=== PATIENT | female | born 1950 | race Caucasian/White ===

== ENCOUNTER → 2018-02-04 10:24 | Outpatient (CLI) | payer MEDICARE, MEDICAID ==
[2018-02-04 11:36] LABS: CREATININE - SERUM 0.8 mg/dL (0.6-1.3)
== END | disposition home or self-care (01) ==
LOC: D.CT 02-02 10:30
PROVIDERS: Urology
DX: C64.9 Malignant neoplasm of unspecified kidney, except renal pelvis (principal)

== ENCOUNTER → 2018-02-10 09:33 | Outpatient (CLI) | payer MEDICARE, MEDICAID | END | disposition home or self-care (01) | LOC: D.NM 09:33 | DX: C64.9 Malignant neoplasm of unspecified kidney, except renal pelvis (principal) ==

== ENCOUNTER 2018-04-13 08:41 | Outpatient (CLI) | payer MEDICARE, MEDICAID ==
[~2018-04-13] VITALS: Ht 162.6 cm; Wt 75.0 kg
[2018-04-13 09:17] LABS: CALC OSMOLALITY 282 mosm/kg (275-300); CALCIUM 8.9 mg/dL (8.5-10.1); CARBON DIOXIDE 34.4 mmol/L (21.0-32.0); CHLORIDE - SERUM 102 mmol/L (98-107); CREATININE - SERUM 0.8 mg/dL (0.6-1.3); GLUCOSE 100 mg/dL (74-106); POTASSIUM - SERUM 4.6 mmol/L (3.5-5.1); SODIUM 141 mmol/L (136-145); UREA NITROGEN 17 mg/dL (7-18); eGFR NON AFRICAN AMERICAN 76 mL/min (90-120)
[2018-04-13 09:26] LABS: APTT 28.5 SECONDS (22.8-39.4); INR 1.06 (0.85-1.17); PROTIME 13.4 SECONDS (11.6-15.0)
[2018-04-13] MEDS ORDERED: MULTI-DAY VITAM1 TAB PO (09:42)
[2018-04-13] MEDS ORDERED: BACLOFEN10 MG PO (09:42)
[2018-04-13] MEDS ORDERED: COZAAR25 MG PO (09:43)
[2018-04-13] MEDS ORDERED: HEALTHYLAX17 GM PO (09:43)
[2018-04-13] MEDS ORDERED: CYMBALTA20 MG PO (09:43)
[2018-04-13] MEDS ORDERED: TROSPIUM CHLORI20 MG PO (09:44)
[2018-04-13] MEDS ORDERED: DETROL LA4 MG PO (09:44)
[2018-04-13 09:50] LABS: BASOPHILS 0.1 % (0-2); EOSINOPHILS 1.6 % (0-7); HEMATOCRIT 43.7 % (36.0-48.0); HEMOGLOBIN 13.9 g/dL (12-16); IMMATURE GRANULOCYTES 0.3 % (0-5); LYMPHOCYTES 22.5 % (15-50); MCHC 31.8 g/dL (31.0-37.0); MCV 97.3 fL (80.0-100.0); MEAN PLATELET VOLUME 10.4 fL (7.4-10.4); MONOCYTES 4.9 % (2-11); NEUTROPHILS 70.6 % (40-80); PLATELET COUNT 252 10x3/uL (130-400); RBC 4.49 10x6/uL (4.00-5.40); RDW 13.2 % (11.5-14.5)
[2018-04-13 10:25] VITALS: Ht 162.6 cm; Wt 75.0 kg
== END 2018-04-13 14:00 | disposition home or self-care (01) ==
LOC: D.SP 08:41 → D.RAD 09:00 → D.SP 11:00
PROVIDERS: Specialist
DX: N28.89 Other specified disorders of kidney and ureter (principal); Z53.8 Procedure and treatment not carried out for other reasons; Z01.812 Encounter for preprocedural laboratory examination

== ENCOUNTER 2018-04-16 09:37 | Outpatient (CLI) | payer MEDICARE, MEDICAID ==
[~2018-04-16] VITALS: Ht 162.6 cm; Wt 75.0 kg
[~2018-04-16 09:37] MED LIST: BACLOFEN10 MG PO; COZAAR25 MG PO; CYMBALTA20 MG PO; DETROL LA4 MG PO; HEALTHYLAX17 GM PO; MULTI-DAY VITAM1 TAB PO; TROSPIUM CHLORI20 MG PO
[2018-04-16 10:21] LABS: BASOPHILS 0.3 % (0-2); EOSINOPHILS 2.6 % (0-7); HEMATOCRIT 43.2 % (36.0-48.0); HEMOGLOBIN 13.8 g/dL (12-16); IMMATURE GRANULOCYTES 0.3 % (0-5); LYMPHOCYTES 26.1 % (15-50); MCH 30.9 pg (26.0-34.0); MCHC 31.9 g/dL (31.0-37.0); MCV 96.6 fL (80.0-100.0); MEAN PLATELET VOLUME 10.2 fL (7.4-10.4); MONOCYTES 5.9 % (2-11); NEUTROPHILS 64.8 % (40-80); PLATELET COUNT 222 10x3/uL (130-400); RBC 4.47 10x6/uL (4.00-5.40); RDW 13.1 % (11.5-14.5)
[2018-04-16 10:30] LABS: CALC OSMOLALITY 278 mosm/kg (275-300); CARBON DIOXIDE 33.8 mmol/L (21.0-32.0); CHLORIDE - SERUM 103 mmol/L (98-107); CREATININE - SERUM 0.7 mg/dL (0.6-1.3); GLUCOSE 100 mg/dL (74-106); POTASSIUM - SERUM 4.8 mmol/L (3.5-5.1); SODIUM 139 mmol/L (136-145); UREA NITROGEN 14 mg/dL (7-18); eGFR NON AFRICAN AMERICAN 89 mL/min (90-120)
[2018-04-16 10:54] VITALS: Ht 162.6 cm; Wt 75.0 kg
[2018-04-16 11:08] LABS: APTT 27.8 SECONDS (22.8-39.4); PROTIME 12.8 SECONDS (11.6-15.0)
== END 2018-04-16 18:00 | disposition home or self-care (01) ==
LOC: D.SP 09:37 → D.RAD 12:00 → D.SP 13:00
PROVIDERS: Specialist
DX: N28.89 Other specified disorders of kidney and ureter (principal); Z01.812 Encounter for preprocedural laboratory examination

== ENCOUNTER → 2018-05-07 16:39 | Outpatient (CLI) | payer MEDICARE, MEDICAID ==
[2018-04-16 10:54] VITALS: BMI 28.4
== END | disposition home or self-care (01) ==
LOC: D.LABREF 16:39
DX: N39.0 Urinary tract infection, site not specified (principal); R31.9 Hematuria, unspecified

== ENCOUNTER 2018-06-11 18:26 | Inpatient (IN) | payer MEDICARE, MEDICAID ==
[~2018-06-11] VITALS: Ht 162.6 cm; Wt 73.1 kg
--- NOTE | ~2018-06-11 | MORECARE ---
CASE MANAGEMENT DISCHARGE SUMMARY PATIENT: DIEGO ESCOBAR UNIT: [id number] ADM DATE: 06/11/18 AGE: 68 : 51 SEX: F ROOM/BED: D.2301 AUTHOR: BALBIR GREWAL PHYSICIAN: REFERRING PHYSICIAN: MARIZOL RILEY MD DATE OF SERVICE: 06/13/18 Discharge Plan Patient Name: DIEGO ESCOBAR Facility: [facility]:[place] : 1950 Planned Disposition: Anticipated Discharge Date: Discharge Date: Expected LOS: Initial Reviewer: [email or web address] Initial Review Date: 06/13/2018 Generated: 06/13/18 11:54 am Comments DCP- Discharge Planning Updated by [email or web address]: Akilah Garcia on 06/13/18 9:[address] Patient Name: DIEGO ESCOBAR Admission Status: ER Accout number: [id number] Admission Date: 06-11-2018 : 1950 Admission Diagnosis: Attending: MARIZOL RILEY Current LOS: 2 Anticipated DC Date: Planned Disposition: Primary Insurance: [facility] MEDICARE SOLUTIONS Discharge Planning Comments: CM MET WITH PATIENT TODAYOVER THE PHONE. SHE IS IN AN ISOLATION ROOM DUE TO TB. SHE STATES SHE LIVES AT HOME ALONE BUT USES HOME HEALTH AND HAS NEIGHBORS AND FAMILY THAT HELP HER. STATES SHE THIN[facility] IS [facility] AND GAVE THE PHONE NUMBER OF [phone]. STATES HER PLAN IS TO BE DC'D TO HOME TODAY OR TOMORROW. CM WILL FOLLOW AND ASSIST NEEDED WITH DC PLANNING/ NEEDS. Senior Advisory: Akilah Garcia DCPIA - Discharge Planning Initial Assessment Updated by [email or web address]: Akilah Garcia on 06/13/18 10:28 am * Is the patient Alert and Oriented? Yes * PCP FARO * Preadmission Environment Home Alone * ADLs Partial Dependent * Partial ADLs (Assistance needed) Bathing * Equipment Wheelchair * Community resources currently utilized Home Health * Please name any agencies selected above. [facility] * Can the patient safely return to the preadmission environment? Yes * Has this patient been hospitalized within the prior 30 days at any hospital? No Last DP export: 06/13/18 9:30 Patient Name: DIEGO ESCOBAR Page 11382 at 1054 All edits/amendments must be made on the electronic document DICTATION DATE: 06/13/181053 PROPERTY ECONOMIST: NERI 06/13/18 105 RPT#: [id number] DC DATE: STATUS: ADM IN [facility] [address] [place] [address] END OF REPORT
--- NOTE | ~2018-06-11 | MORECARE ---
CASE MANAGEMENT DISCHARGE SUMMARY PATIENT: DIEGO ESCOBAR UNIT: [id number] ADM DATE: 06/11/18 AGE: 68 : 51 SEX: F ROOM/BED: D.2301 AUTHOR: BALBIR GREWAL PHYSICIAN: REFERRING PHYSICIAN: MARIZOL RILEY MD DATE OF SERVICE: 06/13/18 Discharge Plan Patient Name: DIEGO ESCOBAR [facility] [facility] 1950 Planned Disposition: Anticipated Discharge Date: Discharge Date: Expected LOS: Initial Reviewer: [email or web address] Initial Review Date: 06/13/2018 Generated: 06/13/18 11:17 am Patient Name: DIEGO ESCOBAR Page 77692 at 1017 All edits/amendments must be made on the electronic document DICTATION DATE: 06/13/18 1016 SALARY AND WAGE ADMINISTRATOR: NERI 06/13/18 1016 RPT#: [id number] DC DATE: STATUS: ADM IN [facility] [address] [place] [address] END OF REPORT
--- NOTE | ~2018-06-11 | MORECARE ---
CASE MANAGEMENT DISCHARGE SUMMARY PATIENT: DIEGO ESCOBAR UNIT: [id number] ADM DATE: 06/11/18 AGE: 68 : 51 SEX: F ROOM/BED: D.2301 AUTHOR: BALBIR GREWAL PHYSICIAN: REFERRING PHYSICIAN: MARIZOL RILEY MD DATE OF SERVICE: 06/13/18 Discharge Plan Patient Name: DIEGO ESCOBAR [facility] : 1950 Planned Disposition: Anticipated Discharge Date: Discharge Date: Expected LOS: Initial Reviewer: [email or web address] Initial Review Date: 06/13/2018 Generated: 06/13/18 11:30 am DCPIA - Discharge Planning Initial Assessment Updated by [email or web address]: Akilah Garcia on 06/13/18 10:28 am * Is the patient Alert and Oriented? Yes * PCP FARO * Preadmission Environment Home Alone * ADLs Partial Dependent * Partial ADLs (Assistance needed) Bathing * Equipment Wheelchair * Community resources currently utilized Home Health * Please name any agencies selected above. [facility] * Can the patient safely return to the preadmission environment? Yes * Has this patient been hospitalized within the prior 30 days at any hospital? No Last DP export: 06/13/18 9:17 Patient Name: DIEGO ESCOBAR Page 06636 at 1030 All edits/amendments must be made on the electronic document DICTATION DATE: 06/13/18 1029 CAKE PUNCHER: NERI 06/13/18 1029 RPT#: [id number] DC DATE: STATUS: ADM IN [facility] [address] [place] [address] END OF REPORT
--- NOTE | ~2018-06-11 | HEMODYNAMI ---
PATIENT:DIEGO ESCOBAR MEDICAL RECORD: [id number] : 52 LOCATION:D.CAT ADMISSION DATE: 06/11/18 Generatedon:06/11/201820:21 Patient name: DIEGO ESCOBAR Patient #: [id number] SSN: : 1950 Date of study: 06/11/2018 Page: Of Hemodynamic Procedure Report Patient Data Patient Demographics Procedure consent was obtained First Name: DIEGO Gender: Female Last Name: LUZ : 1950 Middle Initial: J Age: 68 year(s) Patient #: [id number] Race: Unknown Additional ID: [id number] Contact details [address]: [address] [place] [address] [place] [address] State: [place] City: [place] Zip code: [address] Admission Admission Data Admission Date: 06/11/2018 Admission Time: 18:26 Admit Source: Emergency department Procedure Procedure Types Cath Procedure Diagnostic Procedure LHC LHC w/Coronaries PCI Procedure Coronary Stent Coronary Stent Additional AMI/SVG/FLUX MIXER PTCA or Stent AMI-BMS/VALERIE Initial Procedure Description Procedure Date Procedure Date: 06/11/2018 Procedure Start Time: 19:45 Procedure End Time: 20:20 Procedure Staff Name Function Jose Irvin MD Performing Physician Joe Krause RT Monitor Ankit Dean RN Nurse Chica Garner RT Scrub Procedure Data Cath Procedure Fluoroscopy Diagnostic fluoroscopy Total fluoroscopy Time: 8.1 time: 8.1 min min Diagnostic fluoroscopy Total fluoroscopy dose: dose: 1534 mGy 1534 mGy Contrast Material Contrast Material Type Amount (ml) Isovue 300 156 Entry Location Entry Primary Successful Side Size Upsize Upsize Entry Closure Succes sful Closure Location (Fr) 1 (Fr) 2 (Fr) Remarks Device Remarks Femoral Right 6 Fr Exoseal artery Short Estimated blood loss: 10 ml Diagnostic catheters Device Type Used For End Catheter Placement MULTIPACK JL 4.0 5Fr Procedure catheter MULTIPACK 3DRC 5Fr Procedure catheter MULTIPACK Pigtail 5 Fr Procedure catheter Procedure Complications No complications Procedure Medications Medication Administration Route Dosage Oxygen etCO2 Nasal cannula 2 l/min 0.9% NaCl I.V. 100 ml/hr Heparin Flush Bag added to field 2 bags (1000units/500ml NS) Fentanyl I.V. 50 mcg Versed I.V. 1 mg Heparin Bolus I.V. 3000 units Versed I.V. 1 mg Fentanyl I.V. 50 mcg Hemodynamics Rest Heart Rate: 98 (bpm) Pressure Samples Time Site Value (mmHg) Purpose Heart Use Rate(bpm) 19:51 LV 99/-2,17 EDP 104 19:52 AO 93/57(72) Pullback 97 19:52 LV 93/19,23 Pullback 97 20:01 AO 92/60(75) Snapshot 91 Gradients Valve Time Site 1 Site 2 Mean SEP/DFP Peak To Heart Use (mmHg) (sec/min) Peak Rate (mmHg) (bpm) Aortic 19:52 LV AO 1 6 0 97 93/19,23 93/57(72) Calculations Valve P-P Mean Valve Index Valve Source Name Gradient Area Flow (cm2) Aortic 0 1 0 1 Snapshots Pre Cath Intra NCS Post Cath Vital Signs Time Heart Resp SPO2 etCO2 NIBP Rhythm Pain Sedation Rate (ipm) (%) (mmHg) (mmHg) Status Level (bpm) 19:40:51 83 16 100 0 101/62(83) NSR 0 (11) 10(A) , No pain 19:44:56 79 16 99 0 97/66(77) NSR 0 (11) 10(A) , No pain 19:49:08 100 24 100 0 103/64(83) NSR 0 (11) 9(A) , No pain 19:53:14 103 23 100 0 97/65(80) NSR 0 (11) 9(A) , No pain 19:57:18 100 15 100 0 102/65(88) NSR 0 (11) 9(A) , No pain 20:01:24 96 22 100 0 103/68(83) NSR 0 (11) 9(A) , No pain 20:05:27 96 21 100 0 104/69(89) NSR 0 (11) 9(A) , No pain 20:09:33 99 13 100 0 103/65(86) NSR 0 (11) 9(A) , No pain 20:13:41 92 24 100 0 103/58(76) NSR 0 (11) 9(A) , No pain 20:17:47 93 23 100 0 98/65(78) NSR 0 (11) 9(A) , No pain Medications Time Medication Route Dose Verified Delivered Reason Notes Effe ctiveness by by 19:40:40 Oxygen etCO2 2 Jose Ankit used for Nasal l/min Albaro Dean RN procedure cannula MD 19:40:49 0.9% NaCl I.V. 100 Jose Ankit Per ml/hr Albaro Dean RN physician 19:41:01 Heparin Flush added 2 Jose Ankit used for Bag to bags Albaro Dean RN procedure (1000units/500ml field NS) 19:45:15 Fentanyl I.V. 50 Jose Ankit for mcg Albaro Dean RN sedation 19:45:21 Versed I.V. 1 mg Jose Ankit for Albaro Dean RN sedation 19:58:37 Heparin Bolus I.V. 3000 Jose Ankit Per units Albaro Dean RN physician 20:01:29 Fentanyl I.V. 50 Jose Ankit for mcg Albaro Dean RN sedation 20:08:05 Versed I.V. 1 mg Jose Ankit for Albaro Dean RN sedation Procedure Log Time Note 19:15:19 Ankit Dean RN sent for patient. Start room use. 19:17:31 Diagnostic Cath status Emergency 19:17:33 Time tracking: Call back (After hours or weekends) 19:17:38 Plan of Care:Hemodynamics will remain stable., Cardiac rhythm will remain stable., Comfort level will be maintained., Respiratory function will remain adequate., Patient/ family verbilizes understanding of procedure., Procedure tolerated without complication., Recovers from procedure without complications.. 19:17:42 Admit Source: Emergency department 19:34:15 Use device set Radial Dx or PCI 19:34:18 Use device set NORRED PCI 19:34:30 Patient received from ED to CCL 1 Alert and oriented. Tansferred to table in Supine position. 19:34:32 Warm blankets applied, and shahriar hugger turned on for patient comfort. 19:34:32 Correct patient and procedure confirmed by team. 19:34:34 Signed procedure consent form obtained from patient. 19:34:35 ECG and BP/O2 sat monitors applied to patient. 19:39:47 Vital chart was started 19:40:40 Oxygen 2 l/min etCO2 Nasal cannula was administered by Ankit Dean RN; used for procedure; 19:40:49 0.9% NaCl 100 ml/hr I.V. was administered by Ankit Dean RN; Per physician; 19:41:01 Heparin Flush Bag (1000units/500ml NS) 2 bags added to field was administered by Ankit Dean RN; used for procedure; 19:41:28 Rhythm: sinus rhythm 19:41:29 Full Disclosure recording started 19:41:35 H&P Date Dictated: 06/11/2018 Emergent; H&P N/A. 19:41:37 Pre-procedure instructions explained to patient. 19:41:37 Pre-op teaching completed and patient verbalized understanding. 19:41:39 Family in waiting room. 19:41:40 Patient NPO since Midnight. 19:41:42 Is the patient allergic to Iodine/contrast media? No. 19:41:44 Is patient on blood thinner?Yes 19:41:47 ACC The patient was administered the following blood thiners within the last 24 hours: ACCBrilinta 19:41:52 Patient diabetic? No. 19:41:55 Previous problem with sedation/anesthesia? No ? 19:41:56 Snore? Yes 19:41:58 Sleep apnea? No 19:41:59 Deviated septum? No 19:42:00 Opens mouth fully? Yes 19:42:01 Sticks out tongue? Yes 19:42:07 Airway obstruction? Yes COPD 19:42:11 Dentures? No ? 19:42:14 Pre procedure: right dorsailis pedis pulse 1+ Palpable, but thready & weak; easily obliterated 19:42:17 Patient pain scale 0/10 ?. 19:42:22 IV patent on arrival in left forearm with 0.9% NaCl at [facility]. 19:42:24 Lab results completed and on chart. 19:42:28 Right groin area was prepped with chlora-prep and draped in sterile fashion 19:42:30 Alarms reviewed by R. N. 19:42:30 Sharps counted by scrub and verified by R.N. 19:42:31 --------ALL STOP TIME OUT------ 19:42:32 Final Timeout: patient, procedure, and site verified with staff and physician. All members of the team are in agreement. 19:42:34 Right groin site verified by team. 19:42:37 Physical assessment completed. ASA score P 2 - A patient with mild systemic disease as per Jose Irvin MD. 19:42:39 Sedation plan: IV Moderate Sedation Medication:Versed, Fentanyl 19:45:06 Procedure started. 19:45:09 Local anesthetic to right femoral artery with Lidocaine 2% by Jose Irvin MD.INITIAL ACCESS ONLY 19:45:12 Bag Decanter (2002) opened to sterile field. 19:45:13 ACIST Syringe (62749) opened to sterile field. 19:45:13 Medline Cath Pack ([id number]) opened to sterile field. 19:45:15 Fentanyl 50 mcg I.V. was administered by Ankit Dean RN; for sedation; 19:45:15 ACIST Hand Control (38379) opened to sterile field. 19:45:16 ACIST Manifold (33721) opened to sterile field. 19:45:17 Tegaderm 4 x 4 (1626W) opened to sterile field. 19:45:18 DIAGNOSTIC WIRE .035 260cm J wire (995569) opened to sterile field. 19:45:21 Versed 1 mg I.V. was administered by Ankit Dean RN; for sedation; 19:45:26 SHEATH Prelude 6Fr 0.035 (ULH-0T-54-035) opened to sterile field. 19:45:43 Access obtained with 4Fr micropunture. 19:45:51 A 6 Fr Short sheath was inserted into the Right Femoral artery 19:46:24 MICROPUNCTURE 4FR Cook (N94548) opened to sterile field. 19:46:28 COPILOT Valve Control (3288967) opened to sterile field. 19:46:28 INFLATOR Merit BasixCompak (SL5590) opened to sterile field. 19:46:38 Use device set Multipack Set 19:46:39 DIAGNOSTIC Multipack 5Fr catheter set (TS9281) opened to sterile field. 19:46:47 A MULTIPACK JL 4.0 5Fr catheter was advanced over the wire and used for Procedure. 19:46:57 BMW 190cm [place] 2 J wire ([id number]) opened to sterile field. 19:47:23 LCA angiography performed. 19:48:12 Catheter exchanged over wire. 19:48:21 A MULTIPACK 3DRC 5Fr catheter was advanced over the wire and used for Procedure. 19:49:57 GUIDE 6FR XBLAD 3.5 catheter ([id number]) opened to sterile field. 19:50:18 RCA angiography performed. 19:50:21 Catheter exchanged over wire. 19:51:06 Baseline sample Acquired. 19:51:44 A MULTIPACK Pigtail 5 Fr catheter was advanced over the wire and used for Procedure. 19:52:17 LV angiography performed. 19:52:19 LV gram done using FERRERA 19:52:25 EF : 25 % 19:52:27 LV hemodynamics recorded. 19:52:30 Injector settings: Ml/sec: 12, Volume: 8, 19:52:33 Catheter exchanged over wire. 19:52:46 6 Fr XBLAD 3.5 guide catheter was inserted over the wire 19:54:00 BMW wire advanced. 19:54:39 Wire advanced across lesion. 19:56:47 Inflate balloon Inflation number: 1 A EUPHORA 2.5 x 20 Balloon ([id number]) was prepped and advanced across the Mid CX, then inflated to 12 HERMAN for 0:10 (min:sec). 19:57:34 Balloon removed over the wire. 19:58:37 Heparin Bolus 3000 units I.V. was administered by Ankit Dean RN; Per physician; 19:59:32 Place stent Inflation Number: 2 A JANETT RX 3.0 x 26 stent ([id number]) was prepped and advanced across the Mid CX. The stent was deployed at 17 HERMAN for 0:10 (min:sec). 20:01:07 Stent catheter was removed intact over wire. 20:01:29 Fentanyl 50 mcg I.V. was administered by Ankit Dean RN; for sedation; 20:04:02 Inflate balloon Inflation number: 3 A EUPHORA 3.5 x 15 Balloon ([id number]) was prepped and advanced across the Mid CX, then inflated to 14 HERMAN for 0:10 (min:sec). 20:04:17 Balloon removed over the wire. 20:05:00 Wire redirected to LAD. 20:08:05 Versed 1 mg I.V. was administered by Ankit Dean RN; for sedation; 20:08:21 Place stent Inflation Number: 1 A JANETT RX 3.0 x 26 stent ([id number]) was prepped and advanced across the Mid LAD. The stent was deployed at 17 HERMAN for 0:10 (min:sec). 20:08:45 Stent catheter was removed intact over wire. 20:10:06 Wire removed. 20:10:08 Guide catheter removed. 20:10:28 GUIDE 6FR ART 3.5 catheter ([id number]) opened to sterile field. 20:10:43 6 Fr ART 3.5 guide catheter was inserted over the wire 20:12:07 BMW wire advanced. 20:14:40 Unable to cross lesion in RCA. 20:14:45 Wire removed. 20:14:45 Guide catheter removed. 20:14:48 EXOSEAL 6Fr (EX600) opened to sterile field. 20:15:09 Sheath removed intact; hemostasis achieved with Exoseal to the Right Femoral artery. 20:15:21 Procedure ended.(Physican Out) 20:16:15 Fluoroscopy time 08.10 minutes. 20:16:19 Fluoroscopy dose: 1534 mGy 20:16:19 Flurop Dose total: 1534 20:16:24 Contrast amount:Isovue 300 156ml. 20:16:26 Sharps counted by scrub and verified by R.N. 20:16:29 Insertion/operative site no bleeding no hematoma. 20:16:36 Post-op/insertion site Right Femoral artery dressed using a 4 x 4 and Tegaderm. 20:16:37 Post Procedure Pulses reassessed and unchanged 20:16:40 Post-procedure physical assessment completed. ASA score P 2 - A patient with mild systemic disease as per Jose Irvin MD. 20:16:43 Post procedure rhythm: unchanged. 20:16:47 Estimated blood loss: 10 ml 20:16:51 Post procedure instruction explained to patient.Patient verbalizes understanding. 20:16:52 Patient needs reinforcement of post procedure teaching. 20:17:16 Procedure type changed to Cath procedure, Diagnostic procedure, LHC, LHC w/Coronaries, PCI procedure, Coronary Stent, Coronary Stent Additional, AMI/SVG/FLUX MIXER PTCA or Stent, AMI-BMS/VALERIE Initial 20:17:21 Procedure Complication : No complications 20:17:53 Procedure and supply charges have been captured, reviewed, submitted and are correct. 20:20:25 Vital chart was stopped 20:20:26 See physician's report for complete and final results. 20:20:29 Report given to CVICU. 20:20:32 Patient transfered to CVICU with Bed. 20:20:35 Procedure ended. 20:20:35 Full Disclosure recording stopped 20:20:45 End room use (Document Last) Intervention Summary Intervention Notes Time ActionType Lesion and Equipment Used Action# Pressure Duration Attributes 19:56:47 Inflate Mid CX EUPHORA 2.5 x 1 12 00:10 balloon 20 Balloon ([id number]) 19:59:32 Place stent Mid CX JANETT RX 3.0 x 2 17 00:10 26 stent ([id number]) 20:04:02 Inflate Mid CX EUPHORA 3.5 x 3 14 00:10 balloon 15 Balloon ([id number]) 20:08:21 Place stent Mid LAD JANETT RX 3.0 x 1 17 00:10 26 stent ([id number]) Device Usage Item Name Manufacture Quantity Catalog Number Hospital Part Current Minimal Lot# / Charge Number Stock Stock Serial# Code Bag Decanter Microtek 1 2001S 246707 78902 656063 5 (2001S) Medical Inc. ACIST Syringe Acist 1 88127 588885 768950 571196 20 (25219) Medical Systems Inc Medline Cath Medline 1 [id number] 852385 04411 961482 5 Pack ([id number]) ACIST Hand Acist 1 85474 323714 833175 752836 5 Control (22906) Medical Systems Inc ACIST Manifold Acist 1 81805 380676 415346 366611 5 (61219) Medical Systems Inc Tegaderm 4 x 4 3M 1 1626W 612340 255139 486109 5 (1626W) DIAGNOSTIC WIRE [facility] [place] 1 529888 147162 589998 629448 30 .035 260cm J wire (032065) SHEATH Prelude Merit 1 ODV-1Z-29-35 588614 3279386 662752 5 6Fr 0.035 Medical (TEP-8H-97-035) MICROPUNCTURE [facility] 1 A85594 310012 894031 022435 5 4FR Cook (D67317) COPILOT Valve Pena 1 2402373 587745 198766 385349 5 Control Vascular (8115690) INFLATOR Merit Merit 1 DK1370 200402 751195 611150 15 [facility] (QR7504) DIAGNOSTIC Cardinal 1 CZ6535 344810 47047 059722 30 Multipack 5Fr Health catheter set (VS5780) MULTIPACK JL Cardinal 1 391407 5 4.0 5Fr Health catheter BMW 190cm Pena 1 [id number] 853174 35865 336042 5 [place] 2 J Vascular wire (7636469L) MULTIPACK 3DRC Cardinal 1 927756 5 5Fr catheter Health GUIDE 6FR XBLAD Cardinal 1 90024206 186335 112226 513462 10 3.5 catheter Health (63387201) MULTIPACK Cardinal 1 068679 5 Pigtail 5 Fr Health catheter EUPHORA 2.5 x Medtronic 1 [id number] 016738 641166 096809 5 [id number] 20 Balloon (RFI1783M) JANETT RX 3.0 x Medtronic 2 [id number] 839450 6475917 589347 5 [id number] 26 stent [id number] ([id number]) EUPHORA 3.5 x Medtronic 1 [id number] 483472 802993 240446 5 [id number] 15 Balloon ([id number]) GUIDE 6FR ART [place] 1 [id number] 324998 324029 114072 0 3.5 catheter Scientific ([id number]) EXOSEAL 6Fr Cardinal 1 EX600 766083 864027 097252 10 (EX600) Health Signature Audit [place] Stage Time Signature Unsigned Intra-Procedure 06/11/2018 Joe rKause 8:21:24 PM RT(R) Signatures Monitor : Joe Karuse RT Signature : Date : Time : [address] [place] [address]
--- NOTE | ~2018-06-11 | MORECARE ---
CASE MANAGEMENT DISCHARGE SUMMARY PATIENT: DIEGO ESCOBAR UNIT: [id number] ADM DATE: 06/11/18 AGE: 68 : 52 SEX: F ROOM/BED: D.2301 AUTHOR: BALBIR GREWAL PHYSICIAN: REFERRING PHYSICIAN: MARIZOL RILEY MD DATE OF SERVICE: 06/14/18 Discharge Plan Patient Name: DIEGO ESCOBAR Facility: [facility]:[place] : 1950 Planned Disposition: Home Anticipated Discharge Date: 06/13/18 Discharge Date: 06/13/2018 Expected LOS: 2 Initial Reviewer: [email or web address] Initial Review Date: 06/13/2018 Generated: 06/14/18 5:37 pm Comments DCP- Discharge Planning Updated by [email or web address]: Akilah Garcia on 06/13/18 11:[address] Patient Name: DIEGO ESCOBAR Encounter No: [id number] : 1950 Primary Insurance: [facility] MEDIC[facility] SOLUTIONS Anticipated DC Date: 06-13-2018 Planned Disposition: Home External Planned Provider: : DCP follow-up note: Patient in agreement with discharge plan. STATES AN AID COMES OUT TO HELP HER, COMPANY IS "ALL ABOUT YOU" AT [phone]. CM ATTEMPTED TO CONTACT THE AGENCY BUT ONLY GOT VOICE MAIL. PATIENT TO CALL THEM TOMORROW WHEN SHE IS HOME. No changes to plan. Case management will follow and assist as needed. Akilah Radha DCP- Discharge Planning Updated by [email or web address]: Akilah Garcia on 06/13/18 9:[address] Patient Name: DIEGO ESCOBAR Admission Status: ER Accout number: [id number] Admission Date: 06-11-2018 : 1950 Admission Diagnosis: Attending: MARIZOL RILEY Current LOS: 2 Anticipated DC Date: Planned Disposition: Primary Insurance: [facility] MEDICARE SOLUTIONS Discharge Planning Comments: CM MET WITH PATIENT TODAYOVER THE PHONE. SHE IS IN AN ISOLATION ROOM DUE TO TB. SHE STATES SHE LIVES AT HOME ALONE BUT USES HOME HEALTH AND HAS NEIGHBORS AND FAMILY THAT HELP HER. STATES SHE THINKS HER [facility] IS [facility] AND GAVE THE PHONE NUMBER OF [phone]. STATES HER PLAN IS TO BE DC'D TO HOME TODAY OR TOMORROW. CM WILL FOLLOW AND ASSIST NEEDED WITH DC PLANNING/ NEEDS. Pneumatic Systems Operator: Akilah Garcia DCPIA - Discharge Planning Initial Assessment Updated by [email or web address]: Akilah Garcia on 06/13/18 10:28 am * Is the patient Alert and Oriented? Yes * PCP FARO * Preadmission Environment Home Alone * ADLs Partial Dependent * Partial ADLs (Assistance needed) Bathing * Equipment Wheelchair * Community resources currently utilized Home Health * Please name any agencies selected above. [facility] * Can the patient safely return to the preadmission environment? Yes * Has this patient been hospitalized within the prior 30 days at any hospital? No Last DP export: 06/13/18 11:40 Patient Name: DIEGO ESCOBAR Page 08030 at 1637 All edits/amendments must be made on the electronic document DICTATION DATE: 06/14/181636 KENO ATTENDANT: NERI 06/14/187 RPT#: [id number] DC DATE:06/13/18 STATUS: DIS IN [facility] [address] [place] [address] END OF REPORT
--- NOTE | ~2018-06-11 | MORECARE ---
CASE MANAGEMENT DISCHARGE SUMMARY PATIENT: DIGEO ESCOBAR UNIT: [id number] ADM DATE: 06/11/18 AGE: 68 : 51 SEX: F ROOM/BED: D.2301 AUTHOR: BALBIR GREWAL PHYSICIAN: REFERRING PHYSICIAN: MARIZOL RILEY MD DATE OF SERVICE: 06/13/18 Discharge Plan Patient Name: DIEGO ESCOBAR Facility: [facility]:[place] : 1950 Planned Disposition: Home Anticipated Discharge Date: 06/13/18 Discharge Date: Expected LOS: 2 Initial Reviewer: [email or web address] Initial Review Date: 06/13/2018 Generated: 06/13/18 1:32 pm Comments DCP- Discharge Planning Updated by [id number]: Akilah Radha on 06/13/18 11:[address] Patient Name: DIEGO ESCOBAR Encounter No: [id number] : 1950 Primary Insurance: [employer] Anticipated DC Date: 06-13-2018 Planned Disposition: Home External Planned Provider: : DCP follow-up note: Patient in agreement with discharge plan. STATES AN AID COMES OUT TO HELP HER, COMPANY IS "ALL ABOUT YOU" AT [phone]. CM ATTEMPTED TO CONTACT THE AGENCY BUT ONLY GOT VOICE MAIL. PATIENT TO CALL THEM TOMORROW WHEN SHE IS HOME. No changes to plan. Case management will follow and assist as needed. Akilah Radha DCP- Discharge Planning Updated by [email or web address]: Akilah Radha on 06/13/18 9:[address] Patient Name: DIEGO ESCOBAR Admission Status: ER Accout number: [id number] Admission Date: 06-11-2018 : 1950 Admission Diagnosis: Attending: MARIZOL RILEY Current LOS: 2 Anticipated DC Date: Planned Disposition: Primary Insurance: [employer] MEDICARE SOLUTIONS Discharge Planning Comments: CM MET WITH PATIENT TODAYOVER THE PHONE. SHE IS IN AN ISOLATION ROOM DUE TO TB. SHE STATES SHE LIVES AT HOME ALONE BUT USES HOME HEALTH AND HAS NEIGHBORS AND FAMILY THAT HELP HER. STATES SHE THINKS HER HOME HEALTH IS [facility] AND GAVE THE PHONE NUMBER OF [phone]. STATES HER PLAN IS TO BE DC'D TO HOME TODAY OR TOMORROW. CM WILL FOLLOW AND ASSIST NEEDED WITH DC PLANNING/ NEEDS. Winemaker: Akilah Garcia DCPIA - Discharge Planning Initial Assessment Updated by [email or web address]: Akilah Garcia on 06/13/18 10:28 am * Is the patient Alert and Oriented? Yes * PCP [facility] * Preadmission Environment Home Alone * ADLs Partial Dependent * Partial ADLs (Assistance needed) Bathing * Equipment Wheelchair * Community resources currently utilized Home Health * Please name any agencies selected above. [facility] * Can the patient safely return to the preadmission environment? Yes * Has this patient been hospitalized within the prior 30 days at any hospital? No Last DP export: 06/13/18 9:54 Patient Name: DIEGO ESCOBAR Page 30442 at 1232 All edits/amendments must be made on the electronic document DICTATION DATE: 06/13/18 1232 RAIL CAR OPERATOR: NERI 06/13/18 1232 RPT#: [id number] DC DATE: STATUS: ADM IN [facility] [address] [place] [address] END OF REPORT
--- NOTE | ~2018-06-11 | OP ---
PATIENT NAME: DIEGO ESCOBAR MEDICAL RECORD: [id number] :[birth year] LOCATION:[facility] D.2301 ADMISSION DATE:06/11/18 SURGEON: MARIZOL RILEY MD DATE OF OPERATION: 06/11/2018 PROCEDURE: Left heart catheterization, LV gram, coronary angiogram, PTCA of the circumflex with 100% occlusion, PTCA of the LAD with a 95% occlusion, intra-arterial stenting of the LAD and circumflex with drug-eluting stents. The patient was brought to cardiac catheterization lab in stable condition. However, she was having a STEMI at that time. She was mildly hypotensive and by definition met mild cardiogenic shock. The patient had a 6-Welsh sheath placed in the right common femoral artery using the modified Seldinger technique. The patient then had diagnostic angiography where we selectively engaged the left coronary artery, the right coronary artery and the LV cavity. We then exchanged our diagnostic catheters for interventional guiding catheters. We intubated the left main coronary artery and we were able to establish a distal wire position with the 0.014 inch wire into the circumflex distribution. We were then able to deliver a 2.5 balloon and deploy and reduced the 100% stenosis to approximately 40% to 50% residual stenosis. We were then able to advance a 3.0 x 23 drug-eluting stent into the circumflex. We were then able to advance and dilate the proximal segment with a 3.5 balloon. We reduced the 100% occlusion, status post angioplasty stenting and post-stenting balloon dilatation to 0% residual stenosis. No edge dissection or distal embolization and JOSEPH 3 flow established. We then turned our attention to the 90-95% stenosis in the mid LAD where we delivered a 3.0 x 26 stent to 17 atmospheres and we were able to reduce the 90-95% stenosis to 0% residual stenosis. No edge dissection or distal embolization and good flow characteristics afterwards. FINDINGS: 1. The left main has mild calcific plaquing. 2. The circumflex is 100% occluded in the mid portion. 3. The LAD has 90-95% occlusion in the midsegment. 4. The RCA is 100% occlusion with left to right collaterals, appears to be chronic. INTERVENTION: Successful angioplasty and stenting was successful in the circumflex and LAD distribution. HEMODYNAMICS: Left ventricular ejection fraction is 25%. There is basilar inferior dyskinesis and moderate lateral hypokinesis with a mild hypokinetic anterior septal motion. There is no significant mitral regurgitation. There is no gradient across the aortic valve. IMPRESSION: Severe multivessel coronary artery disease and the patient with severe chronic obstructive pulmonary disease. We decided to go forward with not only fixing the infarct related vessel of the circumflex, but to also fix the left anterior descending given there were some shock parameters in the patient's blood pressures. The patient did have an elevated end-diastolic pressure and we will need to continue to watch for return of shock parameters and possible hemodynamic support through the intensive care unit. Otherwise, we will continue Brilinta, atorvastatin, beta blockers as appropriate and may consider the initiation of Entresto while in the hospital. OPERATIVE REPORT [id number] DIEGO ESCOBAR J TRANSINT:[id number] Voice Confirmation ID: [id number] DOCUMENT ID: [id number] MARIZOL RILEY MD at 0934 CC: [id number] DICTATION DATE: 06/11/182020 REVENUE COORDINATOR: 06/11/182238 ADM IN [facility] [address] [place] [address]
--- NOTE | ~2018-06-11 | MORECARE ---
CASE MANAGEMENT DISCHARGE SUMMARY PATIENT: DIEGO ESCOBAR UNIT: [id number] ADM DATE: 06/11/18 AGE: 68 : 51 SEX: F ROOM/BED: D.2301 AUTHOR: BALBIR GREWAL PHYSICIAN: REFERRING PHYSICIAN: MARIZOL RILEY MD DATE OF SERVICE: 06/13/18 Discharge Plan Patient Name: DIEGO ESCOBAR Facility: [facility]:[place] : 1950 Planned Disposition: Home Anticipated Discharge Date: 06/13/18 Discharge Date: Expected LOS: 2 Initial Reviewer: [id number] Initial Review Date: 06/13/2018 Generated: 06/13/18 1:40 pm Comments DCP- Discharge Planning Updated by [email or web address]: Akilah Radha on 06/13/18 11:[address] Patient Name: DIEGO ESCOBAR Encounter No: [id number] : 1950 Primary Insurance: [employer] Anticipated DC Date: 06-13-2018 Planned Disposition: Home External Planned Provider: : DCP follow-up note: Patient in agreement with discharge plan. STATES AN AID COMES OUT TO HELP HER, COMPANY IS "ALL ABOUT YOU" AT [phone]. CM ATTEMPTED TO CONTACT THE AGENCY BUT ONLY GOT VOICE MAIL. PATIENT TO CALL THEM TOMORROW WHEN SHE IS HOME. No changes to plan. Case management will follow and assist as needed. Akilah Radha DCP- Discharge Planning Updated by [email or web address]: Akilah Radha on 06/13/18 9:[address] Patient Name: DIEGO ESCOBAR Admission Status: ER Accout number: [id number] Admission Date: 06-11-2018 : 1950 Admission Diagnosis: Attending: MARIZOL RILEY Current LOS: 2 Anticipated DC Date: Planned Disposition: Primary Insurance: [employer] MEDIC[employer] SOLUTIONS Discharge Planning Comments: CM MET WITH PATIENT TODAYOVER THE PHONE. SHE IS IN AN ISOLATION ROOM DUE TO TB. SHE STATES SHE LIVES AT HOME ALONE BUT USES HOME HEALTH AND HAS NEIGHBORS AND FAMILY THAT HELP HER. STATES SHE THINKS HER [facility]ALTH IS [facility] AND GAVE THE PHONE NUMBER OF [phone]. STATES HER PLAN IS TO BE DC'D TO HOME TODAY OR TOMORROW. CM WILL FOLLOW AND ASSIST NEEDED WITH DC PLANNING/ NEEDS. Tile Mason: Akilah Garcia DCPIA - Discharge Planning Initial Assessment Updated by [email or web address]: Akilah Garcia on 06/13/18 10:28 am * Is the patient Alert and Oriented? Yes * PCP [facility] * Preadmission Environment Home Alone * ADLs Partial Dependent * Partial ADLs (Assistance needed) Bathing * Equipment Wheelchair * Community resources currently utilized Home Health * Please name any agencies selected above. [facility] * Can the patient safely return to the preadmission environment? Yes * Has this patient been hospitalized within the prior 30 days at any hospital? No Last DP export: 06/13/18 11:32 Patient Name: DIEGO ESCOBAR Page 19715 at 1240 All edits/amendments must be made on the electronic document DICTATION DATE: 06/13/18 1239 KIT PLANNER: NERI 06/13/18 1239 RPT#: [id number] DC DATE: STATUS: ADM IN [facility] [address] [place] [address] END OF REPORT
--- NOTE | ~2018-06-11 | EC ---
PATIENT:DIEGO ESCOBAR DATE OF SERVICE: 06/11/18 SEX: F MEDICAL RECORD: [id number] DATE OF : [birth year] LOCATION:[facility] D.230 AGE OF PATIENT: 68 ADMISSION DATE: 06/11/18 REFERRING PHYSICIAN: INTERPRETING PHYSICIAN: MARIZOL RILEY MD ECHOCARDIOGRAM REPORT ECHO CHARGES 4 ECHO COMPLETE Date: 06/12/18 CLINICAL DIAGNOSIS: STEMI ECHOCARDIOGRAPHIC MEASUREMENTS (adult normal given) AC root (d.<3.7cm) 3.0 cm LV Septum d (<1.2 cm> 1.3 cm Valve Excursion 1.5 cm LV Septum (systole) 1.5 cm Left Atria (s.<4.0cm> 3.9 cm LVPW d(<1.2cm) 0.7 cm RV (d.<2.3cm) 2.9 cm LVPW (sytole) 0.9 cm LV diastole(<5.6CM) 5.5 cm MV E-F(>70mm/sec) cm LV systole 4.6 cm LVOT Diameter 1.8 cm MV exc.(>10mm) cm Est.ejection fraction (50-75%) % DOPPLER: LVIT cm/sec A 66 cm/sec E 93 cm/sec LA cm/sec RVSP 36.4 mmHg LVOT 85 cm/sec AOP1/2T m/s Asc. Ao 107 cm/sec RVOT 70 cm/sec RA cm/sec PA 50 cm/sec AV Gradient Peak 4.5 mmHg AV Mean 3.4 mmHg AV Area 1.8 cm MV Gradient Peak 6.1 mmHg MV Mean 3.4 mmHg MV Area cm COMMENTS: Graphic Manager: Celio [facility] Carbide Tool Die Maker: Marilou Riley TAPE# PACS Pericardial Effusion N DATE OF SERVICE: PROCEDURE: Transthoracic echocardiogram. FINDINGS: 1. Difficult to visualize echo, but the overall ejection fraction appears to be normal in the left ventricle. Inflow characteristics are grossly normal. 2. The left atrium is normal. 3. The aortic valve is normal. 4. The mitral valve has mild mitral regurgitation. ECHOCARDIOGRAM REPORT [id number] DIEGO ESCOBAR 5. Tricuspid valve has mild tricuspid regurgitation. RVSP is 36.4 mmHg. 6. Right ventricle is normal. 7. Right atrium is normal. 8. The pulmonic valve is grossly normal. CONCLUSIONS: A normal echocardiogram for the patient's stated age. TRANSINT:[id number] Voice Confirmation ID: [id number] DOCUMENT ID: [id number] MARIZOL RILEY MD at 0916 CC: [id number] DICTATION DATE: 06/13/[address] JUDGE: 06/13/18 1054 DIS IN 06/13/18 [facility] [address] [place] [id number]
[2018-06-11 18:48] LABS: BASOPHILS 0.1 % (0-2); EOSINOPHILS 0 % (0-7); HEMATOCRIT 42.2 % (36.0-48.0); HEMOGLOBIN 13.8 g/dL (12-16); IMMATURE GRANULOCYTES 0.5 % (0-5); LYMPHOCYTES 8.2 % (15-50); MCH 31.1 pg (26.0-34.0); MCHC 32.7 g/dL (31.0-37.0); MEAN PLATELET VOLUME 10.5 fL (7.4-10.4); MONOCYTES 6.4 % (2-11); NEUTROPHILS 84.8 % (40-80); PLATELET COUNT 232 10x3/uL (130-400); RBC 4.44 10x6/uL (4.00-5.40); RDW 13.7 % (11.5-14.5); WBC 15.4 10x3/uL (4.8-10.8)
[2018-06-11 19:01] LABS: APTT 26.6 SECONDS (22.8-39.4); INR 1.11 (0.85-1.17); PROTIME 13.9 SECONDS (11.6-15.0)
[2018-06-11 19:06] LABS: ALBUMIN 3.5 g/dL (3.4-5.0); ALKALINE PHOSPHATASE 77 U/L (46-116); ALT (SGPT) 54 U/L (10-68); BILIRUBIN - TOTAL 1.26 mg/dL (0.2-1.3); CALC OSMOLALITY 287 mosm/kg (275-300); CALCIUM 9.8 mg/dL (8.5-10.1); CARBON DIOXIDE 32.8 mmol/L (21.0-32.0); CHLORIDE - SERUM 101 mmol/L (98-107); GLUCOSE 129 mg/dL (74-106); POTASSIUM - SERUM 4.2 mmol/L (3.5-5.1); PROTEIN - SERUM 7.9 g/dL (6.4-8.2); SODIUM 141 mmol/L (136-145); UREA NITROGEN 27 mg/dL (7-18); eGFR NON AFRICAN AMERICAN 58 mL/min (90-120)
[2018-06-11 19:22] LABS: CKMB 99.3 U/L (0.0-3.6); CREATINE KINASE 534 UL (21-215); MAGNESIUM - SERUM 1.7 mg/dL (1.8-2.4)
[2018-06-11 19:25] LABS: TROPONIN-I 29.943 ng/mL (0.000-0.060)
[2018-06-11 19:31] LABS: ANION GAP 13.1 mmol/L (8-16); CARBON DIOXIDE 31.1 mmol/L (21.0-32.0); POTASSIUM - SERUM 4.2 mmol/L (3.5-5.1)
[2018-06-11 20:36] VITALS: BP 106/63; BP 99/50
[2018-06-11 20:46] VITALS: BP 106/63; Ht 162.6 cm; Wt 73.1 kg
[2018-06-11] MEDS ORDERED: TROSPIUM CHLORI20 MG PO (20:49)
[2018-06-11 21:00] VITALS: BP 100/68
[2018-06-11 22:00] VITALS: BP 87/59
[2018-06-11 22:29] VITALS: BP 104/70
[2018-06-11 23:00] VITALS: BP 100/60
[2018-06-12] VITALS (15 sets, daily range): BP systolic 90–109; BP diastolic 56–87
[2018-06-12 03:51] LABS: BASOPHILS 0.1 % (0-2); EOSINOPHILS 0 % (0-7); HEMATOCRIT 37.4 % (36.0-48.0); IMMATURE GRANULOCYTES 0.3 % (0-5); LYMPHOCYTES 7.2 % (15-50); MCH 30.6 pg (26.0-34.0); MCHC 32.1 g/dL (31.0-37.0); MCV 95.4 fL (80.0-100.0); MEAN PLATELET VOLUME 11.2 fL (7.4-10.4); NEUTROPHILS 84.4 % (40-80); PLATELET COUNT 204 10x3/uL (130-400); RBC 3.92 10x6/uL (4.00-5.40); RDW 13.9 % (11.5-14.5); WBC 11.9 10x3/uL (4.8-10.8)
[2018-06-12 04:25] LABS: BILIRUBIN - TOTAL 1.58 mg/dL (0.2-1.3); CALCIUM 8.9 mg/dL (8.5-10.1); CARBON DIOXIDE 28.2 mmol/L (21.0-32.0); PROTEIN - SERUM 6.9 g/dL (6.4-8.2)
[2018-06-12 04:29] LABS: ANION GAP 14.3 mmol/L (8-16); POTASSIUM - SERUM 3.5 mmol/L (3.5-5.1); TROPONIN-I 59.152 ng/mL (0.000-0.060)
[2018-06-13 03:00] VITALS: BP 99/61
[2018-06-13 07:00] VITALS: BP 115/88
[2018-06-13 11:00] VITALS: BP 105/85
[2018-06-13] MEDS ORDERED: BRILINTA90 MG PO (11:52)
[2018-06-13] MEDS ORDERED: LIPITOR20 MG PO (11:52)
[2018-06-13] MEDS ORDERED: ENTRESTO 24 MG1 EACH PO (11:52)
[2018-06-13 14:00] VITALS: BP 111/88
== END 2018-06-13 14:30 | disposition home or self-care (01) | DRG 246 ==
LOC: D.CATH 18:26 → D.ER 18:26 → EDSTATUS 19:21 → D.CVICU 20:36 → D.CATH 20:37 → D.CVICU 22:39 → D.ICU 23:19
PROVIDERS: Family Medicine; Internal Medicine Cardiovascular Disease
PROC: B2151ZZ Fluoroscopy of Left Heart using Low Osmolar Contrast (ICD-10-PCS; 2018-06-11)
PROC: 4A023N7 Measurement of Cardiac Sampling and Pressure, Left Heart, Percutaneous Approach (ICD-10-PCS; 2018-06-11)
PROC: 027135Z Dilation of Coronary Artery, Two Arteries with Two Drug-eluting Intraluminal Devices, Percutaneous Approach (ICD-10-PCS; principal; 2018-06-11 19:45)
PROC: B2111ZZ Fluoroscopy of Multiple Coronary Arteries using Low Osmolar Contrast (ICD-10-PCS; 2018-06-11 19:45)
DX: I21.3 ST elevation (STEMI) myocardial infarction of unspecified site (principal); R57.0 Cardiogenic shock; A15.9 Respiratory tuberculosis unspecified; I50.30 Unspecified diastolic (congestive) heart failure; I25.10 Atherosclerotic heart disease of native coronary artery without angina pectoris; J44.9 Chronic obstructive pulmonary disease, unspecified; I10 Essential (primary) hypertension; K21.9 Gastro-esophageal reflux disease without esophagitis; R60.9 Edema, unspecified; R14.0 Abdominal distension (gaseous); I11.0 Hypertensive heart disease with heart failure

== ENCOUNTER → 2018-07-02 11:01 | Outpatient (CLI) | payer MEDICARE, MEDICAID ==
[2018-06-11 20:46] VITALS: BMI 28.5
[~2018-07-02 11:01] MED LIST changes: +BRILINTA90 MG PO; +ENTRESTO 24 MG1 EACH PO; +K-DUR20 MEQ PO; +LASIX40 MG PO; +LIPITOR20 MG PO; +LOPRESSOR25 MG PO
== END | disposition home or self-care (01) ==
LOC: D.LAB 11:00
DX: Z86.11 Personal history of tuberculosis (principal)

== ENCOUNTER 2018-07-03 11:16 | Inpatient (IN) | payer MEDICARE, MEDICAID ==
[~2018-07-03] VITALS: Ht 162.6 cm; Wt 68.2 kg
--- NOTE | ~2018-07-03 | MORECARE ---
CASE MANAGEMENT DISCHARGE SUMMARY PATIENT: DIEGO ESCOBAR UNIT: [id number] ADM DATE: 07/03/18 AGE: 68 : 51 SEX: F ROOM/BED: D.3050 AUTHOR: URI,DOC PHYSICIAN: REFERRING PHYSICIAN: CARRIE LANG MD DATE OF SERVICE: 07/12/18 Discharge Plan Patient Name: DIEGO ESCOBAR Facility: [facility]:[place] : 1950 Planned Disposition: Inpatient Rehab Anticipated Discharge Date: 07/11/18 Discharge Date: 07/11/2018 Expected LOS: 8 Initial Reviewer: [id number] Initial Review Date: 07/03/2018 Generated: 07/12/18 10:54 am Comments DCP- Discharge Planning Updated by [email or web address]: Jeaneth Cordova on 07/11/18 6:[address] LATE ENTRY 1130 PATIENT FOR DISCHARGE TO HOME WITH HOME HEALTH. CM REVIEWED PROVIDERS WITH THE PATIENT. SHE SELECTED [facility]. PATIENT CHOICE FORM SIGNED. CM DISCUSSED DISCHARGE IMM. PATIENT HAD NO QUESTIONS. UNDERSTOOD. SIGNATURE OBTAINED. SHE HAS TRANSPORTATION TO HOME. DENIES ANY ADDITIONAL NEEDS. 1147 TC TO [facility]. 1245 REC CB FROM LABORER [employer] NURSE, [place]. AWAITED APPROVAL OF [employer] DEAL[employer]. TC BACK TO [facility]. WILL FAX REFERRAL INFORMATION. DCP- Discharge Planning Updated by [email or web address]: Regulo Hester on 07/07/18 3:[address] Patient Name: DIEGO ESCOBAR Admission Status: ER Accout number: [id number] Admission Date: 07-03-2018 : 1950 Admission Diagnosis:SHORTNESS OF BREATH Attending: CARRIE LANG Current LOS: 4 Anticipated DC Date: 07-12-2018 Planned Disposition: Inpatient Rehab Primary Insurance: [facility] MEDICARE SOLUTIONS PLANNED EXTERNAL PROVIDER: [facility] INPATIENT REHAB Discharge Planning Comments: CM RECEIVED ORDER FOR INPATIENT REHAB PRESCREENING, MET WITH PT IN ROOM TO DISCUSS DISCHARGE PLANNING AND NEEDS. PT REPORTS LIVING AT HOME INDEPENDENTLY AND ALONE. PT HAS WHEELCHAIR, CPAP AND HOME / PORTABLE OXGYEN FROM [employer]. PT HAS NO OUTSIDE SERVICES ASSISTING IN THE HOME. CM DISCUSSED AVAILABILITY OF HOME HEALTH, REHAB SERVICES AND MEDICAL EQUIPMENT. PT WANTS REHAB AT [place] AND IF DECLINED BY INSURANCE, PT DOES NOT WANT TO CONSIDER RETIREMENT FACILITY BUT WOULD LIKE HOME HEALTH WITH NO MEDICAL EQUIPMENT PROVIDER PREFERNECE. PT UNDERSTANDS IT MAY BE THURSDAY OF NEXT WEEK AT THE [place] FOR HER INSURANCE COMPANY TO RESPOND TO REQUEST FOR INPATIENT REHAB. PT REPORTS HER SON WILL PICK HER UP FOR DISCHARGE HOME WHEN SHE GOES HOME. IMPORTANT MESSAGE FROM MEDICARE PROVIDED AND EXPLAINED. CM WAITING INPATIENT REHAB PRESCREEN COMPLETION, REHAB WILL SUBMIT TO INSURANCE FOR INSURANCE AUTHORIZATION OF REHAB SERVICES ONCE THE OCCUPATIONAL THERAPY EVALUATION IS COMPLETED AND DOCUMENTED. Lasting Room Supervisor: Regulo Hester DCPIA - Discharge Planning Initial Assessment Updated by [email or web address]: Regulo Hester on 07/07/18 4:45 pm * Is the patient Alert and Oriented? Yes * How many steps to enter\exit or inside your home? NONE * PCP DR. MACKEY * Pharmacy [facility] * Preadmission Environment Home Alone * ADLs Independent * Equipment CPAP Oxygen Wheelchair * Other Equipment HOME AND PORTABLE OXYGEN [employer] - PROVIDER * List name and contact numbers for known caregivers / representatives who currently or will assist patient after discharge: SAGAR ESCOBAR, SON, SEGUNDO GAGE, SISTER, * Verbal permission to speak to the caregivers and representatives has been obtained from the patient. N/A * Community resources currently utilized None * Please name any agencies selected above. NONE * Additional services required to return to the preadmission environment? Yes * Can the patient safely return to the preadmission environment? Yes * Has this patient been hospitalized within the prior 30 days at any hospital? Yes Coverage Notice Reviewer: [id number] Maninder Hester Notice Issued Date-Time: 07/07/2018 12:05 Notice Type: IM Discharge Notice Notice Delivered To: Patient Relationship to Patient: Search Marketing Coordinator Name: Delivery Method: HAND - Hand Delivered Kiara Days: Prior Verbal Notification: Recipient Understood Notice: Yes Recipient Signature: Yes Med Rec Note Co-signed by Attending: Coverage Notice Comment: Reviewer: [email or web address] Maninder Hester Notice Issued Date-Time: 07/07/2018 12:05 Notice Type: Patient Choice Letter Notice Delivered To: Patient Relationship to Patient: Search Marketing Coordinator Name: Delivery Method: HAND - Hand Delivered Kiara Days: Prior Verbal Notification: Recipient Understood Notice: Yes Recipient Signature: Yes Med Rec Note Co-signed by Attending: Coverage Notice Comment: NO PREFERNCE ON HOME HEALTH PROVIDER Reviewer: [email or web address] Maninder HeardJeanethmathieu Cordova Notice Issued Date-Time: 07/11/2018 11:40 Notice Type: IM Discharge Notice Notice Delivered To: Patient Relationship to Patient: Search Marketing Coordinator Name: Delivery Method: HAND - Hand Delivered Kiara Days: Prior Verbal Notification: Recipient Understood Notice: Yes Recipient Signature: Yes Med Rec Note Co-signed by Attending: Coverage Notice Comment: CM EXPLAINED DISCHARGE IMM. PATIENT HAD NO QUESTION OR CONCERNS. SIGNATURE OBTAINED. COPY TO THE PATIENT. COPY TO THE CHART Last DP export: 07/11/18 6:34 Patient Name: DIEGO ESCOBAR Page 16571 at 0954 All edits/amendments must be made on the electronic document DICTATION DATE: 07/12/18953 BATTERY SERVICE TECHNICIAN: NERI 07/12/18953 RPT#: [id number] DC DATE:07/11/18 STATUS: DIS IN [facility] [address] [place] [address] END OF REPORT
--- NOTE | ~2018-07-03 | MORECARE ---
CASE MANAGEMENT DISCHARGE SUMMARY PATIENT: DIEGO ESCOBAR UNIT: [id number] ADM DATE: 07/03/18 AGE: 68 : 51 SEX: F ROOM/BED: D.7826 AUTHOR: URI,DOC PHYSICIAN: REFERRING PHYSICIAN: CARRIE LANG MD DATE OF SERVICE: 07/07/18 Discharge Plan Patient Name: DIEGO ESCOBAR [facility] [facility] 1950 Planned Disposition: Inpatient Rehab Anticipated Discharge Date: 07/12/18 Discharge Date: Expected LOS: 9 Initial Reviewer: [email or web address] Initial Review Date: 07/03/2018 Generated: 07/07/18 5:54 pm Comments DCP- Discharge Planning Updated by [email or web address]: Regulo Hester on 07/07/18 3:[address] Patient Name: DIEGO ESCOBAR Admission Status: ER Accout number: [id number] Admission Date: 07-03-2018 : 1950 Admission Diagnosis:SHORTNESS OF BREATH Attending: CARRIE LANG Current LOS: 4 Anticipated DC Date: 07-12-2018 Planned Disposition: Inpatient Rehab Primary Insurance: [facility] MEDICARE SOLUTIONS PLANNED EXTERNAL PROVIDER: [facility] INPATIENT REH[facility] Discharge Planning Comments: CM RECEIVED ORDER FOR INPATIENT REHAB PRESCREENING, MET WITH PT IN ROOM TO DISCUSS DISCHARGE PLANNING AND NEEDS. PT REPORTS LIVING AT HOME INDEPENDENTLY AND ALONE. PT HAS WHEELCHAIR, CPAP AND HOME / PORTABLE OXGYEN FROM [employer]. PT HAS NO OUTSIDE SERVICES ASSISTING IN THE HOME. CM DISCUSSED AVAILABILITY OF HOME HEALTH, REHAB SERVICES AND MEDICAL EQUIPMENT. PT WANTS REHAB AT [place] AND IF DECLINED BY INSURANCE, PT DOES NOT WANT TO CONSIDER SENIOR CARE FACILITY BUT WOULD LIKE HOME HEALTH WITH NO MEDICAL EQUIPMENT PROVIDER PREFERNECE. PT UNDERSTANDS IT MAY BE THURSDAY OF NEXT WEEK AT [place] FOR HER INSURANCE COMPANY TO RESPOND TO REQUEST FOR INPATIENT REHAB. PT REPORTS HER SON WILL PICK HER UP FOR DISCHARGE HOME WHEN SHE GOES HOME. IMPORTANT MESSAGE FROM MEDICARE PROVIDED AND EXPLAINED. CM WAITING INPATIENT REHAB PRESCREEN COMPLETION, REHAB WILL SUBMIT TO INSURANCE FOR INSURANCE AUTHORIZATION OF REHAB SERVICES ONCE THE OCCUPATIONAL THERAPY EVALUATION IS COMPLETED AND DOCUMENTED. Ophthalmic Medical Assistant: Regulo Hester DCPIA - Discharge Planning Initial Assessment Updated by [id number]: Regulo Hester on 07/07/18 4:45 pm * Is the patient Alert and Oriented? Yes * How many steps to enter\exit or inside your home? NONE * PCP DR. MACKEY * Pharmacy [facility] [place] * Preadmission Environment Home Alone * ADLs Independent * Equipment CPAP Oxygen Wheelchair * Other Equipment HOME AND PORTABLE OXYGEN [employer] - PROVIDER * List name and contact numbers for known caregivers / representatives who currently or will assist patient after discharge: SAGAR ESCOBAR, SON, SEGUNDO GAGE, SISTER, * Verbal permission to speak to the caregivers and representatives has been obtained from the patient. N/A * Community resources currently utilized None * Please name any agencies selected above. NONE * Additional services required to return to the preadmission environment? Yes * Can the patient safely return to the preadmission environment? Yes * Has this patient been hospitalized within the prior 30 days at any hospital? Yes Coverage Notice Reviewer: [id number] Maninder Hester Notice Issued Date-Time: 07/07/2018 12:05 Notice Type: IM Discharge Notice Notice Delivered To: Patient Relationship to Patient: It Assistant Name: Delivery Method: HAND - Hand Delivered Kiara Days: Prior Verbal Notification: Recipient Understood Notice: Yes Recipient Signature: Yes Med Rec Note Co-signed by Attending: Coverage Notice Comment: Reviewer: [email or web address] Hester Notice Issued Date-Time: 07/07/2018 12:05 Notice Type: Patient Choice Letter Notice Delivered To: Patient Relationship to Patient: It Assistant Name: Delivery Method: HAND - Hand Delivered Kiara Days: Prior Verbal Notification: Recipient Understood Notice: Yes Recipient Signature: Yes Med Rec Note Co-signed by Attending: Coverage Notice Comment: NO PREFERNCE ON HOME HEALTH PROVIDER Last DP export: 07/07/18 3:45 Patient Name: DIEGO ESCOBAR Page [id number] at 1654 All edits/amendments must be made on the electronic document DICTATION DATE: 07/07/181652 PRINT SHOP ASSISTANT: NERI 07/07/181652 RPT#: [id number] [place] DATE: STATUS: ADM IN [facility] [address] [place] [address] END OF REPORT
--- NOTE | ~2018-07-03 | MORECARE ---
CASE MANAGEMENT DISCHARGE SUMMARY PATIENT: DIEGO ESCOBAR UNIT: [id number] ADM DATE: 07/03/18 AGE: 68 : 51 SEX: F ROOM/BED: D.0900 AUTHOR: URI,DOC PHYSICIAN: REFERRING PHYSICIAN: CARRIE LANG MD DATE OF SERVICE: 07/11/18 Discharge Plan Patient Name: DIEGO ESCOBAR [facility] : 1950 Planned Disposition: Inpatient Rehab Anticipated Discharge Date: 07/12/18 Discharge Date: 07/11/2018 Expected LOS: 9 Initial Reviewer: [id number] Initial Review Date: 07/03/2018 Generated: 07/11/18 8:34 pm Comments DCP- Discharge Planning Updated by [id number]: Jeaneth Cordova on 07/11/18 6:[address] LATE ENTRY 1130 PATIENT FOR DISCHARGE TO HOME WITH HOME HEALTH. CM REVIEWED PROVIDERS WITH THE PATIENT. SHE SELECTED [facility]. PATIENT CHOICE FORM SIGNED. CM DISCUSSED DISCHARGE IMM. PATIENT HAD NO QUESTIONS. UNDERSTOOD. SIGNATURE OBTAINED. SHE HAS TRANSPORTATION TO HOME. DENIES ANY ADDITIONAL NEEDS. 1147 TC TO [place]. 1245 REC CB FROM DIRECTOR DENTAL SERVICES NURSE, [place]. AWAITED APPROVAL OF ST[facility]. TC BACK TO [facility]. WILL FAX REFERRAL INFORMATION. DCP- Discharge Planning Updated by [id number]: Regulo Hester on 07/07/18 3:[address] Patient Name: DIEGO ESCOBAR Admission Status: ER Accout number: [id number] Admission Date: 07-03-2018 : 1950 Admission Diagnosis:SHORTNESS OF BREATH Attending: CARRIE LANG Current LOS: 4 Anticipated DC Date: 07-12-2018 Planned Disposition: Inpatient Rehab Primary Insurance: [facility] MEDICARE SOLUTIONS PLANNED EXTERNAL PROVIDER: [facility] INPATIENT REHAB Discharge Planning Comments: CM RECEIVED ORDER FOR INPATIENT REHAB PRESCREENING, MET WITH PT IN ROOM TO DISCUSS DISCHARGE PLANNING AND NEEDS. PT REPORTS LIVING AT HOME INDEPENDENTLY AND ALONE. PT HAS WHEELCHAIR, CPAP AND HOME / PORTABLE OXGYEN FROM [employer]. PT HAS NO OUTSIDE SERVICES ASSISTING IN THE HOME. CM DISCUSSED AVAILABILITY OF HOME HEALTH, REHAB SERVICES AND MEDICAL EQUIPMENT. PT WANTS REHAB AT [place] AND IF DECLINED BY INSURANCE, PT DOES NOT WANT TO CONSIDER HALF-WAY FACILITY BUT WOULD LIKE HOME HEALTH WITH NO MEDICAL EQUIPMENT PROVIDER PREFERNECE. PT UNDERSTANDS IT MAY BE THURSDAY OF NEXT WEEK AT THE [place] FOR HER INSURANCE COMPANY TO RESPOND TO REQUEST FOR INPATIENT REHAB. PT REPORTS HER SON WILL PICK HER UP FOR DISCHARGE HOME WHEN SHE GOES HOME. IMPORTANT MESSAGE FROM MEDICARE PROVIDED AND EXPLAINED. CM WAITING INPATIENT REHAB PRESCREEN COMPLETION, REHAB WILL SUBMIT TO INSURANCE FOR INSURANCE AUTHORIZATION OF REHAB SERVICES ONCE THE OCCUPATIONAL THERAPY EVALUATION IS COMPLETED AND DOCUMENTED. Network Cabler: Regulo Hester DCPIA - Discharge Planning Initial Assessment Updated by [email or web address]: Regulo Hester on 07/07/18 4:45 pm * Is the patient Alert and Oriented? Yes * How many steps to enter\exit or inside your home? NONE * PCP DR. MACKEY * Pharmacy [facility] * Preadmission Environment Home Alone * ADLs Independent * Equipment CPAP Oxygen Wheelchair * Other Equipment HOME AND PORTABLE OXYGEN [employer] - PROVIDER * List name and contact numbers for known caregivers / representatives who currently or will assist patient after discharge: SAGAR ESCOBAR, SON, SEGUNDO GAGE, SISTER, * Verbal permission to speak to the caregivers and representatives has been obtained from the patient. N/A * Community resources currently utilized None * Please name any agencies selected above. NONE * Additional services required to return to the preadmission environment? Yes * Can the patient safely return to the preadmission environment? Yes * Has this patient been hospitalized within the prior 30 days at any hospital? Yes Coverage Notice Reviewer: [id number] Maninder Hester Notice Issued Date-Time: 07/07/2018 12:05 Notice Type: IM Discharge Notice Notice Delivered To: Patient Relationship to Patient: Breaker Up Machine Operator Name: Delivery Method: HAND - Hand Delivered Kiara Days: Prior Verbal Notification: Recipient Understood Notice: Yes Recipient Signature: Yes Med Rec Note Co-signed by Attending: Coverage Notice Comment: Reviewer: [id number] Maninder Hester Notice Issued Date-Time: 07/07/2018 12:05 Notice Type: Patient Choice Letter Notice Delivered To: Patient Relationship to Patient: Breaker Up Machine Operator Name: Delivery Method: HAND - Hand Delivered Kiara Days: Prior Verbal Notification: Recipient Understood Notice: Yes Recipient Signature: Yes Med Rec Note Co-signed by Attending: Coverage Notice Comment: NO PREFERNCE ON HOME HEALTH PROVIDER Reviewer: [id number] Maninder HeardJeanethmathieu Cordova Notice Issued Date-Time: 07/11/2018 11:40 Notice Type: IM Discharge Notice Notice Delivered To: Patient Relationship to Patient: Breaker Up Machine Operator Name: Delivery Method: HAND - Hand Delivered Kiara Days: Prior Verbal Notification: Recipient Understood Notice: Yes Recipient Signature: Yes Med Rec Note Co-signed by Attending: Coverage Notice Comment: CM EXPLAINED DISCHARGE IMM. PATIENT HAD NO QUESTION OR CONCERNS. SIGNATURE OBTAINED. COPY TO THE PATIENT. COPY TO THE CHART Last DP export: 07/11/18 6:28 Patient Name: DIEGO ESCOBAR Page 94074 at 1934 All edits/amendments must be made on the electronic document DICTATION DATE: 07/11/181933 CHIEF OF SERVICE: NERI 07/11/181933 RPT#: [id number] DC DATE:07/11/18 STATUS: DIS IN [facility] [address] [place] [address] END OF REPORT
--- NOTE | ~2018-07-03 | MORECARE ---
CASE MANAGEMENT DISCHARGE SUMMARY PATIENT: DIEGO ESCOBAR UNIT: [id number] ADM DATE: 07/03/18 AGE: 68 : 51 SEX: F ROOM/BED: D.2837 AUTHOR: URI,DOC PHYSICIAN: REFERRING PHYSICIAN: CARRIE LANG MD DATE OF SERVICE: 07/11/18 Discharge Plan Patient Name: DIEGO ESCOBAR [facility] [facility] 1950 Planned Disposition: Inpatient Rehab Anticipated Discharge Date: 07/12/18 Discharge Date: 07/11/2018 Expected LOS: 9 Initial Reviewer: [id number] Initial Review Date: 07/03/2018 Generated: 07/11/18 8:28 pm Comments DCP- Discharge Planning Updated by [id number]: Regulo Hester on 07/07/18 3:[address] Patient Name: DIGEO ESCOBAR Admission Status: ER Accout number: [id number] Admission Date: 07-03-2018 : 1950 Admission Diagnosis:SHORTNESS OF BREATH Attending: CARRIE LANG Current LOS: 4 Anticipated DC Date: 07-12-2018 Planned Disposition: Inpatient Rehab Primary Insurance: [facility] MEDICARE SOLUTIONS PLANNED EXTERNAL PROVIDER: [facility] INPATIENT REHAB Discharge Planning Comments: CM RECEIVED ORDER FOR INPATIENT REHAB PRESCREENING, MET WITH PT IN ROOM TO DISCUSS DISCHARGE PLANNING AND NEEDS. PT REPORTS LIVING AT HOME INDEPENDENTLY AND ALONE. PT HAS WHEELCHAIR, CPAP AND HOME / PORTABLE OXGYEN FROM [employer]. PT HAS NO OUTSIDE SERVICES ASSISTING IN THE HOME. CM DISCUSSED AVAILABILITY OF HOME HEALTH, REHAB SERVICES AND MEDICAL EQUIPMENT. PT WANTS REHAB AT [place] AND IF DECLINED BY INSURANCE, PT DOES NOT WANT TO CONSIDER [facility] FACILITY BUT WOULD LIKE HOME HEALTH WITH NO MEDICAL EQUIPMENT PROVIDER PREFERNECE. PT UNDERSTANDS IT MAY BE THURSDAY OF NEXT WEEK AT THE [place] FOR HER INSURANCE COMPANY TO RESPOND TO REQUEST FOR INPATIENT REHAB. PT REPORTS HER SON WILL PICK HER UP FOR DISCHARGE HOME WHEN SHE GOES HOME. IMPORTANT MESSAGE FROM MEDICARE PROVIDED AND EXPLAINED. CM WAITING INPATIENT REHAB PRESCREEN COMPLETION, REHAB WILL SUBMIT TO INSURANCE FOR INSURANCE AUTHORIZATION OF REHAB SERVICES ONCE THE OCCUPATIONAL THERAPY EVALUATION IS COMPLETED AND DOCUMENTED. Ad Operations Coordinator: Regulo Hester DCPIA - Discharge Planning Initial Assessment Updated by [email or web address]: Regulo Hester on 07/07/18 4:45 pm * Is the patient Alert and Oriented? Yes * How many steps to enter\exit or inside your home? NONE * PCP DR. MACKEY * Pharmacy [facility] [place] * Preadmission Environment Home Alone * ADLs Independent * Equipment CPAP Oxygen Wheelchair * Other Equipment HOME AND PORTABLE OXYGEN [employer] - PROVIDER * List name and contact numbers for known caregivers / representatives who currently or will assist patient after discharge: SAGAR ESCOBAR, SON, SEGUNDO GAGE, SISTER, * Verbal permission to speak to the caregivers and representatives has been obtained from the patient. N/A * Community resources currently utilized None * Please name any agencies selected above. NONE * Additional services required to return to the preadmission environment? Yes * Can the patient safely return to the preadmission environment? Yes * Has this patient been hospitalized within the prior 30 days at any hospital? Yes Coverage Notice Reviewer: [id number] Hester Notice Issued Date-Time: 07/07/2018 12:05 Notice Type: IM Discharge Notice Notice Delivered To: Patient Relationship to Patient: Manager Strategic Development Name: Delivery Method: HAND - Hand Delivered Kiara Days: Prior Verbal Notification: Recipient Understood Notice: Yes Recipient Signature: Yes Med Rec Note Co-signed by Attending: Coverage Notice Comment: Reviewer: OPHELIA Hester Notice Issued Date-Time: 07/07/2018 12:05 Notice Type: Patient Choice Letter Notice Delivered To: Patient Relationship to Patient: Manager Strategic Development Name: Delivery Method: HAND - Hand Delivered Kiara Days: Prior Verbal Notification: Recipient Understood Notice: Yes Recipient Signature: Yes Med Rec Note Co-signed by Attending: Coverage Notice Comment: NO PREFERNCE ON HOME HEALTH PROVIDER Last DP export: 07/07/18 3:54 Patient Name: DIEGO ESCOBAR Page 09263 at 1928 All edits/amendments must be made on the electronic document DICTATION DATE: 07/11/181926 RIB SAWYER: NERI 07/11/181926 RPT#: [id number] DC DATE:07/11/18 STATUS: DIS IN [place] [id number] [place] [address] END OF REPORT
--- NOTE | ~2018-07-03 | MORECARE ---
CASE MANAGEMENT DISCHARGE SUMMARY PATIENT: DIEGO ESCOBAR UNIT: [id number] ADM DATE: 07/03/18 AGE: 68 : 51 SEX: F ROOM/BED: D.9387 AUTHOR: URI,DOC PHYSICIAN: REFERRING PHYSICIAN: CARRIE LANG MD DATE OF SERVICE: 07/07/18 Discharge Plan Patient Name: DIEGO ESCOBAR Facility: [facility]:[place] : 1950 Planned Disposition: Inpatient Rehab Anticipated Discharge Date: 07/12/18 Discharge Date: Expected LOS: 9 Initial Reviewer: [id number] Initial Review Date: 07/03/2018 Generated: 07/07/18 5:45 pm DCPIA - Discharge Planning Initial Assessment Updated by [email or web address]: Regulo Hester on 07/07/18 4:45 pm * Is the patient Alert and Oriented? Yes * How many steps to enter\exit or inside your home? NONE * PCP DR. MACKEY * Pharmacy [facility] * Preadmission Environment Home Alone * ADLs Independent * Equipment CPAP Oxygen Wheelchair * Other Equipment HOME AND PORTABLE OXYGEN [employer] - PROVIDER * List name and contact numbers for known caregivers / representatives who currently or will assist patient after discharge: SAGAR ESCOBAR, SON, SEGUNDO GAGE, SISTER, * Verbal permission to speak to the caregivers and representatives has been obtained from the patient. N/A * Community resources currently utilized None * Please name any agencies selected above. NONE * Additional services required to return to the preadmission environment? Yes * Can the patient safely return to the preadmission environment? Yes * Has this patient been hospitalized within the prior 30 days at any hospital? Yes Coverage Notice Reviewer: [id number] Maninder Hester Notice Issued Date-Time: 07/07/2018 12:05 Notice Type: IM Discharge Notice Notice Delivered To: Patient Relationship to Patient: Fire Control Officer Name: Delivery Method: HAND - Hand Delivered Kiara Days: Prior Verbal Notification: Recipient Understood Notice: Yes Recipient Signature: Yes Med Rec Note Co-signed by Attending: Coverage Notice Comment: Reviewer: [id number] Hester Notice Issued Date-Time: 07/07/2018 12:05 Notice Type: Patient Choice Letter Notice Delivered To: Patient Relationship to Patient: Fire Control Officer Name: Delivery Method: HAND - Hand Delivered Kiara Days: Prior Verbal Notification: Recipient Understood Notice: Yes Recipient Signature: Yes Med Rec Note Co-signed by Attending: Coverage Notice Comment: NO PREFERNCE ON HOME HEALTH PROVIDER Patient Name: DIEGO ESCOBAR Page 50691 at 1645 All edits/amendments must be made on the electronic document DICTATION DATE: 07/07/181644 DICE MANAGER: NERI 07/07/181644 RPT#: [id number] DC DATE: STATUS: ADM IN [facility] [address] [place] [address] END OF REPORT
[~2018-07-03 11:16] MED LIST changes: -K-DUR20 MEQ PO; -LASIX40 MG PO; -LOPRESSOR25 MG PO
[2018-07-03 11:48] LABS: BASOPHILS 0 % (0-2); EOSINOPHILS 0.1 % (0-7); HEMATOCRIT 37.6 % (36.0-48.0); HEMOGLOBIN 11.4 g/dL (12-16); IMMATURE GRANULOCYTES 0.1 % (0-5); LYMPHOCYTES 9.8 % (15-50); MCH 30.2 pg (26.0-34.0); MCHC 30.3 g/dL (31.0-37.0); MCV 99.7 fL (80.0-100.0); MEAN PLATELET VOLUME 11.5 fL (7.4-10.4); MONOCYTES 4.2 % (2-11); NEUTROPHILS 85.8 % (40-80); PLATELET COUNT 231 10x3/uL (130-400); RBC 3.77 10x6/uL (4.00-5.40); RDW 15.1 % (11.5-14.5); WBC 7.5 10x3/uL (4.8-10.8)
[2018-07-03 12:00] LABS: ALBUMIN 3.3 g/dL (3.4-5.0); ANION GAP 11.2 mmol/L (8-16); BILIRUBIN - TOTAL 1.07 mg/dL (0.2-1.3); CALCIUM 9.1 mg/dL (8.5-10.1); CREATININE - SERUM 0.9 mg/dL (0.6-1.3); POTASSIUM - SERUM 4.2 mmol/L (3.5-5.1); PROTEIN - SERUM 6.8 g/dL (6.4-8.2)
[2018-07-03 12:09] LABS: TROPONIN-I 0.024 ng/mL (0.000-0.060)
[2018-07-03 17:44] VITALS: BP 114/70; BMI 27.8
[2018-07-03 21:06] VITALS: BP 122/59
[2018-07-04] VITALS: BP 116/65
[2018-07-04 04:59] VITALS: BP 121/79
[2018-07-04 09:24] VITALS: BP 109/70
[2018-07-04 13:28] VITALS: BP 136/86
[2018-07-04 16:47] VITALS: BP 129/81
[2018-07-04 19:02] LABS: CKMB 0.9 U/L (0.0-3.6); CREATINE KINASE 9 UL (21-215); TROPONIN-I 0.028 ng/mL (0.000-0.060)
[2018-07-04 20:00] VITALS: BP 125/84
[2018-07-04 23:23] LABS: CKMB 0.5 U/L (0.0-3.6); CREATINE KINASE 8 UL (21-215)
[2018-07-05 04:00] VITALS: BP 111/55
[2018-07-05 06:55] LABS: BASOPHILS 0.1 % (0-2); EOSINOPHILS 0.7 % (0-7); HEMATOCRIT 39.2 % (36.0-48.0); HEMOGLOBIN 11.7 g/dL (12-16); IMMATURE GRANULOCYTES 0.1 % (0-5); LYMPHOCYTES 10.2 % (15-50); MCH 30.1 pg (26.0-34.0); MCHC 29.8 g/dL (31.0-37.0); MCV 100.8 fL (80.0-100.0); MEAN PLATELET VOLUME 12.2 fL (7.4-10.4); MONOCYTES 4.9 % (2-11); PLATELET COUNT 223 10x3/uL (130-400); RBC 3.89 10x6/uL (4.00-5.40); RDW 15.2 % (11.5-14.5); WBC 8.4 10x3/uL (4.8-10.8)
[2018-07-05 07:20] LABS: ALBUMIN 2.9 g/dL (3.4-5.0); ALKALINE PHOSPHATASE 79 U/L (46-116); BILIRUBIN - TOTAL 0.74 mg/dL (0.2-1.3); CARBON DIOXIDE 31.1 mmol/L (21.0-32.0); CHLORIDE - SERUM 107 mmol/L (98-107); CKMB 0.9 U/L (0.0-3.6); CREATINE KINASE 9 UL (21-215); CREATININE - SERUM 0.8 mg/dL (0.6-1.3); PHOSPHOROUS 3.7 mg/dL (2.5-4.9); POTASSIUM - SERUM 3.9 mmol/L (3.5-5.1); SODIUM 146 mmol/L (136-145); TROPONIN-I 0.031 ng/mL (0.000-0.060); UREA NITROGEN 23 mg/dL (7-18); eGFR NON AFRICAN AMERICAN 76 mL/min (90-120)
[2018-07-05 07:21] LABS: ALT (SGPT) 8 U/L (10-68); CALC OSMOLALITY 294 mosm/kg (275-300); GLUCOSE 90 mg/dL (74-106)
[2018-07-05 10:48] VITALS: BP 109/56
[2018-07-05 13:38] VITALS: BP 116/50
[2018-07-05 15:53] VITALS: BP 103/55
[2018-07-05 16:58] LABS: APPEARANCE HAZY (CLEAR); BILIRUBIN NEGATIVE (NEGATIVE); COLOR YELLOW (YELLOW); GLUCOSE NEGATIVE (NEGATIVE); KETONE NEGATIVE (NEGATIVE); NITRITE NEGATIVE (NEGATIVE); PROTEIN NEGATIVE (NEGATIVE); SPECIFIC GRAVITY 1.015 (1.005-1.020); UROBILINOGEN NORMAL (NORMAL)
[2018-07-05 17:01] LABS: BACTERIA MODERATE /hpf (NONE SEEN); EPITHELIAL CELLS 0-5 /hpf (0-5); RED CELLS - URINE 0-5 /hpf (0-5); WHITE CELLS - URINE >50 /hpf (0-5)
[2018-07-05 19:45] VITALS: BP 105/54
[2018-07-05 23:35] VITALS: BP 112/57
[2018-07-06 03:30] VITALS: BP 107/62
[2018-07-06 06:04] LABS: BASOPHILS 0.2 % (0-2); EOSINOPHILS 1.1 % (0-7); HEMATOCRIT 37.3 % (36.0-48.0); HEMOGLOBIN 11.2 g/dL (12-16); IMMATURE GRANULOCYTES 0.2 % (0-5); LYMPHOCYTES 8.6 % (15-50); MCH 29.4 pg (26.0-34.0); MEAN PLATELET VOLUME 12.2 fL (7.4-10.4); MONOCYTES 6.4 % (2-11); NEUTROPHILS 83.5 % (40-80); PLATELET COUNT 209 10x3/uL (130-400); RBC 3.81 10x6/uL (4.00-5.40); RDW 15.2 % (11.5-14.5); WBC 6.4 10x3/uL (4.8-10.8)
[2018-07-06 06:32] LABS: ALBUMIN 2.9 g/dL (3.4-5.0); ANION GAP 10.6 mmol/L (8-16); BILIRUBIN - TOTAL 0.89 mg/dL (0.2-1.3); CARBON DIOXIDE 33.4 mmol/L (21.0-32.0); CREATININE - SERUM 0.9 mg/dL (0.6-1.3); MCV 97.9 fL (80.0-100.0); PHOSPHOROUS 3.8 mg/dL (2.5-4.9); PROTEIN - SERUM 6.6 g/dL (6.4-8.2)
[2018-07-06 08:47] VITALS: BP 98/63
[2018-07-06 11:42] VITALS: BP 87/58
[2018-07-06 15:07] VITALS: BP 101/51
[2018-07-06 21:01] VITALS: Ht 162.6 cm; Wt 68.2 kg
[2018-07-06 21:41] VITALS: BP 120/71
[2018-07-07 01:16] VITALS: BP 99/46
[2018-07-07 05:50] VITALS: BP 101/63
[2018-07-07 06:31] LABS: ALBUMIN 2.9 g/dL (3.4-5.0); ALKALINE PHOSPHATASE 69 U/L (46-116); ALT (SGPT) 13 U/L (10-68); BILIRUBIN - TOTAL 0.74 mg/dL (0.2-1.3); CALC OSMOLALITY 291 mosm/kg (275-300); CALCIUM 8.9 mg/dL (8.5-10.1); CARBON DIOXIDE 33.9 mmol/L (21.0-32.0); CHLORIDE - SERUM 105 mmol/L (98-107); CREATININE - SERUM 0.8 mg/dL (0.6-1.3); GLUCOSE 106 mg/dL (74-106); POTASSIUM - SERUM 3.3 mmol/L (3.5-5.1); PROTEIN - SERUM 6.8 g/dL (6.4-8.2); SODIUM 144 mmol/L (136-145); UREA NITROGEN 26 mg/dL (7-18); eGFR NON AFRICAN AMERICAN 76 mL/min (90-120)
[2018-07-07 06:34] LABS: BASOPHILS 0.2 % (0-2); HEMATOCRIT 37.9 % (36.0-48.0); HEMOGLOBIN 11.8 g/dL (12-16); IMMATURE GRANULOCYTES 0.3 % (0-5); LYMPHOCYTES 13.7 % (15-50); MCH 30.5 pg (26.0-34.0); MCHC 31.1 g/dL (31.0-37.0); MCV 97.9 fL (80.0-100.0); MEAN PLATELET VOLUME 12.1 fL (7.4-10.4); MONOCYTES 8.5 % (2-11); NEUTROPHILS 75.3 % (40-80); PLATELET COUNT 208 10x3/uL (130-400); RBC 3.87 10x6/uL (4.00-5.40); RDW 15.7 % (11.5-14.5)
[2018-07-07 08:01] VITALS: BP 103/73
[2018-07-07 11:23] VITALS: BP 110/75
[2018-07-07 15:39] VITALS: BP 104/59
[2018-07-07 21:07] VITALS: BP 96/61
[2018-07-07 22:53] LABS: CKMB 0.4 U/L (0.0-3.6); CREATINE KINASE 19 UL (21-215); TROPONIN-I 0.048 ng/mL (0.000-0.060)
[2018-07-08 00:42] VITALS: BP 89/54
[2018-07-08 05:17] VITALS: BP 95/64
[2018-07-08 06:06] LABS: BASOPHILS 0.2 % (0-2); EOSINOPHILS 2.8 % (0-7); HEMATOCRIT 36.7 % (36.0-48.0); HEMOGLOBIN 11.3 g/dL (12-16); IMMATURE GRANULOCYTES 0.2 % (0-5); LYMPHOCYTES 12.4 % (15-50); MCH 30.4 pg (26.0-34.0); MCHC 30.8 g/dL (31.0-37.0); MCV 98.7 fL (80.0-100.0); MEAN PLATELET VOLUME 11.8 fL (7.4-10.4); MONOCYTES 7.5 % (2-11); NEUTROPHILS 76.9 % (40-80); PLATELET COUNT 189 10x3/uL (130-400); RBC 3.72 10x6/uL (4.00-5.40); RDW 15.6 % (11.5-14.5); WBC 5.7 10x3/uL (4.8-10.8)
[2018-07-08 06:36] LABS: ALBUMIN 2.7 g/dL (3.4-5.0); ALKALINE PHOSPHATASE 61 U/L (46-116); ALT (SGPT) 13 U/L (10-68); BILIRUBIN - TOTAL 0.73 mg/dL (0.2-1.3); CALC OSMOLALITY 290 mosm/kg (275-300); CALCIUM 8.6 mg/dL (8.5-10.1); CARBON DIOXIDE 32.9 mmol/L (21.0-32.0); CHLORIDE - SERUM 105 mmol/L (98-107); CKMB 2.3 U/L (0.0-3.6); CREATINE KINASE 26 UL (21-215); GLUCOSE 101 mg/dL (74-106); PHOSPHOROUS 3.9 mg/dL (2.5-4.9); POTASSIUM - SERUM 3.6 mmol/L (3.5-5.1); PROTEIN - SERUM 6.2 g/dL (6.4-8.2); SODIUM 143 mmol/L (136-145); UREA NITROGEN 30 mg/dL (7-18); eGFR NON AFRICAN AMERICAN 58 mL/min (90-120)
[2018-07-08 06:40] LABS: TROPONIN-I 0.514 ng/mL (0.000-0.060)
[2018-07-08 07:56] VITALS: BP 98/62
[2018-07-08 12:05] VITALS: BP 90/48
[2018-07-08 12:12] LABS: CKMB 2.2 U/L (0.0-3.6); CREATINE KINASE 22 UL (21-215)
[2018-07-08 12:13] LABS: TROPONIN-I 0.538 ng/mL (0.000-0.060)
[2018-07-08 15:04] VITALS: BP 92/33
[2018-07-08 21:03] VITALS: BP 100/58
[2018-07-09] VITALS (7 sets, daily range): BP systolic 90–101; BP diastolic 49–58
[2018-07-09 06:39] LABS: BASOPHILS 0 % (0-2); EOSINOPHILS 1.9 % (0-7); HEMATOCRIT 34.6 % (36.0-48.0); HEMOGLOBIN 10.6 g/dL (12-16); IMMATURE GRANULOCYTES 0.3 % (0-5); LYMPHOCYTES 12.6 % (15-50); MCH 30.1 pg (26.0-34.0); MCHC 30.6 g/dL (31.0-37.0); MCV 98.3 fL (80.0-100.0); MEAN PLATELET VOLUME 12.2 fL (7.4-10.4); MONOCYTES 9.3 % (2-11); NEUTROPHILS 75.9 % (40-80); PLATELET COUNT 171 10x3/uL (130-400); RBC 3.52 10x6/uL (4.00-5.40); RDW 15.8 % (11.5-14.5)
[2018-07-09 06:46] LABS: WBC 7.2 10x3/uL (4.8-10.8)
[2018-07-09 07:05] LABS: ALKALINE PHOSPHATASE 62 U/L (46-116); ALT (SGPT) 13 U/L (10-68); BILIRUBIN - TOTAL 1.08 mg/dL (0.2-1.3); CALC OSMOLALITY 285 mosm/kg (275-300); CALCIUM 8.9 mg/dL (8.5-10.1); CARBON DIOXIDE 30.1 mmol/L (21.0-32.0); CHLORIDE - SERUM 103 mmol/L (98-107); CREATININE - SERUM 0.8 mg/dL (0.6-1.3); GLUCOSE 98 mg/dL (74-106); PHOSPHOROUS 3.7 mg/dL (2.5-4.9); POTASSIUM - SERUM 3.6 mmol/L (3.5-5.1); PROTEIN - SERUM 6.4 g/dL (6.4-8.2); SODIUM 141 mmol/L (136-145); UREA NITROGEN 26 mg/dL (7-18); eGFR NON AFRICAN AMERICAN 76 mL/min (90-120)
[2018-07-10 03:50] VITALS: BP 85/38
[2018-07-10 05:52] LABS: BASOPHILS 0.1 % (0-2); EOSINOPHILS 3.5 % (0-7); HEMOGLOBIN 10.5 g/dL (12-16); IMMATURE GRANULOCYTES 0.1 % (0-5); LYMPHOCYTES 12.4 % (15-50); MCH 30.3 pg (26.0-34.0); MCHC 30.9 g/dL (31.0-37.0); MONOCYTES 7.5 % (2-11); NEUTROPHILS 76.4 % (40-80); PLATELET COUNT 156 10x3/uL (130-400); RBC 3.47 10x6/uL (4.00-5.40); RDW 15.8 % (11.5-14.5); WBC 6.8 10x3/uL (4.8-10.8)
[2018-07-10 06:41] LABS: CALC OSMOLALITY 284 mosm/kg (275-300); CALCIUM 8.9 mg/dL (8.5-10.1); CARBON DIOXIDE 29.5 mmol/L (21.0-32.0); CHLORIDE - SERUM 104 mmol/L (98-107); CREATININE - SERUM 0.6 mg/dL (0.6-1.3); GLUCOSE 100 mg/dL (74-106); POTASSIUM - SERUM 3.6 mmol/L (3.5-5.1); SODIUM 141 mmol/L (136-145); UREA NITROGEN 25 mg/dL (7-18); eGFR NON AFRICAN AMERICAN > 90 mL/min (90-120)
[2018-07-10 07:50] VITALS: BP 101/61
[2018-07-10 11:09] VITALS: BP 108/64
[2018-07-10 15:11] VITALS: BP 103/66
[2018-07-10 19:45] VITALS: BP 109/52
[2018-07-10 23:50] VITALS: BP 96/55
[2018-07-11 03:45] VITALS: BP 98/46
[2018-07-11 06:21] LABS: BASOPHILS 0.2 % (0-2); HEMATOCRIT 33.6 % (36.0-48.0); HEMOGLOBIN 10.4 g/dL (12-16); IMMATURE GRANULOCYTES 0.3 % (0-5); LYMPHOCYTES 13.4 % (15-50); MCH 30.1 pg (26.0-34.0); MCV 97.1 fL (80.0-100.0); MEAN PLATELET VOLUME 12.1 fL (7.4-10.4); NEUTROPHILS 75.1 % (40-80); PLATELET COUNT 163 10x3/uL (130-400); RBC 3.46 10x6/uL (4.00-5.40); RDW 15.5 % (11.5-14.5); WBC 6.7 10x3/uL (4.8-10.8)
[2018-07-11 06:39] LABS: CALC OSMOLALITY 283 mosm/kg (275-300); CALCIUM 8.5 mg/dL (8.5-10.1); CARBON DIOXIDE 29.2 mmol/L (21.0-32.0); CHLORIDE - SERUM 104 mmol/L (98-107); GLUCOSE 104 mg/dL (74-106); POTASSIUM - SERUM 3.4 mmol/L (3.5-5.1); SODIUM 141 mmol/L (136-145); UREA NITROGEN 22 mg/dL (7-18); eGFR NON AFRICAN AMERICAN 76 mL/min (90-120)
[2018-07-11 06:41] LABS: CREATININE - SERUM 0.8 mg/dL (0.6-1.3)
[2018-07-11 08:13] VITALS: BP 98/46
[2018-07-11] MEDS ORDERED: LASIX40 MG PO (11:06)
[2018-07-11] MEDS ORDERED: K-DUR20 MEQ PO (11:07)
[2018-07-11] MEDS ORDERED: LOPRESSOR25 MG PO (11:09)
[2018-07-11 11:28] VITALS: BP 103/49
== END 2018-07-11 15:03 | disposition home health service (06) | DRG 291 ==
LOC: D.ER 11:16 → D.EDHOLD 13:41 → D.M2 13:41
PROVIDERS: Emergency Medicine; Family Medicine; Internal Medicine Nephrology
DX: I11.0 Hypertensive heart disease with heart failure (principal); J18.9 Pneumonia, unspecified organism; J96.21 Acute and chronic respiratory failure with hypoxia; I50.31 Acute diastolic (congestive) heart failure; J44.0 Chronic obstructive pulmonary disease with (acute) lower respiratory infection; I31.3 Pericardial effusion (noninflammatory); N17.9 Acute kidney failure, unspecified; E87.0 Hyperosmolality and hypernatremia; F17.213 Nicotine dependence, cigarettes, with withdrawal; I25.10 Atherosclerotic heart disease of native coronary artery without angina pectoris; Z95.5 Presence of coronary angioplasty implant and graft

== ENCOUNTER 2018-07-31 23:21 | Inpatient (IN) | payer MEDICARE, MEDICAID ==
[~2018-07-31] VITALS: Ht 162.6 cm; Wt 67.7 kg
[~2018-07-31 23:21] MED LIST changes: +K-DUR20 MEQ PO; +LASIX40 MG PO; +LOPRESSOR25 MG PO
[2018-08-01 00:24] LABS: BASOPHILS 0.1 % (0-2); EOSINOPHILS 1.1 % (0-7); HEMATOCRIT 26.7 % (36.0-48.0); HEMOGLOBIN 8.2 g/dL (12-16); IMMATURE GRANULOCYTES 0.1 % (0-5); LYMPHOCYTES 12.3 % (15-50); MCHC 30.7 g/dL (31.0-37.0); MCV 97.8 fL (80.0-100.0); MEAN PLATELET VOLUME 10.6 fL (7.4-10.4); NEUTROPHILS 81.4 % (40-80); PLATELET COUNT 185 10x3/uL (130-400); RBC 2.73 10x6/uL (4.00-5.40); RDW 15.6 % (11.5-14.5); WBC 7.4 10x3/uL (4.8-10.8)
[2018-08-01 00:35] LABS: APTT 25.9 SECONDS (22.8-39.4); INR 1.16 (0.85-1.17); PROTIME 14.2 SECONDS (11.6-15.0)
[2018-08-01 00:50] LABS: ALBUMIN 3.2 g/dL (3.4-5.0); ALKALINE PHOSPHATASE 72 U/L (46-116); ALT (SGPT) 20 U/L (10-68); BILIRUBIN - TOTAL 0.45 mg/dL (0.2-1.3); CALC OSMOLALITY 285 mosm/kg (275-300); CALCIUM 8.6 mg/dL (8.5-10.1); CARBON DIOXIDE 27.1 mmol/L (21.0-32.0); CHLORIDE - SERUM 104 mmol/L (98-107); GLUCOSE 148 mg/dL (74-106); POTASSIUM - SERUM 3.9 mmol/L (3.5-5.1); SODIUM 141 mmol/L (136-145); UREA NITROGEN 18 mg/dL (7-18); eGFR NON AFRICAN AMERICAN 58 mL/min (90-120)
[2018-08-01 00:55] LABS: CKMB 0.8 U/L (0.0-3.6); CREATINE KINASE 26 UL (21-215); PRO BNP 7204 pg/mL (0-125); TROPONIN-I 0.026 ng/mL (0.000-0.060)
[2018-08-01 04:20] VITALS: BP 101/58; BMI 25.6
[2018-08-01 05:37] VITALS: BP 101/58
[2018-08-01 16:25] LABS: THYROID STIMULATING HORMONE 1.59 uIU/mL (0.36-3.74)
[2018-08-01 17:00] VITALS: BP 99/62
[2018-08-01 17:28] LABS: % SATURATION 28 % (15-55); IRON 106 ug/dl (35-150); TOTAL IRON BIND CAPACITY 368 ug/dl (260-445); UNSAT IRON BIND CAPACITY 262 ug/dl (150-375)
[2018-08-02] VITALS: BP 92/61
[2018-08-02 05:51] VITALS: BP 102/58
[2018-08-02 06:05] LABS: BASOPHILS 0.1 % (0-2); EOSINOPHILS 0.1 % (0-7); IMMATURE GRANULOCYTES 0.4 % (0-5); LYMPHOCYTES 9.1 % (15-50); MCH 30.5 pg (26.0-34.0); MCHC 31.9 g/dL (31.0-37.0); MEAN PLATELET VOLUME 11.2 fL (7.4-10.4); MONOCYTES 5.6 % (2-11); NEUTROPHILS 84.7 % (40-80); PLATELET COUNT 164 10x3/uL (130-400); WBC 7.7 10x3/uL (4.8-10.8)
[2018-08-02 06:23] LABS: ALBUMIN 3.1 g/dL (3.4-5.0); ANION GAP 11.7 mmol/L (8-16); BILIRUBIN - TOTAL 0.99 mg/dL (0.2-1.3); CALCIUM 8.6 mg/dL (8.5-10.1); CARBON DIOXIDE 31.5 mmol/L (21.0-32.0); CREATININE - SERUM 1.1 mg/dL (0.6-1.3); HEMATOCRIT 33.2 % (36.0-48.0); HEMOGLOBIN 10.6 g/dL (12-16); MAGNESIUM - SERUM 1.5 mg/dL (1.8-2.4); PROTEIN - SERUM 7.1 g/dL (6.4-8.2); RBC 3.48 10x6/uL (4.00-5.40)
[2018-08-02 06:24] LABS: MCV 95.4 fL (80.0-100.0); POTASSIUM - SERUM 3.2 mmol/L (3.5-5.1)
[2018-08-02 08:58] VITALS: BP 118/73
[2018-08-02 11:39] VITALS: BP 96/55
[2018-08-02 12:42] VITALS: BMI 42.7
[2018-08-02 15:33] VITALS: BP 99/63
[2018-08-02 20:00] VITALS: BP 100/57
[2018-08-03 05:35] LABS: BASOPHILS 0.1 % (0-2); EOSINOPHILS 0.4 % (0-7); HEMATOCRIT 32.8 % (36.0-48.0); HEMOGLOBIN 10.4 g/dL (12-16); IMMATURE GRANULOCYTES 0.6 % (0-5); LYMPHOCYTES 11.7 % (15-50); MCH 30.5 pg (26.0-34.0); MCHC 31.7 g/dL (31.0-37.0); MCV 96.2 fL (80.0-100.0); MEAN PLATELET VOLUME 11.6 fL (7.4-10.4); NEUTROPHILS 78.2 % (40-80); PLATELET COUNT 160 10x3/uL (130-400); RBC 3.41 10x6/uL (4.00-5.40); RDW 16.5 % (11.5-14.5); WBC 6.7 10x3/uL (4.8-10.8)
[2018-08-03 06:04] LABS: BILIRUBIN - TOTAL 0.88 mg/dL (0.2-1.3); CALCIUM 9.1 mg/dL (8.5-10.1); CARBON DIOXIDE 31.5 mmol/L (21.0-32.0); PHOSPHOROUS 4.2 mg/dL (2.5-4.9); PROTEIN - SERUM 6.8 g/dL (6.4-8.2)
[2018-08-03 06:21] LABS: ANION GAP 12.4 mmol/L (8-16); CREATININE - SERUM 1.8 mg/dL (0.6-1.3); POTASSIUM - SERUM 3.9 mmol/L (3.5-5.1)
[2018-08-03 08:13] VITALS: BP 95/56
[2018-08-03 08:39] VITALS: Ht 162.6 cm; Wt 67.7 kg
[2018-08-03 11:57] VITALS: BP 89/48
[2018-08-03 16:16] VITALS: BP 101/50
[2018-08-03 21:09] VITALS: BP 97/55
[2018-08-04 04:00] VITALS: BP 95/59
[2018-08-04 05:15] LABS: ANGIOTENSIN CONVERTING ENZYME 37 U/L (14-82)
[2018-08-04 05:30] LABS: BASOPHILS 0.2 % (0-2); EOSINOPHILS 1.7 % (0-7); HEMATOCRIT 31.6 % (36.0-48.0); HEMOGLOBIN 9.8 g/dL (12-16); IMMATURE GRANULOCYTES 0.2 % (0-5); LYMPHOCYTES 21.3 % (15-50); MCH 29.9 pg (26.0-34.0); MCV 96.3 fL (80.0-100.0); MEAN PLATELET VOLUME 11.4 fL (7.4-10.4); MONOCYTES 8.5 % (2-11); NEUTROPHILS 68.1 % (40-80); PLATELET COUNT 166 10x3/uL (130-400); RBC 3.28 10x6/uL (4.00-5.40); RDW 15.8 % (11.5-14.5); WBC 5.8 10x3/uL (4.8-10.8)
[2018-08-04 05:52] LABS: INR 1.24 (0.85-1.17)
[2018-08-04 05:53] LABS: APTT 30.7 SECONDS (22.8-39.4)
[2018-08-04 05:57] LABS: ALBUMIN 2.8 g/dL (3.4-5.0); BILIRUBIN - TOTAL 0.61 mg/dL (0.2-1.3); CALCIUM 8.7 mg/dL (8.5-10.1); CARBON DIOXIDE 32.6 mmol/L (21.0-32.0); MAGNESIUM - SERUM 2.4 mg/dL (1.8-2.4); PROTEIN - SERUM 6.1 g/dL (6.4-8.2)
[2018-08-04 06:06] LABS: ANION GAP 12.7 mmol/L (8-16); CREATININE - SERUM 1.3 mg/dL (0.6-1.3); POTASSIUM - SERUM 3.3 mmol/L (3.5-5.1)
[2018-08-04 09:00] VITALS: BP 109/61
[2018-08-04 18:44] VITALS: BP 107/58
[2018-08-04 20:00] VITALS: BP 105/62
[2018-08-05 05:56] LABS: BASOPHILS 0 % (0-2); EOSINOPHILS 0 % (0-7); HEMATOCRIT 34.1 % (36.0-48.0); HEMOGLOBIN 10.7 g/dL (12-16); IMMATURE GRANULOCYTES 0.2 % (0-5); LYMPHOCYTES 6.5 % (15-50); MCH 30.5 pg (26.0-34.0); MCHC 31.4 g/dL (31.0-37.0); MCV 97.2 fL (80.0-100.0); MONOCYTES 0.7 % (2-11); NEUTROPHILS 92.6 % (40-80); RBC 3.51 10x6/uL (4.00-5.40); WBC 5.9 10x3/uL (4.8-10.8)
[2018-08-05 06:18] LABS: PLATELET COUNT 203 10x3/uL (130-400)
[2018-08-05 06:23] LABS: BILIRUBIN - TOTAL 0.56 mg/dL (0.2-1.3); CALCIUM 9.5 mg/dL (8.5-10.1); CARBON DIOXIDE 31.2 mmol/L (21.0-32.0); MAGNESIUM - SERUM 2.4 mg/dL (1.8-2.4); PROTEIN - SERUM 7.1 g/dL (6.4-8.2)
[2018-08-05 06:26] LABS: ANION GAP 13.9 mmol/L (8-16); POTASSIUM - SERUM 5.1 mmol/L (3.5-5.1)
--- NOTE | 2018-08-05 08:33 | MORECARE ---
CASE MANAGEMENT DISCHARGE SUMMARY PATIENT: DIEGO ESCOBAR UNIT: [id number] ADM DATE: 08/01/18 AGE: 68 : 51 SEX: F ROOM/BED: D.2104 AUTHOR: BALBIR GREWAL PHYSICIAN: REFERRING PHYSICIAN: CARLTON CORBIN MD DATE OF SERVICE: 08/05/18 Discharge Plan Patient Name: DIEGO ESCOBAR Facility: [facility]:[place] : 1950 Planned Disposition: Home with Home Health Anticipated Discharge Date: 08/06/18 Discharge Date: Expected LOS: 5 Initial Reviewer: [id number] Initial Review Date: 08/05/2018 Generated: 08/05/18 9:33 am External Providers External Provider: [facility] Next Contact Date: 08/04/2018 Service Request Date: Service Type: Resolution: Reviewer: Comments: Patient Name: DIEGO ESCOBAR Page 56378 at 0833 All edits/amendments must be made on the electronic document DICTATION DATE: 08/05/18 0833 TEXTILE ENGINEER: NERI 08/05/18 0833 RPT#: [id number] [place] DATE: STATUS: ADM IN [facility] [address] [place] [address] END OF REPORT
--- NOTE | 2018-08-05 08:40 | MORECARE ---
CASE MANAGEMENT DISCHARGE SUMMARY PATIENT: DIEGO ESCOBAR UNIT: [id number] ADM DATE: 08/01/18 AGE: 68 : 51 SEX: F ROOM/BED: D.2104 AUTHOR: BALBIR GREWAL PHYSICIAN: REFERRING PHYSICIAN: CARLTON CORBIN MD DATE OF SERVICE: 08/05/18 Discharge Plan Patient Name: DIEGO ESCOBAR Facility: [facility]:[place] : 1950 Planned Disposition: Home with Home Health Anticipated Discharge Date: 08/06/18 Discharge Date: Expected LOS: 5 Initial Reviewer: [id number] Initial Review Date: 08/05/2018 Generated: 08/05/18 9:40 am DCPIA - Discharge Planning Initial Assessment Updated by [email or web address]: Crystal Lin on 08/05/18 8:33 am * Is the patient Alert and Oriented? Yes * How many steps to enter\exit or inside your home? * PCP DR. SANTOS * Pharmacy [facility] * Preadmission Environment Home Alone * ADLs Independent * Equipment Shower Chair Walker * Other Equipment POWER CHAIR * List name and contact numbers for known caregivers / representatives who currently or will assist patient after discharge: SEGUNDO GAGE (SISTER) [phone] SAGAR (SON) [phone] * Verbal permission to speak to the caregivers and representatives has been obtained from the patient. Yes * Community resources currently utilized Home Health * Please name any agencies selected above. [facility] * Additional services required to return to the preadmission environment? Yes * Can the patient safely return to the preadmission environment? Yes * Has this patient been hospitalized within the prior 30 days at any hospital? Yes Last DP export: 08/05/18 7:33 Patient Name: DIEGO ESCOBAR Page 72537 at 0840 All edits/amendments must be made on the electronic document DICTATION DATE: 08/05/18839 LEAD ORACLE DEVELOPER: NERI 08/05/18839 RPT#: [id number] DC DATE: STATUS: ADM IN [facility] [address] [place] [address] END OF REPORT
--- NOTE | 2018-08-05 08:48 | MORECARE ---
CASE MANAGEMENT DISCHARGE SUMMARY PATIENT: DIEGO ESCOBAR UNIT: [id number] ADM DATE: 08/01/18 AGE: 68 : 51 SEX: F ROOM/BED: D.2108 AUTHOR: URI,DOC PHYSICIAN: REFERRING PHYSICIAN: CARLTON CORBIN MD DATE OF SERVICE: 08/05/18 Discharge Plan Patient Name: DIEGO ESCOBAR Facility: [facility]:[place] : 1950 Planned Disposition: Home with Home Health Anticipated Discharge Date: 08/06/18 Discharge Date: Expected LOS: 5 Initial Reviewer: [id number] Initial Review Date: 08/05/2018 Generated: 08/05/18 9:48 am Comments DCP- Discharge Planning Updated by [email or web address]: Crystal Lin on 08/05/18 7:[address] Patient Name: DIEGO ESCOBAR Admission Status: ER Accout number: [id number] Admission Date: 08-01-2018 : 1950 Admission Diagnosis:SHORTNESS OF BREATH Attending: CARLTON CORBIN Current LOS: 4 Anticipated DC Date: 08-06-2018 Planned Disposition: Home with Home Health Primary Insurance: [facility] MEDICARE SOLUTIONS Discharge Planning Comments: CM MET WITH PATIENT REGARDING D/C NEEDS AND PLANS. PATIENT STATED SHE LIVES ALONE AND FAMILY WILL DRIVE HER HOME AT DISCHARGE. PATIENT STATED THERE ARE NO STEPS TO ENTER HER HOME AND NO STEPS ONCE INSIDE. PATIENT IS INDEPENDENT WITH HER CARE AND HAS A WALKER, POWER CHAIR, SHOWER CHAIR, AND OXYGEN AT AT HOME. [employer] SUPPLIES HER OXYGEN. PATIENTS PCP IS DR. SANTOS AND [facility] ON [facility] AND [address]. PATIENT IS CURRENT WITH [facility]. CM WILL CONTINUE TO FOLLOW PATIENT WITH D/C NEEDS AND PLANS. PCP [facility] [address] [facility] SEGUNDO TOO (SISTER) [phone] SAGAR (SON) [phone] Area Supervisor: Crystal Lin DCPIA - Discharge Planning Initial Assessment Updated by [id number]: Crystal Lin on 08/05/18 8:41 am * Is the patient Alert and Oriented? Yes * How many steps to enter\exit or inside your home? * PCP DR. SANTOS * Pharmacy [facility] * Preadmission Environment Home Alone * ADLs Independent * Equipment Oxygen Shower Chair Walker * Other Equipment POWER CHAIR * List name and contact numbers for known caregivers / representatives who currently or will assist patient after discharge: SEGUNDO GAGE (SISTER) [phone] SAGAR (SON) [phone] * Verbal permission to speak to the caregivers and representatives has been obtained from the patient. Yes * Community resources currently utilized Home Health * Please name any agencies selected above. [facility] * Additional services required to return to the preadmission environment? Yes * Can the patient safely return to the preadmission environment? Yes * Has this patient been hospitalized within the prior 30 days at any hospital? Yes Last DP export: 08/05/18 7:40 Patient Name: DIEGO ESCOBAR Page 60590 at 0848 All edits/amendments must be made on the electronic document DICTATION DATE: 08/05/18846 PAYROLL DIRECTOR: NERI 08/05/18846 RPT#: [id number] DC DATE: STATUS: ADM IN [facility] [address] [place] [address] END OF REPORT
--- NOTE | 2018-08-05 14:54 | MORECARE ---
CASE MANAGEMENT DISCHARGE SUMMARY PATIENT: DIEGO ESCOBAR UNIT: [id number] ADM DATE: 08/01/18 AGE: 68 : 51 SEX: F ROOM/BED: D.2104 AUTHOR: URI,DOC PHYSICIAN: REFERRING PHYSICIAN: CARLTON CORBIN MD DATE OF SERVICE: 08/05/18 Discharge Plan Patient Name: DIEGO ESCOBAR Facility: [facility]:[place] : 1950 Planned Disposition: Home with Home Health Anticipated Discharge Date: 08/06/18 Discharge Date: Expected LOS: 5 Initial Reviewer: [id number] Initial Review Date: 08/05/2018 Generated: 08/05/18 3:54 pm Comments DCP- Discharge Planning Updated by [email or web address]: Regulo Hester on 08/05/18 1:[address] Patient Name: DIEGO ESCOBAR Encounter No: [id number] : 1950 Primary Insurance: [facility] MEDICARE SOLUTIONS Anticipated DC Date: 08-06-2018 Planned Disposition: Home with Home Health External Planned Provider: [facility] DCP follow-up note: CM RECEIVED ORDER FOR INPATIENT REHAB PRESCREENING, MET WITH PT IN ROOM TO DISCUSS DISCHARGE PLANNING AND NEEDS. CM DISCUSSED REHAB ORDER, AVAILABILITY OF INPATIENT REHAB, PROVIDERS AND LOCATIONS. PT STATES THAT SHE ALREADY TOLD THE DOCTOR SHE IS NOT GOING TO STAY IN THE HOSPITAL, REHAB OR ANY OTHER PLACE FOR 20 DAYS. PT REPORTS SHE IS GOING HOME AND DR. MCCURDY THINKS SHE WILL BE READY TO GO IN A COUPLE OF DAYS. PT STATES SHE HAS [facility] WITH NURSING, PHYSICAL THERAPY AND AIDE SERVICES AND WILL BE GOING HOME WITH [facility]. IMPORTANT MESSAGE FROM MEDICARE PROVIDED AND EXPLAINED. PT REFUSES INPATIENT REHAB, HALF-WAY REHAB AND ANY OUT OF HOME PLACEMENT. FOR DISCHARGE HOME WITH [facility], NOTIFY [facility] OF DISCHARGE AT [phone], FAX DISCHARGE INFORMATION TO [facility] AT [phone]. Regulo Hester CASE JOHNNA DCP- Discharge Planning Updated by [email or web address]: Crystal Lin on 08/05/18 7:[address] Patient Name: DIEGO ESCOBAR Admission Status: ER Accout number: [id number] Admission Date: 08-01-2018 : 1950 Admission Diagnosis:SHORTNESS OF BREATH Attending: CARLTON CORBIN Current LOS: 4 Anticipated DC Date: 08-06-2018 Planned Disposition: Home with Home Health Primary Insurance: [facility] MEDICARE SOLUTIONS Discharge Planning Comments: CM MET WITH PATIENT REGARDING D/C NEEDS AND PLANS. PATIENT STATED SHE LIVES ALONE AND FAMILY WILL DRIVE HER HOME AT DISCHARGE. PATIENT STATED THERE ARE NO STEPS TO ENTER HER HOME AND NO STEPS ONCE INSIDE. PATIENT IS INDEPENDENT WITH HER CARE AND HAS A WALKER, POWER CHAIR, SHOWER CHAIR, AND OXYGEN AT HS AT HOME. [employer] SUPPLIES HER OXYGEN. PATIENTS PCP IS DR. SANTOS AND USES [facility] ON [address] AND [address]. PATIENT IS CURRENT WITH [facility]. CM WILL CONTINUE TO FOLLOW PATIENT WITH D/C NEEDS AND PLANS. PCP [facility] ON [address] AND [facility] [address] SEGUNDO GAGE (SISTER) [phone] SAGAR (SON) [phone] Deburr Technician: Crystal Lin [facility] - Discharge Planning Initial Assessment Updated by [email or web address]: Crystal Lin on 08/05/18 8:41 am * Is the patient Alert and Oriented? Yes * How many steps to enter\exit or inside your home? * PCP DR. SANTOS * Pharmacy [facility] * Preadmission Environment Home Alone * ADLs Independent * Equipment Oxygen Shower Chair Walker * Other Equipment POWER CHAIR * List name and contact numbers for known caregivers / representatives who currently or will assist patient after discharge: SEGUNDO GAGE (SISTER) [phone] SAGAR (SON) [phone] * Verbal permission to speak to the caregivers and representatives has been obtained from the patient. Yes * Community resources currently utilized Home Health * Please name any agencies selected above. [facility] * Additional services required to return to the preadmission environment? Yes * Can the patient safely return to the preadmission environment? Yes * Has this patient been hospitalized within the prior 30 days at any hospital? Yes Coverage Notice Reviewer: [id number] - Regulo Hester Notice Issued Date-Time: 08/05/2018 14:20 Notice Type: IM Discharge Notice Notice Delivered To: Patient Relationship to Patient: Head Nurse Name: Delivery Method: HAND - Hand Delivered Kiara Days: Prior Verbal Notification: Recipient Understood Notice: Yes Recipient Signature: Yes Med Rec Note Co-signed by Attending: Coverage Notice Comment: Last DP export: 08/05/18 7:48 Patient Name: DIEGO ESCOBAR Page 68058 at 1454 All edits/amendments must be made on the electronic document DICTATION DATE: 08/05/181453 PROGRAM DIRECTOR: NERI 08/05/181453 RPT#: [id number] DC DATE: STATUS: ADM IN [facility] [address] [place] [address] END OF REPORT
[2018-08-05 15:23] LABS: ANCA - ANTIMYELOPEROXIDASE <9.0 U/mL (0.0-9.0); ANCA - ANTIPROTEINASE 3 <3.5 U/mL (0.0-3.5); ANCA - ATYPICAL <1:20 titer (Neg:<1:20); ANCA - CYTOPLASMIC <1:20 titer (Neg:<1:20); ANCA - PERINUCLEAR <1:20 titer (Neg:<1:20)
[2018-08-05 18:09] LABS: ACID FAST SMEAR Negative (()); AFB SPECIMEN PROCESSING Concentration (())
[2018-08-06 04:05] LABS: BASOPHILS 0 % (0-2); EOSINOPHILS 0 % (0-7); HEMATOCRIT 33.5 % (36.0-48.0); HEMOGLOBIN 10.5 g/dL (12-16); IMMATURE GRANULOCYTES 0.3 % (0-5); LYMPHOCYTES 6.1 % (15-50); MCH 30.3 pg (26.0-34.0); MCHC 31.3 g/dL (31.0-37.0); MCV 96.8 fL (80.0-100.0); MEAN PLATELET VOLUME 11.1 fL (7.4-10.4); MONOCYTES 1.5 % (2-11); NEUTROPHILS 92.1 % (40-80); PLATELET COUNT 200 10x3/uL (130-400); RBC 3.46 10x6/uL (4.00-5.40); RDW 15.9 % (11.5-14.5)
[2018-08-06 04:12] LABS: WBC 11.6 10x3/uL (4.8-10.8)
[2018-08-06 04:22] LABS: BILIRUBIN - TOTAL 0.47 mg/dL (0.2-1.3); CALCIUM 9.1 mg/dL (8.5-10.1); CARBON DIOXIDE 28.9 mmol/L (21.0-32.0); CREATININE - SERUM 1.1 mg/dL (0.6-1.3); PROTEIN - SERUM 6.9 g/dL (6.4-8.2)
[2018-08-06 04:24] LABS: ANION GAP 12.9 mmol/L (8-16); MAGNESIUM - SERUM 0.8 mg/dL (1.8-2.4); POTASSIUM - SERUM 3.8 mmol/L (3.5-5.1)
[2018-08-06 11:11] VITALS: BP 97/61
[2018-08-06 13:15] LABS: FUNGUS STAIN Final report (())
[2018-08-06 18:29] VITALS: BP 149/63
[2018-08-06 19:11] LABS: FUNGAL - ASP FLAVUS Negative (Neg:<1:1); FUNGAL - ASP NIGER Negative (Neg:<1:1); FUNGAL - ASPER FUMIGATUS Negative (Neg:<1:1)
[2018-08-06 19:59] VITALS: BP 104/58
[2018-08-06 23:45] VITALS: BP 126/69
[2018-08-07 03:55] VITALS: BP 110/66
[2018-08-07 08:15] VITALS: BP 111/76
[2018-08-07 12:51] VITALS: BP 118/70
[2018-08-07 16:14] VITALS: BP 105/65
[2018-08-07 19:55] VITALS: BP 113/67
[2018-08-07 23:45] VITALS: BP 117/64
[2018-08-08 03:55] VITALS: BP 122/74
[2018-08-08 05:44] LABS: BASOPHILS 0 % (0-2); EOSINOPHILS 0 % (0-7); HEMATOCRIT 35.7 % (36.0-48.0); HEMOGLOBIN 11.1 g/dL (12-16); IMMATURE GRANULOCYTES 0.7 % (0-5); LYMPHOCYTES 8.8 % (15-50); MCH 30.3 pg (26.0-34.0); MCHC 31.1 g/dL (31.0-37.0); MCV 97.5 fL (80.0-100.0); MEAN PLATELET VOLUME 11.6 fL (7.4-10.4); MONOCYTES 2.2 % (2-11); NEUTROPHILS 88.3 % (40-80); PLATELET COUNT 229 10x3/uL (130-400); RBC 3.66 10x6/uL (4.00-5.40); RDW 15.3 % (11.5-14.5); WBC 8.1 10x3/uL (4.8-10.8)
[2018-08-08 05:58] LABS: CALCIUM 8.9 mg/dL (8.5-10.1); CARBON DIOXIDE 31.3 mmol/L (21.0-32.0); CREATININE - SERUM 1.3 mg/dL (0.6-1.3); POTASSIUM - SERUM 4.3 mmol/L (3.5-5.1)
[2018-08-08 11:34] VITALS: BP 104/60
[2018-08-08 17:07] VITALS: BP 108/73
--- NOTE | 2018-08-08 18:01 | MORECARE ---
CASE MANAGEMENT DISCHARGE SUMMARY PATIENT: DIEGO ESCOBAR UNIT: [id number] ADM DATE: 08/01/18 AGE: 68 : 51 SEX: F ROOM/BED: D.2105 AUTHOR: URI,DOC PHYSICIAN: REFERRING PHYSICIAN: CARLTON CORBIN MD DATE OF SERVICE: 08/08/18 Discharge Plan Patient Name: DIEGO ESCOBAR Facility: [facility]:[place] : 1950 Planned Disposition: Home with Home Health Anticipated Discharge Date: 08/06/18 Discharge Date: Expected LOS: 5 Initial Reviewer: [id number] Initial Review Date: 08/05/2018 Generated: 08/08/18 7:01 pm Comments DCP- Discharge Planning Updated by [email or web address]: Jeaneth Cordova on 08/08/18 4:[address] CM consult for nebulizer at discharge from patient's DME provider, Rajesh Esposito received. Patient has acute rehab auth pending for [facility] acute rehab. She has a managed Medicare provider therefore must await authorization for insurer. OT and PT consult have completed. DCP- Discharge Planning Updated by [email or web address]: Regulo Hester on 08/05/18 1:[address] Patient Name: DIEGO ESCOBAR Encounter No: [id number] : 1950 Primary Insurance: [facility] MEDICARE SOLUTIONS Anticipated DC Date: 08-06-2018 Planned Disposition: Home with Home Health External Planned Provider: [facility] DCP follow-up note: CM RECEIVED ORDER FOR INPATIENT REHAB PRESCREENING, MET WITH PT IN ROOM TO DISCUSS DISCHARGE PLANNING AND NEEDS. CM DISCUSSED REHAB ORDER, AVAILABILITY OF INPATIENT REHAB, PROVIDERS AND LOCATIONS. PT STATES THAT SHE ALREADY TOLD THE DOCTOR SHE IS NOT GOING TO STAY IN THE HOSPITAL, REHAB OR ANY OTHER PLACE FOR 20 DAYS. PT REPORTS SHE IS GOING HOME AND DR. MCCURDY THINKS SHE WILL BE READY TO GO IN A COUPLE OF DAYS. PT STATES SHE HAS [facility] WITH NURSING, PHYSICAL THERAPY AND AIDE SERVICES AND WILL BE GOING HOME WITH [facility]. IMPORTANT MESSAGE FROM MEDICARE PROVIDED AND EXPLAINED. PT REFUSES INPATIENT REHAB, [facility] AND ANY OUT OF HOME PLACEMENT. FOR DISCHARGE HOME WITH HOME HEALTH, NOTIFY [facility] OF DISCHARGE AT [phone], FAX DISCHARGE INFORMATION TO [place] AT [phone]. Regulo Hester, CASE MANAGEMENT DCP- Discharge Planning Updated by [id number]: Crystal Lin on 08/05/18 7:[address] Patient Name: DIEGO ESCOBAR Admission Status: ER Accout number: [id number] Admission Date: 08-01-2018 : 1950 Admission Diagnosis:SHORTNESS OF BREATH Attending: CARLTON CORBIN Current LOS: 4 Anticipated DC Date: 08-06-2018 Planned Disposition: Home with Home Health Primary Insurance: [facility] MEDIC[employer] SOLUTIONS Discharge Planning Comments: CM MET WITH PATIENT REGARDING D/C NEEDS AND PLANS. PATIENT STATED SHE LIVES ALONE AND FAMILY WILL DRIVE HER HOME AT DISCHARGE. PATIENT STATED THERE ARE NO STEPS TO ENTER HER HOME AND NO STEPS ONCE INSIDE. PATIENT IS INDEPENDENT WITH HER CARE AND HAS A WALKER, POWER CHAIR, SHOWER CHAIR, AND OXYGEN AT HS AT HOME. [employer] SUPPLIES HER OXYGEN. PATIENTS PCP IS DR. SANTOS AND YADIRA JOINER ON [facility]. PATIENT IS CURRENT WITH [facility]. CM WILL CONTINUE TO FOLLOW PATIENT WITH D/C NEEDS AND PLANS. PCP DR[facility] ON [address] [facility] SEGUNDO GAGE (SISTER) [phone] SAGAR (SON) [phone] Bracelet And Brooch Maker: Crystal Lin DCPIA - Discharge Planning Initial Assessment Updated by [email or web address]: Crystal Lin on 08/05/18 8:41 am * Is the patient Alert and Oriented? Yes * How many steps to enter\exit or inside your home? * PCP DR. SANTOS * Pharmacy [facility] * Preadmission Environment Home Alone * ADLs Independent * Equipment Oxygen Shower Chair Walker * Other Equipment POWER CHAIR * List name and contact numbers for known caregivers / representatives who currently or will assist patient after discharge: SEGUNDO GAGE (SISTER) [phone] SAGAR (SON) [phone] * Verbal permission to speak to the caregivers and representatives has been obtained from the patient. Yes * Community resources currently utilized Home Health * Please name any agencies selected above. [facility] * Additional services required to return to the preadmission environment? Yes * Can the patient safely return to the preadmission environment? Yes * Has this patient been hospitalized within the prior 30 days at any hospital? Yes Coverage Notice Reviewer: [id number] Maninder Hester Notice Issued Date-Time: 08/05/2018 14:20 Notice Type: IM Discharge Notice Notice Delivered To: Patient Relationship to Patient: Coastal Tug Mate Name: Delivery Method: HAND - Hand Delivered Kiara Days: Prior Verbal Notification: Recipient Understood Notice: Yes Recipient Signature: Yes Med Rec Note Co-signed by Attending: Coverage Notice Comment: Last DP export: 08/05/18 1:54 Patient Name: DIEGO ESCOBAR Page 37250 at 1801 All edits/amendments must be made on the electronic document DICTATION DATE: 08/08/181800 CONTROL SYSTEMS TECHNICIAN: NERI 08/08/181800 RPT#: [id number] DC DATE: STATUS: ADM IN [facility] [address] [place] [address] END OF REPORT
[2018-08-08 19:59] VITALS: BP 101/66
[2018-08-08 23:45] VITALS: BP 106/68
[2018-08-09 03:45] VITALS: BP 114/72
[2018-08-09 06:00] LABS: BASOPHILS 0.2 % (0-2); EOSINOPHILS 0 % (0-7); HEMATOCRIT 36.8 % (36.0-48.0); HEMOGLOBIN 11.6 g/dL (12-16); LYMPHOCYTES 15.9 % (15-50); MCH 30.1 pg (26.0-34.0); MCHC 31.5 g/dL (31.0-37.0); MCV 95.6 fL (80.0-100.0); MEAN PLATELET VOLUME 11.4 fL (7.4-10.4); MONOCYTES 7.1 % (2-11); NEUTROPHILS 75.8 % (40-80); PLATELET COUNT 213 10x3/uL (130-400); RBC 3.85 10x6/uL (4.00-5.40); RDW 15.3 % (11.5-14.5); WBC 9.1 10x3/uL (4.8-10.8)
[2018-08-09 06:25] LABS: ANION GAP 11.7 mmol/L (8-16); BILIRUBIN - TOTAL 0.49 mg/dL (0.2-1.3); CALCIUM 8.6 mg/dL (8.5-10.1); CARBON DIOXIDE 31.8 mmol/L (21.0-32.0); CREATININE - SERUM 1.3 mg/dL (0.6-1.3); MAGNESIUM - SERUM 2.3 mg/dL (1.8-2.4); POTASSIUM - SERUM 3.5 mmol/L (3.5-5.1); PROTEIN - SERUM 6.6 g/dL (6.4-8.2)
[2018-08-09 08:41] VITALS: BP 113/76
[2018-08-09 12:16] VITALS: BP 107/63
[2018-08-09 16:31] VITALS: BP 103/70
[2018-08-09 19:00] VITALS: BP 105/73
[2018-08-10 00:23] VITALS: BP 104/60
[2018-08-10 05:03] VITALS: BP 114/84
[2018-08-10 05:38] LABS: BASOPHILS 0.1 % (0-2); EOSINOPHILS 0.1 % (0-7); HEMATOCRIT 38.8 % (36.0-48.0); HEMOGLOBIN 12.2 g/dL (12-16); LYMPHOCYTES 16.5 % (15-50); MCH 30.3 pg (26.0-34.0); MCHC 31.4 g/dL (31.0-37.0); MCV 96.5 fL (80.0-100.0); MEAN PLATELET VOLUME 11.1 fL (7.4-10.4); MONOCYTES 6.1 % (2-11); NEUTROPHILS 76.2 % (40-80); RBC 4.02 10x6/uL (4.00-5.40); RDW 15.2 % (11.5-14.5); WBC 9.6 10x3/uL (4.8-10.8)
[2018-08-10 05:49] LABS: PLATELET COUNT 294 10x3/uL (130-400)
[2018-08-10 06:02] LABS: ANION GAP 12.4 mmol/L (8-16); BILIRUBIN - TOTAL 0.64 mg/dL (0.2-1.3); CALCIUM 8.7 mg/dL (8.5-10.1); CARBON DIOXIDE 33.2 mmol/L (21.0-32.0); CREATININE - SERUM 1.1 mg/dL (0.6-1.3); MAGNESIUM - SERUM 2.1 mg/dL (1.8-2.4); POTASSIUM - SERUM 3.6 mmol/L (3.5-5.1); PROTEIN - SERUM 6.4 g/dL (6.4-8.2)
[2018-08-10 08:35] VITALS: BP 119/75
[2018-08-10 13:20] VITALS: BP 102/69
[2018-08-10 19:45] VITALS: BP 117/76
[2018-08-10 23:30] VITALS: BP 115/71
[2018-08-11 04:05] VITALS: BP 114/72
[2018-08-11 06:47] LABS: BASOPHILS 0.1 % (0-2); EOSINOPHILS 0.2 % (0-7); HEMATOCRIT 42.7 % (36.0-48.0); HEMOGLOBIN 13.4 g/dL (12-16); LYMPHOCYTES 20.5 % (15-50); MCH 30.5 pg (26.0-34.0); MCHC 31.4 g/dL (31.0-37.0); MCV 97.3 fL (80.0-100.0); MEAN PLATELET VOLUME 11.2 fL (7.4-10.4); MONOCYTES 4.9 % (2-11); NEUTROPHILS 73.3 % (40-80); PLATELET COUNT 332 10x3/uL (130-400); RBC 4.39 10x6/uL (4.00-5.40); RDW 15.1 % (11.5-14.5); WBC 9.6 10x3/uL (4.8-10.8)
[2018-08-11 07:33] LABS: ALBUMIN 3.1 g/dL (3.4-5.0); ANION GAP 12.7 mmol/L (8-16); BILIRUBIN - TOTAL 0.81 mg/dL (0.2-1.3); CARBON DIOXIDE 36.8 mmol/L (21.0-32.0); CREATININE - SERUM 1.1 mg/dL (0.6-1.3); MAGNESIUM - SERUM 2.1 mg/dL (1.8-2.4); POTASSIUM - SERUM 3.5 mmol/L (3.5-5.1); PROTEIN - SERUM 6.7 g/dL (6.4-8.2)
[2018-08-11 09:51] VITALS: BP 118/70
[2018-08-11 14:12] VITALS: BP 110/61
[2018-08-11] MEDS ORDERED: CARDIZEM CD180 MG PO (14:54)
[2018-08-11] MEDS ORDERED: XOPENEX 0.0.63 MG/3 UPD (15:00)
[2018-08-11] MEDS ORDERED: ATROVENT 0.02%2.5 ML UPD (15:00)
[2018-08-11] MEDS ORDERED: SINGULAIR10 MG PO (15:02)
[2018-08-11] MEDS ORDERED: BENZONATATE200 MG PO (15:02)
[2018-08-11] MEDS ORDERED: DALIRESP500 MCG PO (15:03)
[2018-08-11] MEDS ORDERED: SYMBICORT 16010.2 GM INH (15:04)
[2018-08-11] MEDS ORDERED: PREDNISONE10 MG PO (15:07)
[2018-08-11] MEDS ORDERED: PLAVIX75 MG PO (15:09)
--- NOTE | 2018-08-11 15:09 | MORECARE ---
CASE MANAGEMENT DISCHARGE SUMMARY PATIENT: DIEGO ESCOBAR UNIT: [id number] ADM DATE: 08/01/18 AGE: 68 : 51 SEX: F ROOM/BED: D.2100 AUTHOR: URI,DOC PHYSICIAN: REFERRING PHYSICIAN: CARLTON CORBIN MD DATE OF SERVICE: 08/11/18 Discharge Plan Patient Name: DIEGO ESCOBAR Facility: [facility]:[place] : 1950 Planned Disposition: Home with Home Health Anticipated Discharge Date: 08/06/18 Discharge Date: Expected LOS: 5 Initial Reviewer: [email or web address] Initial Review Date: 08/05/2018 Generated: 08/11/18 4:09 pm Comments DCP- Discharge Planning Updated by [email or web address]: Jeaneth Cordova on 08/08/18 4:[address] CM consult for nebulizer at discharge from patient's DME provider, Rajesh Esposito received. Patient has acute rehab auth pending for [facility] acute rehab. She has a managed Medicare provider therefore must await authorization for insurer. OT and PT consult have completed. DCP- Discharge Planning Updated by [email or web address]: Regulo Hester on 08/05/18 1:[address] Patient Name: DIEGO ESCOBAR Encounter No: [id number] : 1950 Primary Insurance: [facility] MEDICARE SOLUTIONS Anticipated DC Date: 08-06-2018 Planned Disposition: Home with Home Health External Planned Provider: [facility] DCP follow-up note: CM RECEIVED ORDER FOR INPATIENT REHAB PRESCREENING, MET WITH PT IN ROOM TO DISCUSS DISCHARGE PLANNING AND NEEDS. CM DISCUSSED REHAB ORDER, AVAILABILITY OF INPATIENT REHAB, PROVIDERS AND LOCATIONS. PT STATES THAT SHE ALREADY TOLD THE DOCTOR SHE IS NOT GOING TO STAY IN THE HOSPITAL, REHAB OR ANY OTHER PLACE FOR 20 DAYS. PT REPORTS SHE IS GOING HOME AND DR. MCCURDY THINKS SHE WILL BE READY TO GO IN A COUPLE OF DAYS. PT STATES SHE HAS [facility] WITH NURSING, PHYSICAL THERAPY AND AIDE SERVICES AND WILL BE GOING HOME WITH [facility]. IMPORTANT MESSAGE FROM MEDICARE PROVIDED AND EXPLAINED. PT REFUSES INPATIENT REHAB, [facility] RE[facility]AB AND ANY OUT OF HOME PLACEMENT. FOR DISCHARGE HOME WITH HOME HEALTH, NOTIFY [facility] OF DISCHARGE AT [phone], FAX DISCHARGE INFORMATION TO [place] AT [phone]. Regulo Hester, CASE MANAGEMENT DCP- Discharge Planning Updated by [email or web address]: Crystal Lin on 08/05/18 7:[address] Patient Name: DIEGO ESCOBAR Admission Status: ER Accout number: [id number] Admission Date: 08-01-2018 : 1950 Admission Diagnosis:SHORTNESS OF BREATH Attending: CARLTON CORBIN Current LOS: 4 Anticipated DC Date: 08-06-2018 Planned Disposition: Home with Home Health Primary Insurance: [facility] MEDICARE SOLUTIONS Discharge Planning Comments: CM MET WITH PATIENT REGARDING D/C NEEDS AND PLANS. PATIENT STATED SHE LIVES ALONE AND FAMILY WILL DRIVE HER HOME AT DISCHARGE. PATIENT STATED THERE ARE NO STEPS TO ENTER HER HOME AND NO STEPS ONCE INSIDE. PATIENT IS INDEPENDENT WITH HER CARE AND HAS A WALKER, POWER CHAIR, SHOWER CHAIR, AND OXYGEN AT HS AT HOME. [employer] SUPPLIES HER OXYGEN. PATIENTS PCP IS DR. SANTOS AND YADIRA JOINER ON [facility]. PATIENT IS CURRENT WITH [facility]. CM WILL CONTINUE TO FOLLOW PATIENT WITH D/C NEEDS AND PLANS. PCP DR[facility] [address] [facility] SEGUNDO GAGE (SISTER) [phone] SAGAR (SON) [phone] Zone Manager: Crystal Lin DCPIA - Discharge Planning Initial Assessment Updated by [id number]: Crystal Lin on 08/05/18 8:41 am * Is the patient Alert and Oriented? Yes * How many steps to enter\exit or inside your home? * PCP DR. SANTOS * Pharmacy [facility] * Preadmission Environment Home Alone * ADLs Independent * Equipment Oxygen Shower Chair Walker * Other Equipment POWER CHAIR * List name and contact numbers for known caregivers / representatives who currently or will assist patient after discharge: SEGUNDO GAGE (SISTER) [phone] SAGAR (SON) [phone] * Verbal permission to speak to the caregivers and representatives has been obtained from the patient. Yes * Community resources currently utilized Home Health * Please name any agencies selected above. [facility] * Additional services required to return to the preadmission environment? Yes * Can the patient safely return to the preadmission environment? Yes * Has this patient been hospitalized within the prior 30 days at any hospital? Yes External Providers [facility] Next Contact Date: 08/11/2018 Service Request Date: Service Type: Resolution: Reviewer: Comments: Coverage Notice Reviewer: [id number] Hester Notice Issued Date-Time: 08/05/2018 14:20 Notice Type: IM Discharge Notice Notice Delivered To: Patient Relationship to Patient: Modeling Agency Manager Name: Delivery Method: HAND - Hand Delivered Kiara Days: Prior Verbal Notification: Recipient Understood Notice: Yes Recipient Signature: Yes Med Rec Note Co-signed by Attending: Coverage Notice Comment: Reviewer: [id number] Hester Notice Issued Date-Time: 08/11/2018 13:20 Notice Type: IM Discharge Notice Notice Delivered To: Patient Relationship to Patient: Modeling Agency Manager Name: Delivery Method: HAND - Hand Delivered Kiara Days: Prior Verbal Notification: Recipient Understood Notice: Yes Recipient Signature: Yes Med Rec Note Co-signed by Attending: Coverage Notice Comment: Last DP export: 08/08/18 5:01 Patient Name: DIEGO ESCOBAR Page 78784 at 1509 All edits/amendments must be made on the electronic document DICTATION DATE: 08/11/18 150 IN SERVICE EDUCATOR: NERI 08/11/18 1508 RPT#: [id number] DC DATE: STATUS: ADM IN [facility] [address] [place] [address] END OF REPORT
[2018-08-11 15:13] LABS: FUNGUS MYCOLOGY CULTURE Preliminary report (())
--- NOTE | 2018-08-11 15:18 | MORECARE ---
CASE MANAGEMENT DISCHARGE SUMMARY PATIENT: DIEGO ESCOBAR UNIT: [id number] ADM DATE: 08/01/18 AGE: 68 : 51 SEX: F ROOM/BED: D.2108 AUTHOR: URI,DOC PHYSICIAN: REFERRING PHYSICIAN: CARLTON CORBIN MD DATE OF SERVICE: 08/11/18 Discharge Plan Patient Name: DIEGO ESCOBAR Facility: [facility]:[place] : 1950 Planned Disposition: Home with Home Health Anticipated Discharge Date: 08/06/18 Discharge Date: Expected LOS: 5 Initial Reviewer: [email or web address] Initial Review Date: 08/05/2018 Generated: 08/11/18 4:17 pm Comments DCP- Discharge Planning Updated by [email or web address]: Jeaneth Cordova on 08/08/18 4:[address] CM consult for nebulizer at discharge from patient's DME provider, Rajesh Esposito received. Patient has acute rehab auth pending for [facility] acute rehab. She has a managed Medicare provider therefore must await authorization for insurer. OT and PT consult have completed. DCP- Discharge Planning Updated by [email or web address]: Regulo Hester on 08/05/18 1:[address] Patient Name: DIEGO ESCOBAR Encounter No: [id number] : 1950 Primary Insurance: [facility] MEDICARE SOLUTIONS Anticipated DC Date: 08-06-2018 Planned Disposition: Home with Home Health External Planned Provider: [facility] DCP follow-up note: CM RECEIVED ORDER FOR INPATIENT REHAB PRESCREENING, MET WITH PT IN ROOM TO DISCUSS DISCHARGE PLANNING AND NEEDS. CM DISCUSSED REHAB ORDER, AVAILABILITY OF INPATIENT REHAB, PROVIDERS AND LOCATIONS. PT STATES THAT SHE ALREADY TOLD THE DOCTOR SHE IS NOT GOING TO STAY IN THE HOSPITAL, REHAB OR ANY OTHER PLACE FOR 20 DAYS. PT REPORTS SHE IS GOING HOME AND DR. MCCURDY THINKS SHE WILL BE READY TO GO IN A COUPLE OF DAYS. PT STATES SHE HAS [facility] WITH NURSING, PHYSICAL THERAPY AND AIDE SERVICES AND WILL BE GOING HOME WITH [facility]. IMPORTANT MESSAGE FROM MEDICARE PROVIDED AND EXPLAINED. PT REFUSES INPATIENT REHAB, CUSTODIAL REHAB AND ANY OUT OF HOME PLACEMENT. FOR DISCHARGE HOME WITH HOME HEALTH, NOTIFY [facility] OF DISCHARGE AT [phone], FAX DISCHARGE INFORMATION TO [place] AT [phone]. Regulo Hester, CASE MANAGEMENT DCP- Discharge Planning Updated by [email or web address]: Crystal Lin on 08/05/18 7:[address] Patient Name: DIEGO ESCOBAR Admission Status: ER Accout number: [id number] Admission Date: 08-01-2018 : 1950 Admission Diagnosis:SHORTNESS OF BREATH Attending: CARLTON CORBIN Current LOS: 4 Anticipated DC Date: 08-06-2018 Planned Disposition: Home with Home Health Primary Insurance: [facility] MEDICARE SOLUTIONS Discharge Planning Comments: CM MET WITH PATIENT REGARDING D/C NEEDS AND PLANS. PATIENT STATED SHE LIVES ALONE AND FAMILY WILL DRIVE HER HOME AT DISCHARGE. PATIENT STATED THERE ARE NO STEPS TO ENTER HER HOME AND NO STEPS ONCE INSIDE. PATIENT IS INDEPENDENT WITH HER CARE AND HAS A WALKER, POWER CHAIR, SHOWER CHAIR, AND OXYGEN AT HS AT HOME. [employer] SUPPLIES HER OXYGEN. PATIENTS PCP IS DR. SANTOS AND YADIRA JOINER ON [facility]. PATIENT IS CURRENT WITH [facility]. CM WILL CONTINUE TO FOLLOW PATIENT WITH D/C NEEDS AND PLANS. PCP DR[facility] ON [address] [facility] SEGUNDO GAGE (SISTER) [phone] SAGAR (SON) [phone] Supervisor Carpenters: Crystal Lin DCPIA - Discharge Planning Initial Assessment Updated by [email or web address]: Crystal Lin on 08/05/18 8:41 am * Is the patient Alert and Oriented? Yes * How many steps to enter\exit or inside your home? * PCP DR. SANTOS * Pharmacy [facility] * Preadmission Environment Home Alone * ADLs Independent * Equipment Oxygen Shower Chair Walker * Other Equipment POWER CHAIR * List name and contact numbers for known caregivers / representatives who currently or will assist patient after discharge: SEGUNDO GAGE (SISTER) [phone] SAGAR (SON) [phone] * Verbal permission to speak to the caregivers and representatives has been obtained from the patient. Yes * Community resources currently utilized Home Health * Please name any agencies selected above. [facility] * Additional services required to return to the preadmission environment? Yes * Can the patient safely return to the preadmission environment? Yes * Has this patient been hospitalized within the prior 30 days at any hospital? Yes External Providers External Provider: [facility] Next Contact Date: 08/11/2018 Service Request Date: Service Type: Resolution: Reviewer: Comments: External Provider: Rinku DixonAmmon Solorzano Next Contact Date: 08/11/2018 Service Request Date: Service Type: Resolution: Reviewer: Comments: Coverage Notice Reviewer: OPHELIA Hester Notice Issued Date-Time: 08/05/2018 14:20 Notice Type: IM Discharge Notice Notice Delivered To: Patient Relationship to Patient: Coin Machine Collector Supervisor Name: Delivery Method: HAND - Hand Delivered Kiara Days: Prior Verbal Notification: Recipient Understood Notice: Yes Recipient Signature: Yes Med Rec Note Co-signed by Attending: Coverage Notice Comment: Reviewer: OPHELIA Hester Notice Issued Date-Time: 08/11/2018 13:20 Notice Type: IM Discharge Notice Notice Delivered To: Patient Relationship to Patient: Coin Machine Collector Supervisor Name: Delivery Method: HAND - Hand Delivered Kiara Days: Prior Verbal Notification: Recipient Understood Notice: Yes Recipient Signature: Yes Med Rec Note Co-signed by Attending: Coverage Notice Comment: Last DP export: 08/11/18 2:09 Patient Name: DIEGO ESCOBAR Page 14782 at 1518 All edits/amendments must be made on the electronic document DICTATION DATE: 08/11/181516 VOYAGE MANAGEMENT SYSTEM OPERATOR: NERI 08/11/181516 RPT#: [id number] [place] DATE: STATUS: ADM IN [facility] [address] [facility] [place] [address] END OF REPORT
--- NOTE | 2018-08-11 15:26 | MORECARE ---
CASE MANAGEMENT DISCHARGE SUMMARY PATIENT: DIEGO ESCOBAR UNIT: [id number] ADM DATE: 08/01/18 AGE: 68 : 51 SEX: F ROOM/BED: D.2101 AUTHOR: URI,DOC PHYSICIAN: REFERRING PHYSICIAN: CARLTON CORBIN MD DATE OF SERVICE: 08/11/18 Discharge Plan Patient Name: DIEGO ESCOBAR Facility: [facility]:[place] : 1950 Planned Disposition: Home Anticipated Discharge Date: 08/11/18 Discharge Date: Expected LOS: 10 Initial Reviewer: [email or web address] Initial Review Date: 08/05/2018 Generated: 08/11/18 4:26 pm Comments DCP- Discharge Planning Updated by [email or web address]: Jeaneth Cordova on 08/08/18 4:[address] CM consult for nebulizer at discharge from patient's DME provider, Rajesh Esposito received. Patient has acute rehab auth pending for [facility] acute rehab. She has a managed Medicare provider therefore must await authorization for insurer. OT and PT consult have completed. DCP- Discharge Planning Updated by [id number]: Regulo Hester on 08/05/18 1:[address] Patient Name: DIEGO ESCOBAR Encounter No: [id number] : 1950 Primary Insurance: [facility] MEDICARE SOLUTIONS Anticipated DC Date: 08-06-2018 Planned Disposition: Home with Home Health External Planned Provider: [facility] DCP follow-up note: CM RECEIVED ORDER FOR INPATIENT REHAB PRESCREENING, MET WITH PT IN ROOM TO DISCUSS DISCHARGE PLANNING AND NEEDS. CM DISCUSSED REHAB ORDER, AVAILABILITY OF INPATIENT REHAB, PROVIDERS AND LOCATIONS. PT STATES THAT SHE ALREADY TOLD THE DOCTOR SHE IS NOT GOING TO STAY IN THE HOSPITAL, REHAB OR ANY OTHER PLACE FOR 20 DAYS. PT REPORTS SHE IS GOING HOME AND DR. MCCURDY THINKS SHE WILL BE READY TO GO IN A COUPLE OF DAYS. PT STATES SHE HAS [facility] WITH NURSING, PHYSICAL THERAPY AND AIDE SERVICES AND WILL BE GOING HOME WITH [facility]. IMPORTANT MESSAGE FROM MEDICARE PROVIDED AND EXPLAINED. PT REFUSES INPATIENT REHAB, [facility] AND ANY OUT OF HOME PLACEMENT. FOR DISCHARGE HOME WITH HOME HEALTH, NOTIFY [facility] OF DISCHARGE AT [phone], FAX DISCHARGE INFORMATION TO [facility] AT [phone]. Regulo Hester, CASE MANAGEMENT DCP- Discharge Planning Updated by [id number]: Crystal Lin on 08/05/18 7:[address] Patient Name: DIEGO ESCOBAR Admission Status: ER Accout number: [id number] Admission Date: 08-01-2018 : 1950 Admission Diagnosis:SHORTNESS OF BREATH Attending: CARLTON CORBIN Current LOS: 4 Anticipated DC Date: 08-06-2018 Planned Disposition: Home with Home Health Primary Insurance: [facility] MEDICARE SOLUTIONS Discharge Planning Comments: CM MET WITH PATIENT REGARDING D/C NEEDS AND PLANS. PATIENT STATED SHE LIVES ALONE AND FAMILY WILL DRIVE HER HOME AT DISCHARGE. PATIENT STATED THERE ARE NO STEPS TO ENTER HER HOME AND NO STEPS ONCE INSIDE. PATIENT IS INDEPENDENT WITH HER CARE AND HAS A WALKER, POWER CHAIR, SHOWER CHAIR, AND OXYGEN AT HS AT HOME. [employer] SUPPLIES HER OXYGEN. PATIENTS PCP IS DR. SANTOS AND YADIRA JOINER ON [facility] [address]. PATIENT IS CURRENT WITH [facility]. CM WILL CONTINUE TO FOLLOW PATIENT WITH D/C NEEDS AND PLANS. PCP DR[facility] ON [address] [facility] SEGUNDO GAGE (SISTER) [phone] SAGAR (SON) [phone] Wool Broker: Crystal Lin DCPIA - Discharge Planning Initial Assessment Updated by [email or web address]: Crystal Lin on 08/05/18 8:41 am * Is the patient Alert and Oriented? Yes * How many steps to enter\exit or inside your home? * PCP DR. SANTOS * Pharmacy [facility] * Preadmission Environment Home Alone * ADLs Independent * Equipment Oxygen Shower Chair Walker * Other Equipment POWER CHAIR * List name and contact numbers for known caregivers / representatives who currently or will assist patient after discharge: SEGUNDO GAGE (SISTER) [phone] SAGAR (SON) [phone] * Verbal permission to speak to the caregivers and representatives has been obtained from the patient. Yes * Community resources currently utilized Home Health * Please name any agencies selected above. [facility] * Additional services required to return to the preadmission environment? Yes * Can the patient safely return to the preadmission environment? Yes * Has this patient been hospitalized within the prior 30 days at any hospital? Yes Coverage Notice Reviewer: [id number] Hester Notice Issued Date-Time: 08/05/2018 14:20 Notice Type: IM Discharge Notice Notice Delivered To: Patient Relationship to Patient: Superintendent Institution Name: Delivery Method: HAND - Hand Delivered Kiara Days: Prior Verbal Notification: Recipient Understood Notice: Yes Recipient Signature: Yes Med Rec Note Co-signed by Attending: Coverage Notice Comment: Reviewer: [id number] Hester Notice Issued Date-Time: 08/11/2018 13:20 Notice Type: IM Discharge Notice Notice Delivered To: Patient Relationship to Patient: Superintendent Institution Name: Delivery Method: HAND - Hand Delivered Kiara Days: Prior Verbal Notification: Recipient Understood Notice: Yes Recipient Signature: Yes Med Rec Note Co-signed by Attending: Coverage Notice Comment: Last DP export: 08/11/18 2:18 Patient Name: DIEGO ESCOBAR Page 20842 at 1526 All edits/amendments must be made on the electronic document DICTATION DATE: 08/11/18 1526 CRUISE COUNSELOR: NERI 08/11/18 1526 RPT#: [id number] DC DATE: STATUS: ADM IN [facility] [address] [place] [address] END OF REPORT
--- NOTE | 2018-08-11 15:36 | MORECARE ---
CASE MANAGEMENT DISCHARGE SUMMARY PATIENT: DIEGO ESCOBAR UNIT: [id number] ADM DATE: 08/01/18 AGE: 68 : 51 SEX: F ROOM/BED: D.0602 AUTHOR: URI,DOC PHYSICIAN: REFERRING PHYSICIAN: CARLTON CORBIN MD DATE OF SERVICE: 08/11/18 Discharge Plan Patient Name: DIEGO ESCOBAR [facility] [facility] 1950 Planned Disposition: Home Anticipated Discharge Date: 08/11/18 Discharge Date: Expected LOS: 10 Initial Reviewer: [id number] Initial Review Date: 08/05/2018 Generated: 08/11/18 4:35 pm Comments DCP- Discharge Planning Updated by [id number]: Regulo Hester on 08/11/18 2:[address] Patient Name: DIEGO ESCOBAR Encounter No: [id number] : 1950 Primary Insurance: [facility] MEDICARE SOLUTIONS Anticipated DC Date: 08-11-2018 Planned Disposition: Home DCP follow-up note: CM RECEIVED MESSAGE FROM AP OF [facility] INPATIENT REHAB FROM 08-09-18 INDICATING PT'S INSURANCE DECLINED INPATIENT REHAB. CM MET WITH PT IN ROOM. PT REPORTS SHE WANTS TO GO HOME. CM DISCUSSED AVAILABILITY OF DETENTION FACILITY FOR REHAB AND HOME HEALTH PT HAD PREVIOUSLY AGREED TO HOME HEALTH. PT REPORTS SHE IS NOT GOING TO A NURSING FACILITY, EVEN FOR REHAB. PT STATES SHE DOES NOT WANT HOME HEALTH NOW AND FEELS STRONG ENOUGH TO GO HOME. PT REPORTS SHE HAS HAD HER BELONGINGS MOVED TO ROOM 403 [facility] AND NEEDS TO UNPACK AND HAS HELP OF CAREGIVERS FROM "IT'S ALL ABOUT YOU." PT STATES HE IS READY TO GO HOME TODAY AND ONLY NEEDS THE NEBULIZER. PT ASKED FOR [employer] AND IF THEY DON'T HAVE ONE, SHE HAS NO PREFERENCE ON COMPANY. MPORTANT MESSAGE FROM MEDICARE PROVIDED AND DISCUSSED. CM NOTIFIED SHARONA CRAIN. CM CALLED [facility], SPOKE TO GOLDIE WHO INFORMED CM THAT THEY HAVE NO ADULT NEBULIZERS AND THEY ARE ON BACKORDER. CM CALLED [facility], , SPOKE TO PATRICK WHO HAS NEBULIZER IN STOCK, WILL DELIVER TODAY AND ARE IN PT'S INSURANCE NETWORK. CM FAXED REFERRAL TO [facility] AT [phone]. NEBULIZER DELIVERED TO PT'S ROOM. AIRPORT ATTENDANT NOTIFIED. PT DENIES FURTHER NEEDS. Regulo Hester, CASE MANAGEMENT. DCP- Discharge Planning Updated by [id number]: Jeaneth Cordova on 08/08/18 4:[address] CM consult for nebulizer at discharge from patient's DME provider, Rajesh Esposito received. Patient has acute rehab auth pending for [facility] acute rehab. She has a managed Medicare provider therefore must await authorization for insurer. OT and PT consult have completed. DCP- Discharge Planning Updated by [id number]: Regulo Hester on 08/05/18 1:[address] Patient Name: DIEGO ESCOBAR Encounter No: [id number] : 1950 Primary Insurance: [facility] MEDICARE SOLUTIONS Anticipated DC Date: 08-06-2018 Planned Disposition: Home with Home Health External Planned Provider: [facility] DCP follow-up note: CM RECEIVED ORDER FOR INPATIENT REHAB PRESCREENING, MET WITH PT IN ROOM TO DISCUSS DISCHARGE PLANNING AND NEEDS. CM DISCUSSED REHAB ORDER, AVAILABILITY OF INPATIENT REHAB, PROVIDERS AND LOCATIONS. PT STATES THAT SHE ALREADY TOLD THE DOCTOR SHE IS NOT GOING TO STAY IN THE HOSPITAL, REHAB OR ANY OTHER PLACE FOR 20 DAYS. PT REPORTS SHE IS GOING HOME AND DR. MCCURDY THINKS SHE WILL BE READY TO GO IN A COUPLE OF DAYS. PT STATES SHE HAS [facility] WITH NURSING, PHYSICAL THERAPY AND AIDE SERVICES AND WILL BE GOING HOME WITH [facility] FOR REH[facility] MEDICINE HEALTH. IMPORTANT MESSAGE FROM MEDICARE PROVIDED AND EXPLAINED. PT REFUSES INPATIENT REHAB, DETENTION REHAB AND ANY OUT OF HOME PLACEMENT. FOR DISCHARGE HOME WITH HOME HEALTH, NOTIFY [facility] OF DISCHARGE AT [phone], FAX DISCHARGE INFORMATION TO [facility] [facility] AT [phone]. Regulo Hester, CASE MANAGEMENT DCP- Discharge Planning Updated by [id number]: Crystal Lin on 08/05/18 7:[address] Patient Name: DIEGO ESCOBAR Admission Status: ER Accout number: [id number] Admission Date: 08-01-2018 : 1950 Admission Diagnosis:SHORTNESS OF BREATH Attending: CARLTON CORBIN Current LOS: 4 Anticipated DC Date: 08-06-2018 Planned Disposition: Home with Home Health Primary Insurance: [facility] MEDICARE SOLUTIONS Discharge Planning Comments: CM MET WITH PATIENT REGARDING D/C NEEDS AND PLANS. PATIENT STATED SHE LIVES ALONE AND FAMILY WILL DRIVE HER HOME AT DISCHARGE. PATIENT STATED THERE ARE NO STEPS TO ENTER HER HOME AND NO STEPS ONCE INSIDE. PATIENT IS INDEPENDENT WITH HER CARE AND HAS A WALKER, POWER CHAIR, SHOWER CHAIR, AND OXYGEN AT HS AT HOME. [employer] SUPPLIES HER OXYGEN. PATIENTS PCP IS DR. SANTOS AND YADIRA JOINER ON [facility] [address]. PATIENT IS CURRENT WITH [facility]. CM WILL CONTINUE TO FOLLOW PATIENT WITH D/C NEEDS AND PLANS. PCP DR[facility] ON [address] [facility] SEGUNDO GAGE (SISTER) [phone] SAGAR (SON) [phone] Computer Aided Design Technician: Crystal Lin DCPIA - Discharge Planning Initial Assessment Updated by [id number]: Crystal Lin on 08/05/18 8:41 am * Is the patient Alert and Oriented? Yes * How many steps to enter\\exit or inside your home? * PCP DR. SANTOS * Pharmacy [facility] * Preadmission Environment Home Alone * ADLs Independent * Equipment Oxygen Shower Chair Walker * Other Equipment POWER CHAIR * List name and contact numbers for known caregivers / representatives who currently or will assist patient after discharge: SEGUNDO GAGE ([place]) [phone] SAGAR (SON) [phone] * Verbal permission to speak to the caregivers and representatives has been obtained from the patient. Yes * Community resources currently utilized Home Health * Please name any agencies selected above. [facility] * Additional services required to return to the preadmission environment? Yes * Can the patient safely return to the preadmission environment? Yes * Has this patient been hospitalized within the prior 30 days at any hospital? Yes Coverage Notice Reviewer: [id number] Maninder Hester Notice Issued Date-Time: 08/05/2018 14:20 Notice Type: IM Discharge Notice Notice Delivered To: Patient Relationship to Patient: Building Services Supervisor Name: Delivery Method: HAND - Hand Delivered Kiara Days: Prior Verbal Notification: Recipient Understood Notice: Yes Recipient Signature: Yes Med Rec Note Co-signed by Attending: Coverage Notice Comment: Reviewer: [id number] Hester Notice Issued Date-Time: 08/11/2018 13:20 Notice Type: IM Discharge Notice Notice Delivered To: Patient Relationship to Patient: Building Services Supervisor Name: Delivery Method: HAND - Hand Delivered Kiara Days: Prior Verbal Notification: Recipient Understood Notice: Yes Recipient Signature: Yes Med Rec Note Co-signed by Attending: Coverage Notice Comment: Last DP export: 08/11/18 2:26 Patient Name: DIEGO ESCOBAR Page 97196 at 1536 All edits/amendments must be made on the electronic document DICTATION DATE: 08/11/18 1535 DIRECTOR OF CUSTOMER ACQUISITION: NERI 08/11/18 1535 RPT#: [id number] DC DATE: STATUS: ADM IN [facility] [address] [place] [address] END OF REPORT
--- NOTE | 2018-08-12 09:54 | MORECARE ---
CASE MANAGEMENT DISCHARGE SUMMARY PATIENT: DIEGO ESCOBAR UNIT: [id number] ADM DATE: 08/01/18 AGE: 68 : 51 SEX: F ROOM/BED: D.3723 AUTHOR: URI,DOC PHYSICIAN: REFERRING PHYSICIAN: CARLTON CORBIN MD DATE OF SERVICE: 08/12/18 Discharge Plan Patient Name: DIEGO ESCOBAR Facility[facility]:[place] : 1950 Planned Disposition: Home Anticipated Discharge Date: 08/11/18 Discharge Date: 08/11/2018 Expected LOS: 10 Initial Reviewer: [id number] Initial Review Date: 08/05/2018 Generated: 08/12/18 10:54 am Comments DCP- Discharge Planning Updated by [email or web address]: Regulo Hester on 08/11/18 2:[address] Patient Name: DIEGO ESCOBAR Encounter No: [id number] : 1950 Primary Insurance: [facility] MEDICARE SOLUTIONS Anticipated DC Date: 08-11-2018 Planned Disposition: Home DCP follow-up note: CM RECEIVED MESSAGE FROM AP OF [facility] INPATIENT RE[facility] FROM 08-09-18 INDICATING PT'S INSURANCE DECLINED INPATIENT REHAB. CM MET WITH PT IN ROOM. PT REPORTS SHE WANTS TO GO HOME. CM DISCUSSED AVAILABILITY OF RETIREMENT FACILITY FOR REHAB AND HOME HEALTH PT HAD PREVIOUSLY AGREED TO HOME HEALTH. PT REPORTS SHE IS NOT GOING TO A NURSING FACILITY, EVEN FOR REHAB. PT STATES SHE DOES NOT WANT HOME HEALTH NOW AND FEELS STRONG ENOUGH TO GO HOME. PT REPORTS SHE HAS [facility] AND NEEDS TO [facility] AND HAS HELP OF CAREGIVERS FROM "IT'S ALL ABOUT YOU." PT STATES HE IS READY TO GO HOME TODAY AND ONLY NEEDS THE NEBULIZER. PT ASKED FOR [employer] AND IF THEY DON'T HAVE ONE, SHE HAS NO PREFERENCE ON COMPANY. MPORTANT MESSAGE FROM MEDICARE PROVIDED AND DISCUSSED. CM NOTIFIED [facility]IN. CM CALLED [facility], SPOKE TO GOLDIE WHO INFORMED CM THAT THEY HAVE NO ADULT NEBULIZERS AND THEY ARE ON BACKORDER. CM CALLED [facility], , SPOKE TO PATRICK WHO HAS NEBULIZER IN STOCK, WILL DELIVER TODAY AND ARE IN PT'S INSURANCE NETWORK. CM FAXED REFERRAL TO [facility] AT [phone]. NEBULIZER DELIVERED TO PT'S ROOM. LOOK OUT TOWER FIRE WATCHER NOTIFIED. PT DENIES FURTHER NEEDS. Regulo Hester, CASE MANAGEMENT. DCP- Discharge Planning Updated by [id number]: Jeaneth Cordova on 08/08/18 4:[address] CM consult for nebulizer at discharge from patient's DME provider, Rajesh Esposito received. Patient has acute rehab auth pending for [facility] acute rehab. She has a managed Medicare provider therefore must await authorization for insurer. OT and PT consult have completed. DCP- Discharge Planning Updated by [id number]: Regulo Hester on 08/05/18 1:[address] Patient Name: DIEGO ESCOBAR Encounter No: [id number] : 1950 Primary Insurance: [facility] MEDICARE SOLUTIONS Anticipated DC Date: 08-06-2018 Planned Disposition: Home with Home Health External Planned Provider: [facility] DCP follow-up note: CM RECEIVED ORDER FOR INPATIENT REHAB PRESCREENING, MET WITH PT IN ROOM TO DISCUSS DISCHARGE PLANNING AND NEEDS. CM DISCUSSED REHAB ORDER, AVAILABILITY OF INPATIENT REHAB, PROVIDERS AND LOCATIONS. PT STATES THAT SHE ALREADY TOLD THE DOCTOR SHE IS NOT GOING TO STAY IN THE HOSPITAL, REHAB OR ANY OTHER PLACE FOR 20 DAYS. PT REPORTS SHE IS GOING HOME AND DR. MCCURDY THINKS SHE WILL BE READY TO GO IN A COUPLE OF DAYS. PT STATES SHE HAS [facility] WITH NURSING, PHYSICAL THERAPY AND AIDE SERVICES AND WILL BE GOING HOME WITH [facility]. IMPORTANT MESSAGE FROM MEDICARE PROVIDED AND EXPLAINED. PT REFUSES INPATIENT REHAB, RETIREMENT REHAB AND ANY OUT OF HOME PLACEMENT. FOR DISCHARGE HOME WITH HOME HEALTH, NOTIFY [facility] OF DISCHARGE AT [phone], FAX DISCHARGE INFORMATION TO [place] [facility] AT [phone]. Regulo Hester, CASE MANAGEMENT DCP- Discharge Planning Updated by [id number]: Crystal Lin on 08/05/18 7:[address] Patient Name: DIEGO ESCOBAR Admission Status: ER Accout number: [id number] Admission Date: 08-01-2018 : 1950 Admission Diagnosis:SHORTNESS OF BREATH Attending: CARLTON CORBIN Current LOS: 4 Anticipated DC Date: 08-06-2018 Planned Disposition: Home with Home Health Primary Insurance: [facility] MEDICARE SOLUTIONS Discharge Planning Comments: CM MET WITH PATIENT REGARDING D/C NEEDS AND PLANS. PATIENT STATED SHE LIVES ALONE AND FAMILY WILL DRIVE HER HOME AT DISCHARGE. PATIENT STATED THERE ARE NO STEPS TO ENTER HER HOME AND NO STEPS ONCE INSIDE. PATIENT IS INDEPENDENT WITH HER CARE AND HAS A WALKER, POWER CHAIR, SHOWER CHAIR, AND OXYGEN AT HS AT HOME. [employer] SUPPLIES HER OXYGEN. PATIENTS PCP IS DR. SANTOS AND USES [facility] ON [facility] AND [address]. PATIENT IS CURRENT WITH [facility]. CM WILL CONTINUE TO FOLLOW PATIENT WITH D/C NEEDS AND PLANS. PCP [facility] ON [address] AND [facility] SEGUNDO GAGE ([place]STER) [phone] SAGAR (SON) [phone] Centrifuge Separator Operator: Crystal Lin DCPIA - Discharge Planning Initial Assessment Updated by [id number]: Crystal Lin on 08/05/18 8:41 am * Is the patient Alert and Oriented? Yes * How many steps to enter\\exit or inside your home? * PCP DR. SANTOS * Pharmacy [facility] * Preadmission Environment Home Alone * ADLs Independent * Equipment Oxygen Shower Chair Walker * Other Equipment POWER CHAIR * List name and contact numbers for known caregivers / representatives who currently or will assist patient after discharge: SEGUNDO GAGE ([place]) [phone] SAGAR (SON) [phone] * Verbal permission to speak to the caregivers and representatives has been obtained from the patient. Yes * Community resources currently utilized Home Health * Please name any agencies selected above. [facility] * Additional services required to return to the preadmission environment? Yes * Can the patient safely return to the preadmission environment? Yes * Has this patient been hospitalized within the prior 30 days at any hospital? Yes External Providers External Provider: [facility] Next Contact Date: 08/04/2018 Service Request Date: Service Type: Resolution: Reviewer: Comments: Coverage Notice Reviewer: [id number] - Regulo Hester Notice Issued Date-Time: 08/05/2018 14:20 Notice Type: IM Discharge Notice Notice Delivered To: Patient Relationship to Patient: Octave Board Racker Name: Delivery Method: HAND - Hand Delivered Kiara Days: Prior Verbal Notification: Recipient Understood Notice: Yes Recipient Signature: Yes Med Rec Note Co-signed by Attending: Coverage Notice Comment: Reviewer: [id number] - Regulo Hester Notice Issued Date-Time: 08/11/2018 13:20 Notice Type: IM Discharge Notice Notice Delivered To: Patient Relationship to Patient: Octave Board Racker Name: Delivery Method: HAND - Hand Delivered Kiara Days: Prior Verbal Notification: Recipient Understood Notice: Yes Recipient Signature: Yes Med Rec Note Co-signed by Attending: Coverage Notice Comment: Last DP export: 08/11/18 2:36 Patient Name: DIEGO ESCOBAR Page 21523 at 0954 All edits/amendments must be made on the electronic document DICTATION DATE: 08/12/18952 INSTRUMENTATION INSTRUCTOR: NERI 08/12/18952 RPT#: [id number] DC DATE:08/11/18 STATUS: DIS IN [facility] [address] [place] [address] END OF REPORT
--- NOTE | 2018-08-12 10:03 | MORECARE ---
CASE MANAGEMENT DISCHARGE SUMMARY PATIENT: DIEGO ESCOBAR UNIT: [id number] ADM DATE: 08/01/18 AGE: 68 : 51 SEX: F ROOM/BED: D.2107 AUTHOR: URI,DOC PHYSICIAN: REFERRING PHYSICIAN: CARLTON CORBIN MD DATE OF SERVICE: 08/12/18 Discharge Plan Patient Name: DIEGO ESCOBAR Facility: [facility]:[place] : 1950 Planned Disposition: Home Anticipated Discharge Date: 08/11/18 Discharge Date: 08/11/2018 Expected LOS: 10 Initial Reviewer: [id number] Initial Review Date: 08/05/2018 Generated: 08/12/18 11:02 am Comments DCP- Discharge Planning Updated by [email or web address]: Regulo Hester on 08/12/18 9:[address] Patient Name: DIEGO ESCOBAR Encounter No: [id number] : 1950 Primary Insurance: [facility] MEDICARE SOLUTIONS Anticipated DC Date: 08-11-2018 Planned Disposition: Home DCP follow-up note: CM RECEIVED CALL FROM ADOLPH OF [facility] ASKED ABOUT PT'S STATUS. CM INFORMED ADOLPH THAT PT DISCHARGED HOME LAST EVENING AND REFUSED HOME HEALTH SERVICES. ADOLPH ASKED THAT DISCHARGE INFORMATION BE FAXED TO THEM PT IS STILL ON HOME HEALTH SERVICES WITH [facility]; ADOLPH REPORTS SHE WILL HAVE PT CONTACTED TO ENSURE THAT SHE IS REFUSING HOME HEALTH OR HAS CHANGED HER MIND AND WILL ACCEPT SERVICES. CHRISTINE FAXED DISCHARGE INFORMATION TO [facility] AT [phone]. Regulo Hester, CASE MANAGEMENT DCP- Discharge Planning Updated by [id number]: Regulo Hester on 08/11/18 2:[address] Patient Name: DIEGO ESCOBAR Encounter No: [id number] : 1950 Primary Insurance: [facility] MEDICARE SOLUTIONS Anticipated DC Date: 08-11-2018 Planned Disposition: Home DCP follow-up note: CM RECEIVED MESSAGE FROM AP OF [facility] INPATIENT REHAB FROM 08-09-18 INDICATING PT'S INSURANCE DECLINED INPATIENT REHAB. CM MET WITH PT IN ROOM. PT REPORTS SHE WANTS TO GO HOME. CM DISCUSSED AVAILABILITY OF PENITENTIARY FACILITY FOR REHAB AND HOME HEALTH PT HAD PREVIOUSLY AGREED TO HOME HEALTH. PT REPORTS SHE IS NOT GOING TO A NURSING FACILITY, EVEN FOR REHAB. PT STATES SHE DOES NOT WANT HOME HEALTH NOW AND FEELS STRONG ENOUGH TO GO HOME. PT REPORTS SHE HAS HAD HER BELONGINGS MOVED TO ROOM [address] AT [facility] AND NEEDS TO UNPACK AND HAS HELP OF CAREGIVERS FROM "IT'S ALL ABOUT YOU." PT STATES HE IS READY TO GO HOME TODAY AND ONLY NEEDS THE NEBULIZER. PT ASKED FOR [employer] AND IF THEY DON'T HAVE ONE, SHE HAS NO PREFERENCE ON COMPANY. MPORTANT MESSAGE FROM MEDICARE PROVIDED AND DISCUSSED. CM NOTIFIED [facility]. CM CALLED [facility], SPOKE TO GOLDIE WHO INFORMED CM THAT THEY HAVE NO ADULT NEBULIZERS AND THEY ARE ON BACKORDER. CM CALLED [facility], , SPOKE TO PATRICK WHO HAS NEBULIZER IN STOCK, WILL DELIVER TODAY AND ARE IN PT'S INSURANCE NETWORK. CM FAXED REFERRAL TO [facility] AT [phone]. NEBULIZER DELIVERED TO PT'S ROOM. IRISH MOSS OPERATOR NOTIFIED. PT DENIES FURTHER NEEDS. Regulo Hester, CASE MANAGEMENT. DCP- Discharge Planning Updated by [id number]: Jeaneth Cordova on 08/08/18 4:[address] CM consult for nebulizer at discharge from patient's DME provider, Rajesh Esposito received. Patient has acute rehab auth pending for [facility] acute rehab. She has a managed Medicare provider therefore must await authorization for insurer. OT and PT consult have completed. DCP- Discharge Planning Updated by [email or web address]: Regulo Hester on 08/05/18 1:[address] Patient Name: DIEGO ESCOBAR Encounter No: [id number] : 1950 Primary Insurance: [facility] MEDICARE SOLUTIONS Anticipated DC Date: 08-06-2018 Planned Disposition: Home with Home Health External Planned Provider: [facility] DCP follow-up note: CM RECEIVED ORDER FOR INPATIENT REHAB PRESCREENING, MET WITH PT IN ROOM TO DISCUSS DISCHARGE PLANNING AND NEEDS. CM DISCUSSED REHAB ORDER, AVAILABILITY OF INPATIENT REHAB, PROVIDERS AND LOCATIONS. PT STATES THAT SHE ALREADY TOLD THE DOCTOR SHE IS NOT GOING TO STAY IN THE HOSPITAL, REHAB OR ANY OTHER PLACE FOR 20 DAYS. PT REPORTS SHE IS GOING HOME AND DR. MCCURDY THINKS SHE WILL BE READY TO GO IN A COUPLE OF DAYS. PT STATES SHE HAS [facility] WITH NURSING, PHYSICAL THERAPY AND AIDE SERVICES AND WILL BE GOING HOME WITH [facility]. IMPORTANT MESSAGE FROM MEDICARE PROVIDED AND EXPLAINED. PT REFUSES INPATIENT REHAB, PENITENTIARY REHAB AND ANY OUT OF HOME PLACEMENT. FOR DISCHARGE HOME WITH HOME HEALTH, NOTIFY [facility] OF DISCHARGE AT [phone], FAX DISCHARGE INFORMATION TO [facility] AT [phone]. Regulo Hester, CASE MANAGEMENT DCP- Discharge Planning Updated by [id number]: Crystal Lin on 08/05/18 7:[address] Patient Name: DIEGO ESCOBAR Admission Status: ER Accout number: [id number] Admission Date: 08-01-2018 : 1950 Admission Diagnosis:SHORTNESS OF BREATH Attending: CARLTON CORBIN Current LOS: 4 Anticipated DC Date: 08-06-2018 Planned Disposition: Home with Home Health Primary Insurance: [facility] MEDICARE SOLUTIONS Discharge Planning Comments: CM MET WITH PATIENT REGARDING D/C NEEDS AND PLANS. PATIENT STATED SHE LIVES ALONE AND FAMILY WILL DRIVE HER HOME AT DISCHARGE. PATIENT STATED THERE ARE NO STEPS TO ENTER HER HOME AND NO STEPS ONCE INSIDE. PATIENT IS INDEPENDENT WITH HER CARE AND HAS A WALKER, POWER CHAIR, SHOWER CHAIR, AND OXYGEN AT AT HOME. [employer] SUPPLIES HER OXYGEN. PATIENTS PCP IS DR. SANTOS AND USES [facility] ON [address] [facility]. PATIENT IS CURRENT WITH [facility]. CM WILL CONTINUE TO FOLLOW PATIENT WITH D/C NEEDS AND PLANS. PCP [facility] [address] [facility] ([place]) [phone] SAGAR (SON) [phone] Fire Alarm Dispatcher: Crystal Lin DCPIA - Discharge Planning Initial Assessment Updated by [email or web address]: Crystal Lin on 08/05/18 8:41 am * Is the patient Alert and Oriented? Yes * How many steps to enter\\exit or inside your home? * PCP DR. SANTOS * Pharmacy [facility] * Preadmission Environment Home Alone * ADLs Independent * Equipment Oxygen Shower Chair Walker * Other Equipment POWER CHAIR * List name and contact numbers for known caregivers / representatives who currently or will assist patient after discharge: [facility] ([place]) [phone] SAGAR (SON) [phone] * Verbal permission to speak to the caregivers and representatives has been obtained from the patient. Yes * Community resources currently utilized Home Health * Please name any agencies selected above. [facility] * Additional services required to return to the preadmission environment? Yes * Can the patient safely return to the preadmission environment? Yes * Has this patient been hospitalized within the prior 30 days at any hospital? Yes Coverage Notice Reviewer: [id number] Hester Notice Issued Date-Time: 08/05/2018 14:20 Notice Type: IM Discharge Notice Notice Delivered To: Patient Relationship to Patient: Technical Sales Director Name: Delivery Method: HAND - Hand Delivered Kiara Days: Prior Verbal Notification: Recipient Understood Notice: Yes Recipient Signature: Yes Med Rec Note Co-signed by Attending: Coverage Notice Comment: Reviewer: [id number] Hester Notice Issued Date-Time: 08/11/2018 13:20 Notice Type: IM Discharge Notice Notice Delivered To: Patient Relationship to Patient: Technical Sales Director Name: Delivery Method: HAND - Hand Delivered Kiara Days: Prior Verbal Notification: Recipient Understood Notice: Yes Recipient Signature: Yes Med Rec Note Co-signed by Attending: Coverage Notice Comment: Last DP export: 08/12/18 8:54 Patient Name: DIEGO ESCOBAR Page 45467 at 1003 All edits/amendments must be made on the electronic document DICTATION DATE: 08/12/18 1002 CASHIER CREDIT: NERI 08/12/18 1002 RPT#: [id number] DC DATE:08/11/18 STATUS: DIS IN [facility] [address] [place] [address] END OF REPORT
--- NOTE | 2018-08-12 15:07 | CN ---
PATIENT NAME:DIEGO ESCOBAR MEDICAL RECORD: [id number] : 52 LOCATION:D. D.2104 ADMIT DATE: 08/01/18 ACCOUNT: [id number] CONSULTING PHYSICIAN: BLADIMIR CARLOS MD REFERRING PHYSICIAN: CARLTON CORBIN MD DATE OF CONSULTATION: 08/01/2018 CONSULT REQUESTING PHYSICIAN: Willem Bello MD REASON FOR CONSULTATION: Bsbjv-md-xxodsnc hypoxic respiratory failure, pulmonary nodule. HISTORY OF PRESENT ILLNESS: Ms. Escobar is a 68-year-old female who is admitted for worsening shortness of breath, orthopnea, and PND. The patient has diagnosis of renal cell carcinoma for which seeing Dr. Tee. In January, she had a CT scan of the chest and she was seen at [facility] for the pulmonary nodules, but the patient does not remember the detail. Now, her shortness of breath is getting worse and the patient came into the ER. On evaluation, found out the patient has pulmonary edema and bilateral pulmonary nodules. REVIEW OF SYSTEMS: As in history of present illness. PAST MEDICAL HISTORY: 1. Chronic hypoxic respiratory failure. 2. COPD. 3. Hypertension. 4. Coronary artery disease, status post [place], angioplasty, and stent placement. 5. Chronic rash. 6. Gastroesophageal reflux disease. 7. Depression. PAST SURGICAL HISTORY: 1. Hemorrhoidectomy. 2. Tubal , stent placement. 3. Surgery for bladder cancer by Dr. Tee. ALLERGIES: SHE IS ALLERGIC TO CIPRO, SULFAMETHOXAZOLE, TRIMETHOPRIM, AND BUPROPION. MEDICATIONS: [employer] is reviewed. PERSONAL AND SOCIAL HISTORY: The patient still continued to smoke. She is a nondrinker. FAMILY HISTORY: Significant for cancer and diabetes. PHYSICAL EXAMINATION: GENERAL: The patient is now lying comfortably in bed. She is not in acute distress. VITAL SIGNS: The blood pressure is 101/58, pulse is 115, respiration is 18, temperature 98.1, and SpO2 95% on 2 liters nasal cannula. HEENT: Conjunctivae are pink. Sclerae nonicteric. NECK: Supple, no JVD. CHEST: There are bilateral crackles, wheeze on forceful expiration. HEART: Rhythm regular, normal sound, no murmur. CONSULT REPORT [id number] DIEGO ESCOBAR ABDOMEN: Soft, bowel sounds present. No hepatosplenomegaly. RECTAL: Deferred. EXTREMITIES: No cyanosis, no clubbing. There is 1+ pedal edema. CENTRAL NERVOUS SYSTEM: The patient is awake and alert. There are no obvious cranial nerve abnormality. The gait was not tested. IMAGING: Chest x-ray, there are increased interstitial marking with pulmonary nodules bilaterally. OTHER LABORATORY DATA: CBC: WBC 7.4, hemoglobin 8.2, hematocrit 26.7, the platelet count is 185. Chemistry: Sodium is 141, potassium 3.9, BUN is 18, creatinine is 1. The proBNP is 7204. IMPRESSION: 1. Lcuht-jh-jlzrmxp hypoxic respiratory failure. 2. Pulmonary edema and acute exacerbation of COPD. 3. Pulmonary nodule. 4. Congestive heart failure. 5. Anemia. 6. Tobacco dependence syndrome. RECOMMENDATION: 1. Start IV Lasix. 2. Start on Xopenex/ipratropium nebulizer. 3. Start Brovana/budesonide nebulizer. 4. Methylprednisolone IV. 5. Continue empiric antibiotic. 6. Followup CT scan of the chest, fungal serology, KENISHA level, and ANCA level. Dr. Bello, thank you for involving me in the care of Ms. Escobar. TRANSINT:[id number] Voice Confirmation ID: [id number] DOCUMENT ID: [id number] BLADIMIR CARLOS MD at 1507 CC: [id number] DICTATION DATE: 08/01/181515 COMPO CONVEYOR OPERATOR: 08/01/182118 DIS IN 08/11/18 [address] [place] [address]
== END 2018-08-11 18:12 | disposition home health service (06) | DRG 291 ==
LOC: D.ER 23:21 → D.M2 08-01 02:27
PROVIDERS: Emergency Medicine; Family Medicine; Family Medicine Adult Medicine; Internal Medicine Hematology & Oncology; Internal Medicine Nephrology; Internal Medicine Pulmonary Disease; ADMIT Family Medicine
PROC: 0B988ZZ Drainage of Left Upper Lobe Bronchus, Via Natural or Artificial Opening Endoscopic (ICD-10-PCS; principal; 2018-08-04 11:00)
DX: I11.0 Hypertensive heart disease with heart failure (principal); J96.21 Acute and chronic respiratory failure with hypoxia; J44.1 Chronic obstructive pulmonary disease with (acute) exacerbation; F17.213 Nicotine dependence, cigarettes, with withdrawal; N17.9 Acute kidney failure, unspecified; C64.9 Malignant neoplasm of unspecified kidney, except renal pelvis; I50.23 Acute on chronic systolic (congestive) heart failure; R91.1 Solitary pulmonary nodule; I25.10 Atherosclerotic heart disease of native coronary artery without angina pectoris; K21.9 Gastro-esophageal reflux disease without esophagitis; F32.9 Major depressive disorder, single episode, unspecified; D64.9 Anemia, unspecified; I48.91 Unspecified atrial fibrillation; E87.6 Hypokalemia; E83.42 Hypomagnesemia; I25.5 Ischemic cardiomyopathy; J98.01 Acute bronchospasm

== ENCOUNTER 2018-08-21 04:47 | Inpatient (IN) | payer MEDICARE, MEDICAID ==
[~2018-08-21] VITALS: Ht 162.6 cm; Wt 69.4 kg
[~2018-08-21 04:47] MED LIST changes: +ATROVENT 0.02%2.5 ML UPD; +BENZONATATE200 MG PO; +CARDIZEM CD180 MG PO; +DALIRESP500 MCG PO; +PLAVIX75 MG PO; +PREDNISONE10 MG PO; +SINGULAIR10 MG PO; +SYMBICORT 16010.2 GM INH; +XOPENEX 0.0.63 MG/3 UPD
[2018-08-21 05:35] LABS: BASOPHILS 0.1 % (0-2); EOSINOPHILS 0.1 % (0-7); HEMATOCRIT 32.8 % (36.0-48.0); HEMOGLOBIN 10.1 g/dL (12-16); IMMATURE GRANULOCYTES 0.2 % (0-5); LYMPHOCYTES 7.9 % (15-50); MCHC 30.8 g/dL (31.0-37.0); MCV 97.3 fL (80.0-100.0); MEAN PLATELET VOLUME 11.3 fL (7.4-10.4); MONOCYTES 4.4 % (2-11); NEUTROPHILS 87.3 % (40-80); RBC 3.37 10x6/uL (4.00-5.40); RDW 15.6 % (11.5-14.5); WBC 16.2 10x3/uL (4.8-10.8)
[2018-08-21 05:47] LABS: PLATELET COUNT 167 10x3/uL (130-400)
[2018-08-21 05:54] LABS: ALBUMIN 2.7 g/dL (3.4-5.0); ALKALINE PHOSPHATASE 64 U/L (46-116); ALT (SGPT) 33 U/L (10-68); BILIRUBIN - TOTAL 0.64 mg/dL (0.2-1.3); CALC OSMOLALITY 287 mosm/kg (275-300); CALCIUM 9.1 mg/dL (8.5-10.1); CHLORIDE - SERUM 105 mmol/L (98-107); GLUCOSE 113 mg/dL (74-106); POTASSIUM - SERUM 3.4 mmol/L (3.5-5.1); PROTEIN - SERUM 6.6 g/dL (6.4-8.2); SODIUM 142 mmol/L (136-145); UREA NITROGEN 25 mg/dL (7-18); eGFR NON AFRICAN AMERICAN 58 mL/min (90-120)
[2018-08-21 06:16] LABS: CKMB 0.9 U/L (0.0-3.6); CREATINE KINASE 13 UL (21-215); TROPONIN-I < 0.017 ng/mL (0.000-0.060)
[2018-08-21 07:00] VITALS: BP 116/65
[2018-08-21 10:49] VITALS: BP 119/62; BMI 25.3
[2018-08-21 11:00] VITALS: BP 120/86
[2018-08-21 16:21] LABS: % SATURATION 6 % (15-55); IRON 15 ug/dl (35-150); TOTAL IRON BIND CAPACITY 224 ug/dl (260-445); UNSAT IRON BIND CAPACITY 209 ug/dl (150-375)
[2018-08-21 20:25] VITALS: BP 117/69
[2018-08-22] VITALS (7 sets, daily range): BP systolic 92–124; BP diastolic 47–81
[2018-08-22 14:50] LABS: BASOPHILS 0 % (0-2); EOSINOPHILS 0 % (0-7); HEMATOCRIT 31.1 % (36.0-48.0); HEMOGLOBIN 9.6 g/dL (12-16); IMMATURE GRANULOCYTES 0.2 % (0-5); MCH 30.2 pg (26.0-34.0); MCHC 30.9 g/dL (31.0-37.0); MCV 97.8 fL (80.0-100.0); MEAN PLATELET VOLUME 10.2 fL (7.4-10.4); MONOCYTES 2.9 % (2-11); NEUTROPHILS 91.9 % (40-80); PLATELET COUNT 176 10x3/uL (130-400); RBC 3.18 10x6/uL (4.00-5.40); RDW 15.4 % (11.5-14.5); WBC 13.7 10x3/uL (4.8-10.8)
[2018-08-22 14:59] LABS: ANION GAP 13.7 mmol/L (8-16); CALCIUM 9.2 mg/dL (8.5-10.1); CARBON DIOXIDE 30.3 mmol/L (21.0-32.0); CREATININE - SERUM 1.1 mg/dL (0.6-1.3)
[2018-08-22 18:58] LABS: APPEARANCE CLEAR (CLEAR); COLOR YELLOW (YELLOW); SPECIFIC GRAVITY 1.015 (1.005-1.020)
[2018-08-22 18:59] LABS: BILIRUBIN NEGATIVE (NEGATIVE); GLUCOSE NEGATIVE (NEGATIVE); KETONE NEGATIVE (NEGATIVE); NITRITE NEGATIVE (NEGATIVE); PROTEIN NEGATIVE (NEGATIVE); UROBILINOGEN NORMAL (NORMAL)
[2018-08-23 00:57] VITALS: BP 88/48
[2018-08-23 05:53] VITALS: BP 115/61
[2018-08-23 06:14] LABS: ANION GAP 11.4 mmol/L (8-16); CALCIUM 9.1 mg/dL (8.5-10.1); CARBON DIOXIDE 34.1 mmol/L (21.0-32.0); CREATININE - SERUM 0.9 mg/dL (0.6-1.3); POTASSIUM - SERUM 5.5 mmol/L (3.5-5.1)
[2018-08-23 06:54] LABS: BASOPHILS 0.1 % (0-2); EOSINOPHILS 0.2 % (0-7); HEMATOCRIT 29.4 % (36.0-48.0); HEMOGLOBIN 8.9 g/dL (12-16); IMMATURE GRANULOCYTES 0.2 % (0-5); MCH 29.8 pg (26.0-34.0); MCHC 30.3 g/dL (31.0-37.0); MCV 98.3 fL (80.0-100.0); MEAN PLATELET VOLUME 11.4 fL (7.4-10.4); MONOCYTES 3.6 % (2-11); NEUTROPHILS 78.9 % (40-80); PLATELET COUNT 174 10x3/uL (130-400); RBC 2.99 10x6/uL (4.00-5.40); RDW 15.6 % (11.5-14.5); WBC 10.8 10x3/uL (4.8-10.8)
[2018-08-23 09:20] VITALS: BP 96/58
[2018-08-23 13:45] VITALS: Ht 162.6 cm; Wt 69.4 kg
[2018-08-23] MEDS ORDERED: PREDNISONE10 MG PO (17:12)
[2018-08-23] MEDS ORDERED: ZPAK PO (17:13)
[2018-08-24 08:22] LABS: FOLATE (FOLIC ACID) - SERUM 14.4 ng/mL (>3.0)
--- NOTE | 2018-08-24 08:41 | MORECARE ---
CASE MANAGEMENT DISCHARGE SUMMARY PATIENT: DIEGO ESCOBAR UNIT: [id number] ADM DATE: 08/22/18 AGE: 68 : 51 SEX: F ROOM/BED: D.2130 AUTHOR: BALBIR GREWAL PHYSICIAN: REFERRING PHYSICIAN: CARRIE LANG MD DATE OF SERVICE: 08/24/18 Discharge Plan Patient Name: DIEGO ESCOBAR Facility: [facility]:[place] : 1950 Planned Disposition: Home Anticipated Discharge Date: 08/23/18 Discharge Date: 08/23/2018 Expected LOS: 1 Initial Reviewer: [email or web address] Initial Review Date: 08/24/2018 Generated: 08/24/18 9:41 am Coverage Notice Reviewer: [email or web address] Maninder Garcia Notice Issued Date-Time: 08/21/2018 13:08 Notice Type: Medicare Outpatient Observation Notice Notice Delivered To: Patient Relationship to Patient: Self Dressage Judge Name: Delivery Method: HAND - Hand Delivered Kiara Days: Prior Verbal Notification: Recipient Understood Notice: Yes Recipient Signature: Yes Med Rec Note Co-signed by Attending: Coverage Notice Comment: Patient Name: DIEGO ESCOBAR Page [phone] at 0841 All edits/amendments must be made on the electronic document DICTATION DATE: 08/24/18839 STEEL POST INSTALLER: NERI 08/24/18839 RPT#: [id number] DC DATE:08/23/18 STATUS: DIS IN [facility] [address] [place] [address] END OF REPORT
== END 2018-08-23 18:32 | disposition home or self-care (01) | DRG 193 ==
LOC: D.ER 04:47 → D.EDHOLD 07:41 → OBSVTIME 07:41 → D.M2 07:41
PROVIDERS: Family Medicine; ADMIT Internal Medicine Nephrology
DX: J18.9 Pneumonia, unspecified organism (principal); J96.21 Acute and chronic respiratory failure with hypoxia; J44.0 Chronic obstructive pulmonary disease with (acute) lower respiratory infection; N17.9 Acute kidney failure, unspecified; I25.10 Atherosclerotic heart disease of native coronary artery without angina pectoris; K59.00 Constipation, unspecified; K21.9 Gastro-esophageal reflux disease without esophagitis; I10 Essential (primary) hypertension; E87.6 Hypokalemia; F20.9 Schizophrenia, unspecified; D50.9 Iron deficiency anemia, unspecified

== ENCOUNTER 2018-09-08 17:26 | Inpatient (IN) | payer MEDICARE, MEDICAID ==
[~2018-09-08] VITALS: Ht 162.6 cm; Wt 64.4 kg
--- NOTE | ~2018-09-08 | CN ---
PATIENT NAME:DIEGO ESCOBAR MEDICAL RECORD: [id number] : 52 LOCATION:KENDALLD.2311 ADMIT DATE: 09/08/18 ACCOUNT: [id number] CONSULTING PHYSICIAN: BLADIMIR CARLOS MD REFERRING PHYSICIAN: LISA ESQUIVEL DO DATE OF CONSULTATION: 09/10/2018 Pulmonary Consultation CONSULT REQUESTING PHYSICIAN: Lisa Esquivel DO REASON FOR CONSULTATION: Acute exacerbation of chronic obstructive pulmonary disease, pulmonary edema, zqqzy-zt-bgbfcql hypoxic respiratory failure. HISTORY OF PRESENT ILLNESS: Ms. ESCOBAR is a 68-year-old female, very well known to me, who has a history of COPD, congestive heart failure, still a smoker. She was seen in Dr. Gonsales's office and her hemoglobin was 6.8, was admitted to the hospital for transfusion. Last night, she went into acute respiratory distress and pulmonary edema, transferred to the ICU. Now, she is feeling a lot better. She is breathing better. Denies any fever and chill, no night sweats. PAST MEDICAL HISTORY: 1. Congestive heart failure. 2. Chronic obstructive pulmonary disease. 3. Chronic hypoxic respiratory failure. 4. Hypertension. 5. Coronary artery disease status post MD, angioplasty and stent placement. 6. Chronic rash. 7. Gastroesophageal reflux disease. 8. Depression. PAST SURGICAL HISTORY: 1. Hemorrhoidectomy. 2. History of tubal and stent placement with surgery for bladder cancer by Dr. Tee. ALLERGIES: SHE IS ALLERGIC TO CIPRO, SULFA, TRIMETHOPRIM, AND BUPROPION. MEDICATIONS: [employer] reviewed. PERSONAL AND SOCIAL HISTORY: The patient still continues to smoke. She is a nondrinker. FAMILY HISTORY: Significant for cancer and diabetes. PHYSICAL EXAMINATION: GENERAL: Now, the patient is lying comfortably in bed. She is not in acute distress. VITAL SIGNS: The blood pressure is 94/60, pulse is 102, respirations 15, SPO2 is 96% on BiPAP, 30% oxygen. HEENT: Conjunctivae are pink. Sclerae not icteric. NECK: Supple, no JVD. CHEST: The chest excursion is minimal with bilateral crackles. No wheezing. HEART: Rhythm regular, normal sound, no murmur. CONSULT REPORT [id number] DIEGO ESCOBAR ABDOMEN: Soft, bowel sounds present. No hepatosplenomegaly. RECTAL: Deferred. EXTREMITIES: No cyanosis, no clubbing, no pedal edema. CENTRAL NERVOUS SYSTEM: The patient is awake and alert. There are no obvious cranial abnormality. The gait was not tested. IMPRESSION: 1. Dcbry-me-ojaslhe hypoxic respiratory failure. 2. Acute exacerbation of chronic obstructive pulmonary disease. 3. Pulmonary edema. 4. Congestive heart failure, most likely chronic systolic dysfunction. 5. Anemia, most likely iron deficiency anemia. Dr. Rodriguez follows, bone marrow biopsy in every morning. 6. Kidney tumor. 7. Tobacco dependence syndrome. 8. Elevated cardiac enzymes. RECOMMENDATION: 1. Start on Brovana and budesonide nebulizer. 2. Discontinue Advair. 3. Xopenex and ipratropium nebulizer. 4. Supplemental oxygen. 5. Diuresis. 6. Continue empiric antibiotic. 7. Follow up on the cardiac echo, bone marrow biopsy. 8. Follow up labs and chest radiograph. Dr. Esquivel, thank you for involving me in the care of Ms. Escobar. TRANSINT:[id number] Voice Confirmation ID: [id number] DOCUMENT ID: [id number] BLADIMIR CARLOS MD CC: [id number] DICTATION DATE: 09/10/18 1526 ROOF TECHNICIAN: 09/10/182010 ADM IN [facility] [address] [place] [address]
[~2018-09-08 17:26] MED LIST changes: +ZPAK PO
--- NOTE | 2018-09-08 18:51 | NUR ---
SENIOR NETWORK SYSTEMS ENGINEER NOTE: AAOX4. SITTING IN BED EATING. WAITING ON PBRC. NO S/S OF ACUTE DISTRESS. CL IN PLACE
[2018-09-08 19:05] LABS: BASOPHILS 0.2 % (0-2); EOSINOPHILS 0.5 % (0-7); HEMATOCRIT 22.8 % (36.0-48.0); IMMATURE GRANULOCYTES 0.2 % (0-5); LYMPHOCYTES 25.2 % (15-50); MCH 29.4 pg (26.0-34.0); MCHC 29.8 g/dL (31.0-37.0); MCV 98.7 fL (80.0-100.0); MEAN PLATELET VOLUME 9.5 fL (7.4-10.4); MONOCYTES 6.3 % (2-11); NEUTROPHILS 67.6 % (40-80); RBC 2.31 10x6/uL (4.00-5.40); RDW 17.7 % (11.5-14.5)
[2018-09-08 19:23] LABS: HEMOGLOBIN 6.8 g/dL (12-16); PLATELET COUNT 216 10x3/uL (130-400)
[2018-09-08 19:27] LABS: ANION GAP 13.3 mmol/L (8-16); BILIRUBIN - TOTAL 0.4 mg/dL (0.2-1.3); CALCIUM 8.2 mg/dL (8.5-10.1); CARBON DIOXIDE 29.1 mmol/L (21.0-32.0); CREATININE - SERUM 0.9 mg/dL (0.6-1.3); POTASSIUM - SERUM 3.4 mmol/L (3.5-5.1); PROTEIN - SERUM 6.3 g/dL (6.4-8.2)
[2018-09-08 19:52] LABS: % SATURATION 7 % (15-55); IRON 26 ug/dl (35-150); TOTAL IRON BIND CAPACITY 332 ug/dl (260-445); UNSAT IRON BIND CAPACITY 306 ug/dl (150-375)
[2018-09-08 20:54] VITALS: BP 100/50
--- NOTE | 2018-09-08 21:31 | NUR ---
BLOOD CONSENTS SIGNED, 1ST UNIT PRBC INFUSING. VERIFIED AND SPIKED BY RN. VITAL SIGNS REMAIN STABLE, NO COMPLAINTS OR S/SX OF DISTRESS. WILL CONTINUE TO MONITOR, CLOSELY.
[2018-09-09] VITALS (8 sets, daily range): BP systolic 86–127; BP diastolic 58–87; Ht 162.6 cm; Wt 64.4 kg
--- NOTE | 2018-09-09 00:30 | NUR ---
PT LYING IN BED RESTING, NO SIGNS OF DISTRESS. INFUSING SECOND UNIT OF PRBC. PT STATES NO NEEDS OR COMPLAINTS. CONCUR W/ FEDERAL JAVA DEVELOPER ASSESSMENT. CL IN REACH, WILL CONT TO MONITOR
--- NOTE | 2018-09-09 00:31 | NUR ---
PT SIDE-LYING IN BED, EYES CLOSED, RESPIRATIONS EVEN. SPO2 88-90% ON ROOM AIR. WOKE UP PT AND APPLIED O2 VIA NASAL CANNULA. SPO2 96%-99% ON 2L. 2ND UNIT OF BLOOD HUNG. VERIFIED AND SPIKED BY RN. VITAL SIGNS REMAIN STABLE, WITH NO COMPLAINTS OR S/SX OF DISTRESS IN THE PT. WILL CONTINUE TO MONITOR.
[2018-09-09 06:46] LABS: ALBUMIN 2.7 g/dL (3.4-5.0); ALKALINE PHOSPHATASE 53 U/L (46-116); ALT (SGPT) 15 U/L (10-68); BILIRUBIN - TOTAL 0.53 mg/dL (0.2-1.3); CALC OSMOLALITY 290 mosm/kg (275-300); CALCIUM 8.2 mg/dL (8.5-10.1); CARBON DIOXIDE 28.2 mmol/L (21.0-32.0); CHLORIDE - SERUM 105 mmol/L (98-107); CREATININE - SERUM 0.8 mg/dL (0.6-1.3); GLUCOSE 92 mg/dL (74-106); POTASSIUM - SERUM 3.5 mmol/L (3.5-5.1); PROTEIN - SERUM 5.7 g/dL (6.4-8.2); SODIUM 145 mmol/L (136-145); UREA NITROGEN 19 mg/dL (7-18); eGFR NON AFRICAN AMERICAN 76 mL/min (90-120)
[2018-09-09 06:58] LABS: APPEARANCE CLEAR (CLEAR); COLOR YELLOW (YELLOW)
[2018-09-09 06:59] LABS: BILIRUBIN NEGATIVE (NEGATIVE); GLUCOSE NEGATIVE (NEGATIVE); KETONE NEGATIVE (NEGATIVE); NITRITE NEGATIVE (NEGATIVE); PROTEIN NEGATIVE (NEGATIVE); UROBILINOGEN NORMAL (NORMAL)
[2018-09-09 07:16] LABS: BASOPHILS 0 % (0-2); EOSINOPHILS 0.7 % (0-7); HEMATOCRIT 27.1 % (36.0-48.0); IMMATURE GRANULOCYTES 0.2 % (0-5); LYMPHOCYTES 27.7 % (15-50); MCH 30.1 pg (26.0-34.0); MCHC 32.1 g/dL (31.0-37.0); MEAN PLATELET VOLUME 9.8 fL (7.4-10.4); MONOCYTES 7.7 % (2-11); NEUTROPHILS 63.7 % (40-80); PLATELET COUNT 183 10x3/uL (130-400); RDW 17.9 % (11.5-14.5)
[2018-09-09 07:28] LABS: RBC 2.89 10x6/uL (4.00-5.40); WBC 4.3 10x3/uL (4.8-10.8)
[2018-09-09 07:29] LABS: HEMOGLOBIN 8.7 g/dL (12-16); MCV 93.8 fL (80.0-100.0)
--- NOTE | 2018-09-09 09:34 | NUR ---
appliance technician note-[place] hat placed in toliet to collect stool spec. pt aware of this. non skid socks given for safety per pt request. states feeling better than yesterday. no active bleeding noted. call light in reach
--- NOTE | 2018-09-09 14:39 | MORECARE ---
CASE MANAGEMENT DISCHARGE SUMMARY PATIENT: DIEGO ESCOBAR UNIT: [id number] ADM DATE: 09/08/18 AGE: 68 : 51 SEX: F ROOM/BED: D.2207 AUTHOR: URI,DOC PHYSICIAN: REFERRING PHYSICIAN: LISA ESQUIVEL DO DATE OF SERVICE: 09/09/18 Discharge Plan Patient Name: DIEGO ESCOBAR Facility: [facility]:[place] : 1950 Planned Disposition: Home with Home Health Anticipated Discharge Date: Discharge Date: Expected LOS: 0 Initial Reviewer: [email or web address] Initial Review Date: 09/09/2018 Generated: 09/09/18 3:38 pm Comments DCP- Discharge Planning Updated by [email or web address]: Emily Linares on 09/09/18 1:[address] Patient Name: DIEGO ESCOBAR Admission Status: Urgent Accout number: [id number] Admission Date: 09-08-2018 : 1950 Admission Diagnosis: Attending: LISA ESQUIVEL Current LOS: 1 Anticipated DC Date: Planned Disposition: Home with Home Health Primary Insurance: [facility] [employer] Discharge Planning Comments: CM met with patient to assess discharge planning needs. Patient lives at [address] [place] [address] where she plans to return at discharge. There is an elevator there. She has [facility] with PT. She stated that she also has [facility], where they will come and do her laundry, help with whatever she would need. She has home o2 ( crystal) nebulizer, shower chair, walker, grab bars. Her home is handicap friendly. She stated that her son, Sagar will be the one to take her home when she is DC. CM will continue to follow and assist with DC planning as needed. [employer] Regional Sales Manager: Emily Linares DCPIA - Discharge Planning Initial Assessment Updated by [email or web address]: Emily Linares on 09/09/18 2:33 pm * Is the patient Alert and Oriented? Yes * How many steps to enter\exit or inside your home? elevator * PCP FARO * Pharmacy [facility] * Preadmission Environment Home Alone * ADLs Partial Dependent * Partial ADLs (Assistance needed) Medication Management * Equipment Bedside Commode Elevated [facility] Seat Grab Bars Nebulizer Oxygen Rolling Walker Shower Chair Walker * List name and contact numbers for known caregivers / representatives who currently or will assist patient after discharge: SAGAR ESCOBAR [phone] * Verbal permission to speak to the caregivers and representatives has been obtained from the patient. N/A * Community resources currently utilized [facility] * Please name any agencies selected above. [facility] * Additional services required to return to the preadmission environment? No * Can the patient safely return to the preadmission environment? Yes * Has this patient been hospitalized within the prior 30 days at any hospital? Yes Patient Name: DIEGO ESCOBAR Page [phone] at 1439 All edits/amendments must be made on the electronic document DICTATION DATE: 09/09/181437 HIGHER LEVEL TEACHING ASSISTANT: NERI 09/09/181437 RPT#: [id number] DC DATE: STATUS: ADM IN [facility] [address] [place] [address] END OF REPORT
--- NOTE | 2018-09-09 16:39 | HP ---
PATIENT: DIEGO ESCOBAR MEDICAL RECORD: [id number] ACCOUNT: [id number] LOCATION:D.MS [id number] : 52 ADMISSION DATE: 09/08/18 PCP: LISA ESQUIVEL DO HISTORY AND PHYSICAL EXAMINATION DATE OF ADMISSION: 09/08/2018 HISTORY: Ms. Escobar is a 68 year old that is admitted from Dr. Gonsales's office complaining of 2- to 3-day history of recent weakness, fatigue, and dizziness. She is found to be anemic and is going to require transfusion. She has a history of renal cell tumor that has a tendency to bleed. She has been seeing Dr. Rodriguez and Dr. Tee. She also has a valve issue and is seeing Dr. Montero. She has had multiple recent hospitalizations primarily for respiratory issues. She has COPD and continues to smoke. She states that she occasionally has very dark black stools and occasional brown stools. She denies any abdominal pain. She denies any yahaira rectal bleeding, bright red blood per rectum. She does have some bruises under skin. She saw Dr. Rodriguez yesterday and was diagnosed with UTI and started on some antibiotics. She is admitted at this time for further evaluation of her anemia and transfusion. PAST MEDICAL HISTORY: Significant for known coronary artery disease with previous angioplasty, COPD, hypertension, congestive heart failure, kidney tumor, reflux, constipation, arthritis, and mental health issues. PAST SURGICAL HISTORY: Previous surgeries include hemorrhoid surgery, tubal, and PTCA. ALLERGIES: CIPRO, BACTRIM, TRIMETHOPRIM, BUPROPION, OXYBUTYNIN, SULFA, ASPIRIN, NITROFURANTOIN, AND VENLAFAXINE. CURRENT MEDICATIONS: Include Lasix 40 mg a day, potassium 20 mEq a day, metoprolol 25 mg b.i.d., atorvastatin 20 mg a day, Atrovent updrafts, Xopenex updrafts, Daliresp 250 mcg a day, Symbicort daily, and Plavix 75 mg a day. FAMILY HISTORY: Significant for cancer and diabetes. SOCIAL HISTORY: The patient smokes daily. She lives here in town in an apartment by herself. She states she feels very comfortable there by herself. She has home health to assist her. REVIEW OF SYSTEMS: She denies any fever, chills, sweats. She has some occasional cough and wheezing. She has some shortness of breath, but this is no worse than what she has had. She does complain of some increasing fatigue and dizziness when she stands up quickly. She denies any chest pain. No abdominal pain. Occasional dark stools. She notes occasional blood in her urine. She has had some increased bruising on the skin. PHYSICAL EXAMINATION: GENERAL: Pleasant, alert, very cooperative. HEENT: Sclerae are nonicteric. There is some pallor to the lower lids. HEART: Regular at this time. LUNGS: Few scattered wheezes. ABDOMEN: Soft. EXTREMITIES: Lower extremities reveal no edema. HISTORY AND PHYSICAL [id number] DIEGO ESCOBAR IMPRESSION: 1. Severe anemia. 2. Renal tumor. 3. Valvular heart disease, followed by Dr. Montero. 4. COPD. 5. Hypertension. 6. Mental health disease. 7. History of CHF. PLAN: 1. Admitted from Dr. Gonsales's office. 2. Type and cross 2 units and transfuse. Follow H&H. Check anemia studies. Check FIT test. Continue with home meds. Consult Dr. Rodriguez. May need GI eval, although bleeding could be coming from the urine tube. We will continue to treat UTI. See orders for rest of plan. TRANSINT:[id number] Voice Confirmation ID: [id number] DOCUMENT ID: [id number] LISA ESQUIVEL DO at 1639 CC: [id number] DICTATION DATE: 09/08/18 184 DRIVER/SALES WORKERS: 09/08/18 1906 ADM IN [id number] [place] [address]
--- NOTE | 2018-09-09 17:45 | NUR ---
WAS CALLED TO PT ROOM VIA MANAGER PACKAGE STATING THAT PT IS HAVING A PANIC ATTACK. THIS NURSE ENCOURAGE PT TO DO BREATHING EXERCISE AND MD WAS PAGE FOR SOMETHING FOR ANXIETY. REC'D NEW ORDERS FOR ATIVAN 0.5 NOW AND ATIVAN O.5 MG [id number]. C/L IN REACH AT BEDSIDE
--- NOTE | 2018-09-09 18:00 | NUR ---
PT WAS MEDICATED WITH ATIVAN 0.5MG SIVP AT THIS TIME FOR ANXIETY. C/L IN REACH AT BEDSIDE.
--- NOTE | 2018-09-09 20:30 | NUR ---
RECEIVED PATIENT FROM FLOOR FOR CHANGE IN MENTAL STATUS. PATIENT NOT TALKING OR FOLLOWING COMMANDS AT THIS TIME. DR. CHAVES AT BEDSIDE TO ASSESS AND PUT IN ORDERS. DILTIAZEM GTT STARTED, SEE OCT. REICH CATH ALSO INSERTED PER MD ORDERS. PATIENT WAS ON NRB UPON ARRIVAL, NOW 50% BIPAP. HR WAS IN 140S NOW HR IS 106. BP LOW NORMAL SBP 80S-90S, MAP > 60. WILL MONITOR CLOSELY THROUGH OUT THE NIGHT.
[2018-09-09 20:56] LABS: BASOPHILS 0.1 % (0-2); EOSINOPHILS 0.1 % (0-7); HEMATOCRIT 31.4 % (36.0-48.0); HEMOGLOBIN 9.6 g/dL (12-16); IMMATURE GRANULOCYTES 0.5 % (0-5); LYMPHOCYTES 11.6 % (15-50); MCH 29.9 pg (26.0-34.0); MCHC 30.6 g/dL (31.0-37.0); MEAN PLATELET VOLUME 9.5 fL (7.4-10.4); MONOCYTES 7.1 % (2-11); NEUTROPHILS 80.6 % (40-80); RBC 3.21 10x6/uL (4.00-5.40); RDW 18.2 % (11.5-14.5)
[2018-09-09 20:57] LABS: MCV 97.8 fL (80.0-100.0); WBC 18.4 10x3/uL (4.8-10.8)
[2018-09-09 20:58] LABS: PLATELET COUNT 260 10x3/uL (130-400)
[2018-09-09 21:15] LABS: ANION GAP 13.7 mmol/L (8-16); CALCIUM 8.1 mg/dL (8.5-10.1); CARBON DIOXIDE 28.6 mmol/L (21.0-32.0)
[2018-09-09 21:17] LABS: CREATININE - SERUM 1.4 mg/dL (0.6-1.3); POTASSIUM - SERUM 4.3 mmol/L (3.5-5.1)
[2018-09-09 21:53] LABS: CKMB 0.7 U/L (0.0-3.6); CREATINE KINASE 14 UL (21-215); TROPONIN-I 0.027 ng/mL (0.000-0.060)
--- NOTE | 2018-09-09 23:00 | NUR ---
PATIENT HR NOW 90S, SBP 90S TO 100S. STILL NOT WAKING UP FULLY NOR FOLLOWING COMMANDS. SHIFT REASSESSMENT COMPLETED, SEE FLOWSHEET. WILL CTM.
[2018-09-10] VITALS (23 sets, daily range): BP systolic 84–105; BP diastolic 32–68
--- NOTE | 2018-09-10 01:00 | NUR ---
NO ACUTE CHANGES NOTED. VSS. WILL CTM.
[2018-09-10 03:56] LABS: BASOPHILS 0 % (0-2); EOSINOPHILS 0 % (0-7); HEMATOCRIT 28.6 % (36.0-48.0); HEMOGLOBIN 8.9 g/dL (12-16); IMMATURE GRANULOCYTES 0.3 % (0-5); LYMPHOCYTES 7.6 % (15-50); MCH 30.2 pg (26.0-34.0); MCHC 31.1 g/dL (31.0-37.0); MCV 96.9 fL (80.0-100.0); MEAN PLATELET VOLUME 9.8 fL (7.4-10.4); MONOCYTES 3.6 % (2-11); NEUTROPHILS 88.5 % (40-80); RBC 2.95 10x6/uL (4.00-5.40)
[2018-09-10 04:02] LABS: PLATELET COUNT 162 10x3/uL (130-400); WBC 11.2 10x3/uL (4.8-10.8)
[2018-09-10 04:24] LABS: ALBUMIN 2.6 g/dL (3.4-5.0); ALKALINE PHOSPHATASE 86 U/L (46-116); BILIRUBIN - TOTAL 0.58 mg/dL (0.2-1.3); CALCIUM 8.3 mg/dL (8.5-10.1); CARBON DIOXIDE 26.1 mmol/L (21.0-32.0); CHLORIDE - SERUM 105 mmol/L (98-107); CKMB 1.9 U/L (0.0-3.6); CREATINE KINASE 28 UL (21-215); CREATININE - SERUM 1.3 mg/dL (0.6-1.3); POTASSIUM - SERUM 4.3 mmol/L (3.5-5.1); PROTEIN - SERUM 6.2 g/dL (6.4-8.2); SODIUM 142 mmol/L (136-145); eGFR NON AFRICAN AMERICAN 43 mL/min (90-120)
[2018-09-10 04:26] LABS: ALT (SGPT) 43 U/L (10-68); CALC OSMOLALITY 286 mosm/kg (275-300); GLUCOSE 101 mg/dL (74-106); TROPONIN-I 0.239 ng/mL (0.000-0.060); UREA NITROGEN 24 mg/dL (7-18)
--- NOTE | 2018-09-10 07:00 | NUR ---
SHIFT REPORT RECEIVED. CURRENTLY ON BIPAP AT 30%. AROUSES TO VOICE. ALERT AND ORIENTED. DENIES HAVING PAIN AT THIS TIME. HAS PIV ON RIGHT HAND WITH NS AT 50ML/HR AND CARDIZEM AT 5MG/HR. REICH IN PLACE WITH CLEAR YELLOW URINE NOTED. BRUISING NOTED ON ABDOMEN. STATES THAT SHE IS READY TO GO BACK TO HER OLD ROOM. SHIFT ASSESSMENT COMPLETED. SAFETY MEASURES IN PLACE. WILL CONTINUE TO MONITOR.
--- NOTE | 2018-09-10 07:40 | NUR ---
BIPAP REMOVED. PLACED ON 3L OF VIA NC. PULLED UP IN BED. MEAL TRAY DELIVERED AND SET UP. NO FURTHER NEEDS. WILL CONTINUE TO MONITOR.
--- NOTE | 2018-09-10 09:14 | NUR ---
AM MEDS GIVEN AT THIS TIME. LOPRESSOR HELD DUE TO BP BEING 90/60. PT CONTINUES ON CARDIZEM. NO FURTHER NEEDS. WILL CONTINUE TO MONITOR.
[2018-09-10 10:58] LABS: CKMB 2.1 U/L (0.0-3.6); CREATINE KINASE 30 UL (21-215)
[2018-09-10 10:59] LABS: TROPONIN-I 0.123 ng/mL (0.000-0.060)
--- NOTE | 2018-09-10 11:05 | NUR ---
INCONTINENT EPISODE OF BLACK TARRY, FORMED STOOL NOTED. STOOL SAMPLE COLLECTED. PERICARE AND REICH CARE PROVIDED. UA COLLECTED FROM CATHETER USING CLEAN TECHNIQUE. PARTIAL LINEN CHANGE PROVIDED. NO FURTHER NEEDS. WILL CONTINUE TO MONITOR.
[2018-09-10 11:23] LABS: APPEARANCE CLEAR (CLEAR); BILIRUBIN NEGATIVE (NEGATIVE); COLOR YELLOW (YELLOW); GLUCOSE NEGATIVE (NEGATIVE); KETONE NEGATIVE (NEGATIVE); NITRITE NEGATIVE (NEGATIVE); PROTEIN NEGATIVE (NEGATIVE); SPECIFIC GRAVITY 1.015 (1.005-1.020); UROBILINOGEN NORMAL (NORMAL)
--- NOTE | 2018-09-10 11:56 | NUR ---
PLACED ON BEDPAN AT THIS TIME. LARGE AMOUNT OF BLACK TARRY FORMED TOOL NOTED. PERICARE PROVIDED. LUNCH TRAY SET UP. NO FURTHER NEEDS. WILL CONTINUE TO MONITOR.
--- NOTE | 2018-09-10 12:26 | NUR ---
PT HAD 40MG OF LASIX IV IN AM. SPOKE WITH DR. ESQUIVEL REGARDING 20MG LASIX IV DUE AT 1200. HE SAID TO NOT GIVE IT. START NEW LASIX ORDER AT NEXT DOSE.
--- NOTE | 2018-09-10 14:00 | NUR ---
RESTING ON HER LEFT SIDE. DENIES HAVING PAIN. GI HAS BEEN CONSULTED DUE TO + OCCULT BLOOD. SBP APPEARED TO BE IN 80S. RECKED BP. SBP IN 90S. WILL CONTINUE TO MONITOR.
--- NOTE | 2018-09-10 17:20 | NUR ---
DR. ESQUIVEL NOTIFIED THAT BONE BIOPSY WILL BE PERFORMED ON THURSDAY. HE WANTS ONE TIME DOSE OF PLAVIX TO BE GIVEN TODAY AND THE REST OF THE PLAVIX DOSES TO BE PLACED ON HOLD UNTIL AFTER BIOPSY.
--- NOTE | 2018-09-10 17:30 | NUR ---
PULLED UP IN BED AND MEAL TRAY DELIVERED TO ROOM. NO FURTHER NEEDS. WILL CONTINUE TO MONITOR.
[2018-09-10 17:45] LABS: BASOPHILS 0.2 % (0-2); EOSINOPHILS 0.3 % (0-7); HEMATOCRIT 24.9 % (36.0-48.0); HEMOGLOBIN 7.7 g/dL (12-16); IMMATURE GRANULOCYTES 0.2 % (0-5); LYMPHOCYTES 25.9 % (15-50); MCH 29.8 pg (26.0-34.0); MCHC 30.9 g/dL (31.0-37.0); MCV 96.5 fL (80.0-100.0); MEAN PLATELET VOLUME 9.7 fL (7.4-10.4); MONOCYTES 7.4 % (2-11); PLATELET COUNT 147 10x3/uL (130-400); RBC 2.58 10x6/uL (4.00-5.40); RDW 18.1 % (11.5-14.5)
[2018-09-10 18:12] LABS: WBC 6.1 10x3/uL (4.8-10.8)
--- NOTE | 2018-09-10 18:55 | NUR ---
PLAVIX NOT GIVEN TODAY. PT HAS TO BE OFF PLAVIX FOR 3 DAYS BEFORE BONE BIOPSY.
--- NOTE | 2018-09-10 19:00 | NUR ---
RECEIVED PATIENT FROM DAY SHIFT RN. PATIENT SLEEPING BUT OPENS EYES TO VERBAL COMMAND. ORIENTED X 3. INITIAL SHIFT ASSESSMENT COMPLETE, SEE FLOWSHEET. WILL MONITOR CLOSELY THROUGH OUT THE NIGHT.
--- NOTE | 2018-09-10 21:00 | NUR ---
DR. MILLS WAS AT BEDSIDE TO ASSESS PATIENT AT THE BEGINNING OF THE SHIFT, PLANS TO SCOPE PATIENT ON THURSDAY. NEW GI MEDS ORDERED AND GIVEN, SEE MAR. PATIENT ASKED IF THESE WERE ALL OF THE MEDS FOR THE NIGHT BECAUSE SHE DID NOT WANT TO BE DISTURBED. WILL CTM.
--- NOTE | 2018-09-10 23:00 | NUR ---
PATIENT APPEARS TO BE RESTING COMFORTABLY. REASSESSMENT COMPLETED, SEE FLOWSHEET. VSS. WILL CTM.
[2018-09-11] VITALS (24 sets, daily range): BP systolic 88–121; BP diastolic 53–89
--- NOTE | 2018-09-11 01:00 | NUR ---
NO CHANGE. PATIENT SLEEPING AT THIS TIME. WILL CTM.
--- NOTE | 2018-09-11 03:00 | NUR ---
RESP AT BEDSIDE PERFORMING A BREATHING TREATMENT. PATIENT ASKED FOR THE LIGHTS NOT TO BE TURNED ON. VSS. REASSESSMENT COMPLETED, SEE FLOWSHEET. WILL CTM CLOSELY.
[2018-09-11 04:06] LABS: BASOPHILS 0.3 % (0-2); EOSINOPHILS 0.6 % (0-7); HEMATOCRIT 25.6 % (36.0-48.0); HEMOGLOBIN 7.8 g/dL (12-16); IMMATURE GRANULOCYTES 0.2 % (0-5); MCH 29.8 pg (26.0-34.0); MCHC 30.5 g/dL (31.0-37.0); MCV 97.7 fL (80.0-100.0); MEAN PLATELET VOLUME 9.8 fL (7.4-10.4); NEUTROPHILS 64.9 % (40-80); PLATELET COUNT 157 10x3/uL (130-400); RBC 2.62 10x6/uL (4.00-5.40); RDW 18.5 % (11.5-14.5); WBC 6.3 10x3/uL (4.8-10.8)
[2018-09-11 04:15] LABS: INR 1.26 (0.85-1.17); PROTIME 15.2 SECONDS (11.6-15.0)
[2018-09-11 04:20] LABS: ALBUMIN 2.4 g/dL (3.4-5.0); ANION GAP 12.6 mmol/L (8-16); BILIRUBIN - TOTAL 0.44 mg/dL (0.2-1.3); CALCIUM 7.9 mg/dL (8.5-10.1); CARBON DIOXIDE 27.1 mmol/L (21.0-32.0); POTASSIUM - SERUM 3.7 mmol/L (3.5-5.1); PROTEIN - SERUM 5.7 g/dL (6.4-8.2)
--- NOTE | 2018-09-11 07:12 | NUR ---
PERIPHERAL IV STARTED TO LT WRIST, 20G, FLUSHES WELL.
--- NOTE | 2018-09-11 08:40 | NUR ---
1 U PRBC ADMINISTRATION INITIATION AT THIS TIME PER ORDER SINCE H&H IS 7.8/25.6. PT UP IN BED AWAKE, NO ACUTE DISTRESS NOTED. WILL CONTINUE PLAN OF CARE.
--- NOTE | 2018-09-11 10:20 | NUR ---
PER DR CHAVES, GIVE 2 U PRBC INSTEAD OF ONLY 1 UNIT. AND GIVE 20 LASIX IV IN BETWEEN EACH UNIT. ALSO STATED HE WAS GOING TO CHANGE CARDIZEM FROM IV TO PO AND WILL CONSULT SURGERY FOR CVL PLACEMENT. NO ACUTE DISTRESS NOTED. WILL CONTINUE PLAN OF CARE.
--- NOTE | 2018-09-11 13:00 | NUR ---
SECOND UNIT OF PRBC STARTED AT THIS TIME PER PHYSICIAN ORDERS. NO ACUTE DISTRESS NOTED. WILL CONTINUE PLAN OF CARE.
--- NOTE | 2018-09-11 14:23 | NUR ---
REICH NOTED LEAKING AT THIS TIME. TOTAL LINEN CHANGE PROVIDED. WATER ADDED TO BULB AND REICH FLUSHED WITH NS. URING FLOWING INTO CLOSED SYSTEM. NO ACUTE DISTRESS NOTED. WILL CONTINUE PLAN OF CARE.
--- NOTE | 2018-09-11 16:12 | NUR ---
UP IN BED AWAKE AT THIS TIME. NO ACUTE DISTRESS NOTED. CALL LIGHT IN REACH. WILL CONTINUE PLAN OF CARE.
--- NOTE | 2018-09-11 18:01 | NUR ---
DR NOE PAGED AGAIN. HAD NOT RECIEVE CALLBACK FROM PREVIOUS PAGES.
--- NOTE | 2018-09-11 18:13 | NUR ---
UP IN BED AWAKE AT THIS TIME. DENIES ANY NEEDS. NO ACUTE DISTRESS NOTED. WILL CONTINUE PLAN OF CARE.
--- NOTE | 2018-09-11 19:00 | NUR ---
RECEIVED PATIENT FROM DAY SHIFT RN, TIARA X3. SONYA, DENIES PAIN. DR. NOE WAS AT BEDSIDE FINISHING CVL PLACEMENT. BLEEDING NOTED, SANDBAG PLACED ON SITE BY DAY SHIFT RN TO CONTROL BLEEDING. INITIAL SHIFT ASSESSMENT COMPLETED, SEE FLOWSHEET.
--- NOTE | 2018-09-11 20:00 | NUR ---
COMPLETE BED BATH AND LINEN CHANGE PROVIDED, ALSO HAIR WASHED BECAUSE BLOOD WAS IN IT FROM THE CVL PLACEMENT. PATIENT TOLERATED WELL AND WAS VERY APPRECIATIVE. WILL CTM.
--- NOTE | 2018-09-11 21:00 | NUR ---
PM MEDS GIVEN PER MD ORDERS, SEE OCT. VSS. WILL CTM.
--- NOTE | 2018-09-11 23:00 | NUR ---
REASSESSMENT COMPLETE, SEE FLOWSHEET. VSS. PATIENT APPEARS TO BE RESTING COMFORTABLY. WILL CTM.
[2018-09-12] VITALS (16 sets, daily range): BP systolic 106–141; BP diastolic 66–89
--- NOTE | 2018-09-12 01:10 | NUR ---
NO CHANGE, PATIENT RESTING. VSS. WILL CTM.
--- NOTE | 2018-09-12 03:00 | NUR ---
REASSESSMENT COMPLETED, SEE FLOWSHEET. VSS. WILL CTM.
[2018-09-12 04:06] LABS: BASOPHILS 0.1 % (0-2); EOSINOPHILS 0.6 % (0-7); IMMATURE GRANULOCYTES 0.3 % (0-5); LYMPHOCYTES 20.7 % (15-50); MCH 29.9 pg (26.0-34.0); MCV 96.4 fL (80.0-100.0); MEAN PLATELET VOLUME 10.1 fL (7.4-10.4); MONOCYTES 8.5 % (2-11); NEUTROPHILS 69.8 % (40-80); PLATELET COUNT 165 10x3/uL (130-400); RDW 18.3 % (11.5-14.5); WBC 7.2 10x3/uL (4.8-10.8)
[2018-09-12 04:09] LABS: INR 1.22 (0.85-1.17); PROTIME 14.9 SECONDS (11.6-15.0)
[2018-09-12 04:15] LABS: ALBUMIN 2.4 g/dL (3.4-5.0); ANION GAP 11.3 mmol/L (8-16); BILIRUBIN - TOTAL 0.62 mg/dL (0.2-1.3); CALCIUM 8.4 mg/dL (8.5-10.1); CARBON DIOXIDE 29.5 mmol/L (21.0-32.0); CREATININE - SERUM 0.9 mg/dL (0.6-1.3); HEMATOCRIT 32.6 % (36.0-48.0); HEMOGLOBIN 10.1 g/dL (12-16); POTASSIUM - SERUM 3.8 mmol/L (3.5-5.1); PROTEIN - SERUM 5.9 g/dL (6.4-8.2); RBC 3.38 10x6/uL (4.00-5.40)
--- NOTE | 2018-09-12 05:00 | NUR ---
NO ACUTE CHANGES NOTED. VSS. PATIENT APPEARS TO BE RESTING COMFORTABLY. WILL CTM.
--- NOTE | 2018-09-12 07:00 | NUR ---
REC'D CARE OF PT. A&O X3.
--- NOTE | 2018-09-12 09:05 | NUR ---
DR. MILLS AT BEDSIDE GETTING READY FOR EGD.
--- NOTE | 2018-09-12 09:45 | NUR ---
FOOD TRAY SERVED.
--- NOTE | 2018-09-12 10:18 | NUR ---
REPOSITIONS SELF IN BED.
--- NOTE | 2018-09-12 10:36 | NUR ---
DISCUSSED BONE MARROW BIOPSY PROCEDURE WITH BOSTON RODRIGUEZ SO SHE CAN SCHEDULE.
--- NOTE | 2018-09-12 11:42 | NUR ---
SHIFT ASSESSMENT DONE INSTEAD OF REASSESSNENT. NO ACUTE CHANGES.
--- NOTE | 2018-09-12 14:16 | NUR ---
GETS SELF TO SOB WITHOUT DIFFICULTY.
--- NOTE | 2018-09-12 14:55 | NUR ---
REPOSITIONS SELF IN BED.
--- NOTE | 2018-09-12 18:53 | NUR ---
REPOSITIONS SELF IN BED. DENIES NEEDS. DENIES PAIN. VSS.
--- NOTE | 2018-09-12 19:04 | NUR ---
REPORT RECEIVED, CARE ASSUMED. INITIAL ASSESSMENT COMPLETED, SEE FLOWSHEET. PT IS RESTING IN BED WITH EYES CLOSED AT THIS TIME. NO SIGNS OF ACUTE DISTRESS. WILL CONTINUE TO MONITOR.
--- NOTE | 2018-09-12 21:04 | NUR ---
PT RESTING IN BED WITH EYES CLOSED. NO SIGNS OF ACUTE CHANGES. NO SIGNS OF ACUTE DISTRESS. WILL CONTINUE TO MONITOR.
--- NOTE | 2018-09-12 23:05 | NUR ---
REASSESSMENT COMPLETED, SEE FLOWSHEET. NO ACUTE CHANGES NOTED FROM PREVIOUS ASSESSMENT. NO SIGNS OF ACUTE DISTRESS. WILL CONTINUE TO MONITOR.
[2018-09-13] VITALS (21 sets, daily range): BP systolic 98–134; BP diastolic 63–86
--- NOTE | 2018-09-13 01:05 | NUR ---
PT RESTING IN BED WITH EYES CLOSED. NO SIGNS OF ACUTE CHANGES. NO SIGNS OF ACUTE DISTRESS. WILL CONTINUE TO MONITOR.
--- NOTE | 2018-09-13 03:05 | NUR ---
REASSESSMENT COMPLETED, SEE FLOWSHEET. NO SIGNS OF ACUTE DISTRESS. WILL CONTINUE TO MONITOR.
[2018-09-13 04:55] LABS: BASOPHILS 0.1 % (0-2); EOSINOPHILS 0.7 % (0-7); HEMATOCRIT 31.9 % (36.0-48.0); IMMATURE GRANULOCYTES 0.1 % (0-5); LYMPHOCYTES 22.6 % (15-50); MCH 30.8 pg (26.0-34.0); MCHC 31.3 g/dL (31.0-37.0); MCV 98.2 fL (80.0-100.0); MEAN PLATELET VOLUME 10.4 fL (7.4-10.4); MONOCYTES 8.5 % (2-11); PLATELET COUNT 175 10x3/uL (130-400); RBC 3.25 10x6/uL (4.00-5.40); RDW 18.7 % (11.5-14.5); WBC 6.7 10x3/uL (4.8-10.8)
--- NOTE | 2018-09-13 05:05 | NUR ---
PT IS RESTING IN BED WITH EYES CLOSED. NO SIGNS OF ACUTE DISTRESS. WILL CONTINUE TO MONITOR.
[2018-09-13 05:30] LABS: ALBUMIN 2.4 g/dL (3.4-5.0); ALKALINE PHOSPHATASE 75 U/L (46-116); ALT (SGPT) 41 U/L (10-68); BILIRUBIN - TOTAL 1.02 mg/dL (0.2-1.3); CALC OSMOLALITY 293 mosm/kg (275-300); CALCIUM 8.7 mg/dL (8.5-10.1); CARBON DIOXIDE 27.9 mmol/L (21.0-32.0); CHLORIDE - SERUM 107 mmol/L (98-107); CREATININE - SERUM 0.7 mg/dL (0.6-1.3); GLUCOSE 108 mg/dL (74-106); POTASSIUM - SERUM 3.5 mmol/L (3.5-5.1); PROTEIN - SERUM 5.9 g/dL (6.4-8.2); SODIUM 146 mmol/L (136-145); UREA NITROGEN 18 mg/dL (7-18); eGFR NON AFRICAN AMERICAN 88 mL/min (90-120)
--- NOTE | 2018-09-13 07:30 | NUR ---
REPORT RECEIVED. ASSESSMENT COMPLET EPER FLOW SHEET. VSS. NO NEW CHANGES. PT DENIES NEEDS WILL CONTNIUE TO MONITOR
--- NOTE | 2018-09-13 08:45 | NUR ---
DR NAPOLES AT BEDSIDE. GIVEN UPDATE. PROCEDURE EXPLAINED BY DR NAPOLES CONSENTS OBTAINED WILL CONTINUE TO MONITO
--- NOTE | 2018-09-13 09:00 | NUR ---
DR PRECIOUS GALLEGOS GIVEN UPDATE PT IN UNCONTROLLED A FIB WITH RVR AT A RATE OF 155 NON-SYMPTOMATIC HR 155 O2 VIA NC 2L NASAL CANULA NO SOB NOTED O2 SAT 98% BP 117/76. T ORDERS RECIEVED WILL ADM.
--- NOTE | 2018-09-13 09:23 | NUR ---
NUTRITION F/U PT CURRENTLY NPO FOR PROCEDURE. NURSING STATES PT WILL RESUME REG DIET AT LUNCH. RD FOLLOWING
--- NOTE | 2018-09-13 09:25 | NUR ---
AMNIO DPP STARTED PER PROTOCOL. 0940 PT CONVERTED TO CONTROLLED A-FIB AT THIS TIME.
--- NOTE | 2018-09-13 09:57 | NUR ---
PT TO INR WITH ANKITA RODRIGUEZ ASSISTED ONTO CT BED WITHOUT DIFFICULTY. STATED WOULD CALL WHEN DONE
--- NOTE | 2018-09-13 10:02 | NUR ---
CARDIOLOGY CALLED GIVEN UPDATE REGAURDING CONSULT
--- NOTE | 2018-09-13 10:47 | NUR ---
PT BACK FROM IR. NO NEW CHANGES VSS WILL CONTNIUE TO MONITOR
--- NOTE | 2018-09-13 11:00 | NUR ---
REASSESSMENT COMPLETE PER FLOW SHEET. VSS NO NEW CHANGES WILL CONTINUE TO MONITO R Y
--- NOTE | 2018-09-13 11:31 | NUR ---
ASSISTED ONTO BEDPAN PER REQUEST. DENIES NEEDS
--- NOTE | 2018-09-13 12:09 | NUR ---
DR BAJWA AND DR WARD AT BEDSIDE GIVEN UDPATE. NEW ORDERS RECEIVED
--- NOTE | 2018-09-13 13:40 | NUR ---
ASSISTED TO BEDSIDE COMMODE. SMALL GREEN BM NTOED
--- NOTE | 2018-09-13 15:51 | NUR ---
UP OOB TO BEDSIDE COMMODE. LARGE BM NOTED. WILL CONTINUE TO MONITOR
--- NOTE | 2018-09-13 16:48 | OP ---
PATIENT NAME: DIEGO ESCOBAR MEDICAL RECORD: [id number] :52 LOCATION[facility] D.2311 ADMISSION DATE:09/08/18 SURGEON: JOSE EDUARDO NOE MD DATE OF OPERATION: 09/11/2018 PREOPERATIVE DIAGNOSES: Anemia, in need of additional IV access for multiple IV medications. POSTOPERATIVE DIAGNOSES: Anemia, in need of additional IV access for multiple IV medications. PROCEDURE: Placement of right infraclavicular subclavian central venous line, 16 cm. SURGEON: Jose Eduardo Noe MD SILK SOAKER: None. BLOOD LOSS: Minimal. ANESTHESIA: Local. COMPLICATIONS: None. The risks, possible complications, and alternatives to the procedure were explained to the patient. She elects to proceed. OPERATIVE COURSE: The entire procedure was performed in the ICU. It was performed in the presence of a female nurse. The right neck and right upper chest were sterilely prepped and draped. Local anesthetic was used to infiltrate the skin and subcutaneous tissues at the base of the right neck. The right internal jugular vein could not be accessed percutaneously easily. I then went about placement of a subclavian catheter. Again, this area was infiltrated with a local anesthetic. I was able to percutaneously access the right subclavian vein in an antegrade infraclavicular fashion. Guidewire passed easily. A small skin corey was accomplished. A vessel dilator was used to dilate the subcutaneous tract. A 16-cm triple-lumen central venous catheter was inserted to the hub. It was sutured in place times 3. All lumens flushed easily and aspirated dark, nonpulsatile blood. A stat portable chest x-ray is pending. A sterile dressing was applied. TRANSINT:[id number] Voice Confirmation ID: [id number] DOCUMENT ID: [id number] JOSE EDUARDO NOE MD at 1648 CC: LISA ESQUIVEL, MICHELLE MILLS and PARAM NAPOLES MD [id number] DICTATION DATE: 09/11/181930 PROFESSOR OF ENVIRONMENTAL SCIENCE: 09/12/18 0722 ADM IN [facility] [address] [place] [address]
--- NOTE | 2018-09-13 19:04 | NUR ---
REPORT RECEIVED, CARE ASSUMED. INITIAL ASSESSMENT COMPLETED, SEE FLOWSHEET. PT REQUESTED HELP CHANGING HER BRIEF, ASSISTANCE GIVEN. NO ACUTE CHANGES NOTED. NO SIGNS OF ACUTE DISTRESS. WILL CONTINUE TO MONITOR.
--- NOTE | 2018-09-13 21:04 | NUR ---
PT RESTING IN BED WITH EYES CLOSED. NO SIGNS OF ACUTE DISTRESS. WILL CONTINUE TO MONITOR.
--- NOTE | 2018-09-13 23:04 | NUR ---
PT RESTING IN BED WITH EYES CLOSED AT THIS TIME. NO NEEDS VOICED. NO SIGNS OF ACUTE DISTRESS. WILL CONTINUE TO MONITOR.
--- NOTE | 2018-09-14 01:04 | NUR ---
PT RESTING IN BED WITH EYES CLOSED AT THIS TIME. NO NEEDS VOICED. NO SIGNS OF ACUTE DISTRESS. WILL CONTINUE TO MONITOR.
[2018-09-14 03:00] VITALS: BP 108/81
--- NOTE | 2018-09-14 03:24 | NUR ---
PT IS RESTING IN BED WITH EYES CLOSED. NO NEEDS VOICED. NO SIGNS OF ACUTE DISTRESS. WILL CONTINUE TO MONITOR.
[2018-09-14 04:26] LABS: BASOPHILS 0.2 % (0-2); EOSINOPHILS 0.9 % (0-7); HEMATOCRIT 31.5 % (36.0-48.0); HEMOGLOBIN 9.5 g/dL (12-16); IMMATURE GRANULOCYTES 0.2 % (0-5); LYMPHOCYTES 23.3 % (15-50); MCH 30.3 pg (26.0-34.0); MCHC 30.2 g/dL (31.0-37.0); MEAN PLATELET VOLUME 10.2 fL (7.4-10.4); MONOCYTES 8.4 % (2-11); PLATELET COUNT 176 10x3/uL (130-400); RBC 3.14 10x6/uL (4.00-5.40); RDW 18.5 % (11.5-14.5); WBC 5.4 10x3/uL (4.8-10.8)
[2018-09-14 04:27] LABS: MCV 100.3 fL (80.0-100.0)
[2018-09-14 04:43] LABS: ALBUMIN 2.3 g/dL (3.4-5.0); ANION GAP 11.4 mmol/L (8-16); BILIRUBIN - TOTAL 0.56 mg/dL (0.2-1.3); CALCIUM 8.5 mg/dL (8.5-10.1); CARBON DIOXIDE 29.9 mmol/L (21.0-32.0); POTASSIUM - SERUM 3.3 mmol/L (3.5-5.1); PROTEIN - SERUM 5.9 g/dL (6.4-8.2)
[2018-09-14 04:57] LABS: CREATININE - SERUM 0.9 mg/dL (0.6-1.3)
--- NOTE | 2018-09-14 05:24 | NUR ---
PT IS RESTING IN BED WITH EYES CLOSED. NO NEEDS VOICED. NO SIGNS OF ACUTE DISTRESS. WILL CONTINUE TO MONITOR.
[2018-09-14 07:00] VITALS: BP 116/84
--- NOTE | 2018-09-14 07:15 | NUR ---
REPORT RECEIVED. ASSESSMENT COMPLETE PER FLOW SHEET. VSS. REFER FOR FINDINGS. PARTIAL LINEN CHANGE ADM. INCONTINENT X1. NEEDS MET.
--- NOTE | 2018-09-14 09:20 | NUR ---
ATE 100% BREAKFAST DENIES NEEDS WILL CONTINUE TOMONITOR
[2018-09-14 11:00] VITALS: BP 108/73
--- NOTE | 2018-09-14 11:15 | NUR ---
NO NEW CHANGE VSS NO NEW CHANGES PT RESTING COMFORTABLY WILL CONTINUE TOMONTIOR
--- NOTE | 2018-09-14 13:00 | NUR ---
PARTIAL LINEN CHANGE COMPLETE. INCONTINENT X1. DENIES NEEDS
[2018-09-14 15:00] VITALS: BP 110/75
--- NOTE | 2018-09-14 15:20 | NUR ---
ASSITSED TO BEDSIDE COMMODE. LARGE BM NTOED.
--- NOTE | 2018-09-14 17:10 | NUR ---
ATE 40% DINNER. DENIES NEEDS VSS WILL CONTINUE TO MONITOR
[2018-09-14 19:00] VITALS: BP 115/78
--- NOTE | 2018-09-14 19:04 | NUR ---
REPORT RECEIVED, CARE ASSUMED. ASSESSMENT COMPLETED, SEE FLOWSHEET. NO NEEDS VOICED. NO SIGNS OF ACUTE DISTRESS. WILL CONTINUE TO MONITOR.
--- NOTE | 2018-09-14 21:04 | NUR ---
PT RESTING IN BED AT THIS TIME WITH EYES CLOSED. NO NEEDS VOICED. NO SIGNS OF ACUTE DISTRESS. WILL CONTINUE TO MONITOR.
[2018-09-14 23:00] VITALS: BP 116/68
--- NOTE | 2018-09-14 23:04 | NUR ---
PT RESTING IN BED WITH EYES CLOSED. NO ACUTE CHANGES NOTED AT THIS TIME. NO NEEDS VOICED. NO SIGNS OF ACUTE DISTRESS. WILL CONTINUE TO MONITOR.
--- NOTE | 2018-09-15 01:04 | NUR ---
PT RESTING IN BED WITH EYES CLOSED. NO NEEDS VOICED. NO SIGNS OF ACUTE DISTRESS. VSS. WILL CONTINUE TO MONITOR.
[2018-09-15 03:00] VITALS: BP 116/78
--- NOTE | 2018-09-15 03:04 | NUR ---
PT RESTING IN BED WITH EYES CLOSED. NO SIGNS OF ACUTE DISTRESS. NO NEEDS VOICED. VSS. WILL CONTINUE TO MONITOR.
--- NOTE | 2018-09-15 05:04 | NUR ---
PT RESTING IN BED WITH EYES CLOSED. NO SIGNS OF ACUTE DISTRESS. NO NEEDS VOICED. VSS. WILL CONTINUE TO MONITOR.
[2018-09-15 07:00] VITALS: BP 118/80
--- NOTE | 2018-09-15 07:26 | NUR ---
REPORT RECEIVED. ASSESSMENT COMPLETE PER FLOW SHEET. VSS. NO NEW CHANGSE PT RESTING COMFORTABLY WILL CONTINUE TO MONITOR
[2018-09-15 08:00] VITALS: BP 123/85
[2018-09-15 09:00] VITALS: BP 118/72
--- NOTE | 2018-09-15 09:15 | NUR ---
NUTRITION F/U PT TOLERATING REG SOFT DIET. CURRENTLY SLEEPING. WILL HONOR FOOD PREFERENCES, MONITOR PT PROGRESS. RD FOLLOWING
--- NOTE | 2018-09-15 09:30 | NUR ---
ATE 100% BREAKFAST.
[2018-09-15 10:00] VITALS: BP 113/74
--- NOTE | 2018-09-15 10:57 | NUR ---
DR HYDE AT BEDSIDE. GIVEN UDPATE.
[2018-09-15 11:00] VITALS: BP 112/75
[2018-09-15] MEDS ORDERED: Nicoderm [PBKC] TRANSDERM (12:17)
[2018-09-15] MEDS ORDERED: AMIODARONE HCL200 MG PO (12:18)
[2018-09-15] MEDS ORDERED: BROVANA15 MCG/2 M INH (12:18)
[2018-09-15] MEDS ORDERED: MIRALAX17 GM PO (12:19)
[2018-09-15] MEDS ORDERED: PROTONIX40 MG PO (12:19)
[2018-09-15] MEDS ORDERED: CARAFATE1 G PO (12:19)
--- NOTE | 2018-09-15 13:00 | NUR ---
CVL DC'D AT THIS TIME, PT TOLERATED WELL
--- NOTE | 2018-09-15 15:01 | NUR ---
PT DC'D AT THIS TIME VIA WHEELCHAIR,
--- NOTE | 2018-09-15 15:18 | MORECARE ---
CASE MANAGEMENT DISCHARGE SUMMARY PATIENT: DIEGO ESCOBAR UNIT: [id number] ADM DATE: 09/08/18 AGE: 68 : 52 SEX: F ROOM/BED: D.2311 AUTHOR: BALBIR GREWAL PHYSICIAN: REFERRING PHYSICIAN: LISA ESQUIVEL DO DATE OF SERVICE: 09/15/18 Discharge Plan Patient Name: DIEGO ESCOBAR Facility: [facility]:[place] : 1950 Planned Disposition: Home with Home Health Anticipated Discharge Date: Discharge Date: 09/15/2018 Expected LOS: 0 Initial Reviewer: [email or web address] Initial Review Date: 09/09/2018 Generated: 09/15/18 4:18 pm Comments DCP- Discharge Planning Updated by [id number]: Lucinda Hernandez on 09/15/18 2:[address] Patient Name: DIEGO ESCOBAR Encounter No: [id number] : 1950 Primary Insurance: [facility] MEDICARE SOLUTIONS Anticipated DC Date: Planned Disposition: Home with Home Health External Planned Provider: : IMM explained and served 09/15/18 @ 1310 Denies any discharge needs DCP follow-up note: Patient and family in agreement with discharge plan. No changes to plan. Case management will follow and assist as needed. Lucinda Hernandez DCP- Discharge Planning Updated by [id number]: Emily Linares on 09/09/18 1:[address] Patient Name: DIEGO ESCOBAR Admission Status: Urgent Accout number: [id number] Admission Date: 09-08-2018 : 1950 Admission Diagnosis: Attending: LISA ESQUIVEL Current LOS: 1 Anticipated DC Date: Planned Disposition: Home with Home Health Primary Insurance: [facility] MEDICARE SOLUTIONS Discharge Planning Comments: CM met with patient to assess discharge planning needs. Patient lives at [address] [place] [address] where she plans to return at discharge. There is an elevator there. She has [facility] with PT. She stated that she also has [facility], where they will come and do her laundry, help with whatever she would need. She has home o2 ( crystal) nebulizer, shower chair, walker, grab bars. Her home is handicap friendly. She stated that her son, Sagar will be the one to take her home when she is DC. CM will continue to follow and assist with DC planning as needed. Manager Contact: Emily Linares DCPIA - Discharge Planning Initial Assessment Updated by [email or web address]: Emily Linares on 09/09/18 2:33 pm * Is the patient Alert and Oriented? Yes * How many steps to enter\exit or inside your home? elevator * PCP FARO * Pharmacy [facility] * Preadmission Environment Home Alone * ADLs Partial Dependent * Partial ADLs (Assistance needed) Medication Management * Equipment Bedside Commode Elevated [place] Seat Grab Bars Nebulizer Oxygen Rolling Walker Shower Chair Walker * List name and contact numbers for known caregivers / representatives who currently or will assist patient after discharge: SAGAR ESCOBAR [phone] * Verbal permission to speak to the caregivers and representatives has been obtained from the patient. N/A * Community resources currently utilized [facility] Home Health * Please name any agencies selected above. [facility] * Additional services required to return to the preadmission environment? No * Can the patient safely return to the preadmission environment? Yes * Has this patient been hospitalized within the prior 30 days at any hospital? Yes Coverage Notice Reviewer: [id number] - Lucinda Hernandez Notice Issued Date-Time: 09/15/2018 13:10 Notice Type: IM Discharge Notice Notice Delivered To: Patient Relationship to Patient: Self Director Business Development Name: Delivery Method: HAND - Hand Delivered Kiara Days: Prior Verbal Notification: Recipient Understood Notice: Yes Recipient Signature: Yes Med Rec Note Co-signed by Attending: Coverage Notice Comment: Last DP export: 09/09/18 1:39 p Patient Name: DIEGO ESCOBAR Page [id number] at 1518 All edits/amendments must be made on the electronic document DICTATION DATE: 09/15/181517 RAILWAY SIGNAL TECHNICIAN: NERI 09/15/18 1518 RPT#: [id number] DC DATE:09/15/18 STATUS: DIS IN [facility] [address] [place] [address] END OF REPORT
--- NOTE | 2018-09-16 10:08 | MORECARE ---
CASE MANAGEMENT DISCHARGE SUMMARY PATIENT: DIEGO ESCOBAR UNIT: [id number] ADM DATE: 09/08/18 AGE: 68 : 52 SEX: F ROOM/BED: D.2311 AUTHOR: BALBIR GREWAL PHYSICIAN: REFERRING PHYSICIAN: LISA ESQUIVEL DO DATE OF SERVICE: 09/16/18 Discharge Plan Patient Name: DIEGO ESCOBAR Facility: [facility]:[place] : 1950 Planned Disposition: Home with Home Health Anticipated Discharge Date: Discharge Date: 09/15/2018 Expected LOS: 0 Initial Reviewer: [email or web address] Initial Review Date: 09/09/2018 Generated: 09/16/18 11:08 am Comments DCP- Discharge Planning Updated by [email or web address]: Lucinda Hernandez on 09/15/18 2:[address] Patient Name: DIEGO ESCOBAR Encounter No: [id number] : 1950 Primary Insurance: [facility] MEDICARE SOLUTIONS Anticipated DC Date: Planned Disposition: Home with Home Health External Planned Provider: : IMM explained and served 09/15/18 @ 1310 Denies any discharge needs DCP follow-up note: Patient and family in agreement with discharge plan. No changes to plan. Case management will follow and assist as needed. Lucinda Hernandez DCP- Discharge Planning Updated by [id number]: Emily Linares on 09/09/18 1:[address] Patient Name: DIEGO ESCOBAR Admission Status: Urgent Accout number: [id number] Admission Date: 09-08-2018 : 1950 Admission Diagnosis: Attending: LISA ESQUIVEL Current LOS: 1 Anticipated DC Date: Planned Disposition: Home with Home Health Primary Insurance: [facility] MEDICARE SOLUTIONS Discharge Planning Comments: CM met with patient to assess discharge planning needs. Patient lives at [address] [place] [address] where she plans to return at discharge. There is an elevator there. She has [facility] with PT. She stated that she also has [facility], where they will come and do her laundry, help with whatever she would need. She has home o2 ( crystal) nebulizer, shower chair, walker, grab bars. Her home is handicap friendly. She stated that her son, Sagar will be the one to take her home when she is DC. CM will continue to follow and assist with DC planning as needed. Social Worker Palliative Care: Emily Linares DCPIA - Discharge Planning Initial Assessment Updated by [id number]: Emily Linares on 09/09/18 2:33 pm * Is the patient Alert and Oriented? Yes * How many steps to enter\exit or inside your home? elevator * PCP FARO * Pharmacy [facility] * Preadmission Environment Home Alone * ADLs Partial Dependent * Partial ADLs (Assistance needed) Medication Management * Equipment Bedside Commode Elevated Tol[place] Seat Grab Bars Nebulizer Oxygen Rolling Walker Shower Chair Walker * List name and contact numbers for known caregivers / representatives who currently or will assist patient after discharge: SAGAR ESCOBAR [phone] * Verbal permission to speak to the caregivers and representatives has been obtained from the patient. N/A * Community resources currently utilized [facility]PS/CPS Home Health * Please name any agencies selected above. [facility] * Additional services required to return to the preadmission environment? No * Can the patient safely return to the preadmission environment? Yes * Has this patient been hospitalized within the prior 30 days at any hospital? Yes Coverage Notice Reviewer: [id number] - Lucinda Hernandez Notice Issued Date-Time: 09/15/2018 13:10 Notice Type: IM Discharge Notice Notice Delivered To: Patient Relationship to Patient: Self Environmental Permitting Specialist Name: Delivery Method: HAND - Hand Delivered Kiara Days: Prior Verbal Notification: Recipient Understood Notice: Yes Recipient Signature: Yes Med Rec Note Co-signed by Attending: Coverage Notice Comment: Last DP export: 09/15/18 2:18 p Patient Name: DIEGO ESCOBAR Page [phone] at 1008 All edits/amendments must be made on the electronic document DICTATION DATE: 09/16/18 1007 DISTRIBUTION CENTER SUPERVISOR: NERI 09/16/18 1007 RPT#: [id number] DC DATE:09/15/18 STATUS: DIS IN [facility] [address] [place] [address] END OF REPORT
[2018-09-16] MEDS ORDERED: DETROL LA4 MG PO (19:27)
[2018-09-16] MEDS ORDERED: CARDIZEM CD180 MG PO (19:27)
[2018-09-16] MEDS ORDERED: SINGULAIR10 MG PO (23:55)
--- NOTE | 2018-09-17 12:11 | CN ---
PATIENT NAME:DIEGO ESCOBAR MEDICAL RECORD: [id number] : 52 LOCATION:[facility].2311 ADMIT DATE: 09/08/18 ACCOUNT: [id number] CONSULTING PHYSICIAN: AROLDO WARD MD REFERRING PHYSICIAN: LISA ESQUIVEL DO DATE OF CONSULTATION: 09/13/2018 DIAGNOSES: 1. Paroxysmal atrial fibrillation. 2. COPD. 3. Status post respiratory failure. 4. Anemia. 5. GI bleed. HISTORY: Mrs. Escobar presents with respiratory failure, severe anemia, GI bleed. She was found to be in and out of atrial fibrillation. She was placed on Cardizem. She remained in atrial fibrillation, was placed on Cordarone. In addition, she has converted to sinus rhythm. She is on IV Cordarone. She had an echocardiogram in May that was overall normal. She does have a history of COPD. She has a history of ischemic heart disease, PTCA and stent in the past. She is stable from that standpoint with no recurrent angina. PHYSICAL EXAMINATION: GENERAL APPEARANCE: Well-nourished, well-developed, appears stated age. Level of distress, comfortable. PSYCHIATRIC: Mental status, alert, normal affect. Orientation, oriented to time, place and person. EYES: Lids and conjunctiva, noninjected. No discharge, no pallor. ENT: Lips, teeth, gums, normal dentition. Oropharynx, no cyanosis, no pallor. NECK: Carotid arteries, bilateral normal upstroke, no bruits, no thrills. JUGULAR VEINS: No jugular venous pressure or distention. CERVICAL LYMPH NODES: Nontender, nonenlarged. THYROID: Not enlarged. Nontender. No nodules. LUNGS: Respiratory effort, unlabored. CHEST: Normal curvature. No thoracic deformity. No chest wall tenderness. Percussion, resonant. Auscultation, clear. No wheezes, no rales, no rhonchi. CARDIOVASCULAR: Precordial exam, nondisplaced. No heaves or pericardial thrills. Rate and rhythm, regular. Heart sounds, normal S1, normal S2. No S3, no gallop, no rub. Systolic murmur, not heard. Diastolic murmur, not heard. EXTREMITIES: No cyanosis, no edema. Peripheral pulses, full and equal in all extremities, except as noted. No bruits appreciated. ABDOMEN: Soft, nondistended. Normal aorta. No bruit. Nontender. No masses. Liver, nontender, no hepatomegaly. Spleen, nontender, no splenomegaly. MUSCULOSKELETAL: No joint tenderness. No joint swelling. No erythema. NEUROLOGICAL: Normal gait, normal strength, normal tone. SKIN: Warm and dry. OVERALL IMPRESSION: Paroxysmal atrial fibrillation. At this time, we will discontinue the IV Cordarone, place her on p.o. Cordarone, and discontinue the diltiazem. No other cardiac workup or treatment is necessary. TRANSINT:[id number] Voice Confirmation ID: [id number] DOCUMENT ID: [id number] CONSULT REPORT [id number] DIEGO ESCOBAR, AROLDO CASTRO at 1211 CC: [id number] DICTATION DATE: 09/13/18 1114 ELECTRIC TRUCKER: 09/13/18 1556 DIS IN 09/15/18 [facility] [address] [place] [address]
== END 2018-09-15 15:02 | disposition home health service (06) | DRG 802 ==
LOC: D.MS 17:26 → D.ICU 17:45 → D.MS 17:45 → D.ICU 09-09 20:10
PROVIDERS: Family Medicine; Internal Medicine Gastroenterology; ADMIT Family Medicine
PROC: 5A09357 Assistance with Respiratory Ventilation, Less than 24 Consecutive Hours, Continuous Positive Airway Pressure (ICD-10-PCS; principal; 2018-09-09)
PROC: 05H533Z Insertion of Infusion Device into Right Subclavian Vein, Percutaneous Approach (ICD-10-PCS; 2018-09-11)
PROC: 0DB78ZX Excision of Stomach, Pylorus, Via Natural or Artificial Opening Endoscopic, Diagnostic (ICD-10-PCS; 2018-09-12)
PROC: 0QB23ZX Excision of Right Pelvic Bone, Percutaneous Approach, Diagnostic (ICD-10-PCS; 2018-09-13)
PROC: 07DR3ZX Extraction of Iliac Bone Marrow, Percutaneous Approach, Diagnostic (ICD-10-PCS; 2018-09-13)
DX: D50.9 Iron deficiency anemia, unspecified (principal); K25.4 Chronic or unspecified gastric ulcer with hemorrhage; J96.01 Acute respiratory failure with hypoxia; I50.33 Acute on chronic diastolic (congestive) heart failure; J18.9 Pneumonia, unspecified organism; K26.4 Chronic or unspecified duodenal ulcer with hemorrhage; C64.2 Malignant neoplasm of left kidney, except renal pelvis; J81.1 Chronic pulmonary edema; J98.11 Atelectasis; J44.9 Chronic obstructive pulmonary disease, unspecified; F17.200 Nicotine dependence, unspecified, uncomplicated; I48.91 Unspecified atrial fibrillation; K21.9 Gastro-esophageal reflux disease without esophagitis; R19.5 Other fecal abnormalities; I25.10 Atherosclerotic heart disease of native coronary artery without angina pectoris; K20.9 Esophagitis, unspecified; D62 Acute posthemorrhagic anemia; R00.0 Tachycardia, unspecified; I11.0 Hypertensive heart disease with heart failure

== ENCOUNTER 2018-09-16 19:11 | Inpatient (IN) | payer MEDICARE, MEDICAID ==
[~2018-09-16] VITALS: Ht 162.6 cm; Wt 71.9 kg
[~2018-09-16 19:11] MED LIST changes: +AMIODARONE HCL200 MG PO; +BROVANA15 MCG/2 M INH; +CARAFATE1 G PO; +MIRALAX17 GM PO; +Nicoderm [PBKC] TRANSDERM; +PROTONIX40 MG PO
[2018-09-16] MEDS ORDERED: DETROL LA4 MG PO (19:27)
[2018-09-16] MEDS ORDERED: CARDIZEM CD180 MG PO (19:27)
[2018-09-16 20:18] LABS: BASOPHILS 0.4 % (0-2); EOSINOPHILS 0.6 % (0-7); HEMOGLOBIN 10.3 g/dL (12-16); IMMATURE GRANULOCYTES 0.3 % (0-5); LYMPHOCYTES 12.8 % (15-50); MCH 30.9 pg (26.0-34.0); MCHC 31.2 g/dL (31.0-37.0); MCV 99.1 fL (80.0-100.0); MEAN PLATELET VOLUME 10.5 fL (7.4-10.4); MONOCYTES 7.9 % (2-11); PLATELET COUNT 201 10x3/uL (130-400); RBC 3.33 10x6/uL (4.00-5.40); RDW 18.2 % (11.5-14.5); WBC 6.7 10x3/uL (4.8-10.8)
[2018-09-16 20:20] LABS: INR 1.27 (0.85-1.17); PROTIME 15.4 SECONDS (11.6-15.0)
[2018-09-16 20:31] LABS: ALBUMIN 2.8 g/dL (3.4-5.0); ALKALINE PHOSPHATASE 98 U/L (46-116); ALT (SGPT) 37 U/L (10-68); CALC OSMOLALITY 293 mosm/kg (275-300); CALCIUM 8.5 mg/dL (8.5-10.1); CARBON DIOXIDE 24.8 mmol/L (21.0-32.0); CHLORIDE - SERUM 106 mmol/L (98-107); GLUCOSE 121 mg/dL (74-106); POTASSIUM - SERUM 3.6 mmol/L (3.5-5.1); SODIUM 144 mmol/L (136-145); UREA NITROGEN 28 mg/dL (7-18); eGFR NON AFRICAN AMERICAN 58 mL/min (90-120)
[2018-09-16 20:34] LABS: APPEARANCE CLEAR (CLEAR); BILIRUBIN NEGATIVE (NEGATIVE); COLOR YELLOW (YELLOW); GLUCOSE NEGATIVE (NEGATIVE); KETONE SMALL mg/dL (NEGATIVE); NITRITE NEGATIVE (NEGATIVE); PROTEIN 1+ mg/dL (NEGATIVE); SPECIFIC GRAVITY 1.015 (1.005-1.020); UROBILINOGEN NORMAL (NORMAL)
[2018-09-16 20:35] LABS: CKMB 1.2 U/L (0.0-3.6); CREATINE KINASE 21 UL (21-215); MAGNESIUM - SERUM 1.6 mg/dL (1.8-2.4); PRO BNP 12372 pg/mL (0-125); TROPONIN-I 0.029 ng/mL (0.000-0.060)
--- NOTE | 2018-09-16 20:39 | NUR ---
PT GIVEN ICE CHIPS.
[2018-09-16 21:00] VITALS: BP 113/69
--- NOTE | 2018-09-16 21:32 | NUR ---
PT ASSISTED WITH BEDPAN
--- NOTE | 2018-09-16 22:41 | NUR ---
PT'S IV CARDIZEM DRIP RATE INCREASED TO 15ML/HR PER DR. KELLOGG ORDERS.
[2018-09-16] MEDS ORDERED: SINGULAIR10 MG PO (23:55)
[2018-09-17] VITALS (7 sets, daily range): BP systolic 98–121; BP diastolic 63–76; Ht 162.6 cm; Wt 71.9 kg
[2018-09-17 07:22] LABS: BASOPHILS 0.3 % (0-2); EOSINOPHILS 0 % (0-7); HEMATOCRIT 33.6 % (36.0-48.0); HEMOGLOBIN 10.3 g/dL (12-16); IMMATURE GRANULOCYTES 0.3 % (0-5); LYMPHOCYTES 12.5 % (15-50); MCH 30.6 pg (26.0-34.0); MCHC 30.7 g/dL (31.0-37.0); MCV 99.7 fL (80.0-100.0); MEAN PLATELET VOLUME 10.9 fL (7.4-10.4); MONOCYTES 0.3 % (2-11); NEUTROPHILS 86.6 % (40-80); PLATELET COUNT 225 10x3/uL (130-400); RBC 3.37 10x6/uL (4.00-5.40); RDW 18.4 % (11.5-14.5)
[2018-09-17 07:35] LABS: WBC 3.4 10x3/uL (4.8-10.8)
[2018-09-17 07:42] LABS: ALBUMIN 2.6 g/dL (3.4-5.0); ALKALINE PHOSPHATASE 91 U/L (46-116); ALT (SGPT) 36 U/L (10-68); BILIRUBIN - TOTAL 0.93 mg/dL (0.2-1.3); CALC OSMOLALITY 294 mosm/kg (275-300); CALCIUM 8.7 mg/dL (8.5-10.1); CARBON DIOXIDE 24.3 mmol/L (21.0-32.0); CHLORIDE - SERUM 107 mmol/L (98-107); CREATININE - SERUM 0.8 mg/dL (0.6-1.3); GLUCOSE 161 mg/dL (74-106); POTASSIUM - SERUM 4.3 mmol/L (3.5-5.1); PROTEIN - SERUM 6.4 g/dL (6.4-8.2); SODIUM 144 mmol/L (136-145); UREA NITROGEN 26 mg/dL (7-18); eGFR NON AFRICAN AMERICAN 76 mL/min (90-120)
--- NOTE | 2018-09-17 10:49 | NUR ---
PTS HEART RATE STILL TACHY AND SHE IS RUNNING ATRIAL FLUTTER @138 PT C/O AND WANTS HER BREATHING TX BUT ITS CONTRAINDICTED WITH THE HR THAT HIGH. DISCUSSED WITH PRIMARY AND CHANGED TO A SAFER BREATHING TX UNTIL HR IS CONTROLLED. PT VERBALIZED UNDERSTANDING AND IS RESTING QUIETLY IN BED. CL IN REACH. WILL CTM.
--- NOTE | 2018-09-17 11:31 | NUR ---
PT NEEDING TO USE BR AGAIN SO I ASSISTED HER AND SHE VOIDED WITHOUT ANY DIFFICULTIES NOTED. PT WAS GETTING UP SHE ASKED ME TO WIPE BUT AT HOME SHE IS FULLY CAPABLE. I HAVE ALREADY DONE IT FOR HER THE LAST TIME SO THIS TIME I ENCOURAGED HER TO STAY INDEPENDENT BUT I WAS RIGHT THERE FOR ASSISTANCE. SHE ENDED UP WIPING HERSELF WITHOUT ANY DIFFICULTIES AND I ASSISTED HER BACK INTO BED. PT DENIES ANY FURTHER NEEDS AT THIS TIME. CL IN REACH, BED IN LOWEST, SIDE RAILS X2. WILL CTM.
--- NOTE | 2018-09-17 11:44 | NUR ---
PT ASSISTED TO BEDSIDE COMMODE TO URINATE. PT REQUEST A BASIN OF SOAP AND WATER SO THAT SHE CAN CLEAN HERSELF. SET PATIENT UP FOR A BED BATH. PT REMAINED ON BEDSIDE COMMADE AND NURSE ASSITED PT WITH BATH. PT REQUESTED NURSE ASSIST WITH CLEANSING JULIETTE AREA, ENCOURAGED PT TO REMAIN INDEPENDENT WITH CLEANSING JULIETTE AREA. PT WAS ABLE TO CLEAN JULIETTE AREA INDEPENDENTLY WITH NURSE STANDING BESIDE PT HOLDING HER GOWN. PT ASSISTED BACK INTO BED. CALL LIGHT WITHIN REACH. DENIES ANY NEEDS AT THIS TIME. WILL CONT TO MONITOR.
--- NOTE | 2018-09-17 13:30 | NUR ---
UPON GOING TO PUSH PTS NEXT DOSE OF DIG CHECKED TELEMETRY AND SHE HAS NOW CONVERTED TO A SINUS RHYTHYM @76BPM. NOTIFIED PROGRAM DIRECTOR/MORNING SHOW HOST CARDIOLOGY ZAIDA Banegas APRN TO INQUIRE ABOUT IF WE STILL NEED THE CARDIZEM DRIP INFUSING OR NOT. SHE STATES TO LOWER CARDIZEM DRIP TO 5ML/HR AND MONITER BP, IF PT REMAINS CONTROLLED IT WILL BE DISCONTINUED. SECOND DOSE OF DIG PUSHED OVER 5 MINS ORDERED. NO FURTHER NEEDS. WILL CTM.
--- NOTE | 2018-09-17 13:31 | NUR ---
ASSISTED PT TO BEDSIDE COMMODE. PT WIPED HERSELF INDEPENDENTLY WITH NURSE AT SIDE HOLDING HER GOWN. PT THEN ASSISTED BACK INTO BED. CALL LIGHT WITHIN REACH. DENIES ANY PAIN AT THIS TIME. WILL CONT TO FOLLOW POC.
--- NOTE | 2018-09-17 16:00 | NUR ---
STOPPED CARDIZEM DRIP ORDERED PER NURSING MESSAGE TO AFTER PT HAD REC'D ORAL DOSE OF CARDIZEM. PT REMAINS IN A NORMAL SINUS RHYTHYM @77BPM. PT IS NOW SL. WILL CTM FOR ANY ARRTHYMIAS OR ISSUES.
--- NOTE | 2018-09-17 18:13 | MORECARE ---
CASE MANAGEMENT DISCHARGE SUMMARY PATIENT: DIEGO ESCOBAR UNIT: [id number] ADM DATE: 09/16/18 AGE: 68 : 52 SEX: F ROOM/BED: D.2204 AUTHOR: BALBIR GREWAL PHYSICIAN: REFERRING PHYSICIAN: CARRIE LANG MD DATE OF SERVICE: 09/17/18 Discharge Plan Patient Name: DIEGO ESCOBAR [facility] [facility] 1950 Planned Disposition: Home Anticipated Discharge Date: 09/18/18 Discharge Date: Expected LOS: 2 Initial Reviewer: [email or web address] Initial Review Date: 09/17/2018 Generated: 09/17/18 7:12 pm DCPIA - Discharge Planning Initial Assessment Updated by [email or web address]: Regulo Hester on 09/17/18 6:12 pm * Is the patient Alert and Oriented? Yes * How many steps to enter\exit or inside your home? ELEVATOR * PCP DR. SANTOS * Pharmacy [facility] * Preadmission Environment Home Alone * ADLs Independent * Equipment Back Brace CPAP Elevated [place] Seat Grab Bars Nebulizer Oxygen Rolling Walker Shower Chair Walker * Other Equipment HOME AND PORTABLE OXYGEN [employer] PROVIDED BY [facility] * List name and contact numbers for known caregivers / representatives who currently or will assist patient after discharge: SAGAR ESCOBAR, JAKY, * Verbal permission to speak to the caregivers and representatives has been obtained from the patient. N/A * Community resources currently utilized Home Health Private Duty Care * Please name any agencies selected above. [employer] [facility] PRIVATE AIDE SERVICE * Additional services required to return to the preadmission environment? No * Can the patient safely return to the preadmission environment? Yes * Has this patient been hospitalized within the prior 30 days at any hospital? Yes Patient Name: DIEGO ESCOBAR Page [id number] at 1813 All edits/amendments must be made on the electronic document DICTATION DATE: 09/17/181811 ASSISTANT VICE PRESIDENT: NERI 09/17/181811 RPT#: [id number] DC DATE: STATUS: ADM IN [facility] [address] [place] [address] END OF REPORT
--- NOTE | 2018-09-17 18:21 | MORECARE ---
CASE MANAGEMENT DISCHARGE SUMMARY PATIENT: DIEGO ESCOBAR UNIT: [id number] ADM DATE: 09/16/18 AGE: 68 : 51 SEX: F ROOM/BED: D.2105 AUTHOR: BALBIR GREWAL PHYSICIAN: REFERRING PHYSICIAN: CARRIE LANG MD DATE OF SERVICE: 09/17/18 Discharge Plan Patient Name: DIEGO ESCOBAR Facility: [facility]:[place] : 1950 Planned Disposition: Home with Home Health Anticipated Discharge Date: 09/18/18 Discharge Date: Expected LOS: 2 Initial Reviewer: [email or web address] Initial Review Date: 09/17/2018 Generated: 09/17/18 7:21 pm DCPIA - Discharge Planning Initial Assessment Updated by [email or web address]: Regulo Hester on 09/17/18 6:12 pm * Is the patient Alert and Oriented? Yes * How many steps to enter\exit or inside your home? ELEVATOR * PCP DR. SANTOS * Pharmacy [facility] * Preadmission Environment Home Alone * ADLs Independent * Equipment Back Brace CPAP Elevated [place] Seat Grab Bars Nebulizer Oxygen Rolling Walker Shower Chair Walker * Other Equipment HOME AND PORTABLE OXYGEN [employer] - MEDICAL EQUIPMENT PROVIDER LIFE ALERT BUTTON PROVIDED BY [employer] [facility] * List name and contact numbers for known caregivers / representatives who currently or will assist patient after discharge: SAGAR ESCOBAR, SON, * Verbal permission to speak to the caregivers and representatives has been obtained from the patient. N/A * Community resources currently utilized Home Health Private Duty Care * Please name any agencies selected above. [employer] [facility] PRIVATE AIDE SERVICE * Additional services required to return to the preadmission environment? No * Can the patient safely return to the preadmission environment? Yes * Has this patient been hospitalized within the prior 30 days at any hospital? Yes External Providers External Provider: [facility] Next Contact Date: 09/18/2018 Service Request Date: Service Type: Resolution: Reviewer: Comments: Last DP export: 09/17/18 5:12 pm Patient Name: DIEGO ESCOBAR Page 58500 at 1821 All edits/amendments must be made on the electronic document DICTATION DATE: 09/17/181819 WEATHERIZATION CREW LEADER: NERI 09/17/181819 RPT#: [id number] DC DATE: STATUS: ADM IN [facility] [address] [place] [address] END OF REPORT
--- NOTE | 2018-09-17 18:29 | MORECARE ---
CASE MANAGEMENT DISCHARGE SUMMARY PATIENT: DIEGO ESCOBAR UNIT: [id number] ADM DATE: 09/16/18 AGE: 68 : 51 SEX: F ROOM/BED: D.4705 AUTHOR: URI,DOC PHYSICIAN: REFERRING PHYSICIAN: CARRIE LANG MD DATE OF SERVICE: 09/17/18 Discharge Plan Patient Name: DIEGO ESCOBAR Facility: [facility]:[place] : 1950 Planned Disposition: Home with Home Health Anticipated Discharge Date: 09/18/18 Discharge Date: Expected LOS: 2 Initial Reviewer: [email or web address] Initial Review Date: 09/17/2018 Generated: 09/17/18 7:29 pm Comments DCP- Discharge Planning Updated by [email or web address]: Regulo Hester on 09/17/18 5:[address] Patient Name: DIEGO ESCOBAR Admission Status: ER Accout number: [id number] Admission Date: 09-16-2018 : 1950 Admission Diagnosis:SYNCOPE AND COLLAPSE Attending: CARRIE LANG Current LOS: 1 Anticipated DC Date: 09-18-2018 Planned Disposition: Home with Home Health Primary Insurance: [facility] MEDICARE SOLUTIONS PLANNED EXTERNAL PROVIDER: [employer] - [place] [facility] Discharge Planning Comments: CM MET WITH PT IN ROOM TO DISCUSS DISCHARGE PLANNING AND NEEDS. PT REPORTS LIVING [facility]DEP[facility] . PT REPORTSING HAVING ALL NEEDED MEDICAL EQUIPMENT. PT REPORTS HAVING [facility] FOR NURSING AND PHYSICAL THERAPY AND PRIVATE DUTY CARE NEEDED WITH "ITS ALL ABOUT YOU". CM DISCUSSED AVAILABILITY OF HOME HEALTH, REHAB SERVICES AND MEDICAL EQUIPMENT. PT DENIES DISCHARGE NEEDS, SPECIFICALLY DENIES REHAB NEEDS; PT STATES SHE WILL BE GOING HOME WITH [facility] TO RESUME HER SERVICES AND SHE IS NEEDING TO PACK THE [place] IS REMODELING HER APARTMENT. PT REPORTS HER SON WILL PICK HER UP FOR DISCHARGE HOME. IMPORTANT MESSAGE FROM MEDICARE PROVIDED AND EXPLAINED. PT STATES SHE HAS THOUGHT OF ASSISTED LIVIING AND ASKED FOR ASSISTED LIVING INFORMATION. CM PROVIDED PT WITH LISTING WITH CONTACT INFORMATION FOR [facility]ITIES. PT IS ONLY INTERESTED IN [employer] IT IS LOCAL AND MEDICAID CAN PAY FOR THE SERVICE. CM EXPLAINED THAT PT WILL NEED TO APPLY FOR CORRECTION CARE MEDICAID AND PROVIDED PT WITH CONTACT INFORMATION TO [facility] OF HUMAN SERVICES OFFICE. CM EDUCATED PT ON THE AVAILABILITY OF SURVEY RESEARCH PROFESSOR SERVICES TO ASSIST WITH THIS THROUGH [employer] - [place]. PT WILL REQUEST ASSISTANCE THROUGH HER HOME HEALTH PROVIDER. CM FURTHER ADVISED PT THAT SHE WOULD NEED TO CALL AND SPEAK TO ADMISSIONS AT [facility] THEY MAY HAVE WAITING LIST FOR ADMISSION. PT REPORTS UNDERSTANDING, DENIES FURTHER NEEDS. FOR DISCHARGE, NOTIFY [employer] [facility] [place] [facility], , FAX DISCHARGE INFORMATIONTO [employer] [facility] [place] AT [phone]. Php Website Developer: Regulo Hester DCPIA - Discharge Planning Initial Assessment Updated by [id number]: Regulo Hester on 09/17/18 6:12 pm * Is the patient Alert and Oriented? Yes * How many steps to enter\\exit or inside your home? ELEVATOR * PCP DR. SANTOS * Pharmacy [facility] * Preadmission Environment Home Alone * ADLs Independent * Equipment Back Brace CPAP Elevated [place] Seat Grab Bars Nebulizer Oxygen Rolling Walker Shower Chair Walker * Other Equipment HOME AND PORTABLE OXYGEN [employer] - MEDICAL EQUIPMENT PROVIDER LIFE ALERT BUTTON PROVIDED BY [facility] * List name and contact numbers for known caregivers / representatives who currently or will assist patient after discharge: SAGAR ESCOBAR, SON, * Verbal permission to speak to the caregivers and representatives has been obtained from the patient. N/A * Community resources currently utilized Home Health Private Duty Care * Please name any agencies selected above. [employer] [facility] [place] [facility] PRIVATE AIDE SERVICE * Additional services required to return to the preadmission environment? No * Can the patient safely return to the preadmission environment? Yes * Has this patient been hospitalized within the prior 30 days at any hospital? Yes Last DP export: 09/17/18 5:21 pm Patient Name: DIEGO ESCOBAR Page [id number] at 1829 All edits/amendments must be made on the electronic document DICTATION DATE: 09/17/181828 MOLECULAR BIOLOGY SCIENTIST: NERI 09/17/181828 RPT#: [id number] DC DATE: STATUS: ADM IN [facility] [address] [place] [address] END OF REPORT
[2018-09-18 03:47] VITALS: BP 130/86
--- NOTE | 2018-09-18 07:24 | NUR ---
RECEIVED REPORT. PATIENT IS LAYING ON HER BACK, AROUSES EASILY, ON HEART MONITOR SHOWING SR, HR 78. ON 2L PER NC. RIGHT HAND AND RIGHT AC, BOTH SEEN WITH SALINE LOCK. ON EP, LABS WERE NOT ORDERED. DONE NOW. BSC IN USE. WILL MONITOR. DENIES NEEDS.
[2018-09-18 07:47] LABS: PHOSPHOROUS 5.2 mg/dL (2.5-4.9)
--- NOTE | 2018-09-18 07:55 | NUR ---
EP LAB BACK WITH K+ 5.0
[2018-09-18 08:46] VITALS: BP 132/81
--- NOTE | 2018-09-18 12:00 | NUR ---
PATIENT'S BOTTOM (COCCYX) IS SLIGHTLY RED, ENCOURGED PATIENT TO TURN EVERY TWO HOURS TO HELP WITH SKIN ISSUES. STATES THAT SHE DOES
--- NOTE | 2018-09-18 12:43 | NUR ---
PATIENT DENIES NEEDS AT THIS TIME. STILL AWAITING DOCTOR FOR ROUNDING.
[2018-09-18 16:25] VITALS: BP 131/78
--- NOTE | 2018-09-18 17:56 | NUR ---
ASSSITED TO BSC FOR BM. DENIES NEEDS AT THIS TIME.
[2018-09-18 19:50] VITALS: BP 124/74
--- NOTE | 2018-09-18 21:50 | NUR ---
INITIAL ORUNDS COMPLETED AT 1915 HRS. PT DENIED ANY DISCOMFORT. ASSESSMENT COMPLETED AT 1935 HRS. VSS. SR PER CM HR 87. IV TO R HAND AND RFA SL. O2 2LNC. LUNGS DIMINISHED IN BASES BILAT. ALERT AND ORIENTED TO PERSON, PLACE AND TIME. PM MEDS GIVEN. PT CURRENTLY WATCHING TV. WILL CONTINUE TO MONITOR. SR UP X2, CALL LIGHT WITHIN REACH.
[2018-09-18 23:35] VITALS: BP 122/74
--- NOTE | 2018-09-18 23:52 | NUR ---
PT AWAKE, DENIES ANY DISCOMFORT. WILL CONTINUE TO MONITOR. SR UP X2, CALL LIGHT WITHIN REACH.
--- NOTE | 2018-09-19 02:35 | NUR ---
PT RESTING WITH EYES CLOSED. RESP EVEN AND REGULAR. SR UP X2, CALL LIGHT WITHIN REACH.
[2018-09-19 03:55] VITALS: BP 137/77
--- NOTE | 2018-09-19 04:23 | NUR ---
PT RESTING WITH EYES CLOSED. RESP EVEN AND REGULAR. SR UP X2, CALL LIGHT WITHIN REACH.
--- NOTE | 2018-09-19 06:24 | NUR ---
VSS THROUGHOUT NIGHT. SR PER CM. PT DENIED ANY DISCOMFORT. NEEDS MET; WILL CONTINUE TO MONITIOR.
--- NOTE | 2018-09-19 07:00 | NUR ---
RECEIVED REPORT. ASSUMED CARE OF PATIENT. CALL LIGHT WITHIN REACH. PATIENT WITH EYES OPEN, SR, 78 ON TELEMETRY. PATIENT QUESTIONING IF ONLINE MARKETING STRATEGIST WILL BE HERE TODAY AND WONDERING IF SHE WILL GET TO GO HOME TODAY. NO DISTRESS.
[2018-09-19 08:49] VITALS: BP 136/91
[2018-09-19] MEDS ORDERED: BETAPACE 80 MG80 MG PO (10:31)
[2018-09-19] MEDS ORDERED: CARDIZEM CD120 MG PO (10:31)
[2018-09-19 11:55] VITALS: BP 131/84
[2018-09-19 13:46] VITALS: BP 131/84
--- NOTE | 2018-09-19 14:23 | NUR ---
18 GAUGE REMOVED FROM RIGHT AC. CATHETER TIP INTACT. NO BLEEDING FROM SITE. 2X2 GAUZE APPLIED AND SECURED WITH BANDAID. 20 GAUGE IV REMOVED FROM RIGHT HAND. NO BLEEDING FROM SITE. CALL LIGHT WITHIN REACH. CATHETER TIP INTACT. 2X2 GAUZE APPLIED AND SECURED WITH BANDAID. DISCHARGE INSTRUCTIONS PROVIDED. PATIENT VERBALIZED UNDERSTANDING OF ALL INSTRUCTIONS PROVIDED. PATIENT IS WAITING FOR HER SON TO BRING HOME OXYGEN TANK SO SHE CAN BE DISCHARGED TO HOME. PATIENT IS WAITING FOR HER SON.
--- NOTE | 2018-09-19 15:19 | NUR ---
PATIENT LEFT UNIT WITH HER ROLLING WALKER. PATIENT PREFERRED TO WALK. PATIENT DISCHARGED TO HOME. PATIENT LEFT UNIT WITH ALL PERSONAL BELONGINGS IN NO DISTRESS.
--- NOTE | 2018-09-20 11:28 | MORECARE ---
CASE MANAGEMENT DISCHARGE SUMMARY PATIENT: DIEGO ESCOBAR UNIT: [id number] ADM DATE: 09/16/18 AGE: 68 : 51 SEX: F ROOM/BED: D.6483 AUTHOR: URIDOC PHYSICIAN: REFERRING PHYSICIAN: CARRIE LANG MD DATE OF SERVICE: 09/20/18 Discharge Plan Patient Name: DIEGO ESCOBAR Facility: [facility]:[place] : 1950 Planned Disposition: Home with Home Health Anticipated Discharge Date: 09/19/18 Discharge Date: 09/19/2018 Expected LOS: 3 Initial Reviewer: [email or web address] Initial Review Date: 09/17/2018 Generated: 09/20/18 12:28 pm Comments DCP- Discharge Planning Updated by [id number]: Regulo Hester on 09/17/18 5:[address] Patient Name: DIEGO ESCOBAR Admission Status: ER Accout number: [id number] Admission Date: 09-16-2018 : 1950 Admission Diagnosis:SYNCOPE AND COLLAPSE Attending: CARRIE LANG Current LOS: 1 Anticipated DC Date: 09-18-2018 Planned Disposition: Home with Home Health Primary Insurance: [facility] MEDICARE [place] PLANNED EXTERNAL PROVIDER: [facility] Discharge Planning Comments: CM MET WITH PT IN ROOM TO DISCUSS DISCHARGE PLANNING AND NEEDS. PT REPORTS LIVING AT HOME INDEPENDENTLY AND ALONE IN THE [facility] . PT REPORTSING HAVING ALL NEEDED MEDICAL EQUIPMENT. PT REPORTS HAVING [facility] FOR NURSING AND PHYSICAL THERAPY AND PRIVATE DUTY CARE NEEDED WITH "ITS ALL ABOUT YOU". CM DISCUSSED AVAILABILITY OF HOME HEALTH, REHAB SERVICES AND MEDICAL EQUIPMENT. PT DENIES DISCHARGE NEEDS, SPECIFICALLY DENIES REHAB NEEDS; PT STATES SHE WILL BE GOING HOME WITH [facility] TO RESUME HER SERVICES AND SHE IS NEEDING TO PACK THE [place] IS REMODELING HER APARTMENT. PT REPORTS HER SON WILL PICK HER UP FOR DISCHARGE HOME. IMPORTANT MESSAGE FROM MEDICARE PROVIDED AND EXPLAINED. PT STATES SHE HAS THOUGHT OF ASSISTED LIVIING AND ASKED FOR ASSISTED LIVING INFORMATION. CM PROVIDED PT WITH LISTING WITH CONTACT INFORMATION FOR [facility] ASSISTED LIVING FACILITIES. PT IS ONLY INTERESTED IN [place] IT IS LOCAL AND MEDICAID CAN PAY FOR THE SERVICE. CM EXPLAINED THAT PT WILL NEED TO APPLY FOR EDITORIAL WRITER CARE MEDICAID AND PROVIDED PT WITH CONTACT INFORMATION TO [facility] DEPARTMENT OF HUMAN SERVICES OFFICE. CM EDUCATED PT ON THE AVAILABILITY OF HEAD OF STORE OPERATIONS SERVICES TO ASSIST WITH THIS THROUGH [employer]. PT WILL REQUEST ASSISTANCE THROUGH HER HOME HEALTH PROVIDER. CM FURTHER ADVISED PT THAT SHE WOULD NEED TO CALL AND SPEAK TO ADMISSIONS AT [facility] THEY MAY HAVE WAITING LIST FOR ADMISSION. PT REPORTS UNDERSTANDING, DENIES FURTHER NEEDS. FOR DISCHARGE, NOTIFY [facility] [facility], , FAX DISCHARGE INFORMATIONTO [employer] AT [phone]. License Examiner: Regulo Hester DCPIA - Discharge Planning Initial Assessment Updated by [id number]: Regulo Hester on 09/17/18 6:12 pm * Is the patient Alert and Oriented? Yes * How many steps to enter\\exit or inside your home? ELEVATOR * PCP DR. SANTOS * Pharmacy [facility] * Preadmission Environment Home Alone * ADLs Independent * Equipment Back Brace CPAP Elevated [place] Seat Grab Bars Nebulizer Oxygen Rolling Walker Shower Chair Walker * Other Equipment HOME AND PORTABLE OXYGEN [employer] - MEDICAL EQUIPMENT PROVIDER LIFE ALERT BUTTON PROVIDED BY [facility] * List name and contact numbers for known caregivers / representatives who currently or will assist patient after discharge: SAGAR ESCOBAR, SON, * Verbal permission to speak to the caregivers and representatives has been obtained from the patient. N/A * Community resources currently utilized Home Health Private Duty Care * Please name any agencies selected above. [facility] PRIVATE AIDE SERVICE * Additional services required to return to the preadmission environment? No * Can the patient safely return to the preadmission environment? Yes * Has this patient been hospitalized within the prior 30 days at any hospital? Yes Last DP export: 09/17/18 5:29 pm Patient Name: DIEGO ESCOBAR Page 27390 at 1128 All edits/amendments must be made on the electronic document DICTATION DATE: 09/20/181127 HIDE PULLER: NERI 09/20/181127 RPT#: [id number] DC DATE:09/19/18 STATUS: DIS IN [facility] [address] [place] [address] END OF REPORT
--- NOTE | 2018-09-20 11:36 | MORECARE ---
CASE MANAGEMENT DISCHARGE SUMMARY PATIENT: DIEGO ESCOBAR UNIT: [id number] ADM DATE: 09/16/18 AGE: 68 : 51 SEX: F ROOM/BED: D.0410 AUTHOR: URI,DOC PHYSICIAN: REFERRING PHYSICIAN: CARRIE LANG MD DATE OF SERVICE: 09/20/18 Discharge Plan Patient Name: DIEGO ESCOBAR Facility: [facility]:[place] : 1950 Planned Disposition: Home with Home Health Anticipated Discharge Date: 09/19/18 Discharge Date: 09/19/2018 Expected LOS: 3 Initial Reviewer: [email or web address] Initial Review Date: 09/17/2018 Generated: 09/20/18 12:36 pm Comments DCP- Discharge Planning Updated by [email or web address]: Regulo Hester on 09/20/18 10:[address] Patient Name: DIEGO ESCOBAR Encounter No: [id number] : 1950 Primary Insurance: [employer] MEDICARE SOLUTIONS Anticipated DC Date: 09-19-2018 Planned Disposition: Home with Home Health External Planned Provider:[facility] Discharge Planning Comments: CM REVIEWED CHART, PT DISCHARGED HOME YESTERDAY. CM NOTIFIED [facility] [email or web address], , FAXED DISCHARGE INFORMATIONTO [employer] AT [phone] FOR RESUMPTION OF HOME HEALTH SERVICES. Well Puller: Rgeulo Hester DCP- Discharge Planning Updated by [email or web address]: Regulo Hester on 09/17/18 5:[address] Patient Name: DIEGO ESCOBAR Admission Status: ER Accout number: [id number] Admission Date: 09-16-2018 : 1950 Admission Diagnosis:SYNCOPE AND COLLAPSE Attending: CARRIE LANG Current LOS: 1 Anticipated DC Date: 09-18-2018 Planned Disposition: Home with Home Health Primary Insurance: [employer] MEDICARE SOLUTIONS PLANNED EXTERNAL PROVIDER: [facility] Discharge Planning Comments: CM MET WITH PT IN ROOM TO DISCUSS DISCHARGE PLANNING AND NEEDS. PT REPORTS LIVING AT HOME INDEPENDENTLY AND ALONE IN THE [place] . PT REPORTSING HAVING ALL NEEDED MEDICAL EQUIPMENT. PT REPORTS HAVING [facility] [facility] FOR NURSING AND PHYSICAL THERAPY AND PRIVATE DUTY CARE NEEDED WITH "ITS ALL ABOUT YOU". CM DISCUSSED AVAILABILITY OF HOME HEALTH, REHAB SERVICES AND MEDICAL EQUIPMENT. PT DENIES DISCHARGE NEEDS, SPECIFICALLY DENIES REHAB NEEDS; PT STATES SHE WILL BE GOING HOME WITH [employer] [facility] TO RESUME HER SERVICES AND SHE IS NEEDING TO PACK THE [place] IS REMODELING HER APARTMENT. PT REPORTS HER SON WILL PICK HER UP FOR DISCHARGE HOME. IMPORTANT MESSAGE FROM MEDICARE PROVIDED AND EXPLAINED. PT STATES SHE HAS THOUGHT OF ASSISTED LIVIING AND ASKED FOR ASSISTED LIVING INFORMATION. CM PROVIDED PT WITH LISTING WITH CONTACT INFORMATION FOR [facility] ASSISTED LIVING FACILITIES. PT IS ONLY INTERESTED IN [facility] IT IS LOCAL AND MEDICAID CAN PAY FOR THE SERVICE. CM EXPLAINED THAT PT WILL NEED TO APPLY FOR EPITAXIAL REACTOR OPERATOR CARE MEDICAID AND PROVIDED PT WITH CONTACT INFORMATION TO [facility] DEPARTMENT OF HUMAN SERVICES OFFICE. CM EDUCATED PT ON THE AVAILABILITY OF MANAGER PACKAGE SERVICES TO ASSIST WITH THIS THROUGH [employer]. PT WILL REQUEST ASSISTANCE THROUGH HER HOME HEALTH PROVIDER. CM FURTHER ADVISED PT THAT SHE WOULD NEED TO CALL AND SPEAK TO ADMISSIONS AT [facility] THEY MAY HAVE WAITING LIST FOR ADMISSION. PT REPORTS UNDERSTANDING, DENIES FURTHER NEEDS. FOR DISCHARGE, NOTIFY [employer], , FAX DISCHARGE INFORMATIONTO [employer] AT [phone]. Well Puller: Regulo Hester DCPIA - Discharge Planning Initial Assessment Updated by [id number]: Regulo Hester on 09/17/18 6:12 pm * Is the patient Alert and Oriented? Yes * How many steps to enter\\exit or inside your home? ELEVATOR * PCP DR. SANTOS * Pharmacy [facility] * Preadmission Environment Home Alone * ADLs Independent * Equipment Back Brace CPAP Elevated [place] Seat Grab Bars Nebulizer Oxygen Rolling Walker Shower Chair Walker * Other Equipment HOME AND PORTABLE OXYGEN [employer] - MEDICAL EQUIPMENT PROVIDER LIFE ALERT BUTTON PROVIDED BY [facility] * List name and contact numbers for known caregivers / representatives who currently or will assist patient after discharge: SAGAR ESCOBAR, SON, * Verbal permission to speak to the caregivers and representatives has been obtained from the patient. N/A * Community resources currently utilized Home Health Private Duty Care * Please name any agencies selected above. [employer] [facility] PRIVATE AIDE SERVICE * Additional services required to return to the preadmission environment? No * Can the patient safely return to the preadmission environment? Yes * Has this patient been hospitalized within the prior 30 days at any hospital? Yes Last DP export: 09/20/18 10:28 am Patient Name: DIEGO ESCOBAR Page 35931 at 1136 All edits/amendments must be made on the electronic document DICTATION DATE: 09/20/18 1135 EMBOSSOGRAPH OPERATOR: NERI 09/20/18 1135 RPT#: [id number] DC DATE:09/19/18 STATUS: DIS IN [facility] [address] [place] [address] END OF REPORT
== END 2018-09-19 15:00 | disposition home health service (06) | DRG 292 ==
LOC: D.ER 19:11 → D.EDHOLD 22:10 → D.M2 22:10
PROVIDERS: Family Medicine; ADMIT Internal Medicine Nephrology
DX: I11.0 Hypertensive heart disease with heart failure (principal); N17.9 Acute kidney failure, unspecified; F17.213 Nicotine dependence, cigarettes, with withdrawal; R55 Syncope and collapse; I50.41 Acute combined systolic (congestive) and diastolic (congestive) heart failure; I27.20 Pulmonary hypertension, unspecified; K21.9 Gastro-esophageal reflux disease without esophagitis; I25.10 Atherosclerotic heart disease of native coronary artery without angina pectoris; I08.1 Rheumatic disorders of both mitral and tricuspid valves; I95.9 Hypotension, unspecified; D50.9 Iron deficiency anemia, unspecified; E83.42 Hypomagnesemia; I48.0 Paroxysmal atrial fibrillation

== ENCOUNTER 2018-09-25 02:48 | Emergency (ER) | payer MEDICARE, MEDICAID ==
[~2018-09-25] VITALS: Ht 162.6 cm; Wt 77.3 kg
[~2018-09-25 02:48] MED LIST changes: +BETAPACE 80 MG80 MG PO; +CARDIZEM CD120 MG PO
[2018-09-25 02:52] VITALS: Ht 162.6 cm; Wt 77.3 kg
[2018-09-25 03:14] LABS: BASOPHILS 0.1 % (0-2); HEMOGLOBIN 12.9 g/dL (12-16); IMMATURE GRANULOCYTES 0.2 % (0-5); LYMPHOCYTES 14.8 % (15-50); MCH 31.3 pg (26.0-34.0); MCHC 30.7 g/dL (31.0-37.0); MCV 101.9 fL (80.0-100.0); MEAN PLATELET VOLUME 10.7 fL (7.4-10.4); MONOCYTES 5.1 % (2-11); NEUTROPHILS 78.8 % (40-80); RBC 4.12 10x6/uL (4.00-5.40); RDW 18.1 % (11.5-14.5); WBC 10.8 10x3/uL (4.8-10.8)
[2018-09-25 03:16] LABS: PLATELET COUNT 311 10x3/uL (130-400)
[2018-09-25 03:23] LABS: APTT 27.8 SECONDS (22.8-39.4); INR 1.27 (0.85-1.17); PROTIME 15.3 SECONDS (11.6-15.0)
[2018-09-25 03:27] LABS: ALBUMIN 3.1 g/dL (3.4-5.0); ALKALINE PHOSPHATASE 92 U/L (46-116); ALT (SGPT) 47 U/L (10-68); BILIRUBIN - TOTAL 0.82 mg/dL (0.2-1.3); CALC OSMOLALITY 298 mosm/kg (275-300); CALCIUM 8.9 mg/dL (8.5-10.1); CHLORIDE - SERUM 105 mmol/L (98-107); CREATININE - SERUM 1.1 mg/dL (0.6-1.3); GLUCOSE 144 mg/dL (74-106); PROTEIN - SERUM 6.5 g/dL (6.4-8.2); SODIUM 145 mmol/L (136-145); UREA NITROGEN 32 mg/dL (7-18); eGFR NON AFRICAN AMERICAN 52 mL/min (90-120)
[2018-09-25 03:39] LABS: CKMB 1.7 U/L (0.0-3.6); CREATINE KINASE 21 UL (21-215); MAGNESIUM - SERUM 1.8 mg/dL (1.8-2.4); TROPONIN-I 0.053 ng/mL (0.000-0.060)
[2018-09-25 05:49] VITALS: BP 124/76
== END 2018-09-25 05:49 | disposition home or self-care (01) ==
LOC: D.ER 02:48
PROVIDERS: Emergency Medicine
DX: R00.2 Palpitations (principal); I50.9 Heart failure, unspecified; R11.0 Nausea; R06.02 Shortness of breath; I11.0 Hypertensive heart disease with heart failure; J44.9 Chronic obstructive pulmonary disease, unspecified; I44.5 Left posterior fascicular block

== ENCOUNTER 2018-10-04 03:44 | Observation (INO) | payer MEDICARE, MEDICAID ==
[~2018-10-04] VITALS: Ht 162.6 cm; Wt 63.5 kg
[2018-10-04 04:19] LABS: BASOPHILS 0.2 % (0-2); EOSINOPHILS 1.5 % (0-7); HEMOGLOBIN 10.6 g/dL (12-16); IMMATURE GRANULOCYTES 0.2 % (0-5); MCH 31.4 pg (26.0-34.0); MCHC 31.2 g/dL (31.0-37.0); MCV 100.6 fL (80.0-100.0); MEAN PLATELET VOLUME 10.6 fL (7.4-10.4); MONOCYTES 5.4 % (2-11); NEUTROPHILS 74.7 % (40-80); RBC 3.38 10x6/uL (4.00-5.40); RDW 17.3 % (11.5-14.5)
[2018-10-04 04:23] LABS: PLATELET COUNT 184 10x3/uL (130-400)
[2018-10-04 04:27] LABS: APTT 25.8 SECONDS (22.8-39.4); INR 1.14 (0.85-1.17); PROTIME 14.1 SECONDS (11.6-15.0)
[2018-10-04 04:30] LABS: ALBUMIN 3.1 g/dL (3.4-5.0); ALKALINE PHOSPHATASE 73 U/L (46-116); ALT (SGPT) 20 U/L (10-68); BILIRUBIN - TOTAL 0.52 mg/dL (0.2-1.3); CALC OSMOLALITY 284 mosm/kg (275-300); CARBON DIOXIDE 32.7 mmol/L (21.0-32.0); CHLORIDE - SERUM 103 mmol/L (98-107); CREATININE - SERUM 0.7 mg/dL (0.6-1.3); GLUCOSE 100 mg/dL (74-106); POTASSIUM - SERUM 3.8 mmol/L (3.5-5.1); PROTEIN - SERUM 6.6 g/dL (6.4-8.2); SODIUM 142 mmol/L (136-145); UREA NITROGEN 18 mg/dL (7-18); eGFR NON AFRICAN AMERICAN 88 mL/min (90-120)
[2018-10-04 04:42] VITALS: BP 136/85
[2018-10-04 04:42] LABS: CKMB 1.1 U/L (0.0-3.6); CREATINE KINASE 14 UL (21-215); MAGNESIUM - SERUM 1.9 mg/dL (1.8-2.4); PRO BNP 7549 pg/mL (0-125); TROPONIN-I 0.035 ng/mL (0.000-0.060)
--- NOTE | 2018-10-04 05:45 | NUR ---
NO TELEMETRY MONITORS AVAILABLE, PLACED ON WAITING LIST
[2018-10-04 06:25] LABS: CKMB 1.1 U/L (0.0-3.6); CREATINE KINASE 12 UL (21-215); TROPONIN-I 0.045 ng/mL (0.000-0.060)
--- NOTE | 2018-10-04 08:01 | NUR ---
SPOKE TO DAIJA AT MONITORS STATION REQUESTING TELEMETRY. SHE STATED THERE ARE NO MONITORS AVAILABLE AT THIS TIME. ASKED HER TO PLEASE LET ME KNOW WHEN THERE IS PATIENT IS ADMITTED WITH CHEST PAIN, CHF AND HX OF AFIB. SHE STATED, "OK. I'LL LET HER KNOW."
[2018-10-04 08:21] VITALS: BP 121/66
[2018-10-04] MEDS ORDERED: LOPRESSOR25 MG PO (11:02)
[2018-10-04] MEDS ORDERED: ZOFRAN4 MG PO (11:02)
[2018-10-04] MEDS ORDERED: HYDROCODON-ACE1 EAC7 PO (11:04)
[2018-10-04 11:35] VITALS: BP 121/66; BMI 24.0
[2018-10-04 11:51] LABS: CKMB 3.9 U/L (0.0-3.6)
[2018-10-04 11:55] LABS: CREATINE KINASE 409 UL (21-215)
[2018-10-04 12:00] LABS: TROPONIN-I 0.497 ng/mL (0.000-0.060)
--- NOTE | 2018-10-04 12:08 | NUR ---
PAGED DOCTOR FOR CRITICAL TROPONIN LEVEL OF 0.497. DR WARD RETURNED CALL. I REPORTED LEVEL. HE ASKED IF DR. AUSTIN SAW PATIENT. I TOLD HIM THAT DR AUSTIN WAS THE CONSULTING PHYSICIAN AND CRISTIANA SAID THAT BLADIMIR HAD SEEN PATIENT. DR WARD STATED, "OK. GOOD ENOUGH." END OF CALL.
[2018-10-04 12:20] VITALS: BP 128/73
--- NOTE | 2018-10-04 13:53 | NUR ---
PER ALEXIS VANN, PATIENT REFUSED TO HAVE FLOOR SWEPT OR MOPPED DUE TO "CHEMICALS ARE TOO STRONG."
[2018-10-04 14:54] VITALS: Ht 162.6 cm; Wt 63.5 kg
[2018-10-04 16:00] VITALS: BP 115/66
--- NOTE | 2018-10-04 16:49 | MORECARE ---
CASE MANAGEMENT DISCHARGE SUMMARY PATIENT: DIEGO ESCOBAR UNIT: [id number] ADM DATE: 10/04/18 AGE: 68 : 51 SEX: F ROOM/BED: D.[facility] AUTHOR: URIDOC PHYSICIAN: REFERRING PHYSICIAN: CARRIE LANG MD DATE OF SERVICE: 10/04/18 Discharge Plan Patient Name: DIEGO ESCOBAR Facility: [facility]:[place] : 1950 Planned Disposition: Home with Hospice Anticipated Discharge Date: Discharge Date: Expected LOS: Initial Reviewer: [email or web address] Initial Review Date: 10/04/2018 Generated: 10/04/18 5:49 pm DCPIA - Discharge Planning Initial Assessment Updated by [id number]: Bailey Dalton on 10/04/18 4:47 pm * Is the patient Alert and Oriented? Yes * How many steps to enter\exit or inside your home? 0/0 * PCP Dr. Gonsales * Pharmacy [facility] * Preadmission Environment Home Alone * ADLs Independent * Equipment Back Brace CPAP Elevated [place] Seat Grab Bars Nebulizer Other Oxygen Rolling Walker Shower Chair Walker * List name and contact numbers for known caregivers / representatives who currently or will assist patient after discharge: Juan José Escobar - ana cristina - [phone] * Verbal permission to speak to the caregivers and representatives has been obtained from the patient. Yes * Community resources currently utilized Hospice Home Private Duty Care * Please name any agencies selected above. [facility] Private [facility]? Unsure of this * Additional services required to return to the preadmission environment? No * Can the patient safely return to the preadmission environment? Yes * Has this patient been hospitalized within the prior 30 days at any hospital? Yes Coverage Notice Reviewer: [id number] - Bailey Dalton Notice Issued Date-Time: 10/04/2018 16:41 Notice Type: Medicare Outpatient Observation Notice Notice Delivered To: Patient Relationship to Patient: Self Electronics Technician Apprentice Name: Delivery Method: HAND - Hand Delivered Kiara Days: Prior Verbal Notification: Recipient Understood Notice: Yes Recipient Signature: Yes Med Rec Note Co-signed by Attending: Coverage Notice Comment: FOWLER explained, signed, given, copy placed in MR Patient Name: DIEGO ESCOBAR Page 46890 at 1649 All edits/amendments must be made on the electronic document DICTATION DATE: 10/04/181648 PROFESSOR OF CHEMISTRY: NERI 10/04/181648 RPT#: [id number] DC DATE: STATUS: ADM IN [facility] [address] [place] [address] END OF REPORT
--- NOTE | 2018-10-04 16:57 | MORECARE ---
CASE MANAGEMENT DISCHARGE SUMMARY PATIENT: DIEGO ESCOBAR UNIT: [id number] ADM DATE: 10/04/18 AGE: 68 : 51 SEX: F ROOM/BED: D.2231 AUTHOR: BALBIR GREWAL PHYSICIAN: REFERRING PHYSICIAN: CARRIE LANG MD DATE OF SERVICE: 10/04/18 Discharge Plan Patient Name: DIEGO ESCOBAR Facility: [facility]:[place] : 1950 Planned Disposition: Home with Hospice Anticipated Discharge Date: Discharge Date: Expected LOS: Initial Reviewer: [id number] Initial Review Date: 10/04/2018 Generated: 10/04/18 5:56 pm Comments DCP- Discharge Planning Updated by [email or web address]: Bailey Dalton on 10/04/18 3:[address] Patient Name: DIEGO ESCOBAR Admission Status: ER Accout number: [id number] Admission Date: 10-04-2018 : 1950 Admission Diagnosis: Attending: CARRIE LANG Current LOS: 1 Anticipated DC Date: Planned Disposition: Home with Hospice Primary Insurance: [facility] MEDICARE SOLUTIONS Discharge Planning Comments: CM met with patient to discuss discharge planning, she is alone in the room. States she no longer wishes to go to Assisted Living. States she has been on home hospice. States she thinks it is [facility]. I called [facility] and they state she is not on their services. I called [facility] and the answering service picked up. I will call again tomorrow. States she is planning on returning home with hospice and either her son or an aide from [facility] will pick her up. States the hospice service has visited her today and said they would bring her a portable tank to go home on. No needs identified. CM will continue to follow and assist with discharge planning/needs. Production Controller: Bailey Dalton DCPIA - Discharge Planning Initial Assessment Updated by [id number]: Bailey Dalton on 10/04/18 4:47 pm * Is the patient Alert and Oriented? Yes * How many steps to enter\exit or inside your home? 0/0 * PCP Dr. Gonsales * Pharmacy [facility] on [facility] * Preadmission Environment Home Alone * ADLs Independent * Equipment Back Brace CPAP Elevated [place] Seat Grab Bars Nebulizer Other Oxygen Rolling Walker Shower Chair Walker * List name and contact numbers for known caregivers / representatives who currently or will assist patient after discharge: Juan José Escobar - ana cristina - [phone] * Verbal permission to speak to the caregivers and representatives has been obtained from the patient. Yes * Community resources currently utilized [facility] * Please name any agencies selected above. [facility]? Unsure of this * Additional services required to return to the preadmission environment? No * Can the patient safely return to the preadmission environment? Yes * Has this patient been hospitalized within the prior 30 days at any hospital? Yes Coverage Notice Reviewer: [id number] Maninder Dalton Notice Issued Date-Time: 10/04/2018 16:41 Notice Type: Medicare Outpatient Observation Notice Notice Delivered To: Patient Relationship to Patient: Self White Sugar Pan Tank Operator Name: Delivery Method: HAND - Hand Delivered Kiara Days: Prior Verbal Notification: Recipient Understood Notice: Yes Recipient Signature: Yes Med Rec Note Co-signed by Attending: Coverage Notice Comment: MALCOLM explained, signed, given, copy placed in MR Last DP export: 10/04/18 3:49 p Patient Name: DIEGO ESCOBAR Page [id number] at 1657 All edits/amendments must be made on the electronic document DICTATION DATE: 10/04/181655 FIRE EQUIPMENT INSPECTOR: NERI 10/04/181655 RPT#: [id number] DC DATE: STATUS: ADM IN [facility] [address] [place] [address] END OF REPORT
--- NOTE | 2018-10-04 17:24 | NUR ---
TELEGRAPHIC INSTRUMENT SUPERVISOR COMPLETE. NO SIGNS OF DISTRESS NOTED. CL IN REACH
[2018-10-04 17:47] LABS: CKMB 0.9 U/L (0.0-3.6); CREATINE KINASE 52 UL (21-215)
[2018-10-04 20:00] VITALS: BP 111/58
--- NOTE | 2018-10-04 22:33 | NUR ---
THE PATIENT APPEARS TO BE SLEEPING. O2 AT 2L. BED IN THE LOW POSITION WITH SIDERAILS X2 AND CALL LIGHT WITHIN REACH.
[2018-10-05] VITALS: BP 104/65
--- NOTE | 2018-10-05 01:44 | NUR ---
1944)REC'D IN BED LYING ON LEFT SIDE.EYES CLOSED RESP. DEEP AND EVEN.WILL CONTINUE TO MONITOR FOR ANY CHGES.IN CARDIAC STATUS AND FOLLOW CURRENT PLAN OF CARE
[2018-10-05 05:00] VITALS: BP 102/59
[2018-10-05 06:11] LABS: BASOPHILS 0.3 % (0-2); EOSINOPHILS 1.5 % (0-7); HEMATOCRIT 33.7 % (36.0-48.0); HEMOGLOBIN 10.4 g/dL (12-16); IMMATURE GRANULOCYTES 0.3 % (0-5); MCH 30.9 pg (26.0-34.0); MCHC 30.9 g/dL (31.0-37.0); MEAN PLATELET VOLUME 11.4 fL (7.4-10.4); MONOCYTES 6.1 % (2-11); NEUTROPHILS 70.8 % (40-80); PLATELET COUNT 180 10x3/uL (130-400); RBC 3.37 10x6/uL (4.00-5.40); RDW 17.2 % (11.5-14.5)
[2018-10-05 06:28] LABS: WBC 6.2 10x3/uL (4.8-10.8)
[2018-10-05 06:40] LABS: ALBUMIN 3.1 g/dL (3.4-5.0); ALKALINE PHOSPHATASE 72 U/L (46-116); ALT (SGPT) 22 U/L (10-68); BILIRUBIN - TOTAL 0.54 mg/dL (0.2-1.3); CALCIUM 8.9 mg/dL (8.5-10.1); CARBON DIOXIDE 33.9 mmol/L (21.0-32.0); CHLORIDE - SERUM 103 mmol/L (98-107); CREATININE - SERUM 0.8 mg/dL (0.6-1.3); GLUCOSE 132 mg/dL (74-106); POTASSIUM - SERUM 3.8 mmol/L (3.5-5.1); PROTEIN - SERUM 6.6 g/dL (6.4-8.2); SODIUM 143 mmol/L (136-145); eGFR NON AFRICAN AMERICAN 76 mL/min (90-120)
[2018-10-05 06:41] LABS: CALC OSMOLALITY 290 mosm/kg (275-300); UREA NITROGEN 25 mg/dL (7-18)
--- NOTE | 2018-10-05 08:00 | NUR ---
PATIENT RESTING IN BED, DENIES CHEST PAIN OR OTHER DISCOMFORT, REFUSES TO WEAR SCDS
[2018-10-05 08:27] VITALS: BP 108/66
[2018-10-05 12:04] VITALS: BP 105/62
[2018-10-05] MEDS ORDERED: CARDIZEM CD120 MG PO (12:38)
[2018-10-05] MEDS ORDERED: NITROQUICK0.4 MG SL (12:38)
[2018-10-05] MEDS ORDERED: BETAPACE 80 MG80 MG PO (12:38)
--- NOTE | 2018-10-05 12:59 | MORECARE ---
CASE MANAGEMENT DISCHARGE SUMMARY PATIENT: DIEGO ESCOBAR UNIT: [id number] ADM DATE: 10/04/18 AGE: 68 : 51 SEX: F ROOM/BED: D.2231 AUTHOR: BALBIR GREWAL PHYSICIAN: REFERRING PHYSICIAN: CARRIE LANG MD DATE OF SERVICE: 10/05/18 Discharge Plan Patient Name: DIEGO ESCOBAR Facility: [facility]:[place] : 1950 Planned Disposition: Home with Hospice Anticipated Discharge Date: Discharge Date: Expected LOS: Initial Reviewer: [id number] Initial Review Date: 10/04/2018 Generated: 10/05/18 1:59 pm Comments DCP- Discharge Planning Updated by [email or web address]: Bailey Kaspershira on 10/05/18 11:[address] Patient Name: DIEGO ESCOBAR Encounter No: [id number] : 1950 Primary Insurance: [facility] MEDICARE SOLUTIONS Anticipated DC Date: Planned Disposition: Home with Hospice External Planned Provider: : DCP follow-up note: Patient and family in agreement with discharge plan. [facility], I spoke with Elicia at [phone] and informed her she was going home today. Elicia states the patient has just called them and they are going to bring her a portable oxygen tank prior to discharge. Patient states she will call someone to take her home, No changes to plan. Case management will follow and assist as needed. Bailey Krystle DCP- Discharge Planning Updated by [id number]: Bailey Kaspershira on 10/04/18 3:[address] Patient Name: DIEGO ESCOBAR Admission Status: ER Accout number: [id number] Admission Date: 10-04-2018 : 1950 Admission Diagnosis: Attending: CARRIE LANG Current LOS: 1 Anticipated DC Date: Planned Disposition: Home with Hospice Primary Insurance: [facility] MEDICARE SOLUTIONS Discharge Planning Comments: CM met with patient to discuss discharge planning, she is alone in the room. States she no longer wishes to go to Assisted Living. States she has been on home hospice. States she thinks it is [facility]. I called [facility] and they state she is not on their services. I called [facility] and the answering service picked up. I will call again tomorrow. States she is planning on returning home with hospice and either her son or an aide from [facility] will pick her up. States the hospice service has visited her today and said they would bring her a portable tank to go home on. No needs identified. CM will continue to follow and assist with discharge planning/needs. Mineral Resources Inspector: Bailey Dalton DCPIA - Discharge Planning Initial Assessment Updated by [id number]: Bailey Dalton on 10/04/18 4:47 pm * Is the patient Alert and Oriented? Yes * How many steps to enter\exit or inside your home? 0/0 * PCP Dr. Gonsales * Pharmacy [facility] on [facility] * Preadmission Environment Home Alone * ADLs Independent * Equipment Back Brace CPAP Elevated [place] Seat Grab Bars Nebulizer Other Oxygen Rolling Walker Shower Chair Walker * List name and contact numbers for known caregivers / representatives who currently or will assist patient after discharge: Juan José Escobar - son - [phone] * Verbal permission to speak to the caregivers and representatives has been obtained from the patient. Yes * Community resources currently utilized [facility] * Please name any agencies selected above. [facility]? Unsure of this * Additional services required to return to the preadmission environment? No * Can the patient safely return to the preadmission environment? Yes * Has this patient been hospitalized within the prior 30 days at any hospital? Yes Coverage Notice Reviewer: [id number] - Bailey Dalton Notice Issued Date-Time: 10/04/2018 16:41 Notice Type: Medicare Outpatient Observation Notice Notice Delivered To: Patient Relationship to Patient: Self Gaming Manager Name: Delivery Method: HAND - Hand Delivered Kiara Days: Prior Verbal Notification: Recipient Understood Notice: Yes Recipient Signature: Yes Med Rec Note Co-signed by Attending: Coverage Notice Comment: MALCOLM explained, signed, given, copy placed in MR Last DP export: 10/04/18 3:57 p Patient Name: DIEGO ESCOBAR Page [id number] at 8128 All edits/amendments must be made on the electronic document DICTATION DATE: 10/05/18 1253 WIRE WINDER: NERI 10/05/18 1253 RPT#: [id number] DC DATE: STATUS: ADM IN [facility] [address] [place] [address] END OF REPORT
--- NOTE | 2018-10-05 14:26 | NUR ---
IV DC'D WITH CATH INTACT, NO REDNESS OR EDEMA AT SITE.
--- NOTE | 2018-10-05 15:45 | NUR ---
PATIENT TAKEN BY WHEELCHAIR TO PRIVATE CAR WITH CAREGIVER TAKING PATIETN HOME
--- NOTE | 2018-10-07 08:32 | MORECARE ---
CASE MANAGEMENT DISCHARGE SUMMARY PATIENT: DIEGO ESCOBAR UNIT: [id number] ADM DATE: 10/04/18 AGE: 68 : 51 SEX: F ROOM/BED: D.2231 AUTHOR: BALBIR GREWAL PHYSICIAN: REFERRING PHYSICIAN: CARRIE LANG MD DATE OF SERVICE: 10/07/18 Discharge Plan Patient Name: DIGEO ESCOBAR Facility: [facility]:[place] : 1950 Planned Disposition: Home with Hospice Anticipated Discharge Date: Discharge Date: 10/05/2018 Expected LOS: 0 Initial Reviewer: [id number] Initial Review Date: 10/04/2018 Generated: 10/07/18 9:31 am Comments DCP- Discharge Planning Updated by [email or web address]: Bailey Dalton on 10/05/18 11:[address] Patient Name: DIEGO ESCOBAR Encounter No: [id number] : 1950 Primary Insurance: [facility] MEDICARE SOLUTIONS Anticipated DC Date: Planned Disposition: Home with Hospice External Planned Provider: : DCP follow-up note: Patient and family in agreement with discharge plan. [facility], I spoke with Elicia at [phone] and informed her she was going home today. Elicia states the patient has just called them and they are going to bring her a portable oxygen tank prior to discharge. Patient states she will call someone to take her home, No changes to plan. Case management will follow and assist as needed. Bailey Dalton DCP- Discharge Planning Updated by [id number]: Bailey Dalton on 10/04/18 3:[address] Patient Name: DIEGO ESCOBAR Admission Status: ER Accout number: [id number] Admission Date: 10-04-2018 : 1950 Admission Diagnosis: Attending: CARRIE LANG Current LOS: 1 Anticipated DC Date: Planned Disposition: Home with Hospice Primary Insurance: [facility] MEDICARE SOLUTIONS Discharge Planning Comments: CM met with patient to discuss discharge planning, she is alone in the room. States she no longer wishes to go to Assisted Living. States she has been on home hospice. States she thinks it is [facility]. I called [facility] and they state she is not on their services. I called [facility] and the answering service picked up. I will call again tomorrow. States she is planning on returning home with hospice and either her son or an aide from [facility] will pick her up. States the hospice service has visited her today and said they would bring her a portable tank to go home on. No needs identified. CM will continue to follow and assist with discharge planning/needs. Senior Research Executive: Bailey Dalton DCPIA - Discharge Planning Initial Assessment Updated by [id number]: Bailey Dalton on 10/04/18 4:47 pm * Is the patient Alert and Oriented? Yes * How many steps to enter\exit or inside your home? 0/0 * PCP Dr. Gonsales * Pharmacy [facility] on [facility] * Preadmission Environment Home Alone * ADLs Independent * Equipment Back Brace CPAP Elevated [place] Seat Grab Bars Nebulizer Other Oxygen Rolling Walker Shower Chair Walker * List name and contact numbers for known caregivers / representatives who currently or will assist patient after discharge: Juan José Escobar - son - [phone] * Verbal permission to speak to the caregivers and representatives has been obtained from the patient. Yes * Community resources currently utilized [facility] * Please name any agencies selected above. [facility]? Unsure of this * Additional services required to return to the preadmission environment? No * Can the patient safely return to the preadmission environment? Yes * Has this patient been hospitalized within the prior 30 days at any hospital? Yes Coverage Notice Reviewer: [id number] - Bailey Dalton Notice Issued Date-Time: 10/04/2018 16:41 Notice Type: Medicare Outpatient Observation Notice Notice Delivered To: Patient Relationship to Patient: Self Palliative Senior Np Name: Delivery Method: HAND - Hand Delivered Kiara Days: Prior Verbal Notification: Recipient Understood Notice: Yes Recipient Signature: Yes Med Rec Note Co-signed by Attending: Coverage Notice Comment: MALCOLM explained, signed, given, copy placed in MR Last DP export: 10/05/18 11:59 a Patient Name: DIEGO ESCOBAR Page [phone] at 0832 All edits/amendments must be made on the electronic document DICTATION DATE: 10/07/18 0831 COMMUNICATION EQUIPMENT REPAIRER: NERI 10/07/18 0831 RPT#: [id number] DC DATE:10/05/18 STATUS: DIS IN [facility] [address] [place] [address] END OF REPORT
== END 2018-10-05 15:49 | disposition home health service (06) ==
LOC: D.ER 03:44 → D.MS 05:06 → OBSVTIME 05:06 → D.EDHOLD 05:06 → D.MS 05:15 → D.SDCHOLD 10-05 09:58 → D.MS 10-05 09:59
PROVIDERS: Family Medicine; ADMIT Internal Medicine Nephrology
DX: I50.33 Acute on chronic diastolic (congestive) heart failure (principal); I27.20 Pulmonary hypertension, unspecified; I25.10 Atherosclerotic heart disease of native coronary artery without angina pectoris; I48.0 Paroxysmal atrial fibrillation; I08.1 Rheumatic disorders of both mitral and tricuspid valves; J44.9 Chronic obstructive pulmonary disease, unspecified; K21.9 Gastro-esophageal reflux disease without esophagitis; F32.9 Major depressive disorder, single episode, unspecified; Z87.891 Personal history of nicotine dependence; Z78.0 Asymptomatic menopausal state

== ENCOUNTER 2019-01-15 14:47 | Inpatient (IN) | payer MEDICARE, MEDICAID ==
[2019-01-15] VITALS (9 sets, daily range): BP systolic 105–127; BP diastolic 56–81; BMI 28.2
[~2019-01-15] VITALS: Ht 162.6 cm; Wt 74.8 kg
[~2019-01-15 14:47] MED LIST changes: +HYDROCODON-ACE1 EAC7 PO; +NITROQUICK0.4 MG SL; +ZOFRAN4 MG PO
[2019-01-15] MEDS ORDERED: FOLATE0.4 MG PO (15:00)
[2019-01-15] MEDS ORDERED: DETROL LA4 MG PO (15:01)
--- NOTE | 2019-01-15 15:50 | NUR ---
ASSISTED PATIENT WITH BEDPAN
[2019-01-15 16:00] LABS: BASOPHILS 0 % (0-2); EOSINOPHILS 0.2 % (0-7); HEMATOCRIT 22.1 % (36.0-48.0); IMMATURE GRANULOCYTES 0.2 % (0-5); LYMPHOCYTES 12.4 % (15-50); MCH 20.8 pg (26.0-34.0); MCHC 26.7 g/dL (31.0-37.0); MCV 77.8 fL (80.0-100.0); MEAN PLATELET VOLUME 10.1 fL (7.4-10.4); MONOCYTES 9.4 % (2-11); NEUTROPHILS 77.8 % (40-80); RBC 2.84 10x6/uL (4.00-5.40); RDW 20.3 % (11.5-14.5)
[2019-01-15 16:02] LABS: APTT 29.4 SECONDS (22.8-39.4); HEMOGLOBIN 5.9 g/dL (12-16); INR 1.88 (0.85-1.17); PLATELET COUNT 224 10x3/uL (130-400)
--- NOTE | 2019-01-15 16:05 | NUR ---
ERP INFORMED OF HGB 5.9.
[2019-01-15 16:09] LABS: ALBUMIN 2.9 g/dL (3.4-5.0); ALKALINE PHOSPHATASE 110 U/L (46-116); ALT (SGPT) 49 U/L (10-68); BILIRUBIN - TOTAL 2.28 mg/dL (0.2-1.3); CALC OSMOLALITY 291 mosm/kg (275-300); CALCIUM 8.8 mg/dL (8.5-10.1); CHLORIDE - SERUM 105 mmol/L (98-107); CREATININE - SERUM 1.1 mg/dL (0.6-1.3); GLUCOSE 93 mg/dL (74-106); POTASSIUM - SERUM 4.9 mmol/L (3.5-5.1); PROTEIN - SERUM 6.5 g/dL (6.4-8.2); SODIUM 143 mmol/L (136-145); UREA NITROGEN 31 mg/dL (7-18); eGFR NON AFRICAN AMERICAN 52 mL/min (90-120)
[2019-01-15 16:21] LABS: CKMB 2.1 U/L (0.0-3.6); CREATINE KINASE 21 UL (21-215); MAGNESIUM - SERUM 2.1 mg/dL (1.8-2.4); TROPONIN-I 0.033 ng/mL (0.000-0.060)
--- NOTE | 2019-01-15 17:21 | NUR ---
RN FROM [facility] FOR PSYCH/SI ASSESSMENT.
--- NOTE | 2019-01-15 23:17 | NUR ---
PT ARRIVED TO FLOOR TRANSPORTED BY ADRIEL RODRIGUEZ. WHEN ATTEMPTING TO COMPLETE MED REC PT WAS UNABLE TO RECALL LAST DOSE AND TYPE OF MEDICATIONS SHE TAKES. SHE SAYS THAT SHE HAS A POLISHING WHEEL SETTER THAT GIVES HER THE MEDICATIONS.
--- NOTE | 2019-01-15 23:20 | NUR ---
UNIT 1 OF 3 STARTED PER STAT ORDER NOTED FROM ER MD. Anthony HAND 22G WILL ATTEMPT TO SITE A 20G.
[2019-01-16 03:43] VITALS: BP 112/75
--- NOTE | 2019-01-16 07:10 | NUR ---
REPORT RECEIVED FROM AUTOMOTIVE GLAZIER AND PATIENT CARE ASSUMED. PATIENT LAYING IN BED AWAKE, LETHARGIC AND ORIENTED X 4. BLOOD INFUSING VIA IV. PATIENT IS STABLE AND VSS. PATIENT REQUESTS SHERBERT ICE CREAM. PROVIDED TO PATIENT. WILL CONTINUE WITH PLAN OF CARE. SR UP X 2 BED IN LOW POSITION AND CALL LIGHT IN REACH.
[2019-01-16 08:28] VITALS: BP 116/78
[2019-01-16 09:50] LABS: BASOPHILS 0.2 % (0-2); EOSINOPHILS 0.8 % (0-7); IMMATURE GRANULOCYTES 0.2 % (0-5); LYMPHOCYTES 13.8 % (15-50); MCH 23.8 pg (26.0-34.0); MCHC 30.1 g/dL (31.0-37.0); MEAN PLATELET VOLUME 10.7 fL (7.4-10.4); MONOCYTES 10.1 % (2-11); NEUTROPHILS 74.9 % (40-80); RDW 17.6 % (11.5-14.5); WBC 5.1 10x3/uL (4.8-10.8)
[2019-01-16 09:52] LABS: HEMATOCRIT 33.5 % (36.0-48.0); HEMOGLOBIN 10.1 g/dL (12-16); PLATELET COUNT 172 10x3/uL (130-400); RBC 4.24 10x6/uL (4.00-5.40)
[2019-01-16 10:11] LABS: ANION GAP 10.5 mmol/L (8-16); BILIRUBIN - TOTAL 2.86 mg/dL (0.2-1.3); CALCIUM 8.7 mg/dL (8.5-10.1); CARBON DIOXIDE 34.1 mmol/L (21.0-32.0); PROTEIN - SERUM 6.5 g/dL (6.4-8.2)
[2019-01-16 10:16] LABS: POTASSIUM - SERUM 3.6 mmol/L (3.5-5.1)
--- NOTE | 2019-01-16 10:45 | NUR ---
PATIENT LAYING IN BED WITH EYES CLOSED AND BREATHING EVENLY. PATIENT ASSESSMENT COMPLETED. PATIENT IS STABLE AND UNCHANGED. PROVIDED PATIENT WITH SHERBERT REQUESTED. PATIENT DENIES ANY OTHER NEEDS OR PAIN. WILL CONTINUE TO MONITOR. SR UP X 2 BED IN LOW POSITION AND CALL LIGHT IN REACH.
[2019-01-16 11:18] VITALS: BP 122/75
[2019-01-16 13:37] LABS: HEMATOCRIT 33.1 % (36.0-48.0); HEMOGLOBIN 9.9 g/dL (12-16)
--- NOTE | 2019-01-16 15:06 | NUR ---
PATIENT LAYING IN BED ON BACK AWAKE. VISITING WITH SISTER. PATIENT DENIES ANY NEEDS OR PAIN. PATIENT IS STABLE AND VSS. WILL CONTINUE TO MONITOR. SR UP X 2 BED IN LOW POSTION AND CALL LIGHT IN REACH.
[2019-01-16 15:45] VITALS: BP 115/65
--- NOTE | 2019-01-16 18:33 | NUR ---
PATIENT LAYING IN BED ON BACK WATCHING TV. DENIES ANY NEEDS OR PAIN. PATIENT IS STABLE AND UNCHANGED. BED IN LOW POSITION AND CALL LIGHT ION REACH.
[2019-01-16 19:49] VITALS: BP 150/69
--- NOTE | 2019-01-16 21:50 | NUR ---
INITIAL ROUNDS COMPLETED AT 1910 HRS. PT DENIED ANY DISCOMFORT. ASSESSMENT COMPLETED AT 1999 HRS. VSS. SR PER CM HR 92. O2 2LNC. PT ALERT AND ORIENTED TO PERSON, PLACE AND TIME. HASSAN. IV TO BILAT HANDS SL. LUNGS DIMINISHED IN BASES BILAT. 3+ PITTING EDEMA NOTED TO BILAT FEET. BUTT EXCORIATED. PT INCONTINENT OF URINE. INCONTINENT CARE DONE. BEDBATH DONE, BED LINENS CHANGED. PM MEDS GIVEN. PT CURRENTLY WATCHNG TV. SR UP X2,CALL LIGHT WITHIN REACH AND BED ALARM ON.
[2019-01-16 23:18] VITALS: BP 123/77
--- NOTE | 2019-01-17 00:07 | NUR ---
PT RESTING WITH EYES CLOSED. RESP EVEN AND REGULAR. SR UP X2, CALL LIGHT WITHIN REACH AND BED ALARM ON.
--- NOTE | 2019-01-17 02:18 | NUR ---
PT RESTING WITH EYES CLOSED. RESP EVEN AND REGULAR. SR UP X2,CALL LIGHT WITHIN REACH.
--- NOTE | 2019-01-17 03:28 | NUR ---
PT INCONTINENT OF URINE. INCONTINENT CARE DONE. SR UP X2, CALL LIGHT WITHIN REACH.
[2019-01-17 04:14] VITALS: BP 112/62
--- NOTE | 2019-01-17 04:47 | NUR ---
PT INCONTINENT OF URINE. INCONTINENT CARE DONE, BED LINENS CHANGED. REPOSITONED IN BED FOR COMFORT. SR UP X2, CALL LIGHT WITHIN REACH.
[2019-01-17 05:26] LABS: BASOPHILS 0.2 % (0-2); EOSINOPHILS 1.6 % (0-7); HEMATOCRIT 32.3 % (36.0-48.0); HEMOGLOBIN 9.8 g/dL (12-16); IMMATURE GRANULOCYTES 0.2 % (0-5); LYMPHOCYTES 14.8 % (15-50); MCH 23.7 pg (26.0-34.0); MCHC 30.3 g/dL (31.0-37.0); MCV 78.2 fL (80.0-100.0); MEAN PLATELET VOLUME 10.7 fL (7.4-10.4); MONOCYTES 9.8 % (2-11); NEUTROPHILS 73.4 % (40-80); PLATELET COUNT 159 10x3/uL (130-400); RBC 4.13 10x6/uL (4.00-5.40); RDW 18.5 % (11.5-14.5); WBC 6.1 10x3/uL (4.8-10.8)
[2019-01-17 05:52] LABS: ALBUMIN 2.7 g/dL (3.4-5.0); ANION GAP 7.8 mmol/L (8-16); BILIRUBIN - TOTAL 2.25 mg/dL (0.2-1.3); CARBON DIOXIDE 36.9 mmol/L (21.0-32.0); PROTEIN - SERUM 6.1 g/dL (6.4-8.2)
[2019-01-17 05:55] LABS: POTASSIUM - SERUM 2.7 mmol/L (3.5-5.1)
--- NOTE | 2019-01-17 06:32 | NUR ---
VSS THROUGHOUT NIGHT. SR PER CM. PT WAS INCONTINENT OF URINE X3 DURING SHIFT. NEEDS MET; WILL CONTINUE TO MONITOR.
--- NOTE | 2019-01-17 07:28 | NUR ---
PATIENT RESTING COMFORTABLY. NO SIGNS OF DISTRESS. NO COMPLAINTS. ALL NEEDS MET AT THIS TIME.
[2019-01-17 07:40] VITALS: BP 99/56
[2019-01-17 11:29] VITALS: BP 116/60
[2019-01-17 12:52] VITALS: BMI 28.1
--- NOTE | 2019-01-17 12:55 | NUR ---
I have reviewed this patient and I concur with the Shift Assessment completed by the Licensed Practical Nurse today this shift.
--- NOTE | 2019-01-17 14:15 | NUR ---
PACKAGE WRAPPER REPORTED EXCESSIVE URINE OUTPUT WITH INCONTINENCE. WENT IN TO DO IN & OUT CATH FOR UA AND PATIENT HAD URINATED IN THE BED AGAIN. URGE WAS FELT BEFORE CATHETERIZING. IN AND OUT CATHETER PLACED WITH 200 ML OUTPUT. COLLECTED FOR UA.
[2019-01-17 15:18] VITALS: BP 120/63
[2019-01-17 15:52] LABS: APPEARANCE HAZY (CLEAR); BILIRUBIN NEGATIVE (NEGATIVE); COLOR YELLOW (YELLOW); GLUCOSE NEGATIVE (NEGATIVE); KETONE NEGATIVE (NEGATIVE); NITRITE NEGATIVE (NEGATIVE); PROTEIN NEGATIVE (NEGATIVE); UROBILINOGEN NORMAL (NORMAL)
[2019-01-17 15:54] LABS: BACTERIA FEW /hpf (NONE SEEN); EPITHELIAL CELLS 0-5 /hpf (0-5); RED CELLS - URINE 0-5 /hpf (0-5); WHITE CELLS - URINE 25-50 /hpf (0-5)
--- NOTE | 2019-01-17 19:22 | NUR ---
AROUSES EASILY O2 AT 2L PT IS ALERT AND OX4 SCDS ARE IN PLACE EDEMA NOTED IN LOWER EXTRIMITIES IV IN LEFT AND RT HAND SL BED IS LOW AND LOCKED CALL LIGHT IS IN REACH LCTA AND BOWEL SOUNDS X4
[2019-01-17 19:55] VITALS: BP 102/65
--- NOTE | 2019-01-17 22:30 | NUR ---
I FINISHED DCING IV TO LEFT HAND CATH INTACT AFTER PT PULLED IT MOST OF WAY OUT ...SMALL PRESSURE DRESSING IS APPLIED
[2019-01-17 23:58] VITALS: BP 100/65
[2019-01-18 04:06] VITALS: BP 113/65
[2019-01-18 06:18] LABS: BASOPHILS 0.2 % (0-2); HEMOGLOBIN 9.3 g/dL (12-16); LYMPHOCYTES 11.6 % (15-50); MCH 23.3 pg (26.0-34.0); MCHC 29.1 g/dL (31.0-37.0); MEAN PLATELET VOLUME 10.1 fL (7.4-10.4); MONOCYTES 9.6 % (2-11); NEUTROPHILS 76.6 % (40-80); PLATELET COUNT 139 10x3/uL (130-400); RDW 19.1 % (11.5-14.5); WBC 5.9 10x3/uL (4.8-10.8)
[2019-01-18 06:39] LABS: ALBUMIN 2.6 g/dL (3.4-5.0); ANION GAP 5.7 mmol/L (8-16); BILIRUBIN - TOTAL 2.07 mg/dL (0.2-1.3); CALCIUM 7.8 mg/dL (8.5-10.1); CARBON DIOXIDE 38.4 mmol/L (21.0-32.0); POTASSIUM - SERUM 3.1 mmol/L (3.5-5.1); PROTEIN - SERUM 5.8 g/dL (6.4-8.2)
--- NOTE | 2019-01-18 07:00 | NUR ---
RECEIVED REPORT. ASSUMED CARE OF PATIENT. CALL LIGHT WITHIN REACH. PATIENT RESTING WITH EYES CLOSED. RESP EVEN AND UNLABORED. NO DISTRESS.
[2019-01-18 07:28] VITALS: BP 111/65
--- NOTE | 2019-01-18 09:04 | NUR ---
PEDAL PULSES CHECKED WITH DOPPLER AT THIS TIME AND MARKED. PATIENT HAS 3-4+ EDEMA TO BILATERAL FEET. PULSES REGULAR AND STRONG WHEN ASSESSED WITH DOPPLER TO BILATERAL FEET.
--- NOTE | 2019-01-18 10:02 | MORECARE ---
CASE MANAGEMENT DISCHARGE SUMMARY PATIENT: DIEGO ESCOBAR UNIT: [id number] ADM DATE: 01/15/19 AGE: 68 : 51 SEX: F ROOM/BED: D.0184 AUTHOR: BALBIR GREWAL PHYSICIAN: REFERRING PHYSICIAN: AGUSTINA HEBERT MD DATE OF SERVICE: 01/18/19 Discharge Plan Patient Name: DIEGO ESCOBAR Facility: [facility]:[place] : 1950 Planned Disposition: Home with Hospice Anticipated Discharge Date: Discharge Date: Expected LOS: Initial Reviewer: [id number] Initial Review Date: 01/15/2019 Generated: 01/18/19 11:02 am DCPIA - Discharge Planning Initial Assessment Updated by OPHELIA: Regulo Hester on 01/18/19 10:00 am * Is the patient Alert and Oriented? Yes * How many steps to enter\exit or inside your home? ELEVATOR * PCP DR. SANTOS * Pharmacy [facility] ON [facility] * Preadmission Environment Home Alone * ADLs Independent * Equipment Back Brace CPAP Elevated [place] Seat Grab Bars Nebulizer Oxygen Rolling Walker Shower Chair * Other Equipment ALL MEDICAL EQUIPMENT PROVIDED BY [facility] * List name and contact numbers for known caregivers / representatives who currently or will assist patient after discharge: SAGAR ESCOBAR, SON, * Verbal permission to speak to the caregivers and representatives has been obtained from the patient. N/A * Community resources currently utilized [facility] * Please name any agencies selected above. [facility] * Additional services required to return to the preadmission environment? No * Can the patient safely return to the preadmission environment? Yes * Has this patient been hospitalized within the prior 30 days at any hospital? No External Providers External Provider: [facility] Next Contact Date: 01/18/2019 Service Request Date: Service Type: Resolution: Reviewer: Comments: Coverage Notice Reviewer: [id number] - Regulo Hester Notice Issued Date-Time: 01/18/2019 9:35 Notice Type: Patient Choice Letter Notice Delivered To: Patient Relationship to Patient: Video Game Tester Name: Delivery Method: HAND - Hand Delivered Kiara Days: Prior Verbal Notification: Recipient Understood Notice: Yes Recipient Signature: Yes Med Rec Note Co-signed by Attending: Coverage Notice Comment: [facility] Patient Name: DIEGO ESCOBAR Page [phone] at 1002 All edits/amendments must be made on the electronic document DICTATION DATE: 01/18/19 100 [place] EXCHANGE ARCHITECT: NERI 01/18/19 1001 RPT#: [id number] DC DATE: STATUS: ADM IN [facility] [address] [place] [address] END OF REPORT
--- NOTE | 2019-01-18 10:08 | MORECARE ---
CASE MANAGEMENT DISCHARGE SUMMARY PATIENT: DIEGO ESCOBAR UNIT: [id number] ADM DATE: 01/15/19 AGE: 68 : 51 SEX: F ROOM/BED: D.3896 AUTHOR: BALBIR GREWAL PHYSICIAN: REFERRING PHYSICIAN: AGUSTINA HEBERT MD DATE OF SERVICE: 01/18/19 Discharge Plan Patient Name: DIEGO ESCOBAR Facility: [facility]:[place] : 1950 Planned Disposition: Home with Hospice Anticipated Discharge Date: Discharge Date: Expected LOS: Initial Reviewer: [id number] Initial Review Date: 01/15/2019 Generated: 01/18/19 11:08 am Comments DCP- Discharge Planning Updated by [id number]: Regulo Hester on 01/18/19 9:[address] Patient Name: DIEGO ESCOBAR Admission Status: ER Accout number: [id number] Admission Date: 01-15-2019 : 1950 Admission Diagnosis:ANEMIA, UNSPECIFIED Attending: AGUSTINA HEBERT Current LOS: 3 Anticipated DC Date: Planned Disposition: Home with Hospice Primary Insurance: [facility] MEDICARE SOLUTIONS PLANNED EXTERNAL PROVIDER: HOSPICE HOME CARE Discharge Planning Comments: CM MET WITH PT IN ROOM TO DISCUSS DISCHARGE PLANNING AND NEEDS. PT REPORTS LIVING AT HOME INDEPENDENTLY AND ALONE. PT HAS ALL MEDICAL EQUIPMENT SHE NEEDS PROVIDED BY HOSPICE HOME CARE; SHE DID NOT REVOKE SERVICES FOR HOSPITAL ADMISSION. PT HAS PERSONAL CARE THROUGH [facility]. CM DISCUSSED AVAILABILITY OF HOME HEALTH, REHAB SERVICES AND MEDICAL EQUIPMENT. PT DENIES DISCHARGE NEEDS, WILL RETURN HOME WITH HOSPICE HOME CARE RESUMPTION; PT'S SON OR CAREGIVER WILL PICK HER UP FOR DISCHARGE HOME. CM CALLED HOSPICE HOME CARE, , SPOKE TO JOB, VERIFIED PT ACTIVE WITH HOSPICE. FOR COPD. CM FAXED UPDATE TO HOSPICE HOME CARE AT [phone]. FOR DISCHARGE, NOTIFY HOSPICE HOME CARE AT [phone], FAX DISCHARGE INFORMATION TO HOSPICE HOME CARE AT [phone]. [place]: Regulo Hester DCPIA - Discharge Planning Initial Assessment Updated by [id number]: Regulo Hester on 01/18/19 10:00 am * Is the patient Alert and Oriented? Yes * How many steps to enter\exit or inside your home? ELEVATOR * PCP DR. SANTOS * Pharmacy [facility] * Preadmission Environment Home Alone * ADLs Independent * Equipment Back Brace CPAP Elevated [place] Seat Grab Bars Nebulizer Oxygen Rolling Walker Shower Chair * Other Equipment ALL MEDICAL EQUIPMENT PROVIDED BY HOSPICE HOME CARE * List name and contact numbers for known caregivers / representatives who currently or will assist patient after discharge: SAGAR ESCOBAR, SON, * Verbal permission to speak to the caregivers and representatives has been obtained from the patient. N/A * Community resources currently utilized Hospice Home Private Duty Care * Please name any agencies selected above. [facility] PERSONAL CARE * Additional services required to return to the preadmission environment? No * Can the patient safely return to the preadmission environment? Yes * Has this patient been hospitalized within the prior 30 days at any hospital? No Coverage Notice Reviewer: [id number] Maninder Hester Notice Issued Date-Time: 01/18/2019 9:35 Notice Type: Patient Choice Letter Notice Delivered To: Patient Relationship to Patient: Applications Coordinator Name: Delivery Method: HAND - Hand Delivered Kiara Days: Prior Verbal Notification: Recipient Understood Notice: Yes Recipient Signature: Yes Med Rec Note Co-signed by Attending: Coverage Notice Comment: HOSPICE HOME [facility] Last DP export: 01/18/19 9:02 am Patient Name: DIEGO ESCOBAR Page 35495 at 1008 All edits/amendments must be made on the electronic document DICTATION DATE: 01/18/19 1008 CAN FILLER: NERI 01/18/19 1008 RPT#: [id number] DC DATE: STATUS: ADM IN [facility] [address] [place] [address] END OF REPORT
[2019-01-18 11:39] VITALS: BP 116/67
[2019-01-18 15:34] VITALS: BP 107/59
--- NOTE | 2019-01-18 19:10 | NUR ---
PT RESTING IN BED. USED CALL LIGHT TO ASK FOR SHERBERT. PT RECEIVED. PT IS ON 2L O2 NC. 20G RIGHT HAND NOTED. PT REPOSITIONED IN BED. PADS PLACED UNDER PATIENT. PT BEDLOW AND CALL LIGHT IN REACH. NAME AND DATE PLACED ON BOARD. WILL CPOC
[2019-01-18 20:00] VITALS: BP 110/58
[2019-01-19] VITALS: BP 121/67
[2019-01-19 04:30] VITALS: BP 118/59
[2019-01-19 04:51] LABS: BASOPHILS 0.3 % (0-2); EOSINOPHILS 2.5 % (0-7); HEMOGLOBIN 9.2 g/dL (12-16); LYMPHOCYTES 11.4 % (15-50); MCH 23.2 pg (26.0-34.0); MCHC 28.8 g/dL (31.0-37.0); MCV 80.6 fL (80.0-100.0); MEAN PLATELET VOLUME 10.8 fL (7.4-10.4); MONOCYTES 8.7 % (2-11); NEUTROPHILS 77.1 % (40-80); PLATELET COUNT 141 10x3/uL (130-400); RBC 3.97 10x6/uL (4.00-5.40); RDW 19.4 % (11.5-14.5); WBC 6.3 10x3/uL (4.8-10.8)
[2019-01-19 05:08] LABS: ALBUMIN 2.6 g/dL (3.4-5.0); BILIRUBIN - TOTAL 1.91 mg/dL (0.2-1.3); CALCIUM 7.6 mg/dL (8.5-10.1); CREATININE - SERUM 0.9 mg/dL (0.6-1.3); PROTEIN - SERUM 5.8 g/dL (6.4-8.2)
[2019-01-19 05:15] LABS: ANION GAP 3.1 mmol/L (8-16); CARBON DIOXIDE 43.4 mmol/L (21.0-32.0); POTASSIUM - SERUM 2.5 mmol/L (3.5-5.1)
[2019-01-19 05:25] LABS: MAGNESIUM - SERUM 1.3 mg/dL (1.8-2.4)
--- NOTE | 2019-01-19 05:27 | NUR ---
FIRST DOSE OF K DUR GIVEN. PT VERBALIZED UNDERSTANDING OF MEDICATION. CRUSHED MEDICATION INTO APPLE SAUCE BECAUSE PT COMPLAINS ABOUT SIZE. BUMEX AND PROTONIX GIVEN. PT INCONT A LARGE AMOUNT OF URINE. WILL CPOC
--- NOTE | 2019-01-19 07:37 | NUR ---
REPORT RECEIVED. WILL CONTINUE WITH POC. PT CURRENTLY LYING SEMI FOWLERS. CALL LIGHT W/I REACH. PT IS AAO AND UP WITH ASSIST. RR EVEN AND UNLABORED ON 2L 02. R.HAND PIV IS SALINE LOCKED. NO S/S OF DISTRESS NOTED. PT DENIES ANY NEEDS AT THIS TIME. WILL CTM.
[2019-01-19 08:40] VITALS: BP 106/59
--- NOTE | 2019-01-19 09:26 | NUR ---
RECEIVED VERBAL ORDERS PER TO PLACE REICH CATH FOR RETENTION AND COMFORT CARE. WILL PLACE REICH AND COLLECT URINE CULTURE.
[2019-01-19 10:13] VITALS: Ht 162.6 cm; Wt 74.8 kg
--- NOTE | 2019-01-19 10:24 | NUR ---
[address] AND DRAINING PALE YELLOW URINE. DOBUTAMINE DRIP INFUSING @11.7ML/HR OR 5MCG/KG/MIN. PT HAD EPISODE OF INCONTINENCE PRIOR TO REICH. PT CLEANED AND APPLIED NEW LINEN. 350 IMMEDIATELY RECORDED OUT OF REICH. SCDS ON AND FUNCTIONING PROPERLY. PT DENIES ANY NEEDS. WILL CTM.
[2019-01-19 12:30] VITALS: BP 115/53
[2019-01-19 16:36] VITALS: BP 105/56
--- NOTE | 2019-01-19 19:22 | NUR ---
PT RESTING IN BED. REICH NOTED WITH STRAWCOLORED URINE. PT IS AAO. DENIES ANY NEEDS. DOBUTAMINE INFUSING ORDERED. PT BEDLOW AND CALL LIGHT IN REACH. WILL CPOC
[2019-01-19 20:00] VITALS: BP 102/53
--- NOTE | 2019-01-19 22:00 | NUR ---
NIGHT MEDICATIONS GIVEN. PT GIVEN A SNACK AND FRESH WATER. PT GIVEN KDUR FOR POTASSIUM. PT BEDLOW AND CALL LIGHT INREACH. WILL CPOC
--- NOTE | 2019-01-19 23:35 | NUR ---
PT RESTING IN BED. DENIES ANY NEEDS. NO S/S OF DISTRESS. WILL CPOC
--- NOTE | 2019-01-20 00:12 | NUR ---
POTASSIUM GIVEN ORDERED. PT DENIES ANY NEEDS. NO S/S OF DISTRESS. WILL CPOC
[2019-01-20 00:30] VITALS: BP 100/54
--- NOTE | 2019-01-20 02:30 | NUR ---
POTASSIUM GIVEN ORDERED. PT HAS NO S/S OF DISTRESS. WILL CPOC
[2019-01-20 04:20] VITALS: BP 98/58
--- NOTE | 2019-01-20 05:08 | NUR ---
MORNING MEDICATIONS GIVEN. PT EATING A SNACK. PT DENIES ANY NEEDS. NO S/S OF DISTRESS. WILL CPOC
[2019-01-20 06:14] LABS: ALBUMIN 2.3 g/dL (3.4-5.0); ALKALINE PHOSPHATASE 87 U/L (46-116); ALT (SGPT) 45 U/L (10-68); BILIRUBIN - TOTAL 1.67 mg/dL (0.2-1.3); CALC OSMOLALITY 291 mosm/kg (275-300); CALCIUM 7.7 mg/dL (8.5-10.1); CHLORIDE - SERUM 100 mmol/L (98-107); CREATININE - SERUM 0.8 mg/dL (0.6-1.3); GLUCOSE 79 mg/dL (74-106); PROTEIN - SERUM 5.5 g/dL (6.4-8.2); SODIUM 146 mmol/L (136-145); UREA NITROGEN 17 mg/dL (7-18); eGFR NON AFRICAN AMERICAN 76 mL/min (90-120)
[2019-01-20 06:17] LABS: BASOPHILS 0.2 % (0-2); EOSINOPHILS 1.6 % (0-7); HEMOGLOBIN 8.7 g/dL (12-16); IMMATURE GRANULOCYTES 0.2 % (0-5); LYMPHOCYTES 13.7 % (15-50); MCH 23.5 pg (26.0-34.0); MCV 81.1 fL (80.0-100.0); MONOCYTES 11.8 % (2-11); NEUTROPHILS 72.5 % (40-80); PLATELET COUNT 104 10x3/uL (130-400); POTASSIUM - SERUM 3.6 mmol/L (3.5-5.1); RDW 20.2 % (11.5-14.5); WBC 5.7 10x3/uL (4.8-10.8)
[2019-01-20 06:18] LABS: CARBON DIOXIDE 41.7 mmol/L (21.0-32.0)
--- NOTE | 2019-01-20 07:15 | NUR ---
assessment completed. ALERT AND ORIENTED. PT IS A DNR. TELEMERTY SHOWS ST 102 O2 AT 2 LM PER NC. IV TO RIGHT HAND WITH DOBUTAMINE AT 11.9. PT HAS A REICH CATH TO GRAVITY BAG. DENIES ANY NEEDS. SR UP WITH CALL LIGHT IN REACH. WILL MONITOR
[2019-01-20 08:23] VITALS: BP 132/72
[2019-01-20 09:37] LABS: PLATELET ESTIMATE DECREASED
[2019-01-20 09:38] LABS: ACANTHOCYTES OCC; HYPOCHROMASIA 1+; SCHISTOCYTES OCC
[2019-01-20 09:39] LABS: ANISOCYTOSIS OCC
[2019-01-20 11:29] VITALS: BP 129/66
--- NOTE | 2019-01-20 14:47 | NUR ---
Nutrition follow-up: Diet: Renal PO intake ~50% of meals labs reviewed Wt: 165# RDN following.
--- NOTE | 2019-01-20 14:58 | NUR ---
OT NOTE: PT DOING MUCH BETTER TODAY PHYSICALLY. ABLE TO PERFORM SUPINE TO SIT WITH MIN ASSIST; STATIC SITTING ON EOB WITH SPV; TRANSFER TO COMMODE WITH MIN ASSIST; FREQ REST BREAKS REQUIRED WITH EACH TASK DUE TO SOB; PROVIDED CLEAN LINENS CATHETER IS APPARENTLY LEAKING..NURSING NOTIFIED. PT ABLE TO WASH HANDS , FACE, AND UPPER BODY WITH SET UP; MOD ASSIST WITH BACK AND LES, AND PERINEAL AREA. MIN ASSIST WITH GOWN. PT CONTINUES TO REQUEST ORANGE SHERBET AND POPSICKLS..NURSING INFORMED. BACK TO BED WITH MIN ASSIST AND MOD ASSIST WITH SCOOTING UP IN BED. CARLEE CHICAS, OTR/L
[2019-01-20 15:58] VITALS: BP 121/74
--- NOTE | 2019-01-20 15:59 | NUR ---
OT NOTE: PT COMPLETED SUPINE TO SIT WITH MOD A. PT COMPLETED SIT TO STAND WITH MIN A. PT COMPLETED HYGIENE TASKS WITH MAX A. THANK YOU, ERYN YEH
--- NOTE | 2019-01-20 19:20 | NUR ---
PT LAYING IN BED. AAO, DENIES ANY NEEDS. 2L O2 NC. PT HAS A 20G RIGHT HAND WITH DOBUTAMINE INFUSING ORDERED AT 11.9 PT REICH NOTED URINE STRAWCOLORED. PT HAS SCD'S ON BILATERAL LOWER EXTREM. PT FEET EDEMA NOTED. NAME AND DATE PLACED ON BOARD. BEDLOW AND CALL LIGHT IN REACH. WILL CPOC
[2019-01-20 20:00] VITALS: BP 94/58
[2019-01-21] VITALS (7 sets, daily range): BP systolic 92–108; BP diastolic 52–63
[2019-01-21 06:48] LABS: ALBUMIN 2.3 g/dL (3.4-5.0); ALKALINE PHOSPHATASE 86 U/L (46-116); ALT (SGPT) 36 U/L (10-68); BILIRUBIN - TOTAL 1.62 mg/dL (0.2-1.3); CALC OSMOLALITY 292 mosm/kg (275-300); CALCIUM 7.9 mg/dL (8.5-10.1); CHLORIDE - SERUM 100 mmol/L (98-107); CREATININE - SERUM 0.8 mg/dL (0.6-1.3); GLUCOSE 79 mg/dL (74-106); MAGNESIUM - SERUM 1.4 mg/dL (1.8-2.4); PROTEIN - SERUM 5.4 g/dL (6.4-8.2); SODIUM 146 mmol/L (136-145); UREA NITROGEN 21 mg/dL (7-18); eGFR NON AFRICAN AMERICAN 76 mL/min (90-120)
--- NOTE | 2019-01-21 06:53 | NUR ---
MORNING MEDICATIONS GIVEN. PT GIVEN NOURISHMENT AND ASSISTED WITH REPOSITIONING IN BED. DOBUTAMINE HUNG ORDERED BAG WAS EMPTY. PT O2 WITH BREATHING TREATMENT WAS 88% RESP TURNED O2 TO 5L FROM 2L O2 NOW 96% PT ON 2.5L AND IS 95% PT DENIES ANY NEEDS. NO S/S OF DISTRESS. WILL CPOC
[2019-01-21 06:59] LABS: CARBON DIOXIDE 44.5 mmol/L (21.0-32.0); POTASSIUM - SERUM 2.9 mmol/L (3.5-5.1)
[2019-01-21 07:46] LABS: BASOPHILS 0.2 % (0-2); EOSINOPHILS 1.8 % (0-7); HEMATOCRIT 28.3 % (36.0-48.0); HEMOGLOBIN 8.1 g/dL (12-16); IMMATURE GRANULOCYTES 0.3 % (0-5); LYMPHOCYTES 12.7 % (15-50); MCH 23.5 pg (26.0-34.0); MCHC 28.6 g/dL (31.0-37.0); MONOCYTES 7.6 % (2-11); NEUTROPHILS 77.4 % (40-80); PLATELET COUNT 96 10x3/uL (130-400); RBC 3.45 10x6/uL (4.00-5.40); WBC 6.6 10x3/uL (4.8-10.8)
--- NOTE | 2019-01-21 07:46 | NUR ---
PT ALERT X 4. BREATH SOUNDS CLEAR BILAT, 2.5L O2 PER NC. TELEMETRY IN PLACE. IV TO RIGHT HAND, PATENT, DRESSING CDI. PT REPORTING NO PAIN AT THIS TIME. REICH IN PLACE, URINE DARK YELLOW AND CLOUDY. +1 EDEMA TO BLE. BED LOW, CALL LIGHT IN REACH. NO OTHER NEEDS AT THIS TIME.
--- NOTE | 2019-01-21 12:10 | NUR ---
OT NOTE: BED MOB WITH MIN ASSIST; PERINEAL HYGIENE WITH ASSIST. PTS CATHETER CONTINUES TO LEAK; FOUL SMELLING URINE NOTED. PT ABLE TO PERFORM UPPER BODY BATHING AND FACE WASHING WITH SET UP; SIT TO STAND WITH MIN ASSIST; REFUSED TO SIT UP IN RECLINER; ABLE TO SIDE STEP AT BED WITH MIN ASSIST; BACK TO BED WITH SPV. CARLEE CHICAS, OTR/L
--- NOTE | 2019-01-21 19:32 | NUR ---
RECEIVED REPORT, WILL ASSUME CARE OF PT, PT IS SLEEPING, NO DISTRESS NOTICED AT THIS TIME, BED IS LOW, SRX2, CALL LIGHT IN REACH, WILL CONTINUE PLAN OF CARE
--- NOTE | 2019-01-21 22:47 | NUR ---
OT NOTE: PT COMPLETED BED MOB TASKS WITH MIN A. PT COMPLETED EOB SITTING WITH MIN/MOD A. PT COMPLETED GROOMING TASKS WITH MIN A. THANK YOU,ERYN YEH
--- NOTE | 2019-01-21 23:15 | NUR ---
ASKING FOR A POPSLICE
--- NOTE | 2019-01-22 02:22 | NUR ---
I have reviewed this patient and I concur with the Shift Assessment completed by the Licensed Practical Nurse today this shift.
[2019-01-22 04:00] VITALS: BP 106/58
[2019-01-22 06:03] LABS: BASOPHILS 0.3 % (0-2); EOSINOPHILS 1.8 % (0-7); HEMATOCRIT 27.1 % (36.0-48.0); HEMOGLOBIN 7.9 g/dL (12-16); IMMATURE GRANULOCYTES 0.2 % (0-5); LYMPHOCYTES 12.7 % (15-50); MCH 23.6 pg (26.0-34.0); MCHC 29.2 g/dL (31.0-37.0); MCV 80.9 fL (80.0-100.0); MEAN PLATELET VOLUME 10.6 fL (7.4-10.4); MONOCYTES 7.9 % (2-11); NEUTROPHILS 77.1 % (40-80); PLATELET COUNT 121 10x3/uL (130-400); RBC 3.35 10x6/uL (4.00-5.40); RDW 20.9 % (11.5-14.5); WBC 6.2 10x3/uL (4.8-10.8)
[2019-01-22 06:36] LABS: CALC OSMOLALITY 293 mosm/kg (275-300); CALCIUM 8.3 mg/dL (8.5-10.1); CHLORIDE - SERUM 102 mmol/L (98-107); CREATININE - SERUM 0.8 mg/dL (0.6-1.3); GLUCOSE 84 mg/dL (74-106); POTASSIUM - SERUM 3.2 mmol/L (3.5-5.1); SODIUM 146 mmol/L (136-145); UREA NITROGEN 25 mg/dL (7-18); eGFR NON AFRICAN AMERICAN 76 mL/min (90-120)
[2019-01-22 06:43] LABS: MAGNESIUM - SERUM 1.8 mg/dL (1.8-2.4)
[2019-01-22 06:44] LABS: CARBON DIOXIDE 44.6 mmol/L (21.0-32.0)
--- NOTE | 2019-01-22 07:00 | NUR ---
RECEIVED REPORT. ASSUMED CARE OF PATIENT. PATIENT RESTING WITH EYES CLOSED. RESP EVEN AND UNLABORED. DOBUTAMINE DRIP INFUSING ORDERED. CALL LIGHT WITHIN REACH. NO DISTRESS.
[2019-01-22 08:10] VITALS: BP 90/53
--- NOTE | 2019-01-22 08:45 | NUR ---
RESTING IN BED WITH EYES OPEN. NO DISTRESS. DENIES NEEDS. TOLERATED MEDS WELL. CALL LIGHT WITHIN REACH.
[2019-01-22 11:40] VITALS: BP 106/59
[2019-01-22 16:10] VITALS: BP 101/63
--- NOTE | 2019-01-22 18:35 | NUR ---
RESTING IN BED WITH EYES CLOSED. RESP EVEN AND UNLABORED. NO DISTRESS. CALL LIGHT WITHIN REACH.
--- NOTE | 2019-01-22 19:15 | NUR ---
RECEIVED REPORT, WILL ASSUME CARE OF PT, LYING WITH EYES CLOSED, NO DISTRESS NOTICED AT THIS TIME, BED IS LOW, SRX2, CALL LIGHT IN REACH, WILL CONTINUE PLAN OF CARE
[2019-01-22 20:00] VITALS: BP 110/67
[2019-01-23] VITALS: BP 105/69
--- NOTE | 2019-01-23 03:14 | NUR ---
I have reviewed this patient and I concur with the Shift Assessment completed by the Licensed Practical Nurse today this shift.
[2019-01-23 04:00] VITALS: BP 100/62
[2019-01-23 06:17] LABS: BASOPHILS 0.2 % (0-2); EOSINOPHILS 0.4 % (0-7); HEMATOCRIT 26.9 % (36.0-48.0); HEMOGLOBIN 7.6 g/dL (12-16); IMMATURE GRANULOCYTES 0.3 % (0-5); LYMPHOCYTES 8.2 % (15-50); MCH 23.2 pg (26.0-34.0); MCHC 28.3 g/dL (31.0-37.0); MCV 82.3 fL (80.0-100.0); MONOCYTES 7.8 % (2-11); NEUTROPHILS 83.1 % (40-80); PLATELET COUNT 125 10x3/uL (130-400); RBC 3.27 10x6/uL (4.00-5.40); RDW 21.3 % (11.5-14.5)
[2019-01-23 06:30] LABS: WBC 9.1 10x3/uL (4.8-10.8)
[2019-01-23 08:04] LABS: CALCIUM 8.9 mg/dL (8.5-10.1); CHLORIDE - SERUM 102 mmol/L (98-107); CREATININE - SERUM 0.8 mg/dL (0.6-1.3); GLUCOSE 99 mg/dL (74-106); POTASSIUM - SERUM 3.4 mmol/L (3.5-5.1); SODIUM 146 mmol/L (136-145); eGFR NON AFRICAN AMERICAN 76 mL/min (90-120)
[2019-01-23 08:09] LABS: CALC OSMOLALITY 297 mosm/kg (275-300); UREA NITROGEN 32 mg/dL (7-18)
[2019-01-23 08:10] LABS: CARBON DIOXIDE 40.8 mmol/L (21.0-32.0)
--- NOTE | 2019-01-23 08:30 | NUR ---
PT RESTING IN BED,SHIFT ASSESSMENT PERFORMED, DENIES ANY NEEDS AT THIS TIME, WILL CONT TO FOLLOW POC
[2019-01-23 08:36] VITALS: BP 105/66
--- NOTE | 2019-01-23 09:06 | NUR ---
NOTIFIED SHANTELL HUERTA THAT PT HGB IS 7.6, NO NEW ORDERS RECIEVED AT THIS TIME
[2019-01-23] MEDS ORDERED: TOPROL XL25 MG PO (11:08)
[2019-01-23] MEDS ORDERED: BUMEX2 MG PO (11:09)
--- NOTE | 2019-01-23 11:31 | MORECARE ---
CASE MANAGEMENT DISCHARGE SUMMARY PATIENT: DIEGO ESCOBAR UNIT: [id number] ADM DATE: 01/15/19 AGE: 68 : 51 SEX: F ROOM/BED: D.7492 AUTHOR: BALBIR GREWAL PHYSICIAN: REFERRING PHYSICIAN: AGUSTINA HEBERT MD DATE OF SERVICE: 01/23/19 Discharge Plan Patient Name: DIEGO ESCOBAR Facility: [facility]:[place] : 1950 Planned Disposition: Home with Hospice Anticipated Discharge Date: Discharge Date: Expected LOS: Initial Reviewer: [id number] Initial Review Date: 01/15/2019 Generated: 01/23/19 12:31 pm Comments DCP- Discharge Planning Updated by [email or web address]: Margarita Arellano on 01/23/19 10:[address] Patient Name: DIEGO ESCOBAR Admission Status: ER Accout number: [id number] Admission Date: 01-15-2019 : 1950 Admission Diagnosis:ANEMIA, UNSPECIFIED Attending: AGUSTINA HEBERT Current LOS: 8 Anticipated DC Date: Planned Disposition: Home with Hospice Primary Insurance: [employer] MEDICARE SOLUTIONS Discharge Planning Comments: HOSPICE HOME CARE NOTIFIED OF DC. INFORMATION SENT TO THEM VIA FAX. NO OTHER CM NEEDS AT THIS TIME Assembler Truck Trailer: Margarita Arellano DCP- Discharge Planning Updated by [email or web address]: Regulo Hester on 01/18/19 9:[address] Patient Name: DIEGO ESCOBAR Admission Status: ER Accout number: [id number] Admission Date: 01-15-2019 : 1950 Admission Diagnosis:ANEMIA, UNSPECIFIED Attending: AGUSTINA HEBERT Current LOS: 3 Anticipated DC Date: Planned Disposition: Home with Hospice Primary Insurance: [employer] MEDICARE SOLUTIONS PLANNED EXTERNAL PROVIDER: HOSPICE HOME CARE Discharge Planning Comments: CM MET WITH PT IN ROOM TO DISCUSS DISCHARGE PLANNING AND NEEDS. PT REPORTS LIVING AT HOME INDEPENDENTLY AND ALONE. PT HAS ALL MEDICAL EQUIPMENT SHE NEEDS PROVIDED BY HOSPICE HOME CARE; SHE DID NOT REVOKE SERVICES FOR HOSPITAL ADMISSION. PT HAS PERSONAL CARE THROUGH [facility] YOU. CM DISCUSSED AVAILABILITY OF HOME HEALTH, REHAB SERVICES AND MEDICAL EQUIPMENT. PT DENIES DISCHARGE NEEDS, WILL RETURN HOME WITH HOSPICE HOME CARE RESUMPTION; PT'S SON OR CAREGIVER WILL PICK HER UP FOR DISCHARGE HOME. CM CALLED HOSPICE HOME CARE, , SPOKE TO JUAN DANIEL [facility] PT ACTIVE WITH HOSPICE. FOR COPD. CM FAXED UPDATE TO HOSPICE HOME CARE AT [phone]. FOR DISCHARGE, NOTIFY HOSPICE HOME [facility] AT [phone], FAX DISCHARGE INFORMATION TO HOSPICE HOME CARE AT [phone]. Assembler Truck Trailer: Regulo Hester DCPIA - Discharge Planning Initial Assessment Updated by [id number]: Regulo Hester on 01/18/19 10:00 am * Is the patient Alert and Oriented? Yes * How many steps to enter\exit or inside your home? ELEVATOR * PCP DR. SANTOS * Pharmacy [facility] [address] * Preadmission Environment Home Alone * ADLs Independent * Equipment Back Brace CPAP Elevated [place] Seat Grab Bars Nebulizer Oxygen Rolling Walker Shower Chair * Other Equipment ALL MEDICAL EQUIPMENT PROVIDED BY HOSPICE HOME CARE * List name and contact numbers for known caregivers / representatives who currently or will assist patient after discharge: SAGAR ESCOBAR, SON, * Verbal permission to speak to the caregivers and representatives has been obtained from the patient. N/A * Community resources currently utilized Hospice Home Private Duty Care * Please name any agencies selected above. [facility] PERSONAL CARE * Additional services required to return to the preadmission environment? No * Can the patient safely return to the preadmission environment? Yes * Has this patient been hospitalized within the prior 30 days at any hospital? No Coverage Notice Reviewer: [id number] - Regulo Hester Notice Issued Date-Time: 01/18/2019 9:35 Notice Type: Patient Choice Letter Notice Delivered To: Patient Relationship to Patient: Licensed Clinician Name: Delivery Method: HAND - Hand Delivered Kiara Days: Prior Verbal Notification: Recipient Understood Notice: Yes Recipient Signature: Yes Med Rec Note Co-signed by Attending: Coverage Notice Comment: HOSPICE HOME [facility] Last DP export: 01/18/19 9:08 am Patient Name: DIEGO ESCOBAR Page 12538 at 1131 All edits/amendments must be made on the electronic document DICTATION DATE: 01/23/19 1130 CUSTOMER SERVICE DRIVER: NERI 01/23/19 1130 RPT#: [id number] DC DATE: STATUS: ADM IN [facility] [address] [facility] [place] [address] END OF REPORT
[2019-01-23 11:41] VITALS: BP 94/56
--- NOTE | 2019-01-23 14:00 | NUR ---
OT NOTE: PT COMPLETED BED MOB TASKS WITH MOD/MIN A. PT COMPLETED EOB SITTING WITH MIN A. PT COMPLETED HYGIENE TASKS WITH MOD A. THANK YOU, ERYN YEH
--- NOTE | 2019-01-23 15:43 | NUR ---
DISCHARGE INSTRUCTIONS REVIEWED WITH PT AND ALL QUESTIONS ANSWERED. PIV REMOVED WITH CATHETER TIP INTACT. TELEMETRY REMOVED AND GIVEN TO HOTEL SERVER. PT WHEELED TO FRONT OF HOSPITAL VIA WHEELCHAIR AND LEFT WITH NEIGHBOR
--- NOTE | 2019-01-24 07:29 | NUR ---
OT NOTE: PT STATING THAT SHE IS GOING HOME AND LOOKING FORWARD TO RETURNING TO [place]T. BED MOB WITH MIN ASSIST FOR ROLLING AND SUPINE TO SIT; PT REFUSED TO STAND OR ATTEMPT TO TAKE STEPS. INCONT OF B AND B. SIMPLE GROOMING AND FEEDING WITH SET UP. CARLEE CHICAS, OTR/L
--- NOTE | 2019-01-24 09:12 | MORECARE ---
CASE MANAGEMENT DISCHARGE SUMMARY PATIENT: DIEGO ESCOBAR UNIT: [id number] ADM DATE: 01/15/19 AGE: 68 : 51 SEX: F ROOM/BED: D.2517 AUTHOR: BALBIR GREWAL PHYSICIAN: REFERRING PHYSICIAN: AGUSTINA HEBERT MD DATE OF SERVICE: 01/24/19 Discharge Plan Patient Name: DIEGO ESCOBAR Facility: [facility]:[place] : 1950 Planned Disposition: Home with Hospice Anticipated Discharge Date: 01/23/19 Discharge Date: 01/23/2019 Expected LOS: 8 Initial Reviewer: [id number] Initial Review Date: 01/15/2019 Generated: 01/24/19 10:12 am Comments DCP- Discharge Planning Updated by [id number]: Margarita Arellano on 01/23/19 10:[address] Patient Name: DIEGO ESCOBAR Admission Status: ER Accout number: [id number] Admission Date: 01-15-2019 : 1950 Admission Diagnosis:ANEMIA, UNSPECIFIED Attending: AGUSTINA HEBERT Current LOS: 8 Anticipated DC Date: Planned Disposition: Home with Hospice Primary Insurance: [employer] SOLUT[employer] Discharge Planning Comments: HOSPICE HOME CARE NOTIFIED OF DC. INFORMATION SENT TO THEM VIA FAX. NO OTHER CM NEEDS AT THIS TIME Pay Per Click Strategist: Margarita Arellano DCP- Discharge Planning Updated by [id number]: Regulo Hester on 01/18/19 9:[address] Patient Name: DIEGO ESCOBAR Admission Status: ER Accout number: [id number] Admission Date: 01-15-2019 : 1950 Admission Diagnosis:ANEMIA, UNSPECIFIED Attending: AGUSTINA HEBERT Current LOS: 3 Anticipated DC Date: Planned Disposition: Home with Hospice Primary Insurance: [employer] MED[employer] SOLUTIONS PLANNED EXTERNAL PROVIDER: HOSPICE HOME CARE Discharge Planning Comments: CM MET WITH PT IN ROOM TO DISCUSS DISCHARGE PLANNING AND NEEDS. PT REPORTS LIVING AT HOME INDEPENDENTLY AND ALONE. PT HAS ALL MEDICAL EQUIPMENT SHE NEEDS PROVIDED BY HOSPICE HOME CARE; SHE DID NOT REVOKE SERVICES FOR HOSPITAL ADMISSION. PT HAS PERSONAL CARE THROUGH [facility] ALL ABOUT YOU. CM DISCUSSED AVAILABILITY OF HOME HEALTH, REHAB SERVICES AND MEDICAL EQUIPMENT. PT DENIES DISCHARGE NEEDS, WILL RETURN HOME WITH HOSPICE HOME CARE RESUMPTION; PT'S SON OR CAREGIVER WILL PICK HER UP FOR DISCHARGE HOME. CM CALLED HOSPICE HOME CARE, , SPOKE TO JUAN DANIEL [facility] PT ACTIVE WITH HOSPICE. FOR COPD. CM FAXED UPDATE TO HOSPICE HOME CARE AT [phone]. FOR DISCHARGE, NOTIFY HOSPICE HOME [facility] AT [phone], FAX DISCHARGE INFORMATION TO HOSPICE HOME CARE AT [phone]. Pay Per Click Strategist: Regulo Hester DCPIA - Discharge Planning Initial Assessment Updated by [id number]: Regulo Hester on 01/18/19 10:00 am * Is the patient Alert and Oriented? Yes * How many steps to enter\exit or inside your home? ELEVATOR * PCP DR. SANTOS * Pharmacy [facility] ON [facility] [address] * Preadmission Environment Home Alone * ADLs Independent * Equipment Back Brace CPAP Elevated [place] Seat Grab Bars Nebulizer Oxygen Rolling Walker Shower Chair * Other Equipment ALL MEDICAL EQUIPMENT PROVIDED BY HOSPICE HOME CARE * List name and contact numbers for known caregivers / representatives who currently or will assist patient after discharge: SAGAR ESCOBAR, SON, * Verbal permission to speak to the caregivers and representatives has been obtained from the patient. N/A * Community resources currently utilized Hospice Home Private Duty Care * Please name any agencies selected above. H[facility]PICE [facility] C[facility] PERSONAL CARE * Additional services required to return to the preadmission environment? No * Can the patient safely return to the preadmission environment? Yes * Has this patient been hospitalized within the prior 30 days at any hospital? No Coverage Notice Reviewer: [id number] - Regulo Hester Notice Issued Date-Time: 01/18/2019 9:35 Notice Type: Patient Choice Letter Notice Delivered To: Patient Relationship to Patient: Customer Training Specialist Name: Delivery Method: HAND - Hand Delivered Kiara Days: Prior Verbal Notification: Recipient Understood Notice: Yes Recipient Signature: Yes Med Rec Note Co-signed by Attending: Coverage Notice Comment: HOSPICE HOME [facility] Last DP export: 01/23/19 10:31 am Patient Name: DIEGO ESCOBAR Page 42991 at 0912 All edits/amendments must be made on the electronic document DICTATION DATE: 01/24/19911 DARK ROOM ATTENDANT: NERI 01/24/19911 RPT#: [id number] DC DATE:01/23/19 STATUS: DIS IN [facility] [address] [facility] [address] END OF REPORT
== END 2019-01-23 15:46 | disposition home health service (06) | DRG 811 ==
LOC: D.ER 14:47 → D.M2 20:24
PROVIDERS: Emergency Medicine; Family Medicine; Internal Medicine Hematology & Oncology; Internal Medicine Nephrology; ADMIT Family Medicine; ATTEND Family Medicine
DX: D64.9 Anemia, unspecified (principal); I50.33 Acute on chronic diastolic (congestive) heart failure; J44.0 Chronic obstructive pulmonary disease with (acute) lower respiratory infection; N39.0 Urinary tract infection, site not specified; C64.9 Malignant neoplasm of unspecified kidney, except renal pelvis; I11.0 Hypertensive heart disease with heart failure; I25.10 Atherosclerotic heart disease of native coronary artery without angina pectoris; K21.9 Gastro-esophageal reflux disease without esophagitis; J20.9 Acute bronchitis, unspecified; I08.1 Rheumatic disorders of both mitral and tricuspid valves; F32.9 Major depressive disorder, single episode, unspecified; Z87.891 Personal history of nicotine dependence

== ENCOUNTER 2019-01-30 20:30 | Inpatient (IN) | payer MEDICARE, MEDICAID ==
[~2019-01-30] VITALS: Ht 162.6 cm; Wt 67.6 kg
[~2019-01-30 20:30] MED LIST changes: +BUMEX2 MG PO; +FOLATE0.4 MG PO; +TOPROL XL25 MG PO
[2019-01-30 21:00] VITALS: BP 136/84
[2019-01-30 21:07] LABS: BASOPHILS 0.2 % (0-2); EOSINOPHILS 1.1 % (0-7); HEMATOCRIT 26.6 % (36.0-48.0); IMMATURE GRANULOCYTES 0.3 % (0-5); LYMPHOCYTES 12.6 % (15-50); MCH 23.5 pg (26.0-34.0); MCHC 27.4 g/dL (31.0-37.0); MCV 85.8 fL (80.0-100.0); MEAN PLATELET VOLUME 10.2 fL (7.4-10.4); MONOCYTES 10.5 % (2-11); NEUTROPHILS 75.3 % (40-80); WBC 6.5 10x3/uL (4.8-10.8)
[2019-01-30 21:15] LABS: HEMOGLOBIN 7.3 g/dL (12-16); PLATELET COUNT 235 10x3/uL (130-400)
[2019-01-30 21:21] LABS: ALBUMIN 2.7 g/dL (3.4-5.0); ALKALINE PHOSPHATASE 105 U/L (46-116); ALT (SGPT) 26 U/L (10-68); BILIRUBIN - TOTAL 1.72 mg/dL (0.2-1.3); CALC OSMOLALITY 293 mosm/kg (275-300); CALCIUM 8.9 mg/dL (8.5-10.1); CARBON DIOXIDE 39.9 mmol/L (21.0-32.0); CHLORIDE - SERUM 101 mmol/L (98-107); CREATININE - SERUM 0.8 mg/dL (0.6-1.3); GLUCOSE 111 mg/dL (74-106); POTASSIUM - SERUM 3.3 mmol/L (3.5-5.1); PROTEIN - SERUM 6.5 g/dL (6.4-8.2); SODIUM 145 mmol/L (136-145); UREA NITROGEN 24 mg/dL (7-18); eGFR NON AFRICAN AMERICAN 76 mL/min (90-120)
[2019-01-30 21:30] VITALS: BP 140/87
[2019-01-30 21:31] LABS: PRO BNP 7738 pg/mL (0-125); THYROID STIMULATING HORMONE 3.79 uIU/mL (0.36-3.74); TROPONIN-I 0.036 ng/mL (0.000-0.060)
[2019-01-30 22:35] VITALS: BP 125/74; BMI 25.6
--- NOTE | 2019-01-30 23:09 | NUR ---
ARRIVED FROM ER VIA STRETCHER AWAKE AND ALERT. SOB WITH 02 WITH 2L. SEE ASSESSMENT FOR FURTHER EVAL.
[2019-01-31] VITALS: BP 113/77
--- NOTE | 2019-01-31 03:57 | NUR ---
I have reviewed this patient and I concur with the Shift Assessment completed by the Licensed Practical Nurse today this shift.
[2019-01-31 04:00] VITALS: BP 112/76
[2019-01-31 05:03] LABS: BASOPHILS 0.2 % (0-2); EOSINOPHILS 1.4 % (0-7); HEMATOCRIT 24.9 % (36.0-48.0); IMMATURE GRANULOCYTES 0.2 % (0-5); LYMPHOCYTES 17.6 % (15-50); MCH 23.6 pg (26.0-34.0); MCHC 27.7 g/dL (31.0-37.0); MCV 85.3 fL (80.0-100.0); MEAN PLATELET VOLUME 10.9 fL (7.4-10.4); MONOCYTES 9.3 % (2-11); NEUTROPHILS 71.3 % (40-80); PLATELET COUNT 237 10x3/uL (130-400); RBC 2.92 10x6/uL (4.00-5.40); RDW 23.2 % (11.5-14.5); WBC 6.6 10x3/uL (4.8-10.8)
[2019-01-31 05:21] LABS: HEMOGLOBIN 6.9 g/dL (12-16)
[2019-01-31 05:28] LABS: ALBUMIN 2.5 g/dL (3.4-5.0); ALKALINE PHOSPHATASE 95 U/L (46-116); ALT (SGPT) 22 U/L (10-68); BILIRUBIN - TOTAL 1.63 mg/dL (0.2-1.3); CALC OSMOLALITY 290 mosm/kg (275-300); CALCIUM 8.8 mg/dL (8.5-10.1); CARBON DIOXIDE 38.6 mmol/L (21.0-32.0); CHLORIDE - SERUM 101 mmol/L (98-107); CREATININE - SERUM 0.8 mg/dL (0.6-1.3); GLUCOSE 90 mg/dL (74-106); POTASSIUM - SERUM 3.3 mmol/L (3.5-5.1); PROTEIN - SERUM 6.1 g/dL (6.4-8.2); SODIUM 144 mmol/L (136-145); TROPONIN-I 0.031 ng/mL (0.000-0.060); UREA NITROGEN 25 mg/dL (7-18); eGFR NON AFRICAN AMERICAN 76 mL/min (90-120)
--- NOTE | 2019-01-31 07:25 | NUR ---
ASSESSMENT DONE. DENIES NEEDS.
[2019-01-31 08:00] VITALS: BP 111/64
[2019-01-31 08:40] LABS: APTT 28.3 SECONDS (22.8-39.4); INR 1.26 (0.85-1.17); PROTIME 15.3 SECONDS (11.6-15.0)
[2019-01-31 12:12] VITALS: BP 97/63
--- NOTE | 2019-01-31 15:53 | NUR ---
I have reviewed this patient and I concur with the Shift Assessment completed by the Licensed Practical Nurse today this shift.
[2019-01-31 16:24] VITALS: BP 117/73
--- NOTE | 2019-01-31 16:42 | NUR ---
WITHOUT CHANGES OR DISTRESS NOTED AT THIS TIME. DENIES NEEDS
--- NOTE | 2019-01-31 16:55 | MORECARE ---
CASE MANAGEMENT DISCHARGE SUMMARY PATIENT: DIEGO ESCOBAR UNIT: [id number] ADM DATE: 01/30/19 AGE: 68 : 51 SEX: F ROOM/BED: D.3393 AUTHOR: BALBIR GREWAL PHYSICIAN: REFERRING PHYSICIAN: LISA ESQUIVEL DO DATE OF SERVICE: 01/31/19 Discharge Plan Patient Name: DIEGO ESCOBAR Facility: [facility]:[place] : 1950 Planned Disposition: Hospice Medical Facility Anticipated Discharge Date: Discharge Date: Expected LOS: Initial Reviewer: [id number] Initial Review Date: 01/30/2019 Generated: 01/31/19 5:54 pm Comments DCP- Discharge Planning Updated by [email or web address]: Regulo Hester on 01/31/19 3:[address] Patient Name: DIEGO ESCOBAR Admission Status: ER Accout number: [id number] Admission Date: 01-30-2019 : 1950 Admission Diagnosis: Attending: LISA ESQUIVEL Current LOS: 1 Anticipated DC Date: Planned Disposition: Hospice HOME Primary Insurance: [facility] MEDICARE SOLUTIONS PLANNED EXTERNAL PROVIDER: HOSPICE HOME CARE Discharge Planning Comments: CM MET WITH PT IN ROOM TO DISCUSS DISCHARGE PLANNING AND NEEDS. PT REPORTS LIVING AT HOME INDEPENDENTLY AND ALONE IN HER APARTMENT. PT HAS HOSPICE HOME CARE AND PERSONAL CARE WHEN NEEDED. PT HAS BACK BRACE, ELEVATED TOILET SEAT, GRAB BARS IN THE BATHROOM, NEBULIZER, HOME AND PORTABLE OXYGEN, ROLLING WALKER AND SHOWER CHAIR FROM HOSPICE. CM DISCUSSED AVAILABILITY OF HOME HEALTH, REHAB SERVICES AND MEDICAL EQUIPMENT. PT INSISTS SHE IS NOT GOING TO A SKILLED NURSING. PT DENIES DISCHARGE NEEDS, STATES SHE DID NOT REVOKE HOSPICE AND WILL RESUME HOSPICE HOME CARE AND THAT REPORTS HER CAREGIVER OR SON WILL PICK HER UP FOR DISCHARGE HOME. CHOICE SIGNED FOR HOSPICE HOME CARE. FOR DISCHARGE, NOTIFY HOSPICE HOME CARE AT [phone], FAX DISCHARGE INFORMATION TO HOSPICE HOME CARE AT [phone]. Executive Chef: Regulo Hester DCPIA - Discharge Planning Initial Assessment Updated by [id number]: Regulo Hester on 01/31/19 4:46 pm * Is the patient Alert and Oriented? Yes * How many steps to enter\exit or inside your home? ELEVATOR * PCP DR. SANTOS * Pharmacy [facility] [place] * Preadmission Environment Home Alone * ADLs Independent * Equipment Back Brace Elevated [place] Seat Grab Bars Nebulizer Oxygen Rolling Walker Shower Chair * Other Equipment HOSPICE HOME CARE - MEDICAL EQUIPMENT PROVIDER * List name and contact numbers for known caregivers / representatives who currently or will assist patient after discharge: SAGAR ESCOBAR, JAKY, * Verbal permission to speak to the caregivers and representatives has been obtained from the patient. N/A * Community resources currently utilized Hospice Home Private Duty Care * Please name any agencies selected above. HOSPICE HOME CARE IT'S [facility] ABOUT YOU PERSONAL CARE * Additional services required to return to the preadmission environment? No * Can the patient safely return to the preadmission environment? Yes * Has this patient been hospitalized within the prior 30 days at any hospital? Yes Coverage Notice Reviewer: [id number] Maninder Hester Notice Issued Date-Time: 01/31/2019 16:45 Notice Type: Patient Choice Letter Notice Delivered To: Patient Relationship to Patient: Dietary Cook Name: Delivery Method: HAND - Hand Delivered Kiara Days: Prior Verbal Notification: Recipient Understood Notice: Yes Recipient Signature: Yes Med Rec Note Co-signed by Attending: Coverage Notice Comment: HOSPICE HOME [facility]ARE. Patient Name: DIEGO ESCOBAR Page 27083 at 1655 All edits/amendments must be made on the electronic document DICTATION DATE: 01/31/191653 FERN GATHERER: NERI 01/31/191653 RPT#: [id number] DC DATE: STATUS: ADM IN [facility] [address] [place] [address] END OF REPORT
--- NOTE | 2019-01-31 19:51 | NUR ---
CALLED ELEVATED D DIMER TO DR. LANG, ORDERS GIVEN TO SEND PT FOR CTA AND START ON LOVENOX.
[2019-01-31 20:00] VITALS: BP 106/70
--- NOTE | 2019-01-31 20:01 | NUR ---
20 GUAGE SITED TO RIGHT WRIST, FIRST ATTEMPT, PT TOLERATED WELL. CALL CELY IN CT.
--- NOTE | 2019-01-31 20:20 | NUR ---
GONE TO CT BY BED.
--- NOTE | 2019-01-31 21:30 | NUR ---
FIRST UNIT OF PRBCS INFUSING, VITALS STABLE.
--- NOTE | 2019-01-31 23:46 | NUR ---
SPOKE WITH PENNY LEVY APN, INFORMED HIM OF CT RESULTS.
--- NOTE | 2019-02-01 01:10 | NUR ---
FIRST UNIT OF PRBCS FINISHED INFUSING, LINE FLUSHING WITH NS. VITALS STABLE, NO S/S ADVERSE REACTION NOTED.
--- NOTE | 2019-02-01 01:45 | NUR ---
SECOND UNIT OF PRBCS INFUSING, VITALS REMAIN STABLE.
[2019-02-01 04:00] VITALS: BP 110/54
--- NOTE | 2019-02-01 04:19 | NUR ---
I have reviewed this patient and I concur with the Shift Assessment completed by the Licensed Practical Nurse today this shift.
--- NOTE | 2019-02-01 04:41 | NUR ---
THIRD UNIT OF BLOOD INFUSING, VITALS STABLE. NO S/S ADVERSE REACTIONS NOTED.
--- NOTE | 2019-02-01 07:30 | NUR ---
ASSESSMENT DONE. DENIES NEEDS.
[2019-02-01 07:50] LABS: BASOPHILS 0.1 % (0-2); EOSINOPHILS 0.9 % (0-7); IMMATURE GRANULOCYTES 0.1 % (0-5); LYMPHOCYTES 13.1 % (15-50); MCH 26.5 pg (26.0-34.0); MCHC 30.9 g/dL (31.0-37.0); MCV 85.7 fL (80.0-100.0); MEAN PLATELET VOLUME 10.2 fL (7.4-10.4); MONOCYTES 10.5 % (2-11); NEUTROPHILS 75.3 % (40-80); PLATELET COUNT 196 10x3/uL (130-400); RDW 19.4 % (11.5-14.5); WBC 7.7 10x3/uL (4.8-10.8)
[2019-02-01 07:52] LABS: HEMATOCRIT 39.1 % (36.0-48.0); HEMOGLOBIN 12.1 g/dL (12-16); RBC 4.56 10x6/uL (4.00-5.40)
[2019-02-01 08:15] LABS: ANION GAP 8.8 mmol/L (8-16); CALCIUM 8.9 mg/dL (8.5-10.1); CARBON DIOXIDE 36.6 mmol/L (21.0-32.0)
[2019-02-01 08:16] LABS: CREATININE - SERUM 1.1 mg/dL (0.6-1.3); POTASSIUM - SERUM 4.4 mmol/L (3.5-5.1)
[2019-02-01 08:19] VITALS: BP 120/73
--- NOTE | 2019-02-01 09:30 | MORECARE ---
CASE MANAGEMENT DISCHARGE SUMMARY PATIENT: DIEGO ESCOBAR UNIT: [id number] ADM DATE: 01/30/19 AGE: 68 : 51 SEX: F ROOM/BED: D.1870 AUTHOR: BALBIR GREWAL PHYSICIAN: REFERRING PHYSICIAN: LISA ESQUIVEL DO DATE OF SERVICE: 02/01/19 Discharge Plan Patient Name: DIEGO ESCOBAR Facility: [facility]:[place] : 1950 Planned Disposition: Hospice Medical Facility Anticipated Discharge Date: Discharge Date: Expected LOS: Initial Reviewer: [id number] Initial Review Date: 01/30/2019 Generated: 02/01/19 10:30 am Comments DCP- Discharge Planning Updated by [id number]: Regulo Hester on 02/01/19 8:[address] Patient Name: DIEGO ESCOBAR Encounter No: [id number] : 1950 Primary Insurance: [facility] MEDICARE SOLUTIONS Anticipated DC Date: Planned Disposition: Hospice Medical Facility External Planned Provider: HOSPICE HOME CARE Discharge Planning Comments: CM FAXED [facility]PITAL [facility] TO HOSPICE HOME CARE, .. FOR DISCHARGE, NOTIFY HOSPICE HOME CARE AT [phone], FAX DISCHARGE INFORMATION TO HOSPICE HOME CARE AT [phone]. Aoc Director Combat Plans Officer: Regulo Hester DCP- Discharge Planning Updated by [id number]: Regulo Hester on 01/31/19 3:[address] Patient Name: DIEGO ESCOBAR Admission Status: ER Accout number: [id number] Admission Date: 01-30-2019 : 1950 Admission Diagnosis: Attending: LISA ESQUIVEL Current LOS: 1 Anticipated DC Date: Planned Disposition: Hospice HOME Primary Insurance: [facility] MEDICARE SOLUTIONS PLANNED EXTERNAL PROVIDER: HOSPICE HOME CARE Discharge Planning Comments: CM MET WITH PT IN ROOM TO DISCUSS DISCHARGE PLANNING AND NEEDS. PT REPORTS LIVING AT HOME INDEPENDENTLY AND ALONE IN HER APARTMENT. PT HAS HOSPICE HOME CARE AND PERSONAL CARE WHEN NEEDED. PT HAS BACK BRACE, ELEVATED TOILET SEAT, GRAB BARS IN THE BATHROOM, NEBULIZER, HOME AND PORTABLE OXYGEN, ROLLING WALKER AND SHOWER CHAIR FROM HOSPICE. CM DISCUSSED AVAILABILITY OF HOME HEALTH, REHAB SERVICES AND MEDICAL EQUIPMENT. PT INSISTS SHE IS NOT GOING TO A SENIOR LIVING. PT DENIES DISCHARGE NEEDS, STATES SHE DID NOT REVOKE HOSPICE AND WILL RESUME HOSPICE HOME CARE AND THAT REPORTS HER CAREGIVER OR SON WILL PICK HER UP FOR DISCHARGE HOME. CHOICE SIGNED FOR HOSPICE HOME CARE. FOR DISCHARGE, NOTIFY HOSPICE HOME CARE AT [phone], FAX DISCHARGE INFORMATION TO HOSPICE HOME CARE AT [phone]. Aoc Director Combat Plans Officer: Regulo Hester DCPIA - Discharge Planning Initial Assessment Updated by [id number]: Regulo Hester on 01/31/19 4:46 pm * Is the patient Alert and Oriented? Yes * How many steps to enter\exit or inside your home? ELEVATOR * PCP DR. SANTOS * Pharmacy [facility] [place] * Preadmission Environment Home Alone * ADLs Independent * Equipment Back Brace Elevated Toliet Seat Grab Bars Nebulizer Oxygen Rolling Walker Shower Chair * Other Equipment HOSPICE HOME CARE - MEDICAL EQUIPMENT PROVIDER * List name and contact numbers for known caregivers / representatives who currently or will assist patient after discharge: SAGAR ESCOBAR, SON, * Verbal permission to speak to the caregivers and representatives has been obtained from the patient. N/A * Community resources currently utilized Hospice Home Private Duty Care * Please name any agencies selected above. HOSPICE HOME CARE IT'S ALL ABOUT YOU PERSONAL CARE * Additional services required to return to the preadmission environment? No * Can the patient safely return to the preadmission environment? Yes * Has this patient been hospitalized within the prior 30 days at any hospital? Yes External Providers External Provider: [facility] Home [facility] Next Contact Date: 02/01/2019 Service Request Date: Service Type: Resolution: Reviewer: Comments: Coverage Notice Reviewer: [id number] - Regulo Hester Notice Issued Date-Time: 01/31/2019 16:45 Notice Type: Patient Choice Letter Notice Delivered To: Patient Relationship to Patient: Business Continuity Global Director Name: Delivery Method: HAND - Hand Delivered Kiara Days: Prior Verbal Notification: Recipient Understood Notice: Yes Recipient Signature: Yes Med Rec Note Co-signed by Attending: Coverage Notice Comment: HOSPICE HOME CARE. Last DP export: 01/31/19 3:55 p Patient Name: DIEGO ESCOBAR Page 87245 at 0930 All edits/amendments must be made on the electronic document DICTATION DATE: 02/01/19928 CIRCUIT BOARD ASSEMBLER: NERI 02/01/19928 RPT#: [id number] DC DATE: STATUS: ADM IN [facility] [address] [place] [address] END OF REPORT
--- NOTE | 2019-02-01 12:25 | MORECARE ---
CASE MANAGEMENT DISCHARGE SUMMARY PATIENT: DIEGO ESCOBAR UNIT: [id number] ADM DATE: 01/30/19 AGE: 68 : 51 SEX: F ROOM/BED: D.4829 AUTHOR: BALBIR GREWAL PHYSICIAN: REFERRING PHYSICIAN: LISA ESQUIVEL DO DATE OF SERVICE: 02/01/19 Discharge Plan Patient Name: DIEGO ESCOBAR Facility: [facility]:[place] : 1950 Planned Disposition: Nursing Facility DESI Cert Anticipated Discharge Date: Discharge Date: Expected LOS: Initial Reviewer: [id number] Initial Review Date: 01/30/2019 Generated: 02/01/19 1:24 pm Comments DCP- Discharge Planning Updated by [id number]: Regulo Hester on 02/01/19 8:[address] Patient Name: DIEGO ESCOBAR Encounter No: [id number] : 1950 Primary Insurance: [employer] MEDICARE SOLUTIONS Anticipated DC Date: Planned Disposition: Hospice Medical Facility External Planned Provider: HOSPICE HOME CARE Discharge Planning Comments: CM FAXED HOSPITAL UDP[facility] TO HOSPICE HOME CARE, .. FOR DISCHARGE, NOTIFY HOSPICE HOME CARE AT [phone], FAX DISCHARGE INFORMATION TO HOSPICE HOME CARE AT [phone]. Airline Captain: Regulo Hester DCP- Discharge Planning Updated by [id number]: Regulo Hester on 01/31/19 3:[address] Patient Name: DIEGO ESCOBAR Admission Status: ER Accout number: [id number] Admission Date: 01-30-2019 : 1950 Admission Diagnosis: Attending: LISA ESQUIVEL Current LOS: 1 Anticipated DC Date: Planned Disposition: Hospice HOME Primary Insurance: [employer] MEDICARE SOLUTIONS PLANNED EXTERNAL PROVIDER: HOSPICE HOME CARE Discharge Planning Comments: CM MET WITH PT IN ROOM TO DISCUSS DISCHARGE PLANNING AND NEEDS. PT REPORTS LIVING AT HOME INDEPENDENTLY AND ALONE IN HER APARTMENT. PT HAS HOSPICE HOME CARE AND PERSONAL CARE WHEN NEEDED. PT HAS BACK BRACE, ELEVATED TOILET SEAT, GRAB BARS IN THE BATHROOM, NEBULIZER, HOME AND PORTABLE OXYGEN, ROLLING WALKER AND SHOWER CHAIR FROM HOSPICE. CM DISCUSSED AVAILABILITY OF HOME HEALTH, REHAB SERVICES AND MEDICAL EQUIPMENT. PT INSISTS SHE IS NOT GOING TO A PENITENTIARY. PT DENIES DISCHARGE NEEDS, STATES SHE DID NOT REVOKE HOSPICE AND WILL RESUME HOSPICE HOME CARE AND THAT REPORTS HER CAREGIVER OR SON WILL PICK HER UP FOR DISCHARGE HOME. CHOICE SIGNED FOR HOSPICE HOME CARE. FOR DISCHARGE, NOTIFY HOSPICE HOME CARE AT [phone], FAX DISCHARGE INFORMATION TO HOSPICE HOME CARE AT [phone]. Airline Captain: Regulo Hester DCPIA - Discharge Planning Initial Assessment Updated by [id number]: Regulo Hester on 01/31/19 4:46 pm * Is the patient Alert and Oriented? Yes * How many steps to enter\exit or inside your home? ELEVATOR * PCP DR. SANTOS * Pharmacy [facility] [place] * Preadmission Environment Home Alone * ADLs Independent * Equipment Back Brace Elevated Tol[place] Seat Grab Bars Nebulizer Oxygen Rolling Walker Shower Chair * Other Equipment HOSPICE HOME CARE - MEDICAL EQUIPMENT PROVIDER * List name and contact numbers for known caregivers / representatives who currently or will assist patient after discharge: SAGAR ESCOBAR, SON, * Verbal permission to speak to the caregivers and representatives has been obtained from the patient. N/A * Community resources currently utilized Hospice Home Private Duty Care * Please name any agencies selected above. HOSPICE HOME CARE IT'S ALL ABOUT YOU PERSONAL CARE * Additional services required to return to the preadmission environment? No * Can the patient safely return to the preadmission environment? Yes * Has this patient been hospitalized within the prior 30 days at any hospital? Yes Coverage Notice Reviewer: [id number] - Regulo Hester Notice Issued Date-Time: 01/31/2019 16:45 Notice Type: Patient Choice Letter Notice Delivered To: Patient Relationship to Patient: Blind Escort Name: Delivery Method: HAND - Hand Delivered Kiara Days: Prior Verbal Notification: Recipient Understood Notice: Yes Recipient Signature: Yes Med Rec Note Co-signed by Attending: Coverage Notice Comment: HOSPICE HOME CARE. Last DP export: 02/01/19 8:30 a Patient Name: DIEGO ESCOBAR Page 86540 at 1225 All edits/amendments must be made on the electronic document DICTATION DATE: 02/01/19 1224 PAPER GRADER: NERI 02/01/19 1224 RPT#: [id number] DC DATE: STATUS: ADM IN [facility] [address] [place] [address] END OF REPORT
[2019-02-01 12:28] VITALS: BP 126/79
--- NOTE | 2019-02-01 12:41 | MORECARE ---
CASE MANAGEMENT DISCHARGE SUMMARY PATIENT: DIEGO ESCOBAR UNIT: [id number] ADM DATE: 01/30/19 AGE: 68 : 51 SEX: F ROOM/BED: D.1417 AUTHOR: BALBIR GREWAL PHYSICIAN: REFERRING PHYSICIAN: LISA ESQUIVEL DO DATE OF SERVICE: 02/01/19 Discharge Plan Patient Name: DIEGO ESCOBAR Facility: [facility]:[place] : 1950 Planned Disposition: Nursing Facility DESI Cert Anticipated Discharge Date: Discharge Date: Expected LOS: Initial Reviewer: [id number] Initial Review Date: 01/30/2019 Generated: 02/01/19 1:41 pm Comments DCP- Discharge Planning Updated by [id number]: Regulo Hester on 02/01/19 11:[address] Patient Name: DIEGO ESCOBAR Encounter No: [id number] : 1950 Primary Insurance: [facility] MEDICARE SOLUTIONS Anticipated DC Date: Planned Disposition: Nursing Facility DESI Cert External Planned Provider: TO BE DETERMINED DCP follow-up note: CM RECEIVED NOTE FROM PT TO SEE HER IN HER ROOM. CM SPOKE TO TYLOR AGUILERA WHO INFORMED CM THAT HOSPICE PLANS TO REVOKE HOSPICE SERVICES AND PT NEEDS PLACEMENT WITH HOSPICE, NOT HOME HOSPICE. CM MET WITH PT IN ROOM, DISCUSSED DISCHARGE PLANNING AND NEEDS. PT DISCUSSED GOING TO ASSISTED LIVING IN [place] WITH THE HOSPICE NURSE WHO TOLD HER THAT SHE NEEDS TO GO TO A SKILLED NURSING. CM AGREED THAT ASSISTED LIVING WOULD NOT BE ABLE TO MEET PT'S NEEDS AND THAT CM AGREES THAT PT DOES NEED A FDC FACILITY AT THIS TIME. PT WANTS TO TALK TO HER HOSPICE AGAIN ABOUT HER OPTIONS BEFORE MAKING FURTHER PLACEMENT DECISIONS, ASKED CM TO CALL THE HOSPICE NURSE. CM CALLED PORSCHE BUITRAGO, HOSPICE HOME CARE NURSE, ; PORSCHE DID DISCUSS PLACEMENT WITH PT AND DOES NOT THINK IT IS APPROPRIATE FOR PT TO RETURN HOME THIS TIME. THEY ARE SENDING A GRINDER SET UP OPERATOR GEAR TOOL TO DISCUSS PLACEMENT WITH PT TODAY AND WILL FOLLOW UP WITH CM AFTER MEETING WITH PT. CM WAITING ON PT'S DECISION, CM HAS ENCOURAGED PT TO ACCEPT FDC FACILITY PLACEMENT RECOMMENDED BY HER HOSPICE AGENCY. Regulo Hester CASE MANAGEMENT DCP- Discharge Planning Updated by [id number]: Regulo Hestre on 02/01/19 8:[address] Patient Name: DIEGO ESCOBAR Encounter No: [id number] : 1950 Primary Insurance: [facility] MEDICARE SOLUTIONS Anticipated DC Date: Planned Disposition: Hospice Medical Facility External Planned Provider: HOSPICE HOME CARE Discharge Planning Comments: CM FAXED HOSPITAL UDPATE TO HOSPICE HOME CARE, .. FOR DISCHARGE, NOTIFY HOSPICE HOME CARE AT [phone], FAX DISCHARGE INFORMATION TO HOSPICE HOME CARE AT [phone]. Branch Assistant: Regulo Hester DCP- Discharge Planning Updated by [id number]: Regulo Hester on 01/31/19 3:[address] Patient Name: DIEGO ESCOBAR Admission Status: ER Accout number: [id number] Admission Date: 01-30-2019 : 1950 Admission Diagnosis: Attending: LISA ESQUIVEL Current LOS: 1 Anticipated DC Date: Planned Disposition: Hospice HOME Primary Insurance: [facility] MEDICARE SOLUTIONS PLANNED EXTERNAL PROVIDER: HOSPICE HOME CARE Discharge Planning Comments: CM MET WITH PT IN ROOM TO DISCUSS DISCHARGE PLANNING AND NEEDS. PT REPORTS LIVING AT HOME INDEPENDENTLY AND ALONE IN HER APARTMENT. PT HAS HOSPICE HOME CARE AND PERSONAL CARE WHEN NEEDED. PT HAS BACK BRACE, ELEVATED TOILET SEAT, GRAB BARS IN THE BATHROOM, NEBULIZER, HOME AND PORTABLE OXYGEN, ROLLING WALKER AND SHOWER CHAIR FROM HOSPICE. CM DISCUSSED AVAILABILITY OF HOME HEALTH, REHAB SERVICES AND MEDICAL EQUIPMENT. PT INSISTS SHE IS NOT GOING TO A SKILLED NURSING. PT DENIES DISCHARGE NEEDS, STATES SHE DID NOT REVOKE HOSPICE AND WILL RESUME HOSPICE HOME CARE AND THAT REPORTS HER CAREGIVER OR SON WILL PICK HER UP FOR DISCHARGE HOME. CHOICE SIGNED FOR HOSPICE HOME CARE. FOR DISCHARGE, NOTIFY HOSPICE HOME CARE AT [phone], FAX DISCHARGE INFORMATION TO HOSPICE HOME CARE AT [phone]. Branch Assistant: Regulo Hester DCPIA - Discharge Planning Initial Assessment Updated by [email or web address]: Regulo Hester on 01/31/19 4:46 pm * Is the patient Alert and Oriented? Yes * How many steps to enter\exit or inside your home? ELEVATOR * PCP DR. SANTOS * Pharmacy [facility] * Preadmission Environment Home Alone * ADLs Independent * Equipment Back Brace Elevated Tol[place] Seat Grab Bars Nebulizer Oxygen Rolling Walker Shower Chair * Other Equipment HOSPICE HOME CARE - MEDICAL EQUIPMENT PROVIDER * List name and contact numbers for known caregivers / representatives who currently or will assist patient after discharge: SAGAR ESCOBAR, SON, * Verbal permission to speak to the caregivers and representatives has been obtained from the patient. N/A * Community resources currently utilized Hospice Home Private Duty Care * Please name any agencies selected above. HOSPICE HOME CARE IT'S ALL ABOUT YOU PERSONAL CARE * Additional services required to return to the preadmission environment? No * Can the patient safely return to the preadmission environment? Yes * Has this patient been hospitalized within the prior 30 days at any hospital? Yes Coverage Notice Reviewer: [id number] Maninder Hester Notice Issued Date-Time: 01/31/2019 16:45 Notice Type: Patient Choice Letter Notice Delivered To: Patient Relationship to Patient: Entry Level Truck Driver Name: Delivery Method: HAND - Hand Delivered Kiara Days: Prior Verbal Notification: Recipient Understood Notice: Yes Recipient Signature: Yes Med Rec Note Co-signed by Attending: Coverage Notice Comment: HOSPICE HOME CARE. Last DP export: 02/01/19 11:24 a Patient Name: DIEGO ESCOBAR Page 46926 at 1241 All edits/amendments must be made on the electronic document DICTATION DATE: 02/01/191239 STUDENT ACCOUNTS COORDINATOR: NERI 02/01/191239 RPT#: [id number] DC DATE: STATUS: ADM IN [facility] [address] [place] [address] END OF REPORT
[2019-02-01 13:34] LABS: APPEARANCE CLOUDY (CLEAR)
[2019-02-01 13:35] LABS: BILIRUBIN NEGATIVE (NEGATIVE); COLOR DARK YELLOW (YELLOW); GLUCOSE NEGATIVE (NEGATIVE); KETONE NEGATIVE (NEGATIVE); NITRITE NEGATIVE (NEGATIVE); PROTEIN 1+ mg/dL (NEGATIVE); WHITE CELLS - URINE 25-50 /hpf (0-5)
[2019-02-01 13:37] LABS: BACTERIA MANY /hpf (NONE SEEN); MUCUS <1+ /lpf (NONE SEEN); RED CELLS - URINE RARE /hpf (0-5)
--- NOTE | 2019-02-01 15:50 | NUR ---
I have reviewed this patient and I concur with the Shift Assessment completed by the Licensed Practical Nurse today this shift.
[2019-02-01 16:14] VITALS: BP 118/79
--- NOTE | 2019-02-01 16:53 | MORECARE ---
CASE MANAGEMENT DISCHARGE SUMMARY PATIENT: DIEGO ESCOBAR UNIT: [id number] ADM DATE: 01/30/19 AGE: 68 : 51 SEX: F ROOM/BED: D.9240 AUTHOR: BALBIR GREWAL PHYSICIAN: REFERRING PHYSICIAN: LISA ESQUIVEL DO DATE OF SERVICE: 02/01/19 Discharge Plan Patient Name: DIEGO ESCOBAR Facility: [facility]:[place] : 1950 Planned Disposition: Intermediate Facility Anticipated Discharge Date: Discharge Date: Expected LOS: Initial Reviewer: [id number] Initial Review Date: 01/30/2019 Generated: 02/01/19 5:53 pm Comments DCP- Discharge Planning Updated by [id number]: Regulo Hester on 02/01/19 3:[address] Patient Name: DIEGO ESCOBAR Encounter No: [id number] : 1950 Primary Insurance: [facility] MEDICARE SOLUTIONS Anticipated DC Date: Planned Disposition: Intermediate Facility External Planned Provider: TO BE DETERMINED DCP follow-up note: CM MET WITH PT AND HOSPICE NURSE PORSCHE ARCHULETA IN ROOM TO DISCUSS DISCHARGE PLANNING AND NEEDS. HOSPICE NURSE INFORMED PT THAT THEY ARE ASKING FOR HOSPICE INPATIENT CONTRACT WITH THE HOSPITAL. IF THAT IS NOT POSSIBLE, HOSPICE WILL REVOKE SERVICES. HOSPICE NURSE DISCUSSED [facility]ING [facility] AFTER TREATMENT IS COMPLETED. PT IN AGREEMENT. PT SIGNED [facility]SENT [facility] ANY [facility], [facility]. HOSPICE NURSE REPORTS HAVING HOSPICE HOME CARE CONTRACTS WITH [facility], [facility], IN CASE PT IS NOT ABLE TO GO HOME AFTER REHAB. CM TO SEND REFERRALS FOR [facility] ONCE PHYSICAL THERAPY EVALUATION IS COMPLETED. [facility] AND [facility]. MARCELA Sterling DCP- Discharge Planning Updated by [id number]: Regulo Hester on 02/01/19 11:[address] Patient Name: DIEGO ESCOBAR Encounter No: [id number] : 1950 Primary Insurance: [facility] MEDICARE SOLUTIONS Anticipated DC Date: Planned Disposition: Nursing Facility [facility] External Planned Provider: TO BE DETERMINED DCP follow-up note: CM RECEIVED NOTE FROM PT TO SEE HER IN HER ROOM. CM SPOKE TO TYLOR AGUILERA WHO INFORMED CM THAT HOSPICE PLANS TO REVOKE HOSPICE SERVICES AND PT NEEDS PLACEMENT WITH HOSPICE, NOT HOME HOSPICE. CM MET WITH PT IN ROOM, DISCUSSED DISCHARGE PLANNING AND NEEDS. PT DISCUSSED GOING TO ASSISTED LIVING IN [place] WITH THE HOSPICE NURSE WHO TOLD HER THAT SHE NEEDS TO GO TO A [facility]. CM AGREED THAT ASSISTED LIVING WOULD NOT BE ABLE TO MEET PT'S NEEDS AND THAT CM AGREES THAT PT DOES NEED A [facility] FACILITY AT THIS TIME. PT WANTS TO TALK TO HER HOSPICE AGAIN ABOUT HER OPTIONS BEFORE MAKING FURTHER PLACEMENT DECISIONS, ASKED CM TO CALL THE HOSPICE NURSE. CM CALLED PORSCHE BUITRAGO, HOSPICE HOME CARE NURSE, ; PORSCHE DID DISCUSS PLACEMENT WITH PT AND DOES NOT THINK IT IS APPROPRIATE FOR PT TO RETURN HOME THIS TIME. THEY ARE SENDING A GREENHOUSE STAFF TO DISCUSS PLACEMENT WITH PT TODAY AND WILL FOLLOW UP WITH CM AFTER MEETING WITH PT. CM WAITING ON PT'S DECISION, CM HAS ENCOURAGED PT TO ACCEPT [facility] PLACEMENT RECOMMENDED BY HER HOSPICE AGENCY. Regulo Hester, CASE MANAGEMENT DCP- Discharge Planning Updated by [id number]: Regulo Hester on 02/01/19 8:[address] Patient Name: DIEGO ESCOBAR Encounter No: [id number] : 1950 Primary Insurance: [facility] MEDICARE SOLUTIONS Anticipated DC Date: Planned Disposition: Hospice Medical Facility External Planned Provider: HOSPICE HOME CARE Discharge Planning Comments: CM FAXED HOSPITAL UDP[facility] TO HOSPICE HOME CARE, .. FOR DISCHARGE, NOTIFY HOSPICE HOME CARE AT [phone], FAX DISCHARGE INFORMATION TO HOSPICE HOME CARE AT [phone]. Gear Machine Operator: Regulo Hester DCP- Discharge Planning Updated by [id number]: Regulo Hester on 01/31/19 3:[address] Patient Name: DIEGO ESCOBAR Admission Status: ER Accout number: [id number] Admission Date: 01-30-2019 : 1950 Admission Diagnosis: Attending: LISA ESQUIVEL Current LOS: 1 Anticipated DC Date: Planned Disposition: Hospice HOME Primary Insurance: [facility] MEDICARE SOLUTIONS PLANNED EXTERNAL PROVIDER: HOSPICE HOME CARE Discharge Planning Comments: CM MET WITH PT IN ROOM TO DISCUSS DISCHARGE PLANNING AND NEEDS. PT REPORTS LIVING AT HOME INDEPENDENTLY AND ALONE IN HER APARTMENT. PT HAS HOSPICE HOME CARE AND PERSONAL CARE WHEN NEEDED. PT HAS BACK BRACE, ELEVATED TOILET SEAT, GRAB BARS IN THE BATHROOM, NEBULIZER, HOME AND PORTABLE OXYGEN, ROLLING WALKER AND SHOWER CHAIR FROM HOSPICE. CM DISCUSSED AVAILABILITY OF HOME HEALTH, REHAB SERVICES AND MEDICAL EQUIPMENT. PT INSISTS SHE IS NOT GOING TO A [facility]. PT DENIES DISCHARGE NEEDS, STATES SHE DID NOT REVOKE HOSPICE AND WILL RESUME HOSPICE HOME CARE AND THAT REPORTS HER CAREGIVER OR SON WILL PICK HER UP FOR DISCHARGE HOME. CHOICE SIGNED FOR HOSPICE HOME CARE. FOR DISCHARGE, NOTIFY HOSPICE HOME CARE AT [phone], FAX DISCHARGE INFORMATION TO HOSPICE HOME CARE AT [phone]. Gear Machine Operator: Regulo Hester DCPIA - Discharge Planning Initial Assessment Updated by [id number]: Regulo Hester on 01/31/19 4:46 pm * Is the patient Alert and Oriented? Yes * How many steps to enter\exit or inside your home? ELEVATOR * PCP DR. SANTOS * Pharmacy [facility] * Preadmission Environment Home Alone * ADLs Independent * Equipment Back Brace Elevated Tol[place] Seat Grab Bars Nebulizer Oxygen Rolling Walker Shower Chair * Other Equipment HOSPICE HOME CARE - MEDICAL EQUIPMENT PROVIDER * List name and contact numbers for known caregivers / representatives who currently or will assist patient after discharge: SAGAR ESCOBAR, SON, * Verbal permission to speak to the caregivers and representatives has been obtained from the patient. N/A * Community resources currently utilized Hospice Home Private Duty Care * Please name any agencies selected above. HOSPICE HOME CARE IT'S ALL ABOUT YOU PERSONAL CARE * Additional services required to return to the preadmission environment? No * Can the patient safely return to the preadmission environment? Yes * Has this patient been hospitalized within the prior 30 days at any hospital? Yes Coverage Notice Reviewer: [id number] Maninder Hester Notice Issued Date-Time: 01/31/2019 16:45 Notice Type: Patient Choice Letter Notice Delivered To: Patient Relationship to Patient: Mash Filter Operator Name: Delivery Method: HAND - Hand Delivered Kiara Days: Prior Verbal Notification: Recipient Understood Notice: Yes Recipient Signature: Yes Med Rec Note Co-signed by Attending: Coverage Notice Comment: HOSPICE HOME CARE. Reviewer: [id number] Maninder Hester Notice Issued Date-Time: 02/01/2019 14:10 Notice Type: Patient Choice Letter Notice Delivered To: Patient Relationship to Patient: Mash Filter Operator Name: Delivery Method: HAND - Hand Delivered Kiara Days: Prior Verbal Notification: Recipient Understood Notice: Yes Recipient Signature: Yes Med Rec Note Co-signed by Attending: Coverage Notice Comment: NO [facility] REHAB PREFERENCE Last DP export: 02/01/19 11:41 a Patient Name: DIEGO ESCOBAR Page 00417 at 1653 All edits/amendments must be made on the electronic document DICTATION DATE: 02/01/191652 EXTERIOR DESIGNER: NERI 02/01/191652 RPT#: [id number] DC DATE: STATUS: ADM IN [facility] [address] [place] [address] END OF REPORT
--- NOTE | 2019-02-01 17:21 | NUR ---
WITHOUT CHANGES OR DISTRESS NOTED AT THIS TIME. DENIES NEEDS.
--- NOTE | 2019-02-01 19:30 | NUR ---
ASSESSMENT COMPLETE, PT A&. RESPERATIONS EVEN ON AT 2 LITERS VIA NC. IV TO LEFT HAND SL, AND 20 GUAGE TO RIGHT WRIST SL. REICH DRAINING TO GRAVITY. PT DENIES PAIN OR NEEDS, BED LOW, CL IN REACH.
[2019-02-01 20:00] VITALS: BP 108/74
--- NOTE | 2019-02-02 02:30 | NUR ---
I have reviewed this patient and I concur with the Shift Assessment completed by the Licensed Practical Nurse today this shift.
--- NOTE | 2019-02-02 02:36 | NUR ---
RESTING WITH EYES CLOSED, RESPERATIONS EVEN, NO S/S DISTRESS NOTED.
[2019-02-02 04:00] VITALS: BP 118/79
[2019-02-02 04:39] LABS: BASOPHILS 0.1 % (0-2); EOSINOPHILS 1.1 % (0-7); HEMATOCRIT 38.1 % (36.0-48.0); HEMOGLOBIN 11.6 g/dL (12-16); IMMATURE GRANULOCYTES 0.1 % (0-5); LYMPHOCYTES 15.1 % (15-50); MCH 26.2 pg (26.0-34.0); MCHC 30.4 g/dL (31.0-37.0); MEAN PLATELET VOLUME 11.1 fL (7.4-10.4); MONOCYTES 9.2 % (2-11); NEUTROPHILS 74.4 % (40-80); PLATELET COUNT 231 10x3/uL (130-400); RBC 4.43 10x6/uL (4.00-5.40); RDW 20.1 % (11.5-14.5); WBC 7.2 10x3/uL (4.8-10.8)
[2019-02-02 05:21] LABS: ANION GAP 10.2 mmol/L (8-16); CALCIUM 8.8 mg/dL (8.5-10.1); CARBON DIOXIDE 34.7 mmol/L (21.0-32.0); CREATININE - SERUM 1.2 mg/dL (0.6-1.3); POTASSIUM - SERUM 3.9 mmol/L (3.5-5.1)
--- NOTE | 2019-02-02 07:36 | NUR ---
AM ROUNDS- PT RESTING COMFORTABLY IN BED, WITH EYES CLOSED, RESP EVEN AND NONLABORED ON RA. RT WRIST IV AND LT HAND IV BOTH SL. CALL LIGHT IN REACH, BEDSIDE RAILS X2, NAD NOTED, WILL CONTINUE PLAN OF CARE.
[2019-02-02 08:39] VITALS: BP 136/80
--- NOTE | 2019-02-02 08:50 | NUR ---
AM MEDS GIVEN AT THIS TIME. PT EATING BREAKFAST, DENIES ANY NEEDS AT THIS TIME. CALL LIGHT IN REACH, NAD NOTED, WILL CONTINUE PLAN OF CARE.
[2019-02-02 11:40] VITALS: BP 130/77
[2019-02-02 18:36] VITALS: BP 126/83
--- NOTE | 2019-02-02 19:38 | NUR ---
PT RESTING IN BED. SMELL OF URINE NOTED. CLEANED PT AND REPOSITIONED. NAME AND DATE PLACED ON BOARD. PT IS AAO, ASKING FOR LATIA. PT RECEIVED. BEDLOW AND CALL LIGHT IN REACH. WILL CPOC
[2019-02-02 20:00] VITALS: BP 110/65
[2019-02-03 04:00] VITALS: BP 115/67
--- NOTE | 2019-02-03 06:32 | NUR ---
MORNING MEDICATIONS GIVEN. PT HAS NO S/S OF DISTRESS. NOURISHMENT IN REACH. DATE AND POC UPDATED ON BOARD. PT WILL CALL FOR ASSIST WHEN NEEDED. WILL CPOC
[2019-02-03 06:35] LABS: BASOPHILS 0.3 % (0-2); EOSINOPHILS 0.9 % (0-7); HEMATOCRIT 38.4 % (36.0-48.0); HEMOGLOBIN 11.4 g/dL (12-16); IMMATURE GRANULOCYTES 0.3 % (0-5); LYMPHOCYTES 11.5 % (15-50); MCH 26.4 pg (26.0-34.0); MCHC 29.7 g/dL (31.0-37.0); MEAN PLATELET VOLUME 10.9 fL (7.4-10.4); MONOCYTES 7.8 % (2-11); NEUTROPHILS 79.2 % (40-80); PLATELET COUNT 226 10x3/uL (130-400); RBC 4.32 10x6/uL (4.00-5.40); RDW 20.5 % (11.5-14.5); WBC 7.5 10x3/uL (4.8-10.8)
[2019-02-03 06:53] LABS: MCV 88.9 fL (80.0-100.0)
[2019-02-03 07:06] LABS: ANION GAP 9.2 mmol/L (8-16); CALCIUM 8.6 mg/dL (8.5-10.1); CARBON DIOXIDE 37.9 mmol/L (21.0-32.0); CREATININE - SERUM 1.1 mg/dL (0.6-1.3); POTASSIUM - SERUM 3.1 mmol/L (3.5-5.1)
[2019-02-03 08:10] VITALS: BP 116/77
--- NOTE | 2019-02-03 08:31 | NUR ---
ALERT AND ORIENTED. TELEMERTY SHOWS SR 89. REICH CATH PATENT TO GRAVITY BAG. SL TO RIGHT FA AND LEFT HAND PATENT. PT IS BEDFAST. SR UP WITH CALL LIGHT IN REACH.
--- NOTE | 2019-02-03 09:36 | NUR ---
GAVE MORNING MEDICATIONS AT THIS TIME, NO PROBLEM SWALLOWING. DENIES OTHER NEEDS AT THIS TIME, WILL CONTINUE TO MONITOR.
[2019-02-03 11:37] VITALS: BP 119/72
[2019-02-03 13:26] VITALS: Ht 162.6 cm; Wt 67.6 kg
[2019-02-03 14:38] VITALS: BP 113/72
--- NOTE | 2019-02-03 15:04 | NUR ---
I have reviewed this patient and I concur with the Shift Assessment completed by the Licensed Practical Nurse today this shift.
--- NOTE | 2019-02-03 15:25 | NUR ---
ZOFRAN 4MG IV GIVEN FOR C/O NAUSEA
--- NOTE | 2019-02-03 15:40 | NUR ---
OT NOTE: PT COMPLETED BED MOB WITH MIN/MOD A. PT COMPLETED STANDING BALANCE WITH SIDE STEPS WITH MIN A. PT COMPLETED GROOMING TASK WITH MIN A. PT COMPLETED UE AROM AXS. THANK YOU, ERYN YEH
--- NOTE | 2019-02-03 16:34 | NUR ---
DENIES ANY FUTHER NAUSEA. TELEMERTY SHOWS SR.
--- NOTE | 2019-02-03 19:28 | NUR ---
PT RESTING IN BED. AAO, DENIES ANY NEEDS. NAME AND DATE PLACED ON BOARD. 2.5L O2 NC. PT HAS NO S/S OF DISTRESS. PT WILL CALL FOR ASSIST WHEN NEEDED. BEDLOW AND CALL LIGHT IN REACH. WILL CPOC
[2019-02-03 20:00] VITALS: BP 109/73
--- NOTE | 2019-02-03 21:43 | NUR ---
REPOSITIONED PT IN BED. NIGHT MEDICATIONS GIVEN AND A SHERBERT GIVEN. PT HAS NOURISHMENT IN REACH. PT DENIES ANY NEEDS. VERBALIZED UNDERSTANDING OF POC AND MEDICATIONS. PT WILL CALL FOR ASSIST WHEN NEEDED. WILL CPOC
[2019-02-04] VITALS: BP 107/65
[2019-02-04 04:00] VITALS: BP 107/62
--- NOTE | 2019-02-04 06:10 | NUR ---
PT GIVEN A SHERBERT AND FRESH WATER. MORNING MEDICATIONS GIVEN. PT DENIES ANY NEEDS. NO S/S OF DISTRESS. PT BEDLOW AND CALL LIGHT IN REACH. WILL CPOC
[2019-02-04 06:38] LABS: BASOPHILS 0.1 % (0-2); HEMATOCRIT 38.8 % (36.0-48.0); HEMOGLOBIN 11.4 g/dL (12-16); IMMATURE GRANULOCYTES 0.1 % (0-5); LYMPHOCYTES 9.8 % (15-50); MCH 26.8 pg (26.0-34.0); MCHC 29.4 g/dL (31.0-37.0); MEAN PLATELET VOLUME 11.1 fL (7.4-10.4); MONOCYTES 8.3 % (2-11); NEUTROPHILS 80.7 % (40-80); PLATELET COUNT 245 10x3/uL (130-400); RBC 4.26 10x6/uL (4.00-5.40); RDW 20.3 % (11.5-14.5); WBC 8.1 10x3/uL (4.8-10.8)
[2019-02-04 06:44] LABS: MCV 91.1 fL (80.0-100.0)
[2019-02-04 06:51] LABS: ANION GAP 8.2 mmol/L (8-16); CALCIUM 8.5 mg/dL (8.5-10.1); CARBON DIOXIDE 38.8 mmol/L (21.0-32.0); CREATININE - SERUM 1.2 mg/dL (0.6-1.3)
--- NOTE | 2019-02-04 07:00 | NUR ---
RECEIVED REPORT FROM [facility]. RESUMED CARE AT THIS TIME. LYING IN BED WITH NO C/O. ANSWERS TO NAME. RESP EVEN WITHOUT LABOR.
[2019-02-04 08:18] VITALS: BP 123/58
--- NOTE | 2019-02-04 09:02 | MORECARE ---
CASE MANAGEMENT DISCHARGE SUMMARY PATIENT: DIEGO ESCOBAR UNIT: [id number] ADM DATE: 01/30/19 AGE: 68 : 51 SEX: F ROOM/BED: D.5309 AUTHOR: BALBIR GREWAL PHYSICIAN: REFERRING PHYSICIAN: LISA ESQUIVEL DO DATE OF SERVICE: 02/04/19 Discharge Plan Patient Name: DIEGO ESCOBAR Facility: [facility]:[place] : 1950 Planned Disposition: Alf Facility Anticipated Discharge Date: Discharge Date: Expected LOS: Initial Reviewer: [id number] Initial Review Date: 01/30/2019 Generated: 02/04/19 10:02 am Comments DCP- Discharge Planning Updated by [id number]: Regulo Hester on 02/01/19 3:[address] Patient Name: DIEGO ESCOBAR Encounter No: [id number] : 1950 Primary Insurance: [facility] MED[employer] SOLUTIONS Anticipated DC Date: Planned Disposition: Alf Facility External Planned Provider: TO BE DETERMINED DCP follow-up note: CM MET WITH PT AND HOSPICE NURSE PORSCHE ARCHULETA IN ROOM TO DISCUSS DISCHARGE PLANNING AND NEEDS. HOSPICE NURSE INFORMED PT THAT THEY ARE ASKING FOR HOSPICE INPATIENT CONTRACT WITH THE HOSPITAL. IF THAT IS NOT POSSIBLE, HOSPICE WILL REVOKE SERVICES. HOSPICE NURSE DISCUSSED GOING TO [facility] AFTER TREATMENT IS COMPLETED. PT IN AGREEMENT. PT SIGNED CONSENT FOR ANY [facility], JUST NOT [facility]. HOSPICE NURSE REPORTS HAVING HOSPICE HOME CARE CONTRACTS WITH [facility], [facility], IN CASE PT IS NOT ABLE TO GO HOME AFTER REHAB. CM TO SEND REFERRALS FOR [facility] ONCE PHYSICAL THERAPY EVALUATION IS COMPLETED. REFERRALS TO BE SENT TO [facility], [facility] AND [facility]. MARCELA Sterling DCP- Discharge Planning Updated by [id number]: Regulo Hester on 02/01/19 11:[address] Patient Name: DIEGO ESCOBAR Encounter No: [id number] : 1950 Primary Insurance: [facility] MEDIC[employer] SOLUTIONS Anticipated DC Date: Planned Disposition: Nursing Facility [facility] External Planned Provider: TO BE DETERMINED DCP follow-up note: CM RECEIVED NOTE FROM PT TO SEE HER IN HER ROOM. CM SPOKE TO TYLOR AGUILERA WHO INFORMED CM THAT HOSPICE PLANS TO REVOKE HOSPICE SERVICES AND PT NEEDS PLACEMENT WITH HOSPICE, NOT HOME HOSPICE. CM MET WITH PT IN ROOM, DISCUSSED DISCHARGE PLANNING AND NEEDS. PT DISCUSSED GOING TO ASSISTED LIVING IN [place] WITH THE HOSPICE NURSE WHO TOLD HER THAT SHE NEEDS TO GO TO A [facility]. CM AGREED THAT ASSISTED LIVING WOULD NOT BE ABLE TO MEET PT'S NEEDS AND THAT CM AGREES THAT PT DOES NEED A [facility] FACILITY AT THIS TIME. PT WANTS TO TALK TO HER HOSPICE AGAIN ABOUT HER OPTIONS BEFORE MAKING FURTHER PLACEMENT DECISIONS, ASKED CM TO CALL THE HOSPICE NURSE. CM CALLED PORSCHE BUITRAGO, HOSPICE HOME CARE NURSE, ; PORSCHE DID DISCUSS PLACEMENT WITH PT AND DOES NOT THINK IT IS APPROPRIATE FOR PT TO RETURN HOME THIS TIME. THEY ARE SENDING A SPRAY GUN STRIPER TO DISCUSS PLACEMENT WITH PT TODAY AND WILL FOLLOW UP WITH CM AFTER MEETING WITH PT. CM WAITING ON PT'S DECISION, CM HAS ENCOURAGED PT TO ACCEPT [facility] PLACEMENT RECOMMENDED BY HER HOSPICE AGENCY. Regulo Hester, CASE MANAGEMENT DCP- Discharge Planning Updated by [id number]: Regulo Hester on 02/01/19 8:[address] Patient Name: DIEGO ESCOBAR Encounter No: [id number] : 1950 Primary Insurance: [facility] [employer] SOLUTIONS Anticipated DC Date: Planned Disposition: Hospice Medical Facility External Planned Provider: HOSPICE HOME CARE Discharge Planning Comments: CM [facility]XED [facility] TO HOSPICE HOME CARE, .. FOR DISCHARGE, NOTIFY HOSPICE HOME CARE AT [phone], FAX DISCHARGE INFORMATION TO HOSPICE HOME CARE AT [phone]. Heating Unit Installer: Regulo Hester DCP- Discharge Planning Updated by [email or web address]: Regulo Hester on 01/31/19 3:[address] Patient Name: DIEGO ESCOBAR Admission Status: ER Accout number: [id number] Admission Date: 01-30-2019 : 1950 Admission Diagnosis: Attending: LISA ESQUIVEL Current LOS: 1 Anticipated DC Date: Planned Disposition: Hospice HOME Primary Insurance: [facility] [employer] SOLUTIONS PLANNED EXTERNAL PROVIDER: HOSPICE HOME CARE Discharge Planning Comments: CM MET WITH PT IN ROOM TO DISCUSS DISCHARGE PLANNING AND NEEDS. PT REPORTS LIVING AT HOME INDEPENDENTLY AND ALONE IN HER APARTMENT. PT HAS HOSPICE HOME CARE AND PERSONAL CARE WHEN NEEDED. PT HAS BACK BRACE, ELEVATED TOILET SEAT, GRAB BARS IN THE BATHROOM, NEBULIZER, HOME AND PORTABLE OXYGEN, ROLLING WALKER AND SHOWER CHAIR FROM HOSPICE. CM DISCUSSED AVAILABILITY OF HOME HEALTH, REHAB SERVICES AND MEDICAL EQUIPMENT. PT INSISTS SHE IS NOT GOING TO A [facility]. PT DENIES DISCHARGE NEEDS, STATES SHE DID NOT REVOKE HOSPICE AND WILL RESUME HOSPICE HOME CARE AND THAT REPORTS HER CAREGIVER OR SON WILL PICK HER UP FOR DISCHARGE HOME. CHOICE SIGNED FOR HOSPICE HOME CARE. FOR DISCHARGE, NOTIFY HOSPICE HOME CARE AT [phone], FAX DISCHARGE INFORMATION TO HOSPICE HOME CARE AT [phone]. Heating Unit Installer: Regulo Hester DCPIA - Discharge Planning Initial Assessment Updated by [id number]: Regulo Hester on 01/31/19 4:46 pm * Is the patient Alert and Oriented? Yes * How many steps to enter\exit or inside your home? ELEVATOR * PCP DR. SANTOS * Pharmacy [facility] * Preadmission Environment Home Alone * ADLs Independent * Equipment Back Brace Elevated Toliet Seat Grab Bars Nebulizer Oxygen Rolling Walker Shower Chair * Other Equipment HOSPICE HOME CARE - MEDICAL EQUIPMENT PROVIDER * List name and contact numbers for known caregivers / representatives who currently or will assist patient after discharge: SAGAR ESCOBAR, SON, * Verbal permission to speak to the caregivers and representatives has been obtained from the patient. N/A * Community resources currently utilized Hospice Home Private Duty Care * Please name any agencies selected above. HOSPICE HOME CARE IT'S ALL ABOUT YOU PERSONAL CARE * Additional services required to return to the preadmission environment? No * Can the patient safely return to the preadmission environment? Yes * Has this patient been hospitalized within the prior 30 days at any hospital? Yes External Providers External Provider: [facility] [place] Next Contact Date: 02/04/2019 Service Request Date: Service Type: Resolution: Reviewer: Comments: Coverage Notice Reviewer: [id number] - Regulo Hester Notice Issued Date-Time: 01/31/2019 16:45 Notice Type: Patient Choice Letter Notice Delivered To: Patient Relationship to Patient: Applicator Sprayer Name: Delivery Method: HAND - Hand Delivered Kiara Days: Prior Verbal Notification: Recipient Understood Notice: Yes Recipient Signature: Yes Med Rec Note Co-signed by Attending: Coverage Notice Comment: HOSPICE HOME CARE. Reviewer: [id number] Maninder Hester Notice Issued Date-Time: 02/01/2019 14:10 Notice Type: Patient Choice Letter Notice Delivered To: Patient Relationship to Patient: Applicator Sprayer Name: Delivery Method: HAND - Hand Delivered Kiara Days: Prior Verbal Notification: Recipient Understood Notice: Yes Recipient Signature: Yes Med Rec Note Co-signed by Attending: Coverage Notice Comment: NO [facility] FACILITY REHAB PREFERENCE Last DP export: 02/01/19 3:53 p Patient Name: DIEGO ESCOBAR Page 75027 at 0902 All edits/amendments must be made on the electronic document DICTATION DATE: 02/04/19901 ASSOCIATE PROFESSOR OF SOCIOLOGY: NERI 02/04/19901 RPT#: [id number] DC DATE: STATUS: ADM IN [facility] [address] [place] [address] END OF REPORT
--- NOTE | 2019-02-04 09:22 | MORECARE ---
CASE MANAGEMENT DISCHARGE SUMMARY PATIENT: DIEGO ESCOBAR UNIT: [id number] ADM DATE: 01/30/19 AGE: 68 : 51 SEX: F ROOM/BED: D.2403 AUTHOR: BALBIR GREWAL PHYSICIAN: REFERRING PHYSICIAN: LISA ESQUIVEL DO DATE OF SERVICE: 02/04/19 Discharge Plan Patient Name: DIEGO ESCOBAR Facility: [facility]:[place] : 1950 Planned Disposition: Nursing Home Facility Anticipated Discharge Date: Discharge Date: Expected LOS: Initial Reviewer: [id number] Initial Review Date: 01/30/2019 Generated: 02/04/19 10:21 am Comments DCP- Discharge Planning Updated by [id number]: Regulo Hester on 02/04/19 8:[address] Patient Name: DIEGO ESCOBAR Encounter No: [id number] : 1950 Primary Insurance: [facility] MEDICARE SOLUTIONS Anticipated DC Date: Planned Disposition: Nursing Home Facility External Planned Provider: [facility], MEDICARE REHAB BED DCP follow-up note: CM REVIEWED CHART, HOSPICE HOME CARE HAS REVOKED OF 01-31-19. PT REQUESTING [facility] REHAB. CM CALLED ANY, CL[facility]IA[facility] FOR [facility], , ASKED FOR ASSESSMENT FOR REHAB ADMISSION. CM FAXED REFERRAL TO [facility] VIA ANY AT [phone]. CM WAITING ADMISSIONS DETERMINATIONS FROM [facility]. Regulo Hester CASE JOHNNA DCP- Discharge Planning Updated by [id number]: Regulo Hester on 02/01/19 3:[address] Patient Name: DIEGO ESCOBAR Encounter No: [id number] : 1950 Primary Insurance: [facility] MEDICARE SOLUTIONS Anticipated DC Date: Planned Disposition: Nursing Home Facility External Planned Provider: TO BE DETERMINED DCP follow-up note: CM MET WITH PT AND HOSPICE NURSE PORSCHE ARCHULETA IN ROOM TO DISCUSS DISCHARGE PLANNING AND NEEDS. HOSPICE NURSE INFORMED PT THAT THEY ARE ASKING FOR HOSPICE INPATIENT CONTRACT WITH THE HOSPITAL. IF THAT IS NOT POSSIBLE, HOSPICE WILL REVOKE SERVICES. HOSPICE NURSE DISCUSSED GOING TO [facility] REHAB AFTER TREATMENT IS COMPLETED. PT IN AGREEMENT. PT SIGNED CONSENT FOR ANY [facility] RE[facility]AB, JUST NOT [facility]. HOSPICE NURSE REPORTS HAVING HOSPICE HOME CARE CONTRACTS WITH [facility], [facility] AND [facility], IN CASE PT IS NOT ABLE TO GO HOME AFTER REHAB. CM TO SEND REFERRALS FOR [facility] REHAB ONCE PHYSICAL THERAPY EVALUATION IS COMPLETED. REFERRALS TO BE SENT TO [facility], [facility] AND [facility]. MARCELA Sterling DCP- Discharge Planning Updated by [id number]: Regulo Hester on 02/01/19 11:[address] Patient Name: DIEGO ESCOBAR Encounter No: [id number] : 1950 Primary Insurance: [facility] MEDICARE SOLUTIONS Anticipated DC Date: Planned Disposition: Nursing Facility [facility] External Planned Provider: TO BE DETERMINED DCP follow-up note: CM RECEIVED NOTE FROM PT TO SEE HER IN HER ROOM. CM SPOKE TO TYLOR AGUILERA WHO INFORMED CM THAT HOSPICE PLANS TO REVOKE HOSPICE SERVICES AND PT NEEDS PLACEMENT WITH HOSPICE, NOT HOME HOSPICE. CM MET WITH PT IN ROOM, DISCUSSED DISCHARGE PLANNING AND NEEDS. PT DISCUSSED GOING TO ASSISTED LIVING [place] WITH THE HOSPICE NURSE WHO TOLD HER THAT SHE NEEDS TO GO TO A SKILLED NURSING. CM AGREED THAT ASSISTED LIVING WOULD NOT BE ABLE TO MEET PT'S NEEDS AND THAT CM AGREES THAT PT DOES NEED A JAIL FACILITY AT THIS TIME. PT WANTS TO TALK TO HER HOSPICE AGAIN ABOUT HER OPTIONS BEFORE MAKING FURTHER PLACEMENT DECISIONS, ASKED CM TO CALL THE HOSPICE NURSE. CM CALLED PORSCHE BUITRAGO, HOSPICE HOME CARE NURSE, ; PORSCHE DID DISCUSS PLACEMENT WITH PT AND DOES NOT THINK IT IS APPROPRIATE FOR PT TO RETURN HOME THIS TIME. THEY ARE SENDING A INTERNET SALESPERSON TO DISCUSS PLACEMENT WITH PT TODAY AND WILL FOLLOW UP WITH CM AFTER MEETING WITH PT. CM WAITING ON PT'S DECISION, CM HAS ENCOURAGED PT TO ACCEPT JAIL FACILITY PLACEMENT RECOMMENDED BY HER HOSPICE AGENCY. MARCELA Sterling DCP- Discharge Planning Updated by [id number]: Regulo Hester on 02/01/19 8:[address] Patient Name: DIEGO ESCOBAR Encounter No: [id number] : 1950 Primary Insurance: C MEDICARE SOLUTIONS Anticipated DC Date: Planned Disposition: Hospice Medical Facility External Planned Provider: HOSPICE HOME CARE Discharge Planning Comments: CM FAXED [facility]OSPITAL [facility] TO HOSPICE HOME CARE, .. FOR DISCHARGE, NOTIFY HOSPICE HOME CARE AT [phone], FAX DISCHARGE INFORMATION TO HOSPICE HOME CARE AT [phone]. Baker [place]ry: Regulo Hester DCP- Discharge Planning Updated by [id number]: Regulo Hester on 01/31/19 3:[address] Patient Name: DIEGO ESCOBAR Admission Status: ER Accout number: [id number] Admission Date: 01-30-2019 : 1950 Admission Diagnosis: Attending: LISA ESQUIVEL Current LOS: 1 Anticipated DC Date: Planned Disposition: Hospice HOME Primary Insurance: [facility] MEDICARE SOLUTIONS PLANNED EXTERNAL PROVIDER: HOSPICE HOME CARE Discharge Planning Comments: CM MET WITH PT IN ROOM TO DISCUSS DISCHARGE PLANNING AND NEEDS. PT REPORTS LIVING AT HOME INDEPENDENTLY AND ALONE IN HER APARTMENT. PT HAS HOSPICE HOME CARE AND PERSONAL CARE WHEN NEEDED. PT HAS BACK BRACE, ELEVATED TOILET SEAT, GRAB BARS IN THE BATHROOM, NEBULIZER, HOME AND PORTABLE OXYGEN, ROLLING WALKER AND SHOWER CHAIR FROM HOSPICE. CM DISCUSSED AVAILABILITY OF HOME HEALTH, REHAB SERVICES AND MEDICAL EQUIPMENT. PT INSISTS SHE IS NOT GOING TO A SKILLED NURSING. PT DENIES DISCHARGE NEEDS, STATES SHE DID NOT REVOKE HOSPICE AND WILL RESUME HOSPICE HOME CARE AND THAT REPORTS HER CAREGIVER OR SON WILL PICK HER UP FOR DISCHARGE HOME. CHOICE SIGNED FOR HOSPICE HOME CARE. FOR DISCHARGE, NOTIFY HOSPICE HOME CARE AT [phone], FAX DISCHARGE INFORMATION TO HOSPICE HOME CARE AT [phone]. [place]ry: Regulo Hester DCPIA - Discharge Planning Initial Assessment Updated by [id number]: Regulo Hester on 01/31/19 4:46 pm * Is the patient Alert and Oriented? Yes * How many steps to enter\exit or inside your home? ELEVATOR * PCP DR. SANTOS * Pharmacy [facility] [address] * Preadmission Environment Home Alone * ADLs Independent * Equipment Back Brace Elevated Toliet Seat Grab Bars Nebulizer Oxygen Rolling Walker Shower Chair * Other Equipment HOSPICE HOME CARE - MEDICAL EQUIPMENT PROVIDER * List name and contact numbers for known caregivers / representatives who currently or will assist patient after discharge: SAGAR ESCOBAR, SON, * Verbal permission to speak to the caregivers and representatives has been obtained from the patient. N/A * Community resources currently utilized Hospice Home Private Duty Care * Please name any agencies selected above. HOSPICE HOME CARE IT'S ALL ABOUT YOU PERSONAL CARE * Additional services required to return to the preadmission environment? No * Can the patient safely return to the preadmission environment? Yes * Has this patient been hospitalized within the prior 30 days at any hospital? Yes Coverage Notice Reviewer: [id number] Maninder Hester Notice Issued Date-Time: 01/31/2019 16:45 Notice Type: Patient Choice Letter Notice Delivered To: Patient Relationship to Patient: Sheriff Sergeant Name: Delivery Method: HAND - Hand Delivered Kiara Days: Prior Verbal Notification: Recipient Understood Notice: Yes Recipient Signature: Yes Med Rec Note Co-signed by Attending: Coverage Notice Comment: HOSPICE HOME CARE. Reviewer: [id number] Maninder Hester Notice Issued Date-Time: 02/01/2019 14:10 Notice Type: Patient Choice Letter Notice Delivered To: Patient Relationship to Patient: Sheriff Sergeant Name: Delivery Method: HAND - Hand Delivered Kiara Days: Prior Verbal Notification: Recipient Understood Notice: Yes Recipient Signature: Yes Med Rec Note Co-signed by Attending: Coverage Notice Comment: NO [facility] F[facility]ILITY REHAB PREFERENCE Last DP export: 02/04/19 8:02 a Patient Name: DIEGO ESCOBAR Page [id number] at 0922 All edits/amendments must be made on the electronic document DICTATION DATE: 02/04/19920 DIAGRAM CLERK: NERI 02/04/19920 RPT#: [id number] DC DATE: STATUS: ADM IN [facility] [address] [place] [address] END OF REPORT
--- NOTE | 2019-02-04 09:30 | NUR ---
ALERT ABLE TO VOICE NEEDS. SHE FED HERSELF BREAKFAST WITHOUT DIFF. RESP EVEN WITHOUT LABOR. O2 IS ON. CL IN REACH.
--- NOTE | 2019-02-04 10:43 | NUR ---
OT NOTE: PT INITIALLY DID NOT WANT TO GET UP FROM BED; AFTER ENCOURAGEMENT, PT AGREED TO SIT UP ON EOB. MOD ASSIST WITH SUPINE TO SIT; STATIC SITTING WITHOUT ASSIST; SIT TO STAND WITH WALKER AND MIN ASSIST..PT STATED THAT SHE COULD NOT TAKE STEPS. SIMPLE GROOMING WITH SET UP; AROM EXS WITH EXTENSIVE REST BREAKS SECONDARY TO SOB. PT DID NOT WANT TO SIT UP IN CHAIR TODAY.. STATED THAT SHE WOULD TRY TOMORROW. CARLEE CHICAS, OTR/L
[2019-02-04 11:51] VITALS: BP 134/52
--- NOTE | 2019-02-04 12:30 | NUR ---
SHE SELF FED LUNCH. TAKING PO FLUIDS WELL. SHE IS T/R Q2 HOURS AND PRN. HER COCCYX IS RED BUT IT BLANCHES WITH NO OPEN AREAS. CL IN REACH. SHE PREFERS LIGHTS OUT AND DOOR SHUT.
--- NOTE | 2019-02-04 15:00 | NUR ---
C/O NAUSEA. ZOFRAN GIVEN IVP AT THIS TIME.
--- NOTE | 2019-02-04 15:10 | NUR ---
OT NOTE: PT COMPLETED BED MOB TASKS WITH CGA/MIN A. PT COMPLETED HYGIENE TASKS WITH MAX A. PT STATED PAIN HAS DECREASED. PT REQUIRED MOD A FOR POSITIONING TO DECREASED SKIN BREAKDOWN. THANK YOU, ERYN YEH
--- NOTE | 2019-02-04 15:20 | NUR ---
FAMILY HERE FOR VISIT. STATED THE [facility] HAD CALLED HER AND SHE WAS GOING TO GO BY THERE AND SIGN PAPERS FOR HER ADMITTANCE.
[2019-02-04 15:22] VITALS: BP 92/52
--- NOTE | 2019-02-04 16:30 | NUR ---
REPORT CALLED TO STEPHANIE AT THE [facility] WHERE SHE IS GOING FOR REHAB. F/C D/C AND SHE WILL MONITOR PT VOIDING. ALL HER QUESTIONS WERE ANSWERED. SALINE LOCK X2 WERE D/C WITH CATH INTACT, MINIMAL BLEEDING. SHE IS ALERT ABLE TO VOICE NEEDS AND TRANSPORT MAN IS HERE AND HAS PORTABLE O2 ON W/C. NO CHANGE IN NEURO STATUS NOTED. NO C/O PAIN.
--- NOTE | 2019-02-04 16:42 | MORECARE ---
CASE MANAGEMENT DISCHARGE SUMMARY PATIENT: DIEGO ESCOBAR UNIT: [id number] ADM DATE: 01/30/19 AGE: 68 : 52 SEX: F ROOM/BED: D.2950 AUTHOR: BALBIR GREWAL PHYSICIAN: REFERRING PHYSICIAN: LISA ESQUIVEL DO DATE OF SERVICE: 02/04/19 Discharge Plan Patient Name: DIEGO ESCOBAR Facility: [facility]:[place] : 1950 Planned Disposition: Residential Facility Anticipated Discharge Date: 02/04/19 Discharge Date: Expected LOS: 5 Initial Reviewer: [id number] Initial Review Date: 01/30/2019 Generated: 02/04/19 5:42 pm DCP- Discharge Planning Updated by [id number]: Regulo Hester on 02/04/19 8:[address] Patient Name: DIEGO ESCOBAR Encounter No: [id number] : 1950 Primary Insurance: [facility] MEDICARE SOLUTIONS Anticipated DC Date: Planned Disposition: Residential Facility External Planned Provider: [facility], MEDICARE REHAB BED DCP follow-up note: CM REVIEWED CHART, HOSPICE HOME CARE HAS REVOKED OF 01-31-19. PT REQUESTING RESIDENTIAL REHAB. CM CALLED ANY, CLINICAL LIAISON FOR [facility], , ASKED FOR ASSESSMENT FOR REHAB ADMISSION. CM FAXED REFERRAL TO [facility] VIA ANY AT [phone]. CM WAITING ADMISSIONS DETERMINATIONS FROM [facility]. MARCELA Sterling DCP- Discharge Planning Updated by [id number]: Regulo Hester on 02/01/19 3:[address] Patient Name: DIEGO ESCOBAR Encounter No: [id number] : 1950 Primary Insurance: [facility] MEDICARE SOLUTIONS Anticipated DC Date: Planned Disposition: Residential Facility External Planned Provider: TO BE DETERMINED DCP follow-up note: CM MET WITH PT AND HOSPICE NURSE PORSCHE ARCHULETA IN ROOM TO DISCUSS DISCHARGE PLANNING AND NEEDS. HOSPICE NURSE INFORMED PT THAT THEY ARE ASKING FOR HOSPICE INPATIENT CONTRACT WITH THE HOSPITAL. IF THAT IS NOT POSSIBLE, HOSPICE WILL REVOKE SERVICES. HOSPICE NURSE DISCUSSED GOING TO RESIDENTIAL REHAB AFTER TREATMENT IS COMPLETED. PT IN AGREEMENT. PT SIGNED CONSENT FOR ANY RESIDENTIAL REHAB, JUST NOT [facility]. HOSPICE NURSE REPORTS HAVING HOSPICE HOME CARE CONTRACTS WITH JENISE WOOD, [facility] AND [facility], IN CASE PT IS NOT ABLE TO GO HOME AFTER REHAB. CM TO SEND REFERRALS FOR RESIDENTIAL REHAB ONCE PHYSICAL THERAPY EVALUATION IS COMPLETED. REFERRALS TO BE SENT TO [facility], [facility], [facility] AND [facility]. MARCELA Sterling DCP- Discharge Planning Updated by [id number]: Regulo Hester on 02/01/19 11:[address] Patient Name: DIEGO ESCOBAR Encounter No: [id number] : 1950 Primary Insurance: [facility] MEDICARE SOLUTIONS Anticipated DC Date: Planned Disposition: Nursing Facility DESI Cert External Planned Provider: TO BE DETERMINED DCP follow-up note: CM RECEIVED NOTE FROM PT TO SEE HER IN HER ROOM. CM SPOKE TO TYLOR AGUILERA WHO INFORMED CM THAT HOSPICE PLANS TO REVOKE HOSPICE SERVICES AND PT NEEDS PLACEMENT WITH HOSPICE, NOT HOME HOSPICE. CM MET WITH PT IN ROOM, DISCUSSED DISCHARGE PLANNING AND NEEDS. PT DISCUSSED GOING TO ASSISTED LIVING IN [place] WITH THE HOSPICE NURSE WHO TOLD HER THAT SHE NEEDS TO GO TO A JAIL. CM AGREED THAT ASSISTED LIVING WOULD NOT BE ABLE TO MEET PT'S NEEDS AND THAT CM AGREES THAT PT DOES NEED A RESIDENTIAL FACILITY AT THIS TIME. PT WANTS TO TALK TO HER HOSPICE AGAIN ABOUT HER OPTIONS BEFORE MAKING FURTHER PLACEMENT DECISIONS, ASKED CM TO CALL THE HOSPICE NURSE. CM CALLED PORSCHE BUITRAGO, HOSPICE HOME CARE NURSE, ; PORSCHE DID DISCUSS PLACEMENT WITH PT AND DOES NOT THINK IT IS APPROPRIATE FOR PT TO RETURN HOME THIS TIME. THEY ARE SENDING A CLAIM PROCESSOR TO DISCUSS PLACEMENT WITH PT TODAY AND WILL FOLLOW UP WITH CM AFTER MEETING WITH PT. CM WAITING ON PT'S DECISION, CM HAS ENCOURAGED PT TO ACCEPT RESIDENTIAL FACILITY PLACEMENT RECOMMENDED BY HER HOSPICE AGENCY. MARCELA Sterling DCP- Discharge Planning Updated by [id number]: Regulo Hester on 02/01/19 8:[address] Patient Name: DIEGO ESCOBAR Encounter No: [id number] : 1950 Primary Insurance: [facility] MEDICARE SOLUTIONS Anticipated DC Date: Planned Disposition: Hospice Medical Facility External Planned Provider: HOSPICE HOME CARE Discharge Planning Comments: [facility]ED H[facility]PITAL UDPATE TO HOSPICE HOME CARE, .. FOR DISCHARGE, NOTIFY HOSPICE HOME CARE AT [phone], FAX DISCHARGE INFORMATION TO HOSPICE HOME CARE AT [phone]. Chief Procurement Officer: Regulo Hester DCP- Discharge Planning Updated by [id number]: Regulo Hester on 01/31/19 3:[address] Patient Name: DIEGO ESCOBAR Admission Status: ER Accout number: [id number] Admission Date: 01-30-2019 : 1950 Admission Diagnosis: Attending: LISA ESQUIVEL Current LOS: 1 Anticipated DC Date: Planned Disposition: Hospice HOME Primary Insurance: [facility] MEDICARE SOLUTIONS PLANNED EXTERNAL PROVIDER: HOSPICE HOME CARE Discharge Planning Comments: CM MET WITH PT IN ROOM TO DISCUSS DISCHARGE PLANNING AND NEEDS. PT REPORTS LIVING AT HOME INDEPENDENTLY AND ALONE IN HER APARTMENT. PT HAS HOSPICE HOME CARE AND PERSONAL CARE WHEN NEEDED. PT HAS BACK BRACE, ELEVATED TOILET SEAT, GRAB BARS IN THE BATHROOM, NEBULIZER, HOME AND PORTABLE OXYGEN, ROLLING WALKER AND SHOWER CHAIR FROM HOSPICE. CM DISCUSSED AVAILABILITY OF HOME HEALTH, REHAB SERVICES AND MEDICAL EQUIPMENT. PT INSISTS SHE IS NOT GOING TO A JAIL. PT DENIES DISCHARGE NEEDS, STATES SHE DID NOT REVOKE HOSPICE AND WILL RESUME HOSPICE HOME CARE AND THAT REPORTS HER CAREGIVER OR SON WILL PICK HER UP FOR DISCHARGE HOME. CHOICE SIGNED FOR HOSPICE HOME CARE. FOR DISCHARGE, NOTIFY HOSPICE HOME CARE AT [phone], FAX DISCHARGE INFORMATION TO HOSPICE HOME CARE AT [phone]. Chief Procurement Officer: Regulo Hester DCPIA - Discharge Planning Initial Assessment Updated by [id number]: Regulo Hester on 01/31/19 4:46 pm * Is the patient Alert and Oriented? Yes * How many steps to enter\exit or inside your home? ELEVATOR * PCP DR. SANTOS * Pharmacy [facility] [place] * Preadmission Environment Home Alone * ADLs Independent * Equipment Back Brace Elevated Toliet Seat Grab Bars Nebulizer Oxygen Rolling Walker Shower Chair * Other Equipment HOSPICE HOME CARE - MEDICAL EQUIPMENT PROVIDER * List name and contact numbers for known caregivers / representatives who currently or will assist patient after discharge: SAGAR ESCBOAR, SON, * Verbal permission to speak to the caregivers and representatives has been obtained from the patient. N/A * Community resources currently utilized Hospice Home Private Duty Care * Please name any agencies selected above. HOSPICE HOME CARE IT'S ALL ABOUT YOU PERSONAL CARE * Additional services required to return to the preadmission environment? No * Can the patient safely return to the preadmission environment? Yes * Has this patient been hospitalized within the prior 30 days at any hospital? Yes Coverage Notice Reviewer: [id number] Maninder Hester Notice Issued Date-Time: 01/31/2019 16:45 Notice Type: Patient Choice Letter Notice Delivered To: Patient Relationship to Patient: Boarder Hand Name: Delivery Method: HAND - Hand Delivered Kiara Days: Prior Verbal Notification: Recipient Understood Notice: Yes Recipient Signature: Yes Med Rec Note Co-signed by Attending: Coverage Notice Comment: HOSPICE HOME CARE. Reviewer: [id number] Maninder Hester Notice Issued Date-Time: 02/01/2019 14:10 Notice Type: Patient Choice Letter Notice Delivered To: Patient Relationship to Patient: Boarder Hand Name: Delivery Method: HAND - Hand Delivered Kiara Days: Prior Verbal Notification: Recipient Understood Notice: Yes Recipient Signature: Yes Med Rec Note Co-signed by Attending: Coverage Notice Comment: NO RESIDENTIAL FACILITY REHAB PREFERENCE Last DP export: 02/04/19 8:21 a Patient Name: DIEGO ESCOBAR Page 42679 at 1642 All edits/amendments must be made on the electronic document DICTATION DATE: 02/04/191641 LAVENDER FARM WORKER: NERI 02/04/191641 RPT#: [id number] DC DATE: STATUS: ADM IN [facility] [address] [place] [address] END OF REPORT
--- NOTE | 2019-02-04 16:50 | NUR ---
TRANSFER X1 TO W/C AT THIS TIME. NO OPEN SKIN ISSUES. O2 ON FOR TRANSFER. ALL PERSONAL BELONGINGS SENT WITH HER. TELEMENTRY RETURNED FROM TO ADMINISTRATIVE ASSISTANT OFFICE MANAGER.
--- NOTE | 2019-02-04 16:50 | MORECARE ---
CASE MANAGEMENT DISCHARGE SUMMARY PATIENT: DIEGO ESCOBAR UNIT: [id number] ADM DATE: 01/30/19 AGE: 68 : 51 SEX: F ROOM/BED: D.7351 AUTHOR: BALBIR GREWAL PHYSICIAN: REFERRING PHYSICIAN: LISA ESQUIVEL DO DATE OF SERVICE: 02/04/19 Discharge Plan Patient Name: DIEGO ESCOBAR Facility: [facility]:[place] : 1950 Planned Disposition: Senior Living Facility Anticipated Discharge Date: 02/04/19 Discharge Date: Expected LOS: 5 Initial Reviewer: OPHELIA Initial Review Date: 01/30/2019 Generated: 02/04/19 5:50 pm Comments DCP- Discharge Planning Updated by [id number]: Regulo Hester on 02/04/19 3:[address] Patient Name: DIEGO ESCOBAR Encounter No: [id number] : 1950 Primary Insurance: [facility] MEDICARE SOLUTIONS Anticipated DC Date: 02-04-2019 Planned Disposition: Senior Living Facility External Planned Provider: [facility], MEDICARE REHAB BED DCP follow-up note: CM RECEIVED CALL FROM ANY OF THE [facility], INSURANCE APPROVED REHAB, THEY WILL ACCEPT TODAY. PT NOTIFIED AND IN AGREEMENT. NOTIFIED, DISCHARGE ORDER RECEIVED. CM FAXED DISCHARGE INFORMATION TO THE [facility], , NURSE REPORT TO BE CALLED TO THE [facility] AT [phone]. [facility]. Regulo Hester CASE MANAGEMENT DCP- Discharge Planning Updated by [id number]: Regulo Hester on 02/04/19 8:[address] Patient Name: DIEGO ESCOBAR Encounter No: [id number] : 1950 Primary Insurance: [facility] MEDIC[facility] SOLUTIONS Anticipated DC Date: Planned Disposition: Senior Living Facility External Planned Provider: [facility], MEDICARE REHAB BED DCP follow-up note: CM REVIEWED CHART, HOSPICE HOME CARE HAS REVOKED OF 01-31-19. PT REQUESTING RESIDENTIAL REHAB. CM CALLED ANY, CLINICAL LIAISON FOR THE [facility], , ASKED FOR ASSESSMENT FOR REHAB ADMISSION. CM FAXED REFERRAL TO THE [facility] VIA [employer] AT [phone]. CM WAITING ADMISSIONS DETERMINATIONS FROM THE [facility]. Regulo Hester CASE MANAGEMENT DCP- Discharge Planning Updated by [id number]: Regulo Hester on 02/01/19 3:[address] Patient Name: DIEGO ESCOBAR Encounter No: [id number] : 1950 Primary Insurance: [facility] MEDIC[facility] SOLUTIONS Anticipated DC Date: Planned Disposition: Senior Living Facility External Planned Provider: TO BE DETERMINED DCP follow-up note: CM MET WITH PT AND HOSPICE NURSE PORSCHE ARCHULETA IN ROOM TO DISCUSS DISCHARGE PLANNING AND NEEDS. HOSPICE NURSE INFORMED PT THAT THEY ARE ASKING FOR HOSPICE INPATIENT CONTRACT WITH THE HOSPITAL. IF THAT IS NOT POSSIBLE, HOSPICE WILL REVOKE SERVICES. HOSPICE NURSE DISCUSSED GOING TO RESIDENTIAL REHAB AFTER TREATMENT IS COMPLETED. PT IN AGREEMENT. PT SIGNED CONSENT FOR ANY RESIDENTIAL REHAB, JUST NOT [facility]. HOSPICE NURSE REPORTS HAVING HOSPICE HOME CARE CONTRACTS WITH [facility], [facility], IN CASE PT IS NOT ABLE TO GO HOME AFTER REHAB. CM TO SEND REFERRALS FOR RESIDENTIAL REHAB ONCE PHYSICAL THERAPY EVALUATION IS COMPLETED. [facility] AND [facility]. MARCELA Sterling MANAGEMENT DCP- Discharge Planning Updated by [id number]: Regulo Hester on 02/01/19 11:[address] Patient Name: DIEGO ESCOBAR Encounter No: [id number] : 1950 Primary Insurance: [facility] MED[facility] SOLUTIONS Anticipated DC Date: Planned Disposition: Nursing Facility [facility] External Planned Provider: TO BE DETERMINED DCP follow-up note: CM RECEIVED NOTE FROM PT TO SEE HER IN HER ROOM. CM SPOKE TO TYLOR AGUILERA WHO INFORMED CM THAT HOSPICE PLANS TO REVOKE HOSPICE SERVICES AND PT NEEDS PLACEMENT WITH HOSPICE, NOT HOME HOSPICE. CM MET WITH PT IN ROOM, DISCUSSED DISCHARGE PLANNING AND NEEDS. PT DISCUSSED GOING TO ASSISTED LIVING IN [place] WITH THE HOSPICE NURSE WHO TOLD HER THAT SHE NEEDS TO GO TO A CORRECTION. CM AGREED THAT ASSISTED LIVING WOULD NOT BE ABLE TO MEET PT'S NEEDS AND THAT CM AGREES THAT PT DOES NEED A RESIDENTIAL FACILITY AT THIS TIME. PT WANTS TO TALK TO HER HOSPICE AGAIN ABOUT HER OPTIONS BEFORE MAKING FURTHER PLACEMENT DECISIONS, ASKED CM TO CALL THE HOSPICE NURSE. CM CALLED PORSCHE BUITRAGO, HOSPICE HOME CARE NURSE, ; PORSCHE DID DISCUSS PLACEMENT WITH PT AND DOES NOT THINK IT IS APPROPRIATE FOR PT TO RETURN HOME THIS TIME. THEY ARE SENDING A JET INSPECTOR TO DISCUSS PLACEMENT WITH PT TODAY AND WILL FOLLOW UP WITH CM AFTER MEETING WITH PT. CM WAITING ON PT'S DECISION, CM HAS ENCOURAGED PT TO ACCEPT RESIDENTIAL FACILITY PLACEMENT RECOMMENDED BY HER HOSPICE AGENCY. Regulo Hester, CASE MANAGEMENT DCP- Discharge Planning Updated by [id number]: Regulo Hester on 02/01/19 8:[address] Patient Name: DIEGO ESCOBAR Encounter No: [id number] : 1950 Primary Insurance: [facility] SOLUTIONS Anticipated DC Date: Planned Disposition: Hospice Medical Facility External Planned Provider: HOSPICE HOME CARE Discharge Planning Comments: CM FAXED HOSPITAL UDPATE TO HOSPICE HOME CARE, .. FOR DISCHARGE, NOTIFY HOSPICE HOME CARE AT [phone], FAX DISCHARGE INFORMATION TO HOSPICE HOME CARE AT [phone]. Director Of Product Development: Regulo Hester DCP- Discharge Planning Updated by [id number]: Regulo Hester on 01/31/19 3:[address] Patient Name: DIEGO ESCOBAR Admission Status: ER Accout number: [id number] Admission Date: 01-30-2019 : 1950 Admission Diagnosis: Attending: LISA ESQUIVEL Current LOS: 1 Anticipated DC Date: Planned Disposition: Hospice HOME Primary Insurance: [facility] MED[facility] SOLUTIONS PLANNED EXTERNAL PROVIDER: HOSPICE HOME CARE Discharge Planning Comments: CM MET WITH PT IN ROOM TO DISCUSS DISCHARGE PLANNING AND NEEDS. PT REPORTS LIVING AT HOME INDEPENDENTLY AND ALONE IN HER APARTMENT. PT HAS HOSPICE HOME CARE AND PERSONAL CARE WHEN NEEDED. PT HAS BACK BRACE, ELEVATED TOILET SEAT, GRAB BARS IN THE BATHROOM, NEBULIZER, HOME AND PORTABLE OXYGEN, ROLLING WALKER AND SHOWER CHAIR FROM HOSPICE. CM DISCUSSED AVAILABILITY OF HOME HEALTH, REHAB SERVICES AND MEDICAL EQUIPMENT. PT INSISTS SHE IS NOT GOING TO A CORRECTION. PT DENIES DISCHARGE NEEDS, STATES SHE DID NOT REVOKE HOSPICE AND WILL RESUME HOSPICE HOME CARE AND THAT REPORTS HER CAREGIVER OR SON WILL PICK HER UP FOR DISCHARGE HOME. CHOICE SIGNED FOR HOSPICE HOME CARE. FOR DISCHARGE, NOTIFY HOSPICE HOME CARE AT [phone], FAX DISCHARGE INFORMATION TO HOSPICE HOME CARE AT [phone]. Director Of Product Development: Regulo Hester DCPIA - Discharge Planning Initial Assessment Updated by [id number]: Regulo Hester on 01/31/19 4:46 pm * Is the patient Alert and Oriented? Yes * How many steps to enter\exit or inside your home? ELEVATOR * PCP DR. SANTOS * Pharmacy [facility] [place] * Preadmission Environment Home Alone * ADLs Independent * Equipment Back Brace Elevated Toliet Seat Grab Bars Nebulizer Oxygen Rolling Walker Shower Chair * Other Equipment HOSPICE HOME CARE - MEDICAL EQUIPMENT PROVIDER * List name and contact numbers for known caregivers / representatives who currently or will assist patient after discharge: SAGAR ESCOBAR, SON, * Verbal permission to speak to the caregivers and representatives has been obtained from the patient. N/A * Community resources currently utilized Hospice Home Private Duty Care * Please name any agencies selected above. HOSPICE HOME CARE IT'S ALL ABOUT YOU PERSONAL CARE * Additional services required to return to the preadmission environment? No * Can the patient safely return to the preadmission environment? Yes * Has this patient been hospitalized within the prior 30 days at any hospital? Yes Coverage Notice Reviewer: [id number] Maninder Hester Notice Issued Date-Time: 01/31/2019 16:45 Notice Type: Patient Choice Letter Notice Delivered To: Patient Relationship to Patient: Bioinformatics Assistant Name: Delivery Method: HAND - Hand Delivered Kiara Days: Prior Verbal Notification: Recipient Understood Notice: Yes Recipient Signature: Yes Med Rec Note Co-signed by Attending: Coverage Notice Comment: HOSPICE HOME CARE. Reviewer: [id number] - Regulo Hester Notice Issued Date-Time: 02/01/2019 14:10 Notice Type: Patient Choice Letter Notice Delivered To: Patient Relationship to Patient: Bioinformatics Assistant Name: Delivery Method: HAND - Hand Delivered Kiara Days: Prior Verbal Notification: Recipient Understood Notice: Yes Recipient Signature: Yes Med Rec Note Co-signed by Attending: Coverage Notice Comment: NO RESIDENTIAL FACILITY REHAB PREFERENCE Last DP export: 02/04/19 3:42 p Patient Name: DIEGO ESCOBAR Page 72090 at 1650 All edits/amendments must be made on the electronic document DICTATION DATE: 02/04/191649 DIRECTOR INTERNAL CONTROL: NERI 02/04/191649 RPT#: [id number] DC DATE: STATUS: ADM IN [facility] [address] [place] [address] END OF REPORT
== END 2019-02-04 16:50 | DRG 291 ==
LOC: D.ER 20:30 → D.M2 21:29
PROVIDERS: Family Medicine; Internal Medicine Nephrology; Specialist; ADMIT Family Medicine; ATTEND Family Medicine
DX: I11.0 Hypertensive heart disease with heart failure (principal); J96.01 Acute respiratory failure with hypoxia; I26.99 Other pulmonary embolism without acute cor pulmonale; J44.1 Chronic obstructive pulmonary disease with (acute) exacerbation; C64.2 Malignant neoplasm of left kidney, except renal pelvis; I50.43 Acute on chronic combined systolic (congestive) and diastolic (congestive) heart failure; I08.1 Rheumatic disorders of both mitral and tricuspid valves; I27.20 Pulmonary hypertension, unspecified; E87.6 Hypokalemia; D50.9 Iron deficiency anemia, unspecified; I48.91 Unspecified atrial fibrillation; I25.10 Atherosclerotic heart disease of native coronary artery without angina pectoris

== ENCOUNTER 2019-02-14 05:56 | Inpatient (IN) | payer MEDICARE, MEDICAID ==
[~2019-02-14] VITALS: Ht 162.6 cm; Wt 87.0 kg
[2019-02-14] VITALS (24 sets, daily range): BP systolic 68–113; BP diastolic 24–90; BMI 33.2
--- NOTE | 2019-02-14 06:07 | NUR ---
FSBS 70.
--- NOTE | 2019-02-14 06:45 | NUR ---
SPOKE TO LONG-TERM. STATES PATIENT HAS NOT BEEN ON [facility] SINCE HER ARRIVAL. ALSO STATES ISN'T ON HOSPICE THAT SHE IS AWARE OF. HOSPICE NURSE ASSOCIATE DATA SCIENTIST PAGED TO VERIFY THIS. SISTER HERE. ISN'T HER POA AND HER SON IS IN THE [facility] HIMSELF.
--- NOTE | 2019-02-14 06:54 | NUR ---
HOSPICE NURSE RN ACLS STATES THE PATIENT HAD REVOKED HER HOSPICE.
--- NOTE | 2019-02-14 07:08 | NUR ---
REPORT RECEIVED FROM DONNA BENJAMIN RN. PT OBSERVED LYING IN BED RESTING WITH EYES CLOSED. NO SIGNS OF DISTRESS. SISTER AT BEDSIDE. SPO2 100% VIA HIGH FLOW NC AT 10L/MIN. PER DR. FAULKNER, TITRATE O2 DOWN TOLERATED. CURRENTLY AT 8L/MIN SPO2 100% WILL CONTINUE TO MONITOR.
[2019-02-14 07:21] LABS: BASOPHILS 0.1 % (0-2); EOSINOPHILS 0 % (0-7); HEMATOCRIT 33.7 % (36.0-48.0); HEMOGLOBIN 9.8 g/dL (12-16); IMMATURE GRANULOCYTES 0.4 % (0-5); LYMPHOCYTES 3.6 % (15-50); MCH 25.8 pg (26.0-34.0); MCHC 29.1 g/dL (31.0-37.0); MCV 88.7 fL (80.0-100.0); MEAN PLATELET VOLUME 10.6 fL (7.4-10.4); MONOCYTES 6.8 % (2-11); NEUTROPHILS 89.1 % (40-80); PLATELET COUNT 222 10x3/uL (130-400); RDW 19.6 % (11.5-14.5); WBC 18.2 10x3/uL (4.8-10.8)
[2019-02-14 07:30] LABS: ALBUMIN 2.8 g/dL (3.4-5.0); ALKALINE PHOSPHATASE 82 U/L (46-116); ALT (SGPT) 39 U/L (10-68); BILIRUBIN - TOTAL 3.34 mg/dL (0.2-1.3); CALC OSMOLALITY 301 mosm/kg (275-300); CALCIUM 10.2 mg/dL (8.5-10.1); CARBON DIOXIDE 27.3 mmol/L (21.0-32.0); CHLORIDE - SERUM 97 mmol/L (98-107); CREATININE - SERUM 2.2 mg/dL (0.6-1.3); GLUCOSE 94 mg/dL (74-106); POTASSIUM - SERUM 4.4 mmol/L (3.5-5.1); PROTEIN - SERUM 6.1 g/dL (6.4-8.2); SODIUM 146 mmol/L (136-145); UREA NITROGEN 43 mg/dL (7-18); eGFR NON AFRICAN AMERICAN 24 mL/min (90-120)
[2019-02-14 07:39] LABS: APTT 31.7 SECONDS (22.8-39.4); INR 2.57 (0.85-1.17); PROTIME 26.9 SECONDS (11.6-15.0)
--- NOTE | 2019-02-14 07:40 | NUR ---
PT IS AWAKE AND TURNS HEAD TOWARDS ME WHEN I SAY HER NAME, PT NON-VERBAL.
[2019-02-14 07:44] LABS: CKMB 2.3 U/L (0.0-3.6); CREATINE KINASE 60 UL (21-215); MAGNESIUM - SERUM 1.8 mg/dL (1.8-2.4); PRO BNP 14362 pg/mL (0-125)
[2019-02-14 07:48] LABS: D-DIMER-QUANTITATIVE 9.95 ug/mLFEU (0.20-0.54)
--- NOTE | 2019-02-14 07:48 | NUR ---
NOTIFIED BY LAB OF ELEVATED TROPONIN 0.08, AND LACTIC ACID OF 14.9. EDP NOTIFIED, CRITICAL LAB SHEET COMPLETED AND PLACED ON PT'S CHART.
--- NOTE | 2019-02-14 07:51 | NUR ---
NOTIFIED BY LAB OF ELEVATED D-DIMER OF 9.95. EDP NOTIFIED.
--- NOTE | 2019-02-14 08:16 | NUR ---
SPOKE WITH EDP AT APPROX 0730, EXPLAINED TO DR. GOETZ THAT SINCE REICH CATHETER WAS INSERTED, MINIMAL URINE HAS BEEN PRODUCED UNABLE TO OBTAIN URINE SAMPLE FOR ORDERED UA. NURSE RECEIVED VERBAL ORDER TO ADMINISTER 500ML NS BOLUS IV. AT THIS TIME, URINE OUTPUT REMAINS RELATIVELY THE SAME. IV FLUIDS COMPLETE. REICH CATHETER TUBING CLAMPED TEMPORARILY. WILL OBTAIN URINE SAMPLE ULISES. PT SISTER STEPHY NO LONGER AT THE BEDSIDE. STATES SHE WILL BE RETURNING SHORTLY. LEFT PHONE NUMBERS HOME , AND CELL
--- NOTE | 2019-02-14 08:22 | NUR ---
02 CURRENTLY AT 5L/MIN VIA HIGH FLOW NC. SPO2 AT 95% WILL CONTINUE TO MONITOR AND TITRATE O2 TOLERATED.
--- NOTE | 2019-02-14 08:35 | NUR ---
URINE SAMPLE COLLECTED AND SENT TO THE LAB, AMOUNT OBTAINED APPROX. 5ML, ONLY OUTPUT SINCE REICH CATHETER INITIALLY INSERTED SINCE 652. EDP NOTIFIED OF URINE OUTPUT OFF LESS THAN 30ML/HOUR.
[2019-02-14 09:04] LABS: APPEARANCE TURBID (CLEAR); BILIRUBIN NEGATIVE (NEGATIVE); COLOR DK YELLOW (YELLOW); GLUCOSE NEGATIVE (NEGATIVE); KETONE NEGATIVE (NEGATIVE); NITRITE NEGATIVE (NEGATIVE); PROTEIN 3+ mg/dL (NEGATIVE); SPECIFIC GRAVITY 1.015 (1.005-1.020)
[2019-02-14 09:05] LABS: BACTERIA MANY /hpf (NONE SEEN); EPITHELIAL CELLS 0-5 /hpf (0-5); MUCUS <1+ /lpf (NONE SEEN); RED CELLS - URINE 25-50 /hpf (0-5); WHITE CELLS - URINE >50 /hpf (0-5)
--- NOTE | 2019-02-14 09:13 | NUR ---
SPO2 94% ON 4L/MIN HIGH FLOW NC. WILL CONTINUE TO MONITOR AND TITRATE TOLERATED. PT RESTING WITH EYES CLOSED, NO SIGNS OF DISTRESS NOTED.
--- NOTE | 2019-02-14 09:39 | NUR ---
BED 2131 ASSIGNED AT 0916. THIS NURSE CALLED REPORT TO MICHAEL MOREIRA AT 0929. PT WAS LEAVING ED TO BE TRANSPORTED TO ASSIGNED ROOM, MICHAEL MOREIRA CALLED AND STATES THAT PT IS GOING TO ICU. THIS NURSE SPOKE WITH BEAM RACKER IRAJ WHO STATES PT IS NO LONGER GOING TO ASSIGNED ROOM 2131 AND WILL BE GOING TO ICU ONCE BED AVAILABLE.
--- NOTE | 2019-02-14 10:15 | NUR ---
REC'D PT, PT TRANSFERRED TO ICU BED, MONITORS HOOKED UP AND WORKING, HEART RATE 120'S, SBP IN THE 90S. PT SISTER BROUGHT BACK FROM WAITING AREA, UPDATE PROVIDED, HISTORY OBTAINED. WILL CONTINUE TO OBSERVE.
[2019-02-14 10:57] LABS: % SATURATION 4 % (15-55); IRON 16 ug/dl (35-150); TOTAL IRON BIND CAPACITY 398 ug/dl (260-445); UNSAT IRON BIND CAPACITY 382 ug/dl (150-375)
--- NOTE | 2019-02-14 11:00 | NUR ---
IV ANTIBIOTICS INTIATED, HEART RATE REMAINS IN THE 120S, MONITORS ON AND WORKING, VITALS STABLE. SEE FLOW SHEET FOR FURTHER DETAILS.
--- NOTE | 2019-02-14 20:00 | NUR ---
PT LETHARGIC,OPENS EYES TO STIMULI, DOES NOT FOLLOW COMMANDS
[2019-02-15] VITALS (23 sets, daily range): BP systolic 85–114; BP diastolic 64–82; BMI 32.9
[2019-02-15 04:38] LABS: BASOPHILS 0 % (0-2); EOSINOPHILS 0 % (0-7); HEMATOCRIT 36.8 % (36.0-48.0); HEMOGLOBIN 10.8 g/dL (12-16); IMMATURE GRANULOCYTES 0.2 % (0-5); LYMPHOCYTES 5.5 % (15-50); MCH 25.7 pg (26.0-34.0); MCHC 29.3 g/dL (31.0-37.0); MCV 87.6 fL (80.0-100.0); MEAN PLATELET VOLUME 10.4 fL (7.4-10.4); MONOCYTES 5.4 % (2-11); NEUTROPHILS 88.9 % (40-80); PLATELET COUNT 220 10x3/uL (130-400); RDW 19.7 % (11.5-14.5); WBC 16.4 10x3/uL (4.8-10.8)
[2019-02-15 04:52] LABS: INR 3.06 (0.85-1.17); PROTIME 30.8 SECONDS (11.6-15.0)
[2019-02-15 05:02] LABS: ALBUMIN 2.8 g/dL (3.4-5.0); ANION GAP 15.5 mmol/L (8-16); BILIRUBIN - TOTAL 3.41 mg/dL (0.2-1.3); CALCIUM 8.8 mg/dL (8.5-10.1); CARBON DIOXIDE 31.9 mmol/L (21.0-32.0); MAGNESIUM - SERUM 1.7 mg/dL (1.8-2.4); PHOSPHOROUS 7.3 mg/dL (2.5-4.9); POTASSIUM - SERUM 4.4 mmol/L (3.5-5.1); PROTEIN - SERUM 6.1 g/dL (6.4-8.2)
[2019-02-15 05:09] LABS: CREATININE - SERUM 2.8 mg/dL (0.6-1.3)
--- NOTE | 2019-02-15 06:04 | NUR ---
pt not tolerating po. protonix held at this time
--- NOTE | 2019-02-15 07:30 | NUR ---
REPORT RECIEVED ASSESSMENT COMPLETE PER FLOW SHEET. VSS. PT RESTING COMFORTABLY WILL COTNIUE TO MONITOR
--- NOTE | 2019-02-15 09:20 | NUR ---
FAMILY AT BEDSIDE GIVEN UPDATE
--- NOTE | 2019-02-15 10:40 | NUR ---
DR LANG AT BEDSIDE GIVEN UDPATE
--- NOTE | 2019-02-15 11:15 | NUR ---
REASSESSMENT COMPLETE PER FLOW SHEET. VSS. NO NEW CHANGES PT RESTING COMFORTABLY WILL CONTNIUE TO MONITOR
[2019-02-15 12:11] LABS: FOLATE (FOLIC ACID) - SERUM >20.0 ng/mL (>3.0)
--- NOTE | 2019-02-15 13:38 | NUR ---
DR CURRIE PAGED GIVEN UDPATE.
--- NOTE | 2019-02-15 15:15 | NUR ---
REASSESSMENT COMPLETE PER FLOW SHEET. VSS NO NEW CHANGES WILL CONTINUE TO MONITOR
--- NOTE | 2019-02-15 17:00 | NUR ---
FAMILY AT BEDSIDE GINVE UPDATE
--- NOTE | 2019-02-15 17:42 | MORECARE ---
CASE MANAGEMENT DISCHARGE SUMMARY PATIENT: DIEGO ESCOBAR UNIT: [id number] ADM DATE: 02/14/19 AGE: 68 : 52 SEX: F ROOM/BED: D.2307 AUTHOR: BALBIR GREWAL PHYSICIAN: REFERRING PHYSICIAN: CARRIE LANG MD DATE OF SERVICE: 02/15/19 Discharge Plan Patient Name: DIEGO ESCOBAR Facility: [facility]:[place] : 1950 Planned Disposition: Senior Living Facility Anticipated Discharge Date: Discharge Date: Expected LOS: Initial Reviewer: [email or web address] Initial Review Date: 02/15/2019 Generated: 02/15/19 6:41 pm DCPIA - Discharge Planning Initial Assessment Updated by [email or web address]: Lucinda Hernandez on 02/15/19 5:41 pm * Is the patient Alert and Oriented? No * How many steps to enter\exit or inside your home? * PCP DANIELLE * Pharmacy [facility] * Preadmission Environment Senior Living Facility * Facility Name [facility] AT [phone] * ADLs Partial Dependent * Partial ADLs (Assistance needed) Ambulation Bathing Dressing Eating Medication Management Toileting Transfers * List name and contact numbers for known caregivers / representatives who currently or will assist patient after discharge: SEGUNDO GAGE - SISTER- [phone] SAGAR ESCOBAR - SON - [phone] * Verbal permission to speak to the caregivers and representatives has been obtained from the patient. N/A * Community resources currently utilized None * Additional services required to return to the preadmission environment? No * Can the patient safely return to the preadmission environment? Yes * Has this patient been hospitalized within the prior 30 days at any hospital? Yes Patient Name: DIEGO ESCOBAR Page [id number] at 1742 All edits/amendments must be made on the electronic document DICTATION DATE: 02/15/191740 SPEEDOMETER MECHANIC: NERI 02/15/191740 RPT#: [id number] DC DATE: STATUS: ADM IN [facility] [address] [place] [address] END OF REPORT
--- NOTE | 2019-02-15 18:06 | MORECARE ---
CASE MANAGEMENT DISCHARGE SUMMARY PATIENT: DIEGO ESCOBAR UNIT: [id number] ADM DATE: 02/14/19 AGE: 68 : 52 SEX: F ROOM/BED: D.2307 AUTHOR: URI,DOC PHYSICIAN: REFERRING PHYSICIAN: CARRIE LANG MD DATE OF SERVICE: 02/15/19 Discharge Plan Patient Name: DIEGO ESCOBAR Facility: [facility]:[place] : 1950 Planned Disposition: Detention Facility Anticipated Discharge Date: Discharge Date: Expected LOS: Initial Reviewer: [email or web address] Initial Review Date: 02/15/2019 Generated: 02/15/19 7:06 pm Comments DCP- Discharge Planning Updated by [email or web address]: Lucinda Hernandez on 02/15/19 5:[address] Patient Name: DIEGO ESCOBAR Admission Status: ER Accout number: [id number] Admission Date: 02-14-2019 : 1950 Admission Diagnosis: Attending: CARRIE LANG Current LOS: 1 Anticipated DC Date: Planned Disposition: Detention Facility Primary Insurance: [facility] [employer] Discharge Planning Comments: CM met with patient's sister Segundo d/t patient being confused and unable to answer questions. CM explained CM role and obtained verbal consent. Segundo stated that patient has been in [facility] AT [phone] getting Rehab since her last admission. Sister Segundo would like to make patient DNR but nursing spoke with son Sagar Escobar (whom is currently in [facility] in for paralysis) and he wants patient to be full code. CM asked Segundo about discharge plans and she stated she didn't know what the plan was. CM stated that the patient is unable to care for herself so she will need either SNF v/s [facility] placement since she is unable to care for herself and doesn't have anyone to care for her at home. Segundo stated that her son Sagar will need to make that decision. CM will try to get in touch with son at [facility] to see what he plans for her upon discharge. CM will continue to follow and assist as needed with discharge planning / needs. Foundry Molder: Lucinda Hernandez DCPIA - Discharge Planning Initial Assessment Updated by [id number]: Lucinda Hernandez on 02/15/19 5:41 pm * Is the patient Alert and Oriented? No * How many steps to enter\exit or inside your home? * PCP DANIELLE * Pharmacy [facility] * Preadmission Environment Detention Facility * Facility Name [facility] AT [phone] * ADLs Partial Dependent * Partial ADLs (Assistance needed) Ambulation Bathing Dressing Eating Medication Management Toileting Transfers * List name and contact numbers for known caregivers / representatives who currently or will assist patient after discharge: SEGUNDO GAGE - SISTER- [phone] SAGAR ESCOBAR - SON - [phone] * Verbal permission to speak to the caregivers and representatives has been obtained from the patient. N/A * Community resources currently utilized None * Additional services required to return to the preadmission environment? No * Can the patient safely return to the preadmission environment? Yes * Has this patient been hospitalized within the prior 30 days at any hospital? Yes Last DP export: 02/15/19 4:42 pm Patient Name: DIEGO ESCOBAR Page [id number] at 1806 All edits/amendments must be made on the electronic document DICTATION DATE: 02/15/191804 BONE CRUSHER: NERI 02/15/191804 RPT#: [id number] DC DATE: STATUS: ADM IN [facility] [address] [place] [address] END OF REPORT
--- NOTE | 2019-02-15 19:30 | NUR ---
PT OPENS EYES TO STIMULI, DOES NOT FOLLOW COMMANDS, GENERALIZED PITTING EDEMA TO TRUNK AND LEGS, LUNGS WITH CRACKLES, DIMINISHED, SINUS TACH
--- NOTE | 2019-02-15 21:30 | NUR ---
NO CHANGE IN STATUS
--- NOTE | 2019-02-15 23:30 | NUR ---
PT AWAKE WITH EYES OPEN, CALLS OUT AT TIMES
[2019-02-16] VITALS (34 sets, daily range): BP systolic 66–140; BP diastolic 34–88
--- NOTE | 2019-02-16 01:30 | NUR ---
PT RESTING, EYES CLOSED, REMAINS IN SINUS TACH
--- NOTE | 2019-02-16 04:00 | NUR ---
large soft bm x1, pt awake, cleaned per staff, no ditress, remains confused
[2019-02-16 05:09] LABS: INR 2.61 (0.85-1.17); PROTIME 27.2 SECONDS (11.6-15.0)
[2019-02-16 05:12] LABS: ALBUMIN 2.4 g/dL (3.4-5.0); ANION GAP 9.7 mmol/L (8-16); BILIRUBIN - TOTAL 3.11 mg/dL (0.2-1.3); CARBON DIOXIDE 33.2 mmol/L (21.0-32.0); CREATININE - SERUM 2.8 mg/dL (0.6-1.3); POTASSIUM - SERUM 3.9 mmol/L (3.5-5.1); PROTEIN - SERUM 5.7 g/dL (6.4-8.2)
[2019-02-16 05:23] LABS: BASOPHILS 0 % (0-2); EOSINOPHILS 0.1 % (0-7); HEMATOCRIT 33.7 % (36.0-48.0); HEMOGLOBIN 10.2 g/dL (12-16); IMMATURE GRANULOCYTES 0.3 % (0-5); LYMPHOCYTES 6.5 % (15-50); MCH 25.8 pg (26.0-34.0); MCHC 30.3 g/dL (31.0-37.0); MEAN PLATELET VOLUME 10.8 fL (7.4-10.4); MONOCYTES 6.1 % (2-11); RBC 3.95 10x6/uL (4.00-5.40); RDW 19.6 % (11.5-14.5)
[2019-02-16 05:29] LABS: MCV 85.3 fL (80.0-100.0); PLATELET COUNT 139 10x3/uL (130-400); WBC 11.8 10x3/uL (4.8-10.8)
--- NOTE | 2019-02-16 06:19 | NUR ---
pt sleeping, remains tachycardic, bilat crackles and diminished lung sounds
--- NOTE | 2019-02-16 07:00 | NUR ---
REPORT RECEIVED. ASSESSMENT COMPLETE PER FLOW SHEET. VSS. PT RESTING COMFORTABLY WILL CONTINUE TO MONITOR
--- NOTE | 2019-02-16 09:50 | NUR ---
PT AWAKE ALERT CONFUSED TO TIME AND SITUATION
--- NOTE | 2019-02-16 11:15 | NUR ---
REASSESSMENT COMPLETE PER FLOW SHEET. VSS. HR 147 EKG OBTAINED A FLUTTER 2:1 DR LANG GIVEN UDPATE. ODCARY RECEIVED. WILL ADM.
--- NOTE | 2019-02-16 11:59 | NUR ---
Nutrition follow-up: Diet: Low sodium puree with thin liquids PO intake very poor at this time Labs reviewed +BM Pitting edema noted Wt: 192# May need to consider NGT placement and TF if po intake remains poor RDN following.
--- NOTE | 2019-02-16 15:10 | NUR ---
REASSESSMENT COMPLETE PER FLOW SHEET. VSS NO NEW CHANGES PT RESTING COMFORTABLY WILL CONTINUE TO MONITOR
--- NOTE | 2019-02-16 19:30 | NUR ---
pt awake with eyes open, bilat crackles bilat, severely diminished on left side, hr 113, given metoprolol per orders
--- NOTE | 2019-02-16 21:10 | NUR ---
pt nonresponsive with agonal resp, hr in 40's and flutter, placed call to pt's son, explained pt health was deteriorating and would need to be placed on vent, son stated he wanted her placed on vent, pt coded, see code documentation
--- NOTE | 2019-02-16 22:30 | NUR ---
FSBS 22. PT GIVEN 1 AMP D50. WILL RECHECK FSBS
--- NOTE | 2019-02-16 23:30 | NUR ---
pt sedated on vent, soft restraints in use, ett in place
[2019-02-17] VITALS (91 sets, daily range): BP systolic 71–133; BP diastolic 47–89
--- NOTE | 2019-02-17 00:10 | NUR ---
FSBS 80, NO S/S HYPOGLYCEMIA
[2019-02-17 00:28] LABS: CREATINE KINASE 129 UL (21-215)
--- NOTE | 2019-02-17 01:30 | NUR ---
remains sedated, opens eyes to stimuli, vitals stable at this time, levophed infusing @18 mcg/min, scant urine output this shift
--- NOTE | 2019-02-17 01:30 | NUR ---
NO CHANGES IN STATUS AT THIS TIME, WILL CONT TO MONITOR.
--- NOTE | 2019-02-17 03:30 | NUR ---
ASSESSMENT COMPLETED, PT REMAINS SEDATED ON VENT VITALS STABLE
--- NOTE | 2019-02-17 05:16 | NUR ---
PT REMAINS SEDATED, B/P STABLE, LEVOPHED REMAINS AT 20MCG
--- NOTE | 2019-02-17 06:00 | NUR ---
L EJ IV FOUND PULLED OUT WITH TIP INTACT. PRESSURE DRSG APPLIED. 18G PIV INSERTED TO R AC.
[2019-02-17 07:12] LABS: CKMB 3.6 U/L (0.0-3.6); CREATINE KINASE 188 UL (21-215); TROPONIN-I 0.331 ng/mL (0.000-0.060)
[2019-02-17 08:31] LABS: ALBUMIN 2.3 g/dL (3.4-5.0); BILIRUBIN - TOTAL 4.22 mg/dL (0.2-1.3); CALCIUM 8.2 mg/dL (8.5-10.1); CARBON DIOXIDE 28.9 mmol/L (21.0-32.0); CREATININE - SERUM 3.1 mg/dL (0.6-1.3); PROTEIN - SERUM 5.5 g/dL (6.4-8.2)
[2019-02-17 08:33] LABS: ANION GAP 18.8 mmol/L (8-16); POTASSIUM - SERUM 4.7 mmol/L (3.5-5.1)
--- NOTE | 2019-02-17 08:35 | NUR ---
0700 ASSESSMENT COMPLETE TOTAL LINEN CHANGE LARGE SOFT BM NOTED ORAL CARE PROVIDED REPOSITIONED IN BED RESTRAINTS RELEASED AND REAPPLIED
[2019-02-17 09:52] LABS: BASOPHILS 0.1 % (0-2); EOSINOPHILS 0.1 % (0-7); HEMATOCRIT 32.7 % (36.0-48.0); HEMOGLOBIN 10.3 g/dL (12-16); IMMATURE GRANULOCYTES 0.3 % (0-5); INR 3.07 (0.85-1.17); LYMPHOCYTES 5.9 % (15-50); MCH 25.9 pg (26.0-34.0); MCHC 31.5 g/dL (31.0-37.0); MONOCYTES 3.6 % (2-11); PLATELET COUNT 133 10x3/uL (130-400); PROTIME 30.9 SECONDS (11.6-15.0); RBC 3.98 10x6/uL (4.00-5.40); RDW 19.5 % (11.5-14.5)
[2019-02-17 09:53] LABS: MCV 82.2 fL (80.0-100.0); WBC 19.2 10x3/uL (4.8-10.8)
--- NOTE | 2019-02-17 10:45 | NUR ---
0900 PATIENTS SISTER AT BS UPDATE ON CONDITION AND EMOTIONAL SUPPORT GIVEN
[2019-02-17 12:44] LABS: CKMB 2.6 U/L (0.0-3.6); CREATINE KINASE 114 UL (21-215)
[2019-02-17 12:46] LABS: TROPONIN-I 0.938 ng/mL (0.000-0.060)
--- NOTE | 2019-02-17 15:58 | NUR ---
1100 DR MCCURDY ROUNDING ON PT DECREASED O2 TO 60% ON VENT RN INSERTED OGT
--- NOTE | 2019-02-17 16:27 | NUR ---
1300 LAUREN VENT CHANGES WELL REPOSITIONED IN BED
--- NOTE | 2019-02-17 16:28 | NUR ---
1500 REPOSITIONED IN BED
--- NOTE | 2019-02-17 19:30 | NUR ---
REPORT REC'D AND CARE ASSUMED REC'D PT ON VENT VIA 7.5 ETT TAPED @ 22CMP LIPLINE SEE FLOWSHEET FOR VENT SETTINGS, RIGHT A/C PIV PATENT WITH NS @ 10CC/HR, DIPRIVAN @ 20MCG/KG/MIN OR 9.6CC/HR AND LEVOPHED @ 20MCG/MIN OR 37.5CC/HR, BP 111/62 WILL WEAN LEVOPED, PT REPOSITIONED TO LEFT SIDE SUPPORTED WITH PILLOW, TOLERATED WELL, WILL OPEN EYES TO VERBAL STIMULI BUT DOES NOT FOLLOW COMMANDS, SR UP X 2 , BED IN LOW POSITION, BILAT SOFT WRIST RESTRAINTS INTACT.
--- NOTE | 2019-02-17 20:15 | NUR ---
1700 REPOSITIONED IN BED
--- NOTE | 2019-02-17 20:30 | NUR ---
ATTEMPTING TO WEAN LEVOPHED, NO VISITORS IN AT THIS TIME
--- NOTE | 2019-02-17 23:14 | NUR ---
REASSESSMENT COMPLETED, PT REPOSITIONED IN BED TO LEFT SIDE SUPPORTED WITH PILLOW, CONTINUES TO OPEN EYES AND TRACK BUT DOES NOT FOLLOW COMMANDS OR RESPOND TO QUESTIONS, BILAT SOFT WRIST RESTRAINTS INTACT, VISIBLE TO NURSES STATION.
[2019-02-18] VITALS (96 sets, daily range): BP systolic 70–126; BP diastolic 40–93; Ht 162.6 cm; Wt 87.0 kg
--- NOTE | 2019-02-18 01:00 | NUR ---
WEANING LEVOPHED TOLERATED, PT RESTING ON VENT EYES CLOSED, RESP EVEN AND UNLABORED.
--- NOTE | 2019-02-18 03:30 | NUR ---
REASSESSMENT COMPELTED, RADIOLOGY AT , PT REPOSITIONED IN BED FOR COMFORT, CONTINUING TO WEAN LEVOPHED, VSS.
[2019-02-18 05:10] LABS: INR 1.97 (0.85-1.17); PROTIME 21.7 SECONDS (11.6-15.0)
[2019-02-18 05:11] LABS: BASOPHILS 0 % (0-2); EOSINOPHILS 0.4 % (0-7); HEMATOCRIT 32.5 % (36.0-48.0); HEMOGLOBIN 10.4 g/dL (12-16); IMMATURE GRANULOCYTES 0.1 % (0-5); LYMPHOCYTES 8.4 % (15-50); MCH 25.8 pg (26.0-34.0); MCV 80.6 fL (80.0-100.0); MONOCYTES 4.8 % (2-11); NEUTROPHILS 86.3 % (40-80); PLATELET COUNT 84 10x3/uL (130-400); RBC 4.03 10x6/uL (4.00-5.40); RDW 19.5 % (11.5-14.5); WBC 9.5 10x3/uL (4.8-10.8)
--- NOTE | 2019-02-18 05:30 | NUR ---
PT REPOSITIONED UP IN BED AND ONTO RIGHT SIDE SUPPORTE WITH PILLOWS, BILAT SOFT WRIST RESTRAINTS INTACT, BED IN LOW POSITION, CALL LIGHT IN REACH.
[2019-02-18 05:35] LABS: ALBUMIN 2.2 g/dL (3.4-5.0); BILIRUBIN - TOTAL 4.31 mg/dL (0.2-1.3); CALCIUM 8.1 mg/dL (8.5-10.1); CARBON DIOXIDE 34.9 mmol/L (21.0-32.0); MAGNESIUM - SERUM 1.9 mg/dL (1.8-2.4); PHOSPHOROUS 2.8 mg/dL (2.5-4.9); PROTEIN - SERUM 5.2 g/dL (6.4-8.2)
[2019-02-18 05:42] LABS: CREATININE - SERUM 2.2 mg/dL (0.6-1.3)
[2019-02-18 05:43] LABS: ANION GAP 12.6 mmol/L (8-16); POTASSIUM - SERUM 2.5 mmol/L (3.5-5.1)
[2019-02-18 05:50] LABS: PLATELET ESTIMATE DECREASED; PLATELET MORPHOLOGY NORMAL PLT MORPH
--- NOTE | 2019-02-18 08:24 | NUR ---
0700 AWAKE ALERT REMAINS ON VENT AT 50% ASSESSMENT COMPLETE
--- NOTE | 2019-02-18 08:25 | NUR ---
0868 PT SELF EXTUBATED SELF HFNC AT 12L PLACED O2 SAT 100% PAGED DR MCCURDY HEART RATE 139
--- NOTE | 2019-02-18 08:26 | NUR ---
0825 DECREASED O2 TO 11L PER HIGH FLOW WITH HUMIDITY SAT 97%
--- NOTE | 2019-02-18 08:29 | NUR ---
Nutrition follow-up: Pt now intubated, sedated post-code OGT placed Labs reviewed; elevated LFT's Wt:197# Pressors being weaning at this time Pt awake but not following commands Recommend starting Pulmocare @ 25 ml/hr with increase to goal rate of 50 ml/hr RDN following.
--- NOTE | 2019-02-18 08:36 | NUR ---
0830 DECREASEDTO 10L HFNC ABGS DRAWN. BLADIMIR RODRIGUEZ SPOKE TO DR MCCURDY ON PHONE
--- NOTE | 2019-02-18 09:52 | NUR ---
[address] CALLI LANG AND DR HUMMEL NOTIFIED AMIO LOADING DOSE STARTED AND AMIODARONE INFUSION STARTED AT 1MG POTASSIUM REPLACEMENT ON GOING O2 AT 5L PER HFNC OOO2 ST 96% HEART RATE 133 A FIB AT PRESENT
--- NOTE | 2019-02-18 11:30 | NUR ---
1100 DR MCCURDY ROUNDING ON PATIENT ORDER TO CONSULT SURGERY FOR LINE PLACEMENT
--- NOTE | 2019-02-18 14:14 | NUR ---
1300 DR NOE CONSULTED SONOSITE, CENTRAL LINE KIT AND EXTRA BOTTLE OF LIDOCAINE AT BEDSIDE. TELEPHONE CONSENT GIVEN BT SON, GAUDENCIO ESCOBAR
[2019-02-18 16:02] LABS: ANION GAP 6.4 mmol/L (8-16); CALCIUM 7.6 mg/dL (8.5-10.1); CARBON DIOXIDE 37.7 mmol/L (21.0-32.0); CREATININE - SERUM 1.8 mg/dL (0.6-1.3); POTASSIUM - SERUM 3.1 mmol/L (3.5-5.1)
--- NOTE | 2019-02-18 18:49 | NUR ---
1500 CENTRAL LINE PLACEMENT TO RIGHT IJ STAT CHEST XRAY ORDERED CENTRAL LINE PLACEMENT VERIFIED BY DR NOE
--- NOTE | 2019-02-18 18:51 | NUR ---
1700 SON AT BEDSIDE BROUGHT ICE CREAM FOR PATIENT TO EAT LAUREN WELL
--- NOTE | 2019-02-18 19:50 | NUR ---
REPORT REC'D AND CARE ASSUMED, REC'D PT AWAKE AND ALERT TO PERSON ONLY AT THIS TIME, O2 7LITERS VIA HIGH FLOW, O2 SAT 97%, PT REORIENTS EASILY BUT HAS A DIFFICULT TIME REMEMBERING JUWAN JAMESG CDI WITH NS @ 10CC/HR, LEVOPHED @ 9MCG/MIN AND NEXTERONE @ 16.7CC/HR OR 0.5MG/MIN, REICH PATENT DRAINING CONCENTRATED URINE, GENERALIZED EDEMA NOTED TO LOWER EXT'S, PPP, PT DENIES PAIN, BED IN LOW POSITION, CALL LIGHT IN REACH.
--- NOTE | 2019-02-18 20:00 | NUR ---
PT CALLING OUT FOR NURSE STATES " I CAN'T FIND THAT GREEN THING", FLUTTER VALVE NOTED ON BS TABLE SHOWED TO PT, PT STATES " THERE IT IS", PT ATTEMPTING FLUTTER VALVE, CM-ST @ 120, ODIN MONITOR CLOSELY FOR CHANGES.
--- NOTE | 2019-02-18 21:05 | NUR ---
SERUM POTASSIUM DRAWN FROM CVL AND SENT LAB.
--- NOTE | 2019-02-18 23:00 | NUR ---
REASSESSMENT COMPLETED, PT REPOSITIONED IN BED FOR COMFORT, PT COMPLAINS OF BEING COLD, EXTRA BLANKET PROVIDED.
[2019-02-19] VITALS (98 sets, daily range): BP systolic 86–117; BP diastolic 54–88
--- NOTE | 2019-02-19 01:00 | NUR ---
PT REPOSITIONED UP IN BED AND ONTO LEFT SIDE SUPPORTED WITH PILLOW, PT STATES "DON'T THROW MY WATER AWAY", OFFERED PT WATER AT THIS TIME, STATES " I DON'T WANT IT NOW", PEDAL EDEMA NOTED, PILLOW PLACED TO BRIDGE HEELS AND ELEVATED FEET, WEANING LEVOPHED SLOWLY.
--- NOTE | 2019-02-19 03:00 | NUR ---
REASSESSMENT COMPLETED, PT REPOSITIONED IN BED FOR COMFORT, VSS, LEVOPHED CONTINUES @ 4MCG/MIN OR 7.5CC/HR, SR UP X 2, VISIBLE TO NURSES STATION.
--- NOTE | 2019-02-19 05:45 | NUR ---
AM LAB DRAWN FROM CVL AND SENT TO LAB, PT RESTING EYES CLOSED, RESP EVEN AND UNLABORED, VSS.
[2019-02-19 06:27] LABS: PROTIME 17.8 SECONDS (11.6-15.0)
[2019-02-19 06:28] LABS: BASOPHILS 0 % (0-2); HEMATOCRIT 30.3 % (36.0-48.0); HEMOGLOBIN 9.3 g/dL (12-16); IMMATURE GRANULOCYTES 0.2 % (0-5); INR 1.53 (0.85-1.17); LYMPHOCYTES 9.3 % (15-50); MCH 25.6 pg (26.0-34.0); MCHC 30.7 g/dL (31.0-37.0); MONOCYTES 6.3 % (2-11); NEUTROPHILS 82.2 % (40-80); RBC 3.63 10x6/uL (4.00-5.40); WBC 8.4 10x3/uL (4.8-10.8)
[2019-02-19 06:29] LABS: MCV 83.5 fL (80.0-100.0); PLATELET COUNT 61 10x3/uL (130-400)
[2019-02-19 06:37] LABS: ALBUMIN 2.1 g/dL (3.4-5.0); BILIRUBIN - TOTAL 2.96 mg/dL (0.2-1.3); CALCIUM 7.9 mg/dL (8.5-10.1); CARBON DIOXIDE 34.1 mmol/L (21.0-32.0); CREATININE - SERUM 1.7 mg/dL (0.6-1.3); MAGNESIUM - SERUM 1.6 mg/dL (1.8-2.4); PHOSPHOROUS 3.4 mg/dL (2.5-4.9); PROTEIN - SERUM 5.3 g/dL (6.4-8.2)
[2019-02-19 06:39] LABS: ANION GAP 8.8 mmol/L (8-16); POTASSIUM - SERUM 3.9 mmol/L (3.5-5.1)
--- NOTE | 2019-02-19 10:25 | NUR ---
PTS SISTER HERE AT THIS TIME, PRESENTED PTS LIVING WILL WHICH APPOINTED GAUDENCIO ESCOBAR DECISION MAKER AND IF HE IS UNABLE TO DO SO THEN PTS SISTER SEGUNDO TOO TO THEN BE APPOINTED TO TAKE OVER. COPY OF LIVING WILL PLACED IN CHART. PER PTS SISTER, PTS SON GAUDENCIO IS IN DRUG REHAB IN [place], AND YESTERDAY HAD A LEAVE FOR THE DAY TO COME SEE HIS MOM, AND WENT TO HER APARTMENT AND "RAN-SACKED IT" AND NOW HER CHECKS ARE MISSING, AND SHE IS CONCERNED THAT HE ONLY WANTS TO KEEP PT ALIVE TO TAKE HER CHECKS. WILL NOTIFY CASE MANAGEMENT. WILL CONTINUE TO OBSERVE.
--- NOTE | 2019-02-19 10:52 | NUR ---
PT NOTED ALERT AND ORIENTED AT THIS TIME. ANSWERS ALL QUESTIONS APPROPIATELY. STATED NAME, LOCATION ([facility], [place], [place]), YEAR, AND SITUATION ALL APPRIOPIATELY. PT STATES SHE WANTS TO BE A FULL CODE; SHE STATED IF SHE STOPS BREATHING OR HER HEART STOPS SHE DOES WANT HEROIC MEASURES TO BE PERFORMED. PT SISTER AT BEDSIDE. NO ACUTE DISTRESS NOTED. VSS. WILL CONTINUE PLAN OF CARE.
--- NOTE | 2019-02-19 11:43 | NUR ---
CHG BATH GIVEN USING HIPICLENS. TOTAL LINEN CHANGE PROVIDED. NO ACUTE DISTRESS NOTED. PT TURNED Q2H. ORAL CARE PROVIDED Q2H. WILL CONTINUE PLAN OF CARE.
--- NOTE | 2019-02-19 11:57 | NUR ---
LYING IN BED RESITNG AT THIS TIME. RESPIRATIONS STEADY AND UNLABORED. NO ACUTE DISTRESS NOTED. PT AWAKENS EASILY WHEN SPOKEN TO. NO ACUTE DISTRESS NOTED. VSS. WILL CONTINUE PLAN OF CARE.
--- NOTE | 2019-02-19 12:11 | NUR ---
SPOKE WITH PTS SON, SAGAR, WHO STATES HE IS IN PHYSICAL REHAB FOR HIS SPINAL INJURY WHERE HE IS RECIEVING PHYSICAL THERAPY. UPDATES PROVIDED. NO ACUTE DISTRESS NOTED. WILL CONTINUE PLAN OF CARE.
--- NOTE | 2019-02-19 13:27 | NUR ---
PER DR VALLADARES, NPO FOR HEALTH STATUS/UNSTABLE. AND USE BIPAP 4H BID AND QHS. ALSO STATED PT NEEDS THORACENTESIS AT SOME POINT BUT IS NOT STABLE ENOUGH FOR IT YET. ORDERS PLACED. WILL CONTINUE PLAN OF CARE.
--- NOTE | 2019-02-19 15:38 | NUR ---
LYING IN BED ON BIPAP AT THIS TIME. NO ACUTE DISTRESS NOTED. PT TURNED Q2H. WILL CONTINUE PLAN OF CARE.
--- NOTE | 2019-02-19 15:45 | NUR ---
PER DR VALLADARES, WILL DO THORACENTESIS TOMORROW.
--- NOTE | 2019-02-19 17:07 | NUR ---
UP IN BED AWAKE AT THIS TIME. NO ACUTE DISTRESS NOTED. PT TURNED Q2H. WILL CONTINUE TO OBSERVE.
--- NOTE | 2019-02-19 19:25 | NUR ---
REPORT REC'D AND CARE ASSUMED, REC'D PT AWAKE AND ALERT TO PERSON, PLACE, AND TIME O2 @ 4 LITER HIGH FLOW NC, RIJTL DRSG CDI WITH NS @ 10CC/HR, PROCALAMINE @ 75CC/HR, NEXTERONE @ 0.5MG/MIN OR 16.7CC/HR, AND LEVOPHED @ 4MCG/MIN OR 7.5CC/HR, CM-ST, BRUISING NOTED TO BILAT ARMS, RIGHT A/C PIV SALINE L0CKED, REDNESS AT SITE NOTED, ABD SOFT ACTIVE BS, GENERALIZED EDEMA, PT THINKS PILLOW FELL OFF OF BED INTO FLOOR, INFORMED PT PILLOW TO BACK PROPPING PATIENT AT THIS TIME, REICH PATENT DRAINING CONCENTRATED URINE, PPP, BED IN LOW POSITION, CALL LIGHT IN REACH.
--- NOTE | 2019-02-19 20:00 | NUR ---
NO VISITORS IN AT THIS TIME, PT REQUESTING WATER, MOUTH MOISTENED WITH ORAL SWABS, PT DENIES FURTHER NEEDS, VISIBLE TO NURSES STATION.
--- NOTE | 2019-02-19 22:00 | NUR ---
PT CALLING OUT FOR NURSE, REPOSITIONED UP IN BED FOR COMFORT, BP STABLE, WEANING LEVOPHED TOLERATED.
--- NOTE | 2019-02-19 23:15 | NUR ---
REASSESSMENT COMPLETED, PT CONFUSED TO TIME OF DAY, STATES " I AM GOING HOME IN THE MORNING AND GET IN MY OWN BED", ATTEMPTED TO REORIENT AT THIS TIME, PT REPOSITIONED UP AND ONTO RIGHT SIDE SUPPORTED WITH PILLOWS, TOLERATED WELL, WILL MONITOR CLOSELY FOR CHANGES.
--- NOTE | 2019-02-19 23:35 | NUR ---
RT AT BS, PT PLACED ON BIPAP AT 50 % FOR HS, O2 SAT 95%, VISIBLE TO NURSES STATION, CALL LIGHT IN REACH.
[2019-02-20] VITALS (97 sets, daily range): BP systolic 82–118; BP diastolic 50–79
--- NOTE | 2019-02-20 01:00 | NUR ---
PT PULLING AT MASK, ASKING ABOUT WATER, INSTRUCTED PT MASK MUST STAY ON FOR NOW AND NO WATER AT THIS TIME, PT REPOSITIONED FOR COMFORT, VSS, WILL MONITOR CLOSELY FOR CHANGES.
--- NOTE | 2019-02-20 03:00 | NUR ---
REASSESSMENT COMPLETED, PT RESTING IN BIPAP EYES CLOSED, RESP 26, O2 SAT 96%, VSS STABLE, LEVOPHED CONTINUES AT 2MCG/MIN, CONT TO MONITOR CLOSELY FOR CHANGES.
--- NOTE | 2019-02-20 05:15 | NUR ---
COMPLETE CHG BATH AND LINEN CHANGE PROVIDED, HAIR WASHED AND COMBED, PT REPOSITIONED UP IN BED AND ONTO LEFT SIDE SUPPORTED WITH PILLOWS, ARMS WEEPING SEROUS FLUID, ELEVATED ON PILLOWS, BED IN LOW POSITION, SR UP X 2, CALL LIGHT IN REACH.
--- NOTE | 2019-02-20 05:45 | NUR ---
AM LAB DRAWN FROM CVL AND SENT TO LAB
[2019-02-20 06:49] LABS: BASOPHILS 0 % (0-2); EOSINOPHILS 1.3 % (0-7); HEMATOCRIT 29.2 % (36.0-48.0); HEMOGLOBIN 8.9 g/dL (12-16); IMMATURE GRANULOCYTES 0.3 % (0-5); LYMPHOCYTES 8.4 % (15-50); MCH 25.5 pg (26.0-34.0); MCHC 30.5 g/dL (31.0-37.0); MCV 83.7 fL (80.0-100.0); MONOCYTES 7.9 % (2-11); NEUTROPHILS 82.1 % (40-80); PLATELET COUNT 55 10x3/uL (130-400); RBC 3.49 10x6/uL (4.00-5.40); RDW 20.3 % (11.5-14.5); WBC 7.7 10x3/uL (4.8-10.8)
[2019-02-20 06:52] LABS: ANION GAP 9.9 mmol/L (8-16); BILIRUBIN - TOTAL 2.96 mg/dL (0.2-1.3); CALCIUM 7.5 mg/dL (8.5-10.1); CARBON DIOXIDE 32.5 mmol/L (21.0-32.0); CREATININE - SERUM 1.3 mg/dL (0.6-1.3); MAGNESIUM - SERUM 1.9 mg/dL (1.8-2.4); PHOSPHOROUS 2.7 mg/dL (2.5-4.9); POTASSIUM - SERUM 3.4 mmol/L (3.5-5.1); PROTEIN - SERUM 5.1 g/dL (6.4-8.2)
[2019-02-20 07:09] LABS: PLATELET ESTIMATE DECREASED
--- NOTE | 2019-02-20 08:09 | NUR ---
UP IN BED AWAKE AT THIS TIME. NPO FOR THORACENTESIS TODAY. FAMILY AT BEDSIDE (SISTER) UPDATES PROVIDED. NO ACUTE DISTRESS NOTED. WILL CONTINUE PLAN OF CARE.
--- NOTE | 2019-02-20 09:04 | NUR ---
WILL ADMIN SCHEDULED DAILY MEDS AFTER THORACENTESIS THIS AM.
--- NOTE | 2019-02-20 10:08 | NUR ---
PT AWAKE AT THIS TIME. NO ACUTE DISTRESS NOTED. PT TURNED Q2H. WILL CONTINUE PLAN OF CARE.
--- NOTE | 2019-02-20 12:14 | NUR ---
PT UP IN BED, NOTED OXYGEN SATURATION TO DECRASE TO 88% WITH GOOD WAVEFORM AT 6L HIGH FLOW NASAL CANULA. BIPAP PLACED AT THIS TIME AT 50% FIO2 PER PRN BIPAP ORDERS. OXYGEN SATURATION NOW 90%. PT APPEARS CALM, DENIES ANY NEEDS. WILL CONTINUE TO OBSERVE.
[2019-02-20 12:21] LABS: PROTEIN - BODY FLUID 1.5 G/DL
--- NOTE | 2019-02-20 12:29 | NUR ---
NOTED MINIMAL AIR MOVEMENT TO LEFT LUNG WITH RIGHT LUNG SOUNDS PRESENT AND DIMINISHED. OXYGEN SATURATION 88-92%. JACQUELYN PAGED FOR FURTHER ORDERS.
--- NOTE | 2019-02-20 12:41 | NUR ---
1215; AFTER CHEST XR COMPLETED. OXYGEN SATURATION DECREASED TO 78% WITH GOOD WAVEFORM ON HIGH FLOW NASAL CANULA AT 6L. BIPAP PLACED WITH FIO2 50%. OXYGEN SATURATION INCREASED TO 88%. REPIRATIONS TRENDING IN UPPER 20S. LT LUNG SOUNDS ARE WITH MINIMAL AIR MOVEMENT. CHARGE NURSE ALSO EXAMINED PT AND AGREED THAT LUNG SOUNDS ARE MINIMAL AND THAT THERE IS A DIFFERENCE IN THE RISE AND FALL OF CHEST TO THE LEFT LUNG. DR VALLADARES PAGED WAITING FOR CALLBACK. 1230; DR VALLADARES PAGED AGAIN, WAITING FOR CALLBACK. OXYGEN SATURATION 92% ON BIPAP. STILL NOTED MINIMAL AIR SOUNDS TO LT LUNG AND DIMINISHED SOUNDS TO RT LUNG. 1232: RECIEVED CALLBACK FROM DR VALLADARES: PER DR VALLADARES, "WILL INTUBATE PT SHORTLY, TELL PATIENT OF THIS AND TELL PTS FAMILY, TELL RESPIRATORY THERAPY, AND I WILL BE THERE SHORTLY AND ALSO GET CONSENT FOR BRONCHOSCOPY SO WE CAN DO THAT AFTER INTUBATION." FAMILY, PT AND REPIRATORY THERAPY NOTIFIED OF THIS. ASKED PHYSICIAN IF HE WANTED TO RECHECK THE CHEST XRAY SINCE SYMPTOMS OCCURRED AFTER CHEST XRAY PERFORMED, PHYSICIAN STATES NO NEED SINCE THE XRAY JUST PERFORMED DOES NOT SHOW PNEUMOTHORAX. WILL CONTINUE TO CLOSELY OBSERVE.
--- NOTE | 2019-02-20 13:14 | NUR ---
DR LANG ON UNIT, ORDERED STAT CHEST XRAY TO R/O PNEUMOTHORAX REGARDING PTS MINIMAL AIR MOVEVMENT LT SIDE.
--- NOTE | 2019-02-20 14:04 | NUR ---
PT INTUBATED BY DR VALLADARES AT BEDSIDE. ETT 7.5 AND 22 AT [facility]. AC 12, VT 500, FIO2 100%, PEEP 5. OXYGEN SATURATION 98%. WILL CONTINUE TO OBSERVE.
--- NOTE | 2019-02-20 15:17 | NUR ---
DR NAPOLES PAGED REGARDING CONSULT. WAITING FOR CALLBACK.
--- NOTE | 2019-02-20 15:45 | NUR ---
PER DANILO CHECK BLOOD GLUCOSE Q1H FOR A FEW HOURS AND THEN NOTIFY FOR FURTHER ORDERS TO CHANGE TO Q4H.
--- NOTE | 2019-02-20 17:42 | NUR ---
FAMILY AT BEDSIDE AT THIS TIME. UPDATES PROVIDED. NO ACUTE DISTRESS NOTED. WILL CONTINUE TO OBSERVE.
--- NOTE | 2019-02-20 19:30 | NUR ---
ASSESSMENT COMPLETED, PT AROUSES TO STIMULI, ETT IN PLACE AND PATENT TO VENT, R IJ CVL INTACT WITH MULTI MEDS INFUSING, GENERALIZED EDEMA, REICH TO BSD, NO DISTRESS NOTED
--- NOTE | 2019-02-20 21:26 | NUR ---
CALL PLACED TO DR NAPOLES'S OFFICE, NOTIFIED OF CONSULT
[2019-02-21] VITALS (72 sets, daily range): BP systolic 87–110; BP diastolic 50–87
--- NOTE | 2019-02-21 | NUR ---
PT RESTING, CONT TO MONITOR, NO DISTRESS
--- NOTE | 2019-02-21 02:00 | NUR ---
PT BATHED, OPENS EYES AND FOLLOWS COMMANDS, WILL BEGIN WEANING LEVOPHED
[2019-02-21 04:17] LABS: BASOPHILS 0.1 % (0-2); EOSINOPHILS 0.5 % (0-7); HEMATOCRIT 30.6 % (36.0-48.0); HEMOGLOBIN 9.6 g/dL (12-16); IMMATURE GRANULOCYTES 0.2 % (0-5); LYMPHOCYTES 7.3 % (15-50); MCH 25.4 pg (26.0-34.0); MCHC 31.4 g/dL (31.0-37.0); MONOCYTES 6.9 % (2-11); PLATELET COUNT 66 10x3/uL (130-400); RBC 3.78 10x6/uL (4.00-5.40); RDW 20.1 % (11.5-14.5); WBC 9.9 10x3/uL (4.8-10.8)
[2019-02-21 04:26] LABS: ALBUMIN 1.9 g/dL (3.4-5.0); BILIRUBIN - TOTAL 3.09 mg/dL (0.2-1.3); CALCIUM 8.2 mg/dL (8.5-10.1); CARBON DIOXIDE 31.6 mmol/L (21.0-32.0); CREATININE - SERUM 1.3 mg/dL (0.6-1.3); MAGNESIUM - SERUM 1.9 mg/dL (1.8-2.4); PROTEIN - SERUM 5.2 g/dL (6.4-8.2)
[2019-02-21 04:30] LABS: ANION GAP 9.9 mmol/L (8-16); POTASSIUM - SERUM 4.5 mmol/L (3.5-5.1)
--- NOTE | 2019-02-21 04:30 | NUR ---
PT TOLERATING WEANING LEVOPHED, WILL CONT TO MONITOR
--- NOTE | 2019-02-21 06:30 | NUR ---
LEVOPHED GTT D/C'D, WILL CONT TO MONITOR
--- NOTE | 2019-02-21 07:00 | NUR ---
SHIFT ASSSESSMENT COMPLETED, PT CARE ASSUMED, MONITORS ON AND WORKING, VITALS STABLE. VENT SETTINGS NOTED. NO PRESSORS, SEE FLOW SHEET FOR FURTHER DETAILS. WILL CONTINUE TO OBSERVE.
--- NOTE | 2019-02-21 09:56 | NUR ---
Nutrition follow-up: Pt intubated, sedated with Versed, Fentanyl ProcalAmine PPN @ 75 ml/hr Sigifredo hudson'd today Labs reviewed Wt: 192# Recommend starting Pulmocare @ 25 ml/hr with increase to goal rate of 50 ml/hr with 100 ml H2O flush Q 4 hours if medically feasible. RDN following.
--- NOTE | 2019-02-21 19:30 | NUR ---
PT OPENS EYES TO STIMULI, EET IN PLACE AND PATENT TO VENT ON A/C, B/P STABLE, LEVOPHED INFUSING, 4+ GENERALIZED EDEMA, NO DISTRESS NOTED
--- NOTE | 2019-02-21 21:30 | NUR ---
REMAINS ON LEVOPHED GTT, B/P STABLE, NO DISTRESS
--- NOTE | 2019-02-21 23:30 | NUR ---
PT RESTING QUIETLY, REMAINS ON A/C ON VENT, HR 120 SINUS TACH, NO DISTRESS NOTED
[2019-02-22] VITALS (105 sets, daily range): BP systolic 63–122; BP diastolic 29–90
--- NOTE | 2019-02-22 01:30 | NUR ---
B/P STABLE, WILL BEGIN WEANING LEVOPHED
--- NOTE | 2019-02-22 03:30 | NUR ---
PT TOLERATING WEANING LEVOPHED AT THIS TIME, OPENS EYES TO STIMULI
--- NOTE | 2019-02-22 05:30 | NUR ---
REPOSITIONED FOR COMFORT, OPENS EYES TO STIMULI, VITALS STABLE, NO DISTRESS NOTED
[2019-02-22 05:39] LABS: ALBUMIN 1.7 g/dL (3.4-5.0); BILIRUBIN - TOTAL 3.36 mg/dL (0.2-1.3); CALCIUM 7.9 mg/dL (8.5-10.1); CARBON DIOXIDE 32.3 mmol/L (21.0-32.0); CREATININE - SERUM 1.1 mg/dL (0.6-1.3); MAGNESIUM - SERUM 1.8 mg/dL (1.8-2.4); PHOSPHOROUS 2.4 mg/dL (2.5-4.9); PROTEIN - SERUM 4.8 g/dL (6.4-8.2)
[2019-02-22 05:40] LABS: BASOPHILS 0 % (0-2); EOSINOPHILS 0.8 % (0-7); HEMATOCRIT 27.8 % (36.0-48.0); HEMOGLOBIN 8.6 g/dL (12-16); IMMATURE GRANULOCYTES 0.3 % (0-5); LYMPHOCYTES 6.8 % (15-50); MCH 25.1 pg (26.0-34.0); MCHC 30.9 g/dL (31.0-37.0); MONOCYTES 6.2 % (2-11); NEUTROPHILS 85.9 % (40-80); PLATELET COUNT 61 10x3/uL (130-400); RBC 3.43 10x6/uL (4.00-5.40); RDW 20.4 % (11.5-14.5); WBC 7.9 10x3/uL (4.8-10.8)
[2019-02-22 05:43] LABS: ANION GAP 8.2 mmol/L (8-16); POTASSIUM - SERUM 3.5 mmol/L (3.5-5.1)
[2019-02-22 07:03] LABS: PLATELET ESTIMATE DECREASED
--- NOTE | 2019-02-22 07:50 | NUR ---
REPORT RECEIVED, ASSESSMENT COMPLETE PER FLOWSHEET. ORAL AND ENDOTRACH CARE COMPLETE. VSS. REPOSITIONED FOR COMFORT.
--- NOTE | 2019-02-22 09:15 | NUR ---
NUTRITION F/U PER MD ORDERS PULMOCARE TUBE FEEDS STARTED @ 25 CC/HR WITH CURRENT GOAL RATE 50 CC/HR. WILL CONTINUE TO MONITOR PT PROGRESS. RD FOLLOWING
[2019-02-22 12:16] LABS: INR 1.45 (0.85-1.17)
[2019-02-22 12:17] LABS: ALBUMIN 1.8 g/dL (3.4-5.0); APTT 37.8 SECONDS (22.8-39.4); BILIRUBIN - DIRECT 3.1 mg/dL (0.00-0.30); BILIRUBIN - INDIRECT 0.65 mg/dL (0.00-1.00); BILIRUBIN - TOTAL 3.75 mg/dL (0.2-1.3); PROTEIN - SERUM 5.2 g/dL (6.4-8.2)
--- NOTE | 2019-02-22 14:06 | NUR ---
0940 DR VALLADARES AT BEDSIDE, UPDATE GIVEN AND NEW ORDERS RECEIVED. VSS. 1215 ARGATROBAN INITIATED PER ORDERS. WILL CONTINUE TO MONITOR. 1400 DR VALLADARES AT BEDSIDE, UPDATED ON STATUS OF PATIENT.
[2019-02-22 14:53] LABS: APTT 63.1 SECONDS (22.8-39.4); INR 2.32 (0.85-1.17); PROTIME 24.8 SECONDS (11.6-15.0)
--- NOTE | 2019-02-22 16:38 | NUR ---
COMPLETE BED BATH, LINEN CHANGE, CHG BATH. NO NEW CHANGES, WILL CONTINUE TO MONITOR
[2019-02-22 17:25] LABS: APTT 67.5 SECONDS (22.8-39.4)
--- NOTE | 2019-02-22 17:28 | MORECARE ---
CASE MANAGEMENT DISCHARGE SUMMARY PATIENT: DIEGO ESCOBAR UNIT: [id number] ADM DATE: 02/14/19 AGE: 68 : 51 SEX: F ROOM/BED: D.2307 AUTHOR: URIDOC PHYSICIAN: REFERRING PHYSICIAN: CARRIE LANG MD DATE OF SERVICE: 02/22/19 Discharge Plan Patient Name: DIEGO ESCOBAR Facility: [facility]:[place] : 1950 Planned Disposition: Senior Care Facility Anticipated Discharge Date: Discharge Date: Expected LOS: Initial Reviewer: [email or web address] Initial Review Date: 02/15/2019 Generated: 02/22/19 6:28 pm Comments DCP- Discharge Planning Updated by [email or web address]: Akilah Garcia on 02/22/19 4:[address] Patient Name: DIEGO ESCOBAR Admission Status: ER Accout number: [id number] Admission Date: 02-14-2019 : 1950 Admission Diagnosis:SEPSIS, UNSPECIFIED ORGANISM Attending: CARRIE LANG Current LOS: 8 Anticipated DC Date: Planned Disposition: Senior Care Facility Primary Insurance: [facility] MEDICARE SOLUTIONS Discharge Planning Comments: CM SPOKE WITH NURSE, NURSE STATES SHE IS GOING TO TALK TO PATIENT SON WITH SISTER OVER THE PHONE. STATES SHE WILL EXPLAIN PATIENT'S PROGNOSIS AND ANSWER QUESTIONS HE MAY HAVE. SAGAR WITH [facility] IS ALSO AWARE. CM TO FOLLOW AND ASSIST. Equipment Scheduler: Akilah Garcia DCP- Discharge Planning Updated by [email or web address]: Lucinda Hernandez on 02/15/19 5:[address] Patient Name: DIEGO ESCOBAR Admission Status: ER Accout number: [id number] Admission Date: 02-14-2019 : 1950 Admission Diagnosis: Attending: CARRIE LANG Current LOS: 1 Anticipated DC Date: Planned Disposition: Senior Care Facility Primary Insurance: [facility] MEDICARE SOLUTIONS Discharge Planning Comments: CM met with patient's sister Segundo d/t patient being confused and unable to answer questions. CM explained CM role and obtained verbal consent. Segundo stated that patient has been in [facility] AT [phone] getting Rehab since her last admission. Sister Segundo would like to make patient DNR but nursing spoke with son Sagar Escobar (whom is currently in [facility] in for paralysis) and he wants patient to be full code. CM asked Segundo about discharge plans and she stated she didn't know what the plan was. CM stated that the patient is unable to care for herself so she will need either SNF v/s Snf NH placement since she is unable to care for herself and doesn't have anyone to care for her at home. Segundo stated that her son Sagar will need to make that decision. CM will try to get in touch with son at [facility] to see what he plans for her upon discharge. CM will continue to follow and assist as needed with discharge planning / needs. Equipment Scheduler: Lucinda Hernandez DCPIA - Discharge Planning Initial Assessment Updated by [email or web address]: Lucinda Hernandez on 02/15/19 5:41 pm * Is the patient Alert and Oriented? No * How many steps to enter\exit or inside your home? * PCP DANIELLE * Pharmacy [facility] * Preadmission Environment Senior Care Facility * Facility Name [facility] AT [phone] * ADLs Partial Dependent * Partial ADLs (Assistance needed) Ambulation Bathing Dressing Eating Medication Management Toileting Transfers * List name and contact numbers for known caregivers / representatives who currently or will assist patient after discharge: SEGUNDO GAGE - SISTER- [phone] SAGAR ESCOBAR - SON - [phone] * Verbal permission to speak to the caregivers and representatives has been obtained from the patient. N/A * Community resources currently utilized None * Additional services required to return to the preadmission environment? No * Can the patient safely return to the preadmission environment? Yes * Has this patient been hospitalized within the prior 30 days at any hospital? Yes Last DP export: 02/15/19 5:06 pm Patient Name: DIEGO ESCOBAR Page 32803 at 1728 All edits/amendments must be made on the electronic document DICTATION DATE: 02/22/191727 INSURANCE COUNSELOR: NERI 02/22/191727 RPT#: [id number] [place] DATE: STATUS: ADM IN [facility] [address] [place] [address] END OF REPORT
[2019-02-22 17:30] LABS: INR 3.27 (0.85-1.17); PROTIME 32.5 SECONDS (11.6-15.0)
--- NOTE | 2019-02-22 18:00 | NUR ---
TYLOR FRANCIS AT [facility]. NO NEW ORDERS RECEIVED. WILL CONTINUE TO MONITOR
--- NOTE | 2019-02-22 19:30 | NUR ---
ASSESSMENT COMPLETED, PT AROUSES EASILY, REMAINS IN RESTRAINTS, STABLE ON VENT
[2019-02-22 19:41] LABS: APTT 70.9 SECONDS (22.8-39.4)
[2019-02-22 19:52] LABS: INR 4.12 (0.85-1.17); PROTIME 39.1 SECONDS (11.6-15.0)
--- NOTE | 2019-02-22 21:30 | NUR ---
B/P STABLE BUT UNABLE TO WEAN LEVOPHED AT THIS TIME
--- NOTE | 2019-02-22 23:35 | NUR ---
OPENS EYES TO STIMULI, ORAL CARE DONE, REPOSITIONED FOR COMFORT, NO CHANGE IN STATUS
[2019-02-23] VITALS (97 sets, daily range): BP systolic 89–116; BP diastolic 54–723
--- NOTE | 2019-02-23 01:30 | NUR ---
RESTING QUIETLY, NO DISTRESS
--- NOTE | 2019-02-23 03:30 | NUR ---
PT ASKING FOR A DRINK OF WATER, EXPLAINED TO PT SHE COULD NOT DRINK FLUIDS WHILE INTUBATED
--- NOTE | 2019-02-23 04:30 | NUR ---
PT TOLERATING TUBE FEEDS, INCREASED TO 35CC/HR
--- NOTE | 2019-02-23 05:23 | NUR ---
RESTING QUIETLY, REMAINS ON VENT, AWAITING AM LAB RESULTS
[2019-02-23 05:33] LABS: BASOPHILS 0 % (0-2); EOSINOPHILS 0 % (0-7); HEMOGLOBIN 8.5 g/dL (12-16); IMMATURE GRANULOCYTES 0.4 % (0-5); LYMPHOCYTES 5.9 % (15-50); MCH 25.3 pg (26.0-34.0); MCHC 31.5 g/dL (31.0-37.0); MCV 80.4 fL (80.0-100.0); MONOCYTES 3.1 % (2-11); NEUTROPHILS 90.6 % (40-80); PLATELET COUNT 73 10x3/uL (130-400); RBC 3.36 10x6/uL (4.00-5.40); RDW 20.6 % (11.5-14.5)
[2019-02-23 05:41] LABS: WBC 5.4 10x3/uL (4.8-10.8)
[2019-02-23 05:50] LABS: APTT 94.7 SECONDS (22.8-39.4); INR 5.78 (0.85-1.17); PROTIME 51.1 SECONDS (11.6-15.0)
[2019-02-23 06:13] LABS: ALBUMIN 1.8 g/dL (3.4-5.0); ANION GAP 12.5 mmol/L (8-16); BILIRUBIN - TOTAL 4.27 mg/dL (0.2-1.3); CALCIUM 7.6 mg/dL (8.5-10.1); CARBON DIOXIDE 29.1 mmol/L (21.0-32.0); CREATININE - SERUM 1.1 mg/dL (0.6-1.3); PROTEIN - SERUM 4.8 g/dL (6.4-8.2)
[2019-02-23 06:18] LABS: POTASSIUM - SERUM 4.6 mmol/L (3.5-5.1)
--- NOTE | 2019-02-23 07:30 | NUR ---
REPORT RECEIVED. ASSESSMENT COMPLETE PER FLOW SHEET. VSS. NO NEW CHANGES. PT RESTING COMFORTABLY WILL CONTINUE TO MONITOR
--- NOTE | 2019-02-23 09:46 | NUR ---
FAMILY CALLED STATED PASSWORD UPDATE GIVEN
--- NOTE | 2019-02-23 11:15 | NUR ---
REASSESSMENT COMPLETE PER FLOW SHEET. VSS. NO NEW CHANGES WILL CONTINUE TO MONITOR
--- NOTE | 2019-02-23 13:10 | NUR ---
ORAL ENDOTRACH CARE ADM. REPOSITIONED FOR COMFORT
--- NOTE | 2019-02-23 13:39 | MORECARE ---
CASE MANAGEMENT DISCHARGE SUMMARY PATIENT: DIEGO ESCOBAR UNIT: [id number] ADM DATE: 02/14/19 AGE: 68 : 51 SEX: F ROOM/BED: D.2307 AUTHOR: URI,DOC PHYSICIAN: REFERRING PHYSICIAN: CARRIE LANG MD DATE OF SERVICE: 02/23/19 Discharge Plan Patient Name: DIEGO ESCOBAR Facility: [facility]:[place] : 1950 Planned Disposition: Intermediate Facility Anticipated Discharge Date: Discharge Date: Expected LOS: Initial Reviewer: [email or web address] Initial Review Date: 02/15/2019 Generated: 02/23/19 2:39 pm Comments DCP- Discharge Planning Updated by [email or web address]: Grecia Delvalle on 02/23/19 12:[address] Patient Name: DIEGO ESCOBAR Encounter No: [id number] : 1950 Primary Insurance: [facility] MEDICARE SOLUTIONS Anticipated DC Date: Planned Disposition: Intermediate Facility External Planned Provider: : DCP follow-up note: CM spoke to patient's son Sagar Escobar (who is currently in the hospital at [facility]) regarding his mom condition and his wishes. He reports the last time he spoke to his mother she told him she wanted to live even if that meant being on the vent. He stated he is getting out of the hospital on Thursday and he will call the nursing station to set up a time to meet with the physicians and physically lay eyes on his mother to make a decision. CM will continue to follow and will assist as needed with dc plans/needs. Grecia Delvalle RN, [facility] DCP- Discharge Planning Updated by [email or web address]: Akilah Garica on 02/22/19 4:[address] Patient Name: DIEGO ESCOBAR Admission Status: ER Accout number: [id number] Admission Date: 02-14-2019 : 1950 Admission Diagnosis:SEPSIS, UNSPECIFIED ORGANISM Attending: CARRIE LANG Current LOS: 8 Anticipated DC Date: Planned Disposition: Intermediate Facility Primary Insurance: [facility] MEDICARE SOLUTIONS Discharge Planning Comments: CM SPOKE WITH NURSE, NURSE STATES SHE IS GOING TO TALK TO PATIENT SON WITH SISTER OVER THE PHONE. STATES SHE WILL EXPLAIN PATIENT'S PROGNOSIS AND ANSWER QUESTIONS HE MAY HAVE. SAGAR WITH [facility] IS ALSO AWARE. CM TO FOLLOW AND ASSIST. Professor Of Communication Arts: Akilah Garcia DCP- Discharge Planning Updated by [id number]: Lucinda Hernandez on 02/15/19 5:[address] Patient Name: DIEGO ESCOBAR Admission Status: ER Accout number: [id number] Admission Date: 02-14-2019 : 1950 Admission Diagnosis: Attending: CARRIE LANG Current LOS: 1 Anticipated DC Date: Planned Disposition: Intermediate Facility Primary Insurance: [facility] MEDICARE SOLUTIONS Discharge Planning Comments: CM met with patient's sister Segundo d/t patient being confused and unable to answer questions. CM explained CM role and obtained verbal consent. Segundo stated that patient has been in [facility] AT [phone] getting Rehab since her last admission. Sister Segundo would like to make patient DNR but nursing spoke with son Sagar Escobar (whom is currently in [facility] in for paralysis) and he wants patient to be full code. CM asked Segundo about discharge plans and she stated she didn't know what the plan was. CM stated that the patient is unable to care for herself so she will need either SNF v/s Jail NH placement since she is unable to care for herself and doesn't have anyone to care for her at home. eSgundo stated that her son Sagar will need to make that decision. CM will [facility] to see what he plans for her upon discharge. CM will continue to follow and assist as needed with discharge planning / needs. Professor Of Communication Arts: Lucinda Hernandez DCPIA - Discharge Planning Initial Assessment Updated by [email or web address]: Lucinda Hernandez on 02/15/19 5:41 pm * Is the patient Alert and Oriented? No * How many steps to enter\exit or inside your home? * PCP DANIELLE * Pharmacy [facility] * Preadmission Environment Intermediate Facility * Facility Name [facility] AT [phone] * ADLs Partial Dependent * Partial ADLs (Assistance needed) Ambulation Bathing Dressing Eating Medication Management Toileting Transfers * List name and contact numbers for known caregivers / representatives who currently or will assist patient after discharge: SEGUNDO TOO - SISTER- [phone] SAGAR ESCOBAR - SON - [phone] * Verbal permission to speak to the caregivers and representatives has been obtained from the patient. N/A * Community resources currently utilized None * Additional services required to return to the preadmission environment? No * Can the patient safely return to the preadmission environment? Yes * Has this patient been hospitalized within the prior 30 days at any hospital? Yes Last DP export: 02/22/19 4:28 pm Patient Name: DIEGO ESCOBAR Page 65541 at 1339 All edits/amendments must be made on the electronic document DICTATION DATE: 02/23/191337 CHILDCARE WORKER: NERI 02/23/191337 RPT#: [id number] DC DATE: STATUS: ADM IN [facility] [address] [place] [address] END OF REPORT
--- NOTE | 2019-02-23 15:15 | NUR ---
REASSESSMENT COMPLETE PER FLOW SHEET. VSS. NO NEW CHANGES WILL CONTINUE TO MONITOR
--- NOTE | 2019-02-23 16:29 | NUR ---
PT ANXIOUS AGGITATED REORIENTED STATED OKAY
--- NOTE | 2019-02-23 19:02 | NUR ---
REPORT RECEIVED, SHIFT ASSESSMENT COMPLETED PER FLOW SHEET. ON VENT VIA ETT. FOLLOWS COMMANDS. OGT PATENT, PLACEMENT VERIFIED VIA AUSCULTATION. RT IJ CVL PATENT, SEE FLOW SHEET FOR IV DRIPS, DRESSING C/D/I. REICH CATHETER TO GRAVITY SECURED. SEE FLOW SHEET FOR COMPLETE ASSESSMENT. WILL CONTINUE TO MONITOR.
[2019-02-23 19:21] LABS: APTT 71.3 SECONDS (22.8-39.4); INR 6.53 (0.85-1.17); PROTIME 56.3 SECONDS (11.6-15.0)
--- NOTE | 2019-02-23 21:12 | NUR ---
MEDS GIVEN, SEE EMAR FOR DETAILS. NO ACUTE DISTRESS NOTED. WILL CONTINUE TO MONITOR.
--- NOTE | 2019-02-23 23:01 | NUR ---
REASSESSMENT COMPLETED PER FLOW SHEET, SEE FOR DETAILS. NO ACUTE CHANGES NOTED. REPOSITIONED IN BED. ORAL CARE PROVIDED. CALM AND FOLLOWING COMMANDS. WILL CONTINUE TO MONITOR.
[2019-02-24] VITALS (78 sets, daily range): BP systolic 92–121; BP diastolic 56–81
--- NOTE | 2019-02-24 01:00 | NUR ---
RESTING COMFORTABLY ON VENT, WILL CONTINUE TO MONITOR.
--- NOTE | 2019-02-24 02:00 | NUR ---
SPOKE TO PENNY LEVY APN ABOUT INCREASED HR, ORDERS TO CALL CARDIOLOGY IF HR >130. HR 125 AT THIS TIME. WILL CONTINUE TO MONITOR.
--- NOTE | 2019-02-24 03:21 | NUR ---
REASSESSMENT COMPLETED PER FLOW SHEET, SEE FOR DETAILS. ORAL CARE PROVIDED. WILL CONTINUE TO MONITOR.
--- NOTE | 2019-02-24 05:00 | NUR ---
ORAL CARE PROVIDED, REPOSITIONED IN BED. CALM AND COOPERATIVE. WILL CONTINUE TO MONITOR.
[2019-02-24 05:35] LABS: APTT 83.2 SECONDS (22.8-39.4)
[2019-02-24 05:38] LABS: BASOPHILS 0 % (0-2); EOSINOPHILS 0 % (0-7); HEMATOCRIT 26.1 % (36.0-48.0); HEMOGLOBIN 8.2 g/dL (12-16); IMMATURE GRANULOCYTES 0.3 % (0-5); LYMPHOCYTES 3.8 % (15-50); MCH 25.1 pg (26.0-34.0); MCHC 31.4 g/dL (31.0-37.0); MCV 79.8 fL (80.0-100.0); MONOCYTES 4.1 % (2-11); NEUTROPHILS 91.8 % (40-80); RBC 3.27 10x6/uL (4.00-5.40); RDW 20.9 % (11.5-14.5)
[2019-02-24 05:40] LABS: PLATELET COUNT 104 10x3/uL (130-400)
[2019-02-24 06:03] LABS: ALBUMIN 1.9 g/dL (3.4-5.0); ANION GAP 9.4 mmol/L (8-16); BILIRUBIN - TOTAL 4.24 mg/dL (0.2-1.3); CALCIUM 7.6 mg/dL (8.5-10.1); CREATININE - SERUM 1.3 mg/dL (0.6-1.3); PHOSPHOROUS 3.6 mg/dL (2.5-4.9); POTASSIUM - SERUM 4.4 mmol/L (3.5-5.1); PROTEIN - SERUM 5.3 g/dL (6.4-8.2); THYROID STIMULATING HORMONE 0.68 uIU/mL (0.36-3.74)
[2019-02-24 06:08] LABS: INR 6.81 (0.85-1.17); PROTIME 58.2 SECONDS (11.6-15.0)
--- NOTE | 2019-02-24 07:31 | NUR ---
BEDSIDE REPORT COMPLETE. VSS, R IJ CDI. REPOSITIONED, ORAL CARE COMPLETED. WILL CONTINUE TO MONITOR.
--- NOTE | 2019-02-24 09:21 | NUR ---
0848 EKG OBTAINED, A FLUTTER RATE OF 130'S. DR WARD AT [facility]. CONSENT RECEIVED AND VERIFIED BY 2 RN'S FOR CARDIVERSION. TELEPHONE ORDER OBTAINED FOR FENTANYL IVP. CARDIOVERSION COMPLETED BY DR WARD, PATIENT CONVERTED TO NSR RATE OF 110'S. WILL CONTINUE TO MONITOR.
--- NOTE | 2019-02-24 09:23 | NUR ---
0900 DR NAPOLES AT BEDSIDE, NEW ORDERS RECEIVED.
--- NOTE | 2019-02-24 12:39 | NUR ---
1100 REASESSMENT COMPLETE, VSS. PATIENT RESTING. WILL CONTINUE TO MONITOR.
--- NOTE | 2019-02-24 13:20 | NUR ---
DR VALLADARES AT BEDSIDE, NEW ORDERS RECEIVED. WILL CONTINUE TO MONITOR.
--- NOTE | 2019-02-24 15:00 | NUR ---
REASSESSMENT COMPLETE, SEE FLOWSHEET. WILL CONTINUE TO MONITOR.
--- NOTE | 2019-02-24 16:22 | NUR ---
CHG BATH COMPLETE, LINEN CHANGE COMPLETE. WILL CONTINUE TO MONITOR
--- NOTE | 2019-02-24 17:54 | NUR ---
FAMILY AT BEDSIDE, UPDATE GIVEN. NO NEW CHANGES, VSS. WILL CONTINUE TO MONITOR
[2019-02-25] VITALS (24 sets, daily range): BP systolic 96–167; BP diastolic 50–107
[2019-02-25 05:15] LABS: BASOPHILS 0.1 % (0-2); EOSINOPHILS 0.6 % (0-7); HEMATOCRIT 24.1 % (36.0-48.0); HEMOGLOBIN 7.6 g/dL (12-16); IMMATURE GRANULOCYTES 0.3 % (0-5); LYMPHOCYTES 6.1 % (15-50); MCH 25.7 pg (26.0-34.0); MCHC 31.5 g/dL (31.0-37.0); MCV 81.4 fL (80.0-100.0); MONOCYTES 3.8 % (2-11); NEUTROPHILS 89.1 % (40-80); PLATELET COUNT 93 10x3/uL (130-400); RBC 2.96 10x6/uL (4.00-5.40); RDW 21.1 % (11.5-14.5); WBC 6.8 10x3/uL (4.8-10.8)
[2019-02-25 05:27] LABS: PLATELET ESTIMATE DECREASED
[2019-02-25 05:32] LABS: ANION GAP 9.6 mmol/L (8-16); BILIRUBIN - TOTAL 3.83 mg/dL (0.2-1.3); CALCIUM 7.7 mg/dL (8.5-10.1)
[2019-02-25 05:36] LABS: INR 4.04 (0.85-1.17); PROTIME 38.5 SECONDS (11.6-15.0)
[2019-02-25 05:39] LABS: CREATININE - SERUM 0.9 mg/dL (0.6-1.3); POTASSIUM - SERUM 3.6 mmol/L (3.5-5.1)
--- NOTE | 2019-02-25 07:39 | NUR ---
BEDSIDE REPORT COMPLETE, SHIFT ASSESSMENT COMPLETE, SEE FLOWSHEET FOR DETAILS. VSS. WILL MONITOR.
--- NOTE | 2019-02-25 08:19 | NUR ---
Nutrition follow-up: Intubated, sedated Pulmocare infusing at goal rate of 50 ml/hr; pt tolerating per nursing Labs reviewed Pressors in use Wt: 209# RDN following.
--- NOTE | 2019-02-25 09:01 | NUR ---
REPOSITIONED PATIENT, ORAL CARE COMPLETE. PLACED ON CPAP TRIAL PER ORDERS. WILL CONTINUE TO MONITOR.
--- NOTE | 2019-02-25 10:53 | NUR ---
DR VALLADARES AT BEDSIDE, UPDATE GIVEN. WILL CONTINUE PLAN OF CARE.
--- NOTE | 2019-02-25 11:00 | NUR ---
REASSESSMENT COMPLETE, SEE FLOW SHEET. VSS. WILL MONITOR.
--- NOTE | 2019-02-25 13:00 | NUR ---
RESTING COMFORTABLY, VSS. NO CHANGES NOTED. WILL CONTINUE TO MONITOR.
--- NOTE | 2019-02-25 14:13 | MORECARE ---
CASE MANAGEMENT DISCHARGE SUMMARY PATIENT: DIEGO ESCOBAR UNIT: [id number] ADM DATE: 02/14/19 AGE: 68 : 51 SEX: F ROOM/BED: D.2307 AUTHOR: URI,DOC PHYSICIAN: REFERRING PHYSICIAN: CARRIE LANG MD DATE OF SERVICE: 02/25/19 Discharge Plan Patient Name: DIEGO ESCOBAR Facility: [facility]:[place] : 1950 Planned Disposition: Fci Facility Anticipated Discharge Date: Discharge Date: Expected LOS: Initial Reviewer: [email or web address] Initial Review Date: 02/15/2019 Generated: 02/25/19 3:13 pm DCP- Discharge Planning Updated by [email or web address]: Grecia Delvalle on 02/23/19 12:[address] Patient Name: DIEGO ESCOBAR Encounter No: [id number] : 1950 Primary Insurance: [facility] MEDICARE SOLUTIONS Anticipated DC Date: Planned Disposition: [facility]ci Facility External Planned Provider: : DCP follow-up note: CM spoke to patient's son Sagar Escobar (who is currently in the hospital at [facility]) regarding his mom condition and his wishes. He reports the last time he spoke to his mother she told him she wanted to live even if that meant being on the vent. He stated he is getting out of the hospital on Thursday and he will call the nursing station to set up a time to meet with the physicians and physically lay eyes on his mother to make a decision. CM will continue to follow and will assist as needed with dc plans/needs. Grecia Delvalle RN, [facility] DCP- Discharge Planning Updated by [email or web address]: Akilah Garcia on 02/22/19 4:[address] Patient Name: DIEGO ESCOBAR Admission Status: ER Accout number: [id number] Admission Date: 02-14-2019 : 1950 Admission Diagnosis:SEPSIS, UNSPECIFIED ORGANISM Attending: CARRIE LANG Current LOS: 8 Anticipated DC Date: Planned Disposition: [facility] Facility Primary Insurance: [facility] MEDICARE SOLUTIONS Discharge Planning Comments: CM SPOKE WITH NURSE, NURSE STATES SHE IS GOING TO TALK TO PATIENT SON WITH SISTER OVER THE PHONE. STATES SHE WILL EXPLAIN PATIENT'S PROGNOSIS AND ANSWER QUESTIONS HE MAY HAVE. SAGAR WITH [facility] IS ALSO AWARE. CM TO FOLLOW AND ASSIST. Awning Spreader: Akilah Garcia DCP- Discharge Planning Updated by [email or web address]: Lucinda Hernandez on 02/15/19 5:[address] Patient Name: DIEGO ECSOBAR Admission Status: ER Accout number: [id number] Admission Date: 02-14-2019 : 1950 Admission Diagnosis: Attending: CARRIE LANG Current LOS: 1 Anticipated DC Date: Planned Disposition: [facility] Facility Primary Insurance: [facility] MEDICARE SOLUTIONS Discharge Planning Comments: CM met with patient's sister Segundo d/t patient being confused and unable to answer questions. CM explained CM role and obtained verbal consent. Segundo stated that patient has been in [facility] AT [phone] getting Rehab since her last admission. Sister Segundo would like to make patient DNR but nursing spoke with son Sagar Escobar (whom is currently in [facility] in for paralysis) and he wants patient to be full code. CM asked Segundo about discharge plans and she stated she didn't know what the plan was. CM stated that the patient is unable to care for herself so she will need either SNF v/s Fdc NH placement since she is unable to care for herself and doesn't have anyone to care for her at home. Segundo stated that her son Sagar will need to make that decision. CM [facility] what [facility] plans for her upon discharge. CM will continue to follow and assist as needed with discharge planning / needs. Awning Spreader: Lucinda Hernandez DCPIA - Discharge Planning Initial Assessment Updated by [email or web address]: Lucinda Hernandez on 02/15/19 5:41 pm * Is the patient Alert and Oriented? No * How many steps to enter\exit or inside your home? * PCP DANIELLE * Pharmacy [facility] * Preadmission Environment [facility]ci Facility * Facility Name [facility] AT [phone] * ADLs Partial Dependent * Partial ADLs (Assistance needed) Ambulation Bathing Dressing Eating Medication Management Toileting Transfers * List name and contact numbers for known caregivers / representatives who currently or will assist patient after discharge: SEGUNDO TOO - SISTER- [phone] SAGAR ESCOBAR - SON - [phone] * Verbal permission to speak to the caregivers and representatives has been obtained from the patient. N/A * Community resources currently utilized None * Additional services required to return to the preadmission environment? No * Can the patient safely return to the preadmission environment? Yes * Has this patient been hospitalized within the prior 30 days at any hospital? Yes External Providers External Provider: Yunior Garcia of [place] Next Contact Date: Service Request Date: Service Type: Resolution: Reviewer: Comments: Last DP export: 02/23/19 12:39 p Patient Name: DIEGO ESCOBAR Page 10415 at 1413 All edits/amendments must be made on the electronic document DICTATION DATE: 02/25/191412 MARINE [employer]IL TERMINAL SUPERINTENDENT: NERI 02/25/191412 RPT#: [id number] DC DATE: STATUS: ADM IN [facility] [address] [place] [address] END OF REPORT
--- NOTE | 2019-02-25 14:40 | MORECARE ---
CASE MANAGEMENT DISCHARGE SUMMARY PATIENT: DIEGO ESCOBAR UNIT: [id number] ADM DATE: 02/14/19 AGE: 68 : [birth year] SEX: F ROOM/BED: D.2307 AUTHOR: URI,DOC PHYSICIAN: REFERRING PHYSICIAN: CARRIE LANG MD DATE OF SERVICE: 02/25/19 Discharge Plan Patient Name: DIEGO ESCOBAR Facility: [facility]:[place] : 1950 Planned Disposition: Senior Care Facility Anticipated Discharge Date: Discharge Date: Expected LOS: Initial Reviewer: [email or web address] Initial Review Date: 02/15/2019 Generated: 02/25/19 3:40 pm DCP- Discharge Planning Updated by [email or web address]: Grecia Delvalle on 02/23/19 12:[address] Patient Name: DIEGO ESCOBAR Encounter No: [id number] : 1950 Primary Insurance: [facility] [employer] Anticipated DC Date: Planned Disposition: Senior Care Facility External Planned Provider: : DCP follow-up note: CM spoke to patient's son Sagar Escobar (who is currently in the hospital at [facility] regarding his mom condition and his wishes. He reports the last time he spoke to his mother she told him she wanted to live even if that meant being on the vent. He stated he is getting out of the hospital on Thursday and he will call the nursing station to set up a time to meet with the physicians and physically lay eyes on his mother to make a decision. CM will continue to follow and will assist as needed with dc plans/needs. Grecia Delvalle RN, [facility] DCP- Discharge Planning Updated by [id number]: Akilah Garcia on 02/22/19 4:[address] Patient Name: DIEGO ESCOBAR Admission Status: ER Accout number: [id number] Admission Date: 02-14-2019 : 1950 Admission Diagnosis:SEPSIS, UNSPECIFIED ORGANISM Attending: CARRIE LANG Current LOS: 8 Anticipated DC Date: Planned Disposition: Senior Care Facility Primary Insurance: [facility] [employer] Discharge Planning Comments: CM SPOKE WITH NURSE, NURSE STATES SHE IS GOING TO TALK TO PATIENT SON WITH SISTER OVER THE PHONE. STATES SHE WILL EXPLAIN PATIENT'S PROGNOSIS AND ANSWER QUESTIONS HE MAY HAVE. SAGAR WITH [facility] IS ALSO AWARE. CM TO FOLLOW AND ASSIST. Learning Technologies Specialist: Akilah Garcia DCP- Discharge Planning Updated by [id number]: Lucinda Hernandez on 02/15/19 5:[address] Patient Name: DIEGO ESCOBAR Admission Status: ER Accout number: [id number] Admission Date: 02-14-2019 : 1950 Admission Diagnosis: Attending: CARRIE LANG Current LOS: 1 Anticipated DC Date: Planned Disposition: Senior Care Facility Primary Insurance: [facility] [employer] Discharge Planning Comments: CM met with patient's sister Segundo d/t patient being confused and unable to answer questions. CM explained CM role and obtained verbal consent. Segundo stated that patient has been in [facility] AT [phone] getting Rehab since her last admission. Sister Segundo would like to make patient DNR but nursing spoke with son Sagar Escobar (whom is currently in [facility] in for paralysis) and he wants patient to be full code. CM asked Segundo about discharge plans and she stated she didn't know what the plan was. CM stated that the patient is unable to care for herself so she will need either SNF v/s [facility] placement since she is unable to care for herself and doesn't have anyone to care for her at home. Segundo stated that her son Sagar will need to make that decision. CM will [facility] to get [facility] to see what he plans for her upon discharge. CM will continue to follow and assist as needed with discharge planning / needs. Learning Technologies Specialist: Lucinda Hernandez DCPIA - Discharge Planning Initial Assessment Updated by [id number]: Lucinda Hernandez on 02/15/19 5:41 pm * Is the patient Alert and Oriented? No * How many steps to enter\exit or inside your home? * PCP DANIELLE * Pharmacy [facility] * Preadmission Environment Senior Care Facility * Facility Name [facility] AT [phone] * ADLs Partial Dependent * Partial ADLs (Assistance needed) Ambulation Bathing Dressing Eating Medication Management Toileting Transfers * List name and contact numbers for known caregivers / representatives who currently or will assist patient after discharge: SEGUNDO TOO - SISTER- [phone] SAGAR ESCOBAR - SON - [phone] * Verbal permission to speak to the caregivers and representatives has been obtained from the patient. N/A * Community resources currently utilized None * Additional services required to return to the preadmission environment? No * Can the patient safely return to the preadmission environment? Yes * Has this patient been hospitalized within the prior 30 days at any hospital? Yes Last DP export: 02/25/19 1:13 p Patient Name: DIEGO ESCOBAR Page [id number] at 1440 All edits/amendments must be made on the electronic document DICTATION DATE: 02/25/19 1440 FORECLOSURE SPECIALIST: NERI 02/25/19 1440 RPT#: [id number] DC DATE: STATUS: ADM IN [facility] [address] [place] [address] END OF REPORT
--- NOTE | 2019-02-25 15:00 | NUR ---
REASSESSMENT COMPLETE, SEE FLOWSHEET. NEW VAGINAL DISCHARGE SPOTTING NOTED, PHYSICIAN NOTIFIED.
[2019-02-25 15:38] LABS: BASOPHILS 0 % (0-2); EOSINOPHILS 0.7 % (0-7); HEMATOCRIT 24.9 % (36.0-48.0); HEMOGLOBIN 7.7 g/dL (12-16); IMMATURE GRANULOCYTES 0.7 % (0-5); LYMPHOCYTES 7.2 % (15-50); MCH 25.7 pg (26.0-34.0); MCHC 30.9 g/dL (31.0-37.0); MONOCYTES 3.1 % (2-11); NEUTROPHILS 88.3 % (40-80); PLATELET COUNT 84 10x3/uL (130-400); WBC 7.4 10x3/uL (4.8-10.8)
--- NOTE | 2019-02-25 16:04 | NUR ---
EXAM WAS ORDERED OB TV ON 68 YR OLD ON A VENT WHO IS UNABLE TO GIVE PERMISSION FOR TV EXAM. EXPLAINED WE NEED LEGAL PERMISSION. WE CAN DO FULL BLADDER PELVIC BUT TV WILL HAVE TO HAVE LEGAL GUARDIAN PERMISSION. THIS NEEDS TO BE REORDERED CORRECTLY PELVIC WITH TV IF SON GIVES PERMISSION. NURSE SAID WOULD PROBABLY BE TOMORROW BEFORE SHE CAN ASK SON. MARCOS,RMMS
--- NOTE | 2019-02-25 16:06 | OP ---
PATIENT NAME: DIEGO ESCOBAR MEDICAL RECORD: [id number] :[birth year] LOCATION:D.[facility] D.2307 ADMISSION DATE:02/14/19 SURGEON: EULOGIO NOE MD DATE OF OPERATION: 02/18/2019 PREOPERATIVE DIAGNOSES: 1. Respiratory failure. 2. Need of additional IV access for IV medications when additional peripheral access is not obtainable. POSTOPERATIVE DIAGNOSES: 1. Respiratory failure. 2. Need of additional IV access for IV medications when additional peripheral access is not obtainable. 3. Apparent atelectasis involving the left lung, likely the entire left lung. Additionally, this may represent a very large pleural effusion on the left. PROCEDURE: Insertion of right internal jugular triple-lumen central venous catheter. SURGEON: Eulogio Noe MD REWORK MACHINE OPERATOR: None. BLOOD LOSS: Minimal. ANESTHESIA: Local. COMPLICATIONS: None. The risks, possible complications, and alternatives to the procedure were explained. A consent form was signed. OPERATIVE COURSE: The patient was seen at her bedside. The entire procedure was performed in the presence of a female nurse. I interrogated the right neck with a hand-held ultrasound. I then marked the internal jugular vein, which was large and compressible. The right neck was sterilely prepped and draped. Local anesthetic was used to infiltrate the skin and subcutaneous tissues at the base of right neck. Right internal jugular vein was percutaneously accessed in an antegrade fashion. A guidewire passed easily. A small skin corey was accomplished. A vessel dilator was used to dilate the subcutaneous tract. A 16-cm triple-lumen central venous catheter was inserted to the hub. It was sutured in place times 3. All lumens flushed easily and aspirated dark, nonpulsatile blood. A stat portable chest x-ray revealed opacification of the left hemithorax with deviation of the superior vena cava to the left. I believe this represents complete atelectasis of the left lung. I have compared it with an x-ray earlier this morning and it is markedly worsened. I have asked the nurse to get hold of the patient's tool engineer as I believe the patient requires semi-urgent bronchoscopy. TRANSINT:[id number] Voice Confirmation ID: [id number] DOCUMENT ID: [id number] OPERATIVE REPORT [id number] DIEGO ESCOBAR EULOGIO NOE MD at 1468 CC: [id number] DICTATION DATE: 02/18/19 1519 LACING OPERATOR: 02/18/[address] [facility] [address] [place] [id number]
--- NOTE | 2019-02-25 16:13 | NUR ---
UNABLE TO DO VAGINAL U/S AT THIS TIME R/T PT CANNOT CONSENT, AND NO ANSWER FROM FAMILY. WILL ATTEMPT AGAIN IN AM.
--- NOTE | 2019-02-25 17:00 | NUR ---
SISTER CALLED ASKING IF SON IS HERE, SON IS NOT HERE.
--- NOTE | 2019-02-25 19:43 | NUR ---
SHIFT ASSESSMENT COMPLETE PER FLOW SHEET. VSS. NO NEW CHANGES PT RESTING COMFORTABLY RESPIRATORY AT BEDSIDE. WILL CONTINUE TO MONITOR
--- NOTE | 2019-02-25 20:30 | NUR ---
NO VISITORS IN AT THIS TIME, VSS, WILL CONT TO MONITOR FOR CHANGES.
--- NOTE | 2019-02-25 22:00 | NUR ---
PT REPOSITIONED UP IN BED AND ONTO LEFT SIDE SUPPORTED WITH PILLOWS, DIPRIVAN INCREASED, RESPS 28, BP 105/68.
--- NOTE | 2019-02-25 23:00 | NUR ---
PT RESTING ON VENT SEE FLOWSHEET FOR VENT SETTINGS, PT ATTEMPTING TO TALK AROUND ETT, DOES NOT FOLLOW COMMANDS, RIJTL DRSG CDI BUMEX INFUSING @ 5CC/HR, DIPRIVAN @ 30MCG/KG/MIN, DOBUTAMINE @ 2.5MCG/KG/MIN, AND NS @ 10CC/HR, GENERALIZED WEEPING EDEMA NOTED TO LEFT UPPER EXT, 3+ PITTING EDEMA TO LOWER EXT'S, OGT WITH PULMOCARE INFUSING @ 50CC/HR, REICH PATENT DRAINING CONCENTRATED URINE, 2ND TOE ON LEFT FOOT BRUISED, BILAT SOFT WRIST RESTRAINTS INTACT
[2019-02-26] VITALS (25 sets, daily range): BP systolic 102–127; BP diastolic 7–71
--- NOTE | 2019-02-26 00:30 | NUR ---
ROUTINE MEDS GIVEN ORDERED, PT REPOSITIONED FOR COMFORT, PT RESTING EYES CLOSED, VSS.
--- NOTE | 2019-02-26 01:00 | NUR ---
PT INCONTINENT OF LOOSE BROWN STOOL, PARTIAL BATH AND LINEN CHANGE PROVIDED, PT REPOSITIONED UP IN BED AND ONTO RIGHT SIDE SUPPORTED WITH PILLOWS, HEELS BRIDGED, SR UP X 2, VSS.
--- NOTE | 2019-02-26 03:00 | NUR ---
REASSESSMENT COMPLETED, NO CHANGES FROM PREVIOUS ASSESSMENT
--- NOTE | 2019-02-26 04:30 | NUR ---
AM LAB DRAWN FROM CVL AND SENT TO LAB
[2019-02-26 05:00] LABS: APTT 45.1 SECONDS (22.8-39.4); INR 1.87 (0.85-1.17); PROTIME 20.9 SECONDS (11.6-15.0)
--- NOTE | 2019-02-26 05:30 | NUR ---
PT REPOSITIONED UP IN BED AND ONTO LEFT SIDE SUPPORTED WITH PILLOWS, PT TOLERATED WELL, VSS.
--- NOTE | 2019-02-26 07:28 | NUR ---
30 ML RESIDUAL NOTED TO OGT FEEDS.
[2019-02-26 08:05] LABS: BASOPHILS 0 % (0-2); EOSINOPHILS 0.4 % (0-7); IMMATURE GRANULOCYTES 0.5 % (0-5); LYMPHOCYTES 5.9 % (15-50); MCH 24.8 pg (26.0-34.0); MCHC 30.4 g/dL (31.0-37.0); MCV 81.6 fL (80.0-100.0); MONOCYTES 2.9 % (2-11); NEUTROPHILS 90.3 % (40-80); RBC 2.94 10x6/uL (4.00-5.40); RDW 21.1 % (11.5-14.5); WBC 8.4 10x3/uL (4.8-10.8)
[2019-02-26 08:14] LABS: PLATELET COUNT 132 10x3/uL (130-400)
[2019-02-26 08:15] LABS: HEMOGLOBIN 7.3 g/dL (12-16)
--- NOTE | 2019-02-26 08:56 | NUR ---
LYING IN BED ON VENT AT THIS TIME. PT ABLE TO FOLLOW COMMANDS. NO ACUTE DISTRESS NOTED. VSS. TURNED Q2H. ORAL CARE PROVIDED Q2H. WILL CONTINUE PLAN OF CARE.
[2019-02-26 09:25] LABS: BASOPHILS 0.1 % (0-2); EOSINOPHILS 0.9 % (0-7); HEMATOCRIT 23.4 % (36.0-48.0); IMMATURE GRANULOCYTES 0.5 % (0-5); LYMPHOCYTES 6.1 % (15-50); MCH 25.3 pg (26.0-34.0); MCHC 31.2 g/dL (31.0-37.0); MONOCYTES 2.2 % (2-11); NEUTROPHILS 90.2 % (40-80); PLATELET COUNT 90 10x3/uL (130-400); RBC 2.89 10x6/uL (4.00-5.40); RDW 20.6 % (11.5-14.5); WBC 7.7 10x3/uL (4.8-10.8)
[2019-02-26 09:26] LABS: HEMOGLOBIN 7.3 g/dL (12-16)
[2019-02-26 09:34] LABS: ALBUMIN 2.1 g/dL (3.4-5.0); ANION GAP 6.4 mmol/L (8-16); BILIRUBIN - TOTAL 3.5 mg/dL (0.2-1.3); CALCIUM 7.4 mg/dL (8.5-10.1); CREATININE - SERUM 0.9 mg/dL (0.6-1.3); PROTEIN - SERUM 4.9 g/dL (6.4-8.2)
[2019-02-26 09:43] LABS: POTASSIUM - SERUM 2.4 mmol/L (3.5-5.1)
--- NOTE | 2019-02-26 09:45 | NUR ---
CRITICAL LAB VALUES OF H&H 7.3/23.4 AND POTASSIUM LEVEL OF 2.4 [address] AM LABS. DR CARRILLO GALLEGOS. WAITING FOR CALLBACK.
--- NOTE | 2019-02-26 10:04 | NUR ---
PER DR VIZCAINO, DR CORBIN IS WORD PROCESSOR FOR ICU TODAY. WILL PAGE DR CORBIN. ALSO SPOKE WITH [facility] ON[facility] ACETALDEHYDE CONVERTER OPERATOR, STATED ORDER FOR PT TO RECIEVE 1 U PRBC TODAY IN REGARDS TO LOW H&H. WILL PAGE DR CORBIN USING [employer] WORD PROCESSOR SERVICE.
--- NOTE | 2019-02-26 10:40 | NUR ---
PER DR CORBIN REPLACE POTASSIUM PER ELECTROLYTE PROTOCOL, AND GIVE 2 U PRBC INSTEAD OF 1 U PRBC.
--- NOTE | 2019-02-26 12:16 | NUR ---
TOTAL LINEN CHANGE PROVIDED AT THIS TIME ALONG WITH CHG BATH. INCONTINENT BOWEL MOVEMENT NOTED. LIQUID BROWN. JULIETTE CARE/REICH CARE PROVIDED USING HIPICLENS. NO ACUTE DISTRESS NOTED. TURNED Q2H. ORAL CARE PROVIDED Q2H. VSS. WILL CONTINUE PLAN OF CARE.
--- NOTE | 2019-02-26 13:20 | NUR ---
FIRST UNIT OF PRBC ADMINISTRATION INITIATED AT THIS TIME. NO ACUTE DISTRESS NOTED. VSS. WILL CONTINUE TO OBSERVE.
--- NOTE | 2019-02-26 15:29 | NUR ---
NO CHANGE PT TURNED Q2H. ORAL CARE PROVIDED Q2H. VSS. WILL CONTINUE PLAN OF CARE.
--- NOTE | 2019-02-26 16:45 | NUR ---
SECOND UNIT OF PRBC (2/2 ORDERED FOR TODAY) ADMINISTRATION INITIATED AT THIS TIME. NO ACUTE DISTRESS NOTED. VSS. WILL CONTINUE TO OBSERVE.
--- NOTE | 2019-02-26 18:15 | NUR ---
POTASSIUM RECHECK NOTED AT 2.7 CRITICALLY LOW. PHYSICIAN SWAMPER FOR DR SHAQUILLE GALLEGOS. WAITING FOR CALLBACK.
--- NOTE | 2019-02-26 18:41 | NUR ---
INCONTINENT BOWEL MOVEMENT NOTED AT THIS TIME, LARGE LIQUID BROWN. TOTAL LINEN CHANGE PROVIDED. PERICARE/REICH CARE PROVIDED. NO ACUTE DISTRESS NOTED. VSS. WILL CONTINUE PLAN OF CARE.
--- NOTE | 2019-02-26 19:15 | NUR ---
REPORT REC'D AND CARE ASSUMED, REC'D PT RESTING ON VENT VIA 7.5 ETT TAPED @ 22CM LIPLINE, SEE FLOWSHEET FOR VENT SETTINGS, PT'S EYES OPEN UPON ENTERING ROOM, FOLLOWING COMMANDS AND NODDING YES AND NO APPROPRIATELY, RAKEL JAMESG CDI SEE IV FLOWSHEET FOR IVF'S, OGT TAPED SECURELY TO ETT, PLACEMENT VERIFIED VIA SM AIR BOLUS AUSCULTATED OVER EPIGASTRIM, PULMOCARE INFUSING @ 50CC/HR WITH A 100CC Q4HR FLUSH, GENERALIZED EDEMA TO UPPER ARMS, WEEPING EDEMA NOTED TO LEFT UPPER ARM, ABD ROUND BS ACTIVE, REICH PATENT DRAINING CONCENTRATED URINE, 3+ PITTING EDEMA TO ANKLES AND FEET, AIR OVERLAY MATTRESS, PPP, BED IN LOW POSITION, SR UP X 2 ,BILAT SOFT WRIST RESTRAINTS INTACT.
--- NOTE | 2019-02-26 20:10 | NUR ---
4TH KCL RIDER HUNG AT THIS TIME, PT RESTING EYES CLOSED ON VENT, RESP EVEN AND UNLABORED, VSS, WILL CONT TO MONITOR FOR CHANGES.
--- NOTE | 2019-02-26 23:15 | NUR ---
REASSESSMENT COMPLETED, PT INCONTINENT OF LOOSE BROWN STOOL, PARTIAL BATH AND LINEN CHANGE PROVIDED, DRSG TO COCCYX CDI, PT REPOSITIONED ONTO LEFT SIDE SUPPORTED WITH PILLOWS, TOLERATED WELL.
[2019-02-27] VITALS (24 sets, daily range): BP systolic 103–125; BP diastolic 42–75
--- NOTE | 2019-02-27 00:15 | NUR ---
SERUM K DRAWN FROM CVL AND SENT TO LAB PER ELECTROLYTE PROTOCOL
--- NOTE | 2019-02-27 01:00 | NUR ---
NO CHANGES IN STATUS AT THIS TIME
--- NOTE | 2019-02-27 03:00 | NUR ---
REASSESSMENT COMPLETED, PT REPOSITIONED UP IN BED FOR COMFORT, CM-SR, BP STABLE, WILL CONT TO MONITOR FOR CHANGES.
--- NOTE | 2019-02-27 05:15 | NUR ---
PT INCONTINENT OF LARGE LIQUID BROWN STOOL, CHG BATH AND COMPLETE LINEN CHANGE PROVIDED, HAIR COMBED, PT REPOSITIONED UP IN BED AND ONTO RIGHT SIDE SUPPORTED WITH PILLOWS, TOLERATED WELL, CVP LINE CHANGED PER PROTOCOL, SR UP X 2, BILAT SOFT WRIST RESTRAINTS INTACT, VISIBLE TO NURSES STATION.
[2019-02-27 06:15] LABS: INR 1.53 (0.85-1.17); PROTIME 17.8 SECONDS (11.6-15.0)
[2019-02-27 06:17] LABS: BASOPHILS 0.1 % (0-2); EOSINOPHILS 1.3 % (0-7); IMMATURE GRANULOCYTES 0.8 % (0-5); MCH 26.4 pg (26.0-34.0); MCHC 32.3 g/dL (31.0-37.0); MCV 81.9 fL (80.0-100.0); MONOCYTES 2.1 % (2-11); NEUTROPHILS 88.7 % (40-80); PLATELET COUNT 94 10x3/uL (130-400); RDW 18.6 % (11.5-14.5); WBC 7.6 10x3/uL (4.8-10.8)
[2019-02-27 06:23] LABS: CALC OSMOLALITY 289 mosm/kg (275-300); CALCIUM 7.5 mg/dL (8.5-10.1); CARBON DIOXIDE 36.2 mmol/L (21.0-32.0); CHLORIDE - SERUM 102 mmol/L (98-107); CREATININE - SERUM 0.8 mg/dL (0.6-1.3); GLUCOSE 105 mg/dL (74-106); POTASSIUM - SERUM 3.2 mmol/L (3.5-5.1); SODIUM 142 mmol/L (136-145); UREA NITROGEN 33 mg/dL (7-18); eGFR NON AFRICAN AMERICAN 76 mL/min (90-120)
[2019-02-27 06:24] LABS: APTT 33.6 SECONDS (22.8-39.4)
[2019-02-27 06:25] LABS: HEMATOCRIT 31.3 % (36.0-48.0); HEMOGLOBIN 10.1 g/dL (12-16); RBC 3.82 10x6/uL (4.00-5.40)
[2019-02-27 07:04] LABS: PLATELET ESTIMATE DECREASED
--- NOTE | 2019-02-27 07:34 | NUR ---
5ML RESIDUAL NOTED TO OGT.
--- NOTE | 2019-02-27 08:33 | NUR ---
SISTER AT BEDSIDE. UPDATES PROVIDED. NO ACUTE DISTRESS NOTED. WILL CONTINUE PLNA OF CARE.
--- NOTE | 2019-02-27 09:34 | NUR ---
NO ACUTE DISTRESS NOTED. VSS. PT TURNED Q2H. ORAL CARE PROVIDED Q2H. WILL CONTINUE PLAN OF CARE.
--- NOTE | 2019-02-27 10:28 | NUR ---
NO ACUTE DISTRESS NOTED. VSS. ON CPAP TRIAL VIA VENT. PT EYES CLOSED. TURNED Q2H. ORAL CARE PROVIDED Q2H. WILL CONTINUE PLAN OF CARE.
--- NOTE | 2019-02-27 12:27 | NUR ---
LYING IN BED ON VENT. NO ACUTE DISTRESS NOTED. VSS. WILL CONTINUE PLAN OF CARE.
--- NOTE | 2019-02-27 14:26 | NUR ---
LYING IN BED ON VENT AT THIS TIME ON CPAP TRIAL. NO ACUTE DISTRESS NOTED. VSS. OPENS EYES WHEN SPOKEN TO AND FOLLOWS COMMANDS. TURNED Q2H. ORAL CARE PROVIDED Q2H. WILL CONTINUE PLAN OF CARE.
--- NOTE | 2019-02-27 19:00 | NUR ---
PT MAINTAINS ON VENT. PT AWAKES TO NAME, THEN DRIFTS BACK TO SLEEP. NO CHANGES FROM NURSE REPORT
--- NOTE | 2019-02-27 21:00 | NUR ---
PT MAINTAINING ON VENT, NO CHANGES AT THIS TIME
--- NOTE | 2019-02-27 23:00 | NUR ---
PT MAINTAINING ON VENT, NO CHANGES OR DISTRESS NOTED AT THIS TIME
[2019-02-28] VITALS (24 sets, daily range): BP systolic 103–123; BP diastolic 58–79
--- NOTE | 2019-02-28 01:00 | NUR ---
PT MAINTAING ON THE VENT, NO CHANGES AT THIS TIME.
[2019-02-28 05:28] LABS: BASOPHILS 0.1 % (0-2); EOSINOPHILS 0.9 % (0-7); HEMATOCRIT 30.2 % (36.0-48.0); HEMOGLOBIN 9.7 g/dL (12-16); IMMATURE GRANULOCYTES 1.1 % (0-5); LYMPHOCYTES 6.5 % (15-50); MCH 26.7 pg (26.0-34.0); MCHC 32.1 g/dL (31.0-37.0); MCV 83.2 fL (80.0-100.0); MONOCYTES 1.5 % (2-11); NEUTROPHILS 89.9 % (40-80); PLATELET COUNT 110 10x3/uL (130-400); RBC 3.63 10x6/uL (4.00-5.40); RDW 19.5 % (11.5-14.5); WBC 8.2 10x3/uL (4.8-10.8)
[2019-02-28 05:47] LABS: ALBUMIN 2.4 g/dL (3.4-5.0); ALKALINE PHOSPHATASE 138 U/L (46-116); ALT (SGPT) 49 U/L (10-68); BILIRUBIN - TOTAL 4.15 mg/dL (0.2-1.3); CALC OSMOLALITY 287 mosm/kg (275-300); CALCIUM 7.7 mg/dL (8.5-10.1); CHLORIDE - SERUM 102 mmol/L (98-107); CREATININE - SERUM 0.7 mg/dL (0.6-1.3); GLUCOSE 117 mg/dL (74-106); PROTEIN - SERUM 5.4 g/dL (6.4-8.2); SODIUM 141 mmol/L (136-145); UREA NITROGEN 30 mg/dL (7-18); eGFR NON AFRICAN AMERICAN 88 mL/min (90-120)
[2019-02-28 05:50] LABS: POTASSIUM - SERUM 2.8 mmol/L (3.5-5.1)
--- NOTE | 2019-02-28 07:00 | NUR ---
BED SIDE REPORT COMPLETE. SHIFT ASSESSMENT DONE, SEE FLOWSHEET. REPOSITIONING AND ORAL CARE DONE. VSS.
--- NOTE | 2019-02-28 09:00 | NUR ---
SON AT BESIDE, UPDATE GIVEN. WILL CONTINUE TO MONITOR.
--- NOTE | 2019-02-28 10:30 | NUR ---
BEDSIDE REPORT COMPLETE. SHIFT ASSESMENT DONE, SEE FLOWSHEET. ORAL CARE AND REPOSITIONING COMPLETE. VSS.
--- NOTE | 2019-02-28 11:00 | NUR ---
REASSESSMENT COMPLETE. FAMILY AT BEDSIDE.
--- NOTE | 2019-02-28 11:02 | NUR ---
Nutrition follow-up: Pulmcoare infusing @ 50 ml goal rate with pt tolerance at this time Pt remains intubated Labs reviewed WT: 200# RDN following.
--- NOTE | 2019-02-28 11:30 | NUR ---
DR LANG, DR MCCURDY AT BEDSIDE. SPOKE TO FAMILY AT GREAT LENGTH REGARDING POOR PATIENT STATUS. FAMILY STATED THEY WANTED PT TO BE INVOLVED IN MAKING DECISION. PT ASKED IF SHE WANTED THE ET TUBE REMOVED, SHOOK HER HEAD YES. WHEN ASKED IF SHE WERE TO STOP BREATHING WOULD SHE WANT THE TUBE TO SAVE HER LIFE, SHE SHOOK HER HEAD NO. FAMILY STATED AT THIS TIME THEY WOULD LIKE TO GO TO [place] TO MAKE FURTHER DECISIONS AND WOULD RETURN IN AN HOUR. PHYSICIANS GIVEN UPDATE.
--- NOTE | 2019-02-28 13:00 | NUR ---
VSS. FAMILY AT BEDSIDE. WILL CONTINUE TO MONITOR.
--- NOTE | 2019-02-28 13:30 | NUR ---
FAMILY ASKED TO SPEAK WITH NURSE AT THIS TIME. JUAQUIN RN, WICHO RN, AND MYSELF AT BEDSIDE. SON, SAGAR, STATED HE WANTED TO PROCEED WITH HIS MOTHERS WISHES TO REMOVE THE TUBE AND MAKE HER COMFORT MEASURES. WILL UPDATE THE PHYSICIAN. AWAITING SISTERS ARRIVAL.
--- NOTE | 2019-02-28 14:10 | NUR ---
SISTER NOW AT BEDSIDE, DNR COMFORT CARE MEASURE PAPERWORK SIGNED. DR CALLI GALLEGOS, GIVEN UPDATE. NEW ORDERS RECEIVED TO TERMINALY EXTUBATE. RT GIVEN UPDATE.
--- NOTE | 2019-02-28 14:35 | NUR ---
TERMINALLY EXTUBATED, VS 88% ON 3L VIA NC, BP 119/76, HR 106. FAMILY AT BEDSIDE GIVEN UPDATE. PATIENT GIVEN PRN ATIVAN PER REUQUEST.
--- NOTE | 2019-02-28 15:00 | NUR ---
REASSESSMENT COMPLETE, SEE CHART. WILL CONTINUE TO MONITOR.
--- NOTE | 2019-02-28 17:00 | NUR ---
VSS, ORAL CARE COMPLETE. PT DENIES ANY NEEDS, RESTING COMFORTABLY.
--- NOTE | 2019-02-28 18:38 | OP ---
PATIENT NAME: DIEGO PETERSON MEDICAL RECORD: [id number] :52 LOCATION:[facility] D.2307 ADMISSION DATE:02/14/19 SURGEON: AROLDO WARD MD DATE OF OPERATION: 02/24/2019 PROCEDURE: DC cardioversion. INDICATIONS: Atrial fibrillation, hemodynamic compromise. Ms. Peterson developed atrial flutter, heart rates in the 130-150 range with systolic blood pressure decreasing and having to increase her Levophed. With this, she underwent DC cardioversion with 1 shock restoring sinus rhythm after 275 joules and immediate hemodynamic stability after this. TRANSINT:[id number] Voice Confirmation ID: [id number] DOCUMENT ID: [id number] AROLDO WARD MD at 1838 CC: [id number] DICTATION DATE: 02/24/19 0856 LIVE HANGER: 02/24/19 [address] [facility] [address] [place] [address]
--- NOTE | 2019-02-28 18:38 | EC ---
PATIENT:DIEGO ESCOBAR DATE OF SERVICE: 02/14/19 SEX: F MEDICAL RECORD: [id number] DATE OF : [birth year] LOCATION:D.[facility] D.230 AGE OF PATIENT: 68 ADMISSION DATE: 02/14/19 REFERRING PHYSICIAN: INTERPRETING PHYSICIAN: AROLDO HERNANDEZ MD ECHOCARDIOGRAM REPORT ECHO CHARGES 4 ECHO COMPLETE Date: 02/17/19 CLINICAL DIAGNOSIS: A-FIB ECHOCARDIOGRAPHIC MEASUREMENTS (adult normal given) AC root (d.<3.7cm) 0 cm LV Septum d (<1.2 cm> 0 cm Valve Excursion 0 cm LV Septum (systole) 0 cm Left Atria (s.<4.0cm> 0 cm LVPW d(<1.2cm) 0 cm RV (d.<2.3cm) 0 cm LVPW (sytole) 0 cm LV diastole(<5.6CM) 0 cm MV E-F(>70mm/sec) 0 cm LV systole 0 cm LVOT Diameter 0 cm MV exc.(>10mm) 0 cm Est.ejection fraction (50-75%) 0 % DOPPLER: LVIT 0 cm/sec A 0 cm/sec E 0 cm/sec LA 0 cm/sec RVSP 44.0 mmHg LVOT 0 cm/sec AOP1/2T 0 m/s Asc. Ao 0 cm/sec RVOT 0 cm/sec RA 0 cm/sec PA 0 cm/sec AV Gradient Peak 0 mmHg AV Mean 0 mmHg AV Area 0 cm MV Gradient Peak 0 mmHg MV Mean 0 mmHg MV Area 0 cm COMMENTS: LIMITED STUDY (2-D,COLOR,DOPPLER) COMPLETE ECHO DONE ON 01/18/19 Resource Conservation Manager: Toña SORIA Corrosion Engineer: 1 Dr. Hernandez TAPE# PACS Pericardial Effusion Y DATE OF SERVICE: 02/17/2019 ECHOCARDIOGRAM DATE OF SERVICE: 02/17/2019 FINDINGS: 1. Left ventricular chamber size is mildly dilated. Left ventricular systolic function is moderately reduced at 35% to 40%. 2. Left atrium, right atrium and right ventricular chamber sizes are as well ECHOCARDIOGRAM REPORT [id number] DIEGO ESCOBAR mildly dilated. 3. Valvular structures have normal structure and motion. 4. Doppler interrogation reveals [id number] mitral regurgitation, mild tricuspid regurgitation, no other valvular insufficiency or stenosis. Pulmonary artery pressure is estimated at 44 mmHg. 5. Large pleural effusion is present, small pericardial effusion is present. The pericardial effusion is not hemodynamically significant. 6. No evidence of left ventricular thrombus. TRANSINT:[id number] Voice Confirmation ID: [id number] DOCUMENT ID: [id number] AROLDO HERNANDEZ MD at 1838 CC: [id number] DICTATION DATE: 02/18/19820 SUPERVISOR ABATTOIR: 02/18/19 0834 ADM IN [place] [id number] [place] [id number]
--- NOTE | 2019-02-28 18:38 | CN ---
PATIENT NAME:DIEGO PETERSON MEDICAL RECORD: [id number] : 52 LOCATION:[facility].2307 ADMIT DATE: 02/14/19 ACCOUNT: [id number] CONSULTING PHYSICIAN: AROLDO WARD MD REFERRING PHYSICIAN: CARRIE LANG MD DATE OF CONSULTATION: 02/17/2019 DIAGNOSES: 1. Encephalopathy. 2. Respiratory failure, requiring mechanical intubation. 3. Paroxysmal atrial fibrillation. 4. COPD. 5. Coronary artery disease. 6. Previous cardiac stenting. 7. Smoking. 8. Hypertension. 9. Hyperlipidemia. HISTORY OF PRESENT ILLNESS: Mrs. Peterson presents with an encephalopathic picture and respiratory failure. She is ventilated. She has a history of coronary artery disease, PTCA and stent last in April. No recurrent ischemic heart disease. There is mention of a possible valvular problem, but she has no valvular disease on previous echo. She has a history of atrial fibrillation, for which she is on Toprol and diltiazem. There is a questionable atrial flutter that she had during this admission, for which she was put on IV Cordarone. She is in sinus rhythm now. PHYSICAL EXAMINATION: GENERAL APPEARANCE: Well-nourished, well-developed, appears stated age. Level of distress, comfortable. PSYCHIATRIC: Mental status, alert, normal affect. Orientation, oriented to time, place and person. EYES: Lids and conjunctiva, noninjected. No discharge, no pallor. ENT: Lips, teeth, gums, normal dentition. Oropharynx, no cyanosis, no pallor. NECK: Carotid arteries, bilateral normal upstroke, no bruits, no thrills. JUGULAR VEINS: No jugular venous pressure or distention. CERVICAL LYMPH NODES: Nontender, nonenlarged. THYROID: Not enlarged. Nontender. No nodules. LUNGS: Respiratory effort, unlabored. CHEST: Normal curvature. No thoracic deformity. No chest wall tenderness. Percussion, resonant. Auscultation, clear. No wheezes, no rales, no rhonchi. CARDIOVASCULAR: Precordial exam, nondisplaced. No heaves or pericardial thrills. Rate and rhythm, regular. Heart sounds, normal S1, normal S2. No S3, no gallop, no rub. Systolic murmur, not heard. Diastolic murmur, not heard. EXTREMITIES: No cyanosis, no edema. Peripheral pulses, full and equal in all extremities, except as noted. No bruits appreciated. ABDOMEN: Soft, nondistended. Normal aorta. No bruit. Nontender. No masses. Liver, nontender, no hepatomegaly. Spleen, nontender, no splenomegaly. MUSCULOSKELETAL: No joint tenderness. No joint swelling. No erythema. NEUROLOGICAL: Normal gait, normal strength, normal tone. SKIN: Warm and dry. OVERALL IMPRESSION: 1. Ischemic heart disease, stable. Previous PTCA and stent. At this time, Plavix could be discontinued as it has been greater than 6 months. CONSULT REPORT [id number] DIEGO PETERSON 2. Atrial fibrillation, on Toprol and diltiazem. She should have no further atrial fibrillation. I would suggest discontinuing Cordarone drip at any time. If she has recurrent atrial fibrillation, she will need per G-tube Cordarone. 3. Respiratory failure and COPD. Per respiratory. We will get a cardiac echo to reevaluate valvular structures, but previous echo is with no significant valvular heart disease. TRANSINT:[id number] Voice Confirmation ID: [id number] DOCUMENT ID: [id number] AROLDO WARD MD at 1838 CC: [id number] DICTATION DATE: 02/17/19 1023 WOOD SASH AND FRAME CARPENTER: 02/17/19 1404 ADM IN [place] [id number] [place] [id number]
--- NOTE | 2019-02-28 19:00 | NUR ---
REPORT RECEIVED, CARE ASSUMED. PT IS LAYING IN BED WITH EYES CLOSED AT THIS TIME. VSS. NO NEEDS VOICED. NO SIGNS OF ACUTE DISTRESS NOTED AT THIS TIME. WILL CONTINUE TO MONITOR.
--- NOTE | 2019-02-28 19:12 | MORECARE ---
CASE MANAGEMENT DISCHARGE SUMMARY PATIENT: DIEGO ESCOBAR UNIT: [id number] ADM DATE: 02/14/19 AGE: 68 : 51 SEX: F ROOM/BED: D.2307 AUTHOR: URIDOC PHYSICIAN: REFERRING PHYSICIAN: CARRIE LANG MD DATE OF SERVICE: 02/28/19 Discharge Plan Patient Name: DIEGO ESCOBAR Facility: [facility]:[place] : 1950 Planned Disposition: Usp Facility Anticipated Discharge Date: Discharge Date: Expected LOS: Initial Reviewer: [email or web address] Initial Review Date: 02/15/2019 Generated: 02/28/19 8:12 pm Comments DCP- Discharge Planning Updated by [email or web address]: Lucinda Hernandez on 02/28/19 6:[address] Patient's son here today along with her sister. Nursing turned sedation off so patient could let the family know what her wishes are. Patient and family have agreed to extubate and make DNR. Patient doesn't want to be re-intubated. Family may want to consult Hospice later if needed. CM will continue to follow and assist as needed with discharge planning / needs. DCP- Discharge Planning Updated by [email or web address]: Grecia Delvalle on 02/23/19 12:[address] Patient Name: DIEGO ESCOBAR Encounter No: [id number] : 1950 Primary Insurance: [facility] [employer] Anticipated DC Date: Planned Disposition: Usp Facility External Planned Provider: : DCP follow-up note: CM spoke to patient's son Sagar Escobar (who is currently in the hospital at [facility]) regarding his mom condition and his wishes. He reports the last time he spoke to his mother she told him she wanted to live even if that meant being on the vent. He stated he is getting out of the hospital on Thursday and he will call the nursing station to set up a time to meet with the physicians and physically lay eyes on his mother to make a decision. CM will continue to follow and will assist as needed with dc plans/needs. Grecia Delvalle RN, [facility] DCP- Discharge Planning Updated by [email or web address]: Akilah Garcia on 02/22/19 4:[address] Patient Name: DIEGO ESCOBAR Admission Status: ER Accout number: [id number] Admission Date: 02-14-2019 : 1950 Admission Diagnosis:SEPSIS, UNSPECIFIED ORGANISM Attending: CARRIE LANG Current LOS: 8 Anticipated DC Date: Planned Disposition: Usp Facility Primary Insurance: [facility] [employer] Discharge Planning Comments: CM SPOKE WITH NURSE, NURSE STATES SHE IS GOING TO TALK TO PATIENT SON WITH SISTER OVER THE PHONE. STATES SHE WILL EXPLAIN PATIENT'S PROGNOSIS AND ANSWER QUESTIONS HE MAY HAVE. SAGAR WITH [facility] IS ALSO AWARE. CM TO FOLLOW AND ASSIST. Cable Former: Akilah Garcia DCP- Discharge Planning Updated by [email or web address]: Lucinda Hernandez on 02/15/19 5:[address] Patient Name: DIEGO ESCOBAR Admission Status: ER Accout number: [id number] Admission Date: 02-14-2019 : 1950 Admission Diagnosis: Attending: CARRIE LANG Current LOS: 1 Anticipated DC Date: Planned Disposition: Usp Facility Primary Insurance: [facility] [employer] Discharge Planning Comments: CM met with patient's sister Segundo d/t patient being confused and unable to answer questions. CM explained CM role and obtained verbal consent. Segundo stated that patient has been in [facility] AT [phone] getting Rehab since her last admission. Sister Segundo would like to make patient DNR but nursing spoke with son Sagar Escobar (whom is currently in [facility] in for paralysis) and he wants patient to be full code. CM asked Segundo about discharge plans and she stated she didn't know what the plan was. CM stated that the patient is unable to care for herself so she will need [facility] since she is unable to care for herself and doesn't have anyone to care for her at home. Segundo stated that her son Sagar will need to make that decision. CM will try to get in touch with son at [facility] to see what he plans for her upon discharge. CM will continue to follow and assist as needed with discharge planning / needs. Cable Former: Lucinda Hernandez DCPIA - Discharge Planning Initial Assessment Updated by [email or web address]: Lucinda Hernandez on 02/15/19 5:41 pm * Is the patient Alert and Oriented? No * How many steps to enter\exit or inside your home? * PCP DANIELLE * Pharmacy [facility] * Preadmission Environment Usp Facility * Facility Name [facility] AT [phone] * ADLs Partial Dependent * Partial ADLs (Assistance needed) Ambulation Bathing Dressing Eating Medication Management Toileting Transfers * List name and contact numbers for known caregivers / representatives who currently or will assist patient after discharge: SEGUNDO GAGE - SISTER- [phone] SAGAR ESCOBAR - SON - [phone] * Verbal permission to speak to the caregivers and representatives has been obtained from the patient. N/A * Community resources currently utilized None * Additional services required to return to the preadmission environment? No * Can the patient safely return to the preadmission environment? Yes * Has this patient been hospitalized within the prior 30 days at any hospital? Yes Last DP export: 02/25/19 1:40 p Patient Name: DIEGO ESCOBAR Page 84322 at 1912 All edits/amendments must be made on the electronic document DICTATION DATE: 02/28/191911 DOCKET SPECIALIST: NERI 02/28/191911 RPT#: [id number] [place] DATE: STATUS: ADM IN [facility] [address] [place] [address] END OF REPORT
--- NOTE | 2019-02-28 21:00 | NUR ---
PT IN BED RESTING. PT STARTED TO MAKE STRANGE NOISE, WENT IN TO CHECK ON HER AND HER EYES WERE OPEN AND SHE APPEARED TO BE STRUGGLING TO BREATHE. I ASKED HER IF SHE WAS IN ANY PAIN AND SHE NODDED HER HEAD YES. I TOLD HER I WOULD GO GET HER SOMETHING FOR THE PAIN AND SHE CONTINUED TO NOD HER HEAD YES. PRN MEDICATIONS GIVEN. NO FURTHER NEEDS NOTED AT THIS TIME. WILL CONTINUE TO MONITOR.
[2019-03-01] VITALS (21 sets, daily range): BP systolic 84–110; BP diastolic 52–75
[2019-03-01 05:35] LABS: BASOPHILS 0.1 % (0-2); EOSINOPHILS 0.4 % (0-7); HEMATOCRIT 32.7 % (36.0-48.0); HEMOGLOBIN 10.1 g/dL (12-16); IMMATURE GRANULOCYTES 0.4 % (0-5); LYMPHOCYTES 5.5 % (15-50); MCH 27.1 pg (26.0-34.0); MCHC 30.9 g/dL (31.0-37.0); MEAN PLATELET VOLUME 11.4 fL (7.4-10.4); NEUTROPHILS 90.6 % (40-80); PLATELET COUNT 118 10x3/uL (130-400); RBC 3.73 10x6/uL (4.00-5.40)
[2019-03-01 05:39] LABS: MCV 87.7 fL (80.0-100.0); WBC 10.3 10x3/uL (4.8-10.8)
[2019-03-01 06:02] LABS: ALBUMIN 2.4 g/dL (3.4-5.0); ALKALINE PHOSPHATASE 110 U/L (46-116); BILIRUBIN - TOTAL 5.36 mg/dL (0.2-1.3); CALC OSMOLALITY 289 mosm/kg (275-300); CALCIUM 8.7 mg/dL (8.5-10.1); CARBON DIOXIDE 35.6 mmol/L (21.0-32.0); CHLORIDE - SERUM 102 mmol/L (98-107); CREATININE - SERUM 0.7 mg/dL (0.6-1.3); GLUCOSE 78 mg/dL (74-106); SODIUM 143 mmol/L (136-145); UREA NITROGEN 29 mg/dL (7-18); eGFR NON AFRICAN AMERICAN 88 mL/min (90-120)
[2019-03-01 06:18] LABS: ALT (SGPT) 35 U/L (10-68)
--- NOTE | 2019-03-01 07:00 | NUR ---
BEDSIDE REPORT COMPLETE. SHIFT ASSESSMENT AND MOUTH CARE DONE. PT DENIES ANY NEEDS. WILL CONTINUE TO MONITOR.
--- NOTE | 2019-03-01 09:00 | NUR ---
SISTER AT BEDSIDE, UPDATE GIVEN. SISTER SAID SON, SAGAR, WILL BE BY SHORTLY AND THEY WILL MAKE FURTHER DECISIONS REGARDING CARE. ORAL CARE COMPLETE, WILL CONTINUE TO MONITOR.
--- NOTE | 2019-03-01 11:00 | NUR ---
REASSESSMENT COMPLETE. ORAL CARE AND REPOSITIONING DONE, NO NEEDS AT THIS TIME. WILL MONITOR.
--- NOTE | 2019-03-01 13:00 | NUR ---
PATIENT IN BED, RESTING. NO CHANGES NOTED. WILL CONTINUE TO MONITOR.
--- NOTE | 2019-03-01 14:09 | NUR ---
SANJAY SEQUINS WINDER CALLED GIVEN UPDATE. WILL REPORT TO HOSPICE. FAMILY GIVEN UPDATE. PT, SON AND SISTER IN AGREEANCE TO BE IN HOSPICE CARE AT THIS TIME.
--- NOTE | 2019-03-01 15:00 | NUR ---
JAKY KEITH AT BEDSIDE, ORAL CARE AND REPOSITIONING DONE.
--- NOTE | 2019-03-01 17:00 | NUR ---
BOX FOLDING MACHINE OPERATOR AND MD AT BEDSIDE ASSESSING PATIENT. FAMILY AT BEDSIDE. NO NEEDS AT THIS TIME.
--- NOTE | 2019-03-01 19:30 | NUR ---
LYING QUIETLY WITH NO DISTRESS NOTED. O2 2 3L PER NC ON. SPO2 @ 94%. IV TO RIGHT IJ WITHOUT REDNESS OR EDEMA NOTED. PITTING EDEMA NOT UPPER AND LOWER EXTREMITIES. REICH PATENT AND DRAINING DARK LEANNE URINE. NO COMPLAINTS VOICED. CL IN REACH
--- NOTE | 2019-03-01 19:48 | MORECARE ---
CASE MANAGEMENT DISCHARGE SUMMARY PATIENT: DIEGO ESCOBAR UNIT: [id number] ADM DATE: 02/14/19 AGE: 68 : 51 SEX: F ROOM/BED: D.2307 AUTHOR: BALBIR GREWAL PHYSICIAN: REFERRING PHYSICIAN: CARRIE LANG MD DATE OF SERVICE: 03/01/19 Discharge Plan Patient Name: DIEGO ESCOBAR Facility: [facility]:[place] : 1950 Planned Disposition: Hospice Home Anticipated Discharge Date: Discharge Date: Expected LOS: Initial Reviewer: [email or web address] Initial Review Date: 02/15/2019 Generated: 03/01/19 8:48 pm Comments DCP- Discharge Planning Updated by [email or web address]: Lucinda Hernandez on 03/01/19 6:[address] CM received notice that patient and family are wanting hospice. CM notified Sagar Constantino with [facility] to evaluate and admit if appropriate. Dr. Negro to evaluate and [facility] to have family and patient to sign records. Will admit this evening. CM will continue to follow and assist as needed with discharge planning / needs. DCP- Discharge Planning Updated by [email or web address]: Lucinda Hernandez on 02/28/19 6:[address] Patient's son here today along with her sister. Nursing turned sedation off so patient could let the family know what her wishes are. Patient and family have agreed to extubate and make DNR. Patient doesn't want to be re-intubated. Family may want to consult Hospice later if needed. CM will continue to follow and assist as needed with discharge planning / needs. DCP- Discharge Planning Updated by [email or web address]: Grecia Delvalle on 02/23/19 12:[address] Patient Name: DIEGO ESCOBAR Encounter No: [id number] : 1950 Primary Insurance: [facility] [employer] Anticipated DC Date: Planned Disposition: Detention Facility External Planned Provider: : DCP follow-up note: CM spoke to patient's son Sagar Escobar (who is currently in the hospital at [facility]) regarding his mom condition and his wishes. He reports the last time he spoke to his mother she told him she wanted to live even if that meant being on the vent. He stated he is getting out of the hospital on Thursday and he will call the nursing station to set up a time to meet with the physicians and physically lay eyes on his mother to make a decision. CM will continue to follow and will assist as needed with dc plans/needs. Grecia Delvalle RN, [facility] DCP- Discharge Planning Updated by [email or web address]: Akilah Garcia on 02/22/19 4:[address] Patient Name: DIEGO ESCOBAR Admission Status: ER Accout number: [id number] Admission Date: 02-14-2019 : 1950 Admission Diagnosis:SEPSIS, UNSPECIFIED ORGANISM Attending: CARRIE LANG Current LOS: 8 Anticipated DC Date: Planned Disposition: Detention Facility Primary Insurance: [facility] [employer] Discharge Planning Comments: CM SPOKE WITH NURSE, NURSE STATES SHE IS GOING TO TALK TO PATIENT SON WITH SISTER OVER THE PHONE. STATES SHE WILL EXPLAIN PATIENT'S PROGNOSIS AND ANSWER QUESTIONS HE MAY HAVE. SAGAR WITH [facility] IS ALSO AWARE. CM TO FOLLOW AND ASSIST. Care Advocate: Akilah Garcia DCP- Discharge Planning Updated by [email or web address]: Lucinda Hernandez on 02/15/19 5:[address] Patient Name: DIEGO ESCOBAR Admission Status: ER Accout number: [id number] Admission Date: 02-14-2019 : 1950 Admission Diagnosis: Attending: CARRIE LANG Current LOS: 1 Anticipated DC Date: Planned Disposition: Detention Facility Primary Insurance: [facility] [employer] Discharge Planning Comments: CM met with patient's sister Segundo d/t patient being confused and unable to answer questions. CM explained CM role and obtained verbal consent. Segundo stated that patient has been in [facility] AT [phone] getting Rehab since her last admission. Sister Segundo would like to make patient DNR but nursing spoke with son Sagar Escobar (whom is currently in [facility] in for paralysis) and he wants patient to be full code. CM asked Segundo about discharge plans and she stated she didn't know what the plan was. CM stated that the patient is unable to care for herself so she will need either SNF v/s Snf NH placement since she is unable to care for herself and doesn't have anyone to care for her at home. Segundo stated that her son Sagar will need to make that decision. CM will try to get in touch with son at [facility] to see what he plans for her upon discharge. CM will continue to follow and assist as needed with discharge planning / needs. Care Advocate: Lucinda Hernandez DCPIA - Discharge Planning Initial Assessment Updated by [email or web address]: Lucinda Hernandez on 02/15/19 5:41 pm * Is the patient Alert and Oriented? No * How many steps to enter\exit or inside your home? * PCP DANIELLE * Pharmacy [facility] * Preadmission Environment Detention Facility * Facility Name [facility] AT [phone] * ADLs Partial Dependent * Partial ADLs (Assistance needed) Ambulation Bathing Dressing Eating Medication Management Toileting Transfers * List name and contact numbers for known caregivers / representatives who currently or will assist patient after discharge: SEGUNDO GAGE - SISTER- [phone] SAGAR ESCOBAR - SON - [phone] * Verbal permission to speak to the caregivers and representatives has been obtained from the patient. N/A * Community resources currently utilized None * Additional services required to return to the preadmission environment? No * Can the patient safely return to the preadmission environment? Yes * Has this patient been hospitalized within the prior 30 days at any hospital? Yes Last DP export: 02/28/19 6:12 p Patient Name: DIEGO ESCOBAR Page 59059 at 1948 All edits/amendments must be made on the electronic document DICTATION DATE: 03/01/191947 SIDE STITCHING MACHINE OPERATOR: NERI 03/01/191947 RPT#: [id number] DC DATE: STATUS: ADM IN [facility] [address] [place] [address] END OF REPORT
--- NOTE | 2019-03-01 21:34 | NUR ---
POSITIONED FOR COMFORT.NO DISTRESS NOTED.
--- NOTE | 2019-03-01 23:50 | NUR ---
RESPOSITIONED FOR COMFORT.CL IN REACH
[2019-03-02] VITALS (7 sets, daily range): BP systolic 93–123; BP diastolic 56–75
--- NOTE | 2019-03-02 01:40 | NUR ---
AWAKE WITH NO COMPLAINTS. RESP UNLABORED.
--- NOTE | 2019-03-02 03:38 | NUR ---
EYES CLOSED RESP EVEN AND UNLABORE. CL IN REACH
--- NOTE | 2019-03-02 05:23 | NUR ---
AROUSES EASILY TO VERBAL STIMULI. NO DISTRESS NOTED. 02 @ 4L PER NC ON. SPO2 @ 96%. POSITIONED FOR COMFORT. CL IN REACH
--- NOTE | 2019-03-02 07:00 | NUR ---
BEDSIDE REPORT RECEIVED, SHIFT ASSESSMENT COMPLETE. O2 SAT 87 ON 2L NC. PATIENT IS REQUESTING A DRINK OF WATER, AND I TOLD HER THAT I COULD NOT GIVE HER WATER DUE TO RISK OF CHOKING, SHE SAID OK AND ACCEPTED ICE CHIPS INSTEAD. NO OTHER NEEDS AT THIS TIME. WILL CONTINUE TO MONITOR.
--- NOTE | 2019-03-02 09:00 | NUR ---
ICE CREAM GIVEN AND CONSUMED WITH NO DIFFICULTIES. O2 SAT 89 ON 2L NC. WILL CONTINUE TO MONITOR.
--- NOTE | 2019-03-02 11:00 | NUR ---
DR LANG AT BEDSIDE UPDATING PT AND SON SAGAR OF POTENTIAL OUTCOMES. PT STATES THAT SHE WANTS TO BE ON HOSPICE AND DOES NOT WANT TO BE RE-INTUBATED IF SHE STOPS BREATHING. HOSPICE NURSE TOOK SON SAGAR TO FAMILY ROOM TO DISCUSS HOSPICE. REASSESSMENT AND REPOSITIONING DONE.
--- NOTE | 2019-03-02 12:21 | NUR ---
Nutrition follow-up: Pt extubated 03/01; possible hospice Pt eating ice cream RDN following.
--- NOTE | 2019-03-02 13:00 | NUR ---
HOSPICE NURSE AT BEDSIDE COMPLETING ADMISSION INTO HOSPICE CARE. PT DENIES ANY NEEDS AT THIS TIME.
--- NOTE | 2019-03-02 13:27 | NUR ---
PT DISCHARGED TO HOSPICE CARE AT THIS TIME. VSS. ADMISSIONS CALLED TO GET NEW MED REC NUMBER. NEW ORDERS RECEIVED WILL ADM.
--- NOTE | 2019-03-02 17:21 | MORECARE ---
CASE MANAGEMENT DISCHARGE SUMMARY PATIENT: DIEGO ESCOBAR UNIT: [id number] ADM DATE: 02/14/19 AGE: 68 : 51 SEX: F ROOM/BED: D.2307 AUTHOR: URI,DOC PHYSICIAN: REFERRING PHYSICIAN: CARRIE CHOW MD DATE OF SERVICE: 03/02/19 Discharge Plan Patient Name: DIEGO ESCOBAR Facility: [facility]:[place] : 1950 Planned Disposition: Hospice Home Anticipated Discharge Date: Discharge Date: 03/02/2019 Expected LOS: Initial Reviewer: [email or web address] Initial Review Date: 02/15/2019 Generated: 03/02/19 6:20 pm Comments DCP- Discharge Planning Updated by [email or web address]: Lucinda Hernandez on 03/02/19 4:[address] Chow spoke with son and patient separately. Patient stated that she didn't want to be placed back on ventilator but she was alright with having CPR. Dr. Chow then spoke with son and told him what patient wishes are and he explained that he was going to have to make that decision for the patient because if CPR is being done then she would be requiring ventilation also. Dr. Chow explained for the family to take the time needed to make decision. [facility] was here and spoke with family also. Patient was eventually admitted to [facility]. DCP- Discharge Planning Updated by [email or web address]: Lucinda Hernandez on 03/01/19 6:[address] CM received notice that patient and family are wanting hospice. CM notified Sagar Constantino with [facility] to evaluate and admit if appropriate. Dr. Negro to evaluate and [facility] to have family and patient to sign records. Will admit this evening. CM will continue to follow and assist as needed with discharge planning / needs. DCP- Discharge Planning Updated by [email or web address]: Lucinda Hernandez on 02/28/19 6:[address] Patient's son here today along with her sister. Nursing turned sedation off so patient could let the family know what her wishes are. Patient and family have agreed to extubate and make DNR. Patient doesn't want to be re-intubated. Family may want to consult Hospice later if needed. CM will continue to follow and assist as needed with discharge planning / needs. DCP- Discharge Planning Updated by [id number]: Grecia Delvalle on 02/23/19 12:[address] Patient Name: DIEGO ESCOBAR Encounter No: [id number] : 1950 Primary Insurance: [facility] [employer]UT[employer] Anticipated DC Date: Planned Disposition: Fpc Facility External Planned Provider: : DCP follow-up note: CM spoke to patient's son Sagar Escobar (who is currently in the hospital at [facility]) regarding his mom condition and his wishes. He reports the last time he spoke to his mother she told him she wanted to live even if that meant being on the vent. He stated he is getting out of the hospital on Thursday and he will call the nursing station to set up a time to meet with the physicians and physically lay eyes on his mother to make a decision. CM will continue to follow and will assist as needed with dc plans/needs. Grecia Delvalle RN, [facility] DCP- Discharge Planning Updated by [email or web address]: Akilah Garcia on 02/22/19 4:[address] Patient Name: DIEGO ESCOBAR Admission Status: ER Accout number: [id number] Admission Date: 02-14-2019 : 1950 Admission Diagnosis:SEPSIS, UNSPECIFIED ORGANISM Attending: CARRIE CHOW Current LOS: 8 Anticipated DC Date: Planned Disposition: Fpc Facility Primary Insurance: [facility] [employer] Discharge Planning Comments: CM SPOKE WITH NURSE, NURSE STATES SHE IS GOING TO TALK TO PATIENT SON WITH SISTER OVER THE PHONE. STATES SHE WILL EXPLAIN PATIENT'S PROGNOSIS AND ANSWER QUESTIONS HE MAY HAVE. SAGAR WITH [facility] IS ALSO AWARE. CM TO FOLLOW AND ASSIST. Lineman: Akilah Garcia DCP- Discharge Planning Updated by [id number]: Lucinda Hernandez on 02/15/19 5:[address] Patient Name: DIEGO ESCOBAR Admission Status: ER Accout number: [id number] Admission Date: 02-14-2019 : 1950 Admission Diagnosis: Attending: CARRIE CHOW Current LOS: 1 Anticipated DC Date: Planned Disposition: Fpc Facility Primary Insurance: [facility] [employer] Discharge Planning Comments: CM met with patient's sister Segundo d/t patient being confused and unable to answer questions. CM explained CM role and obtained verbal consent. Segundo stated that patient has been in [facility] AT [phone] getting Rehab since her last admission. Sister Segundo would like to make patient DNR but nursing spoke with son Sagar Escobar (whom is currently in [facility] in for paralysis) and he wants patient to be full code. CM asked Segundo about discharge plans and she stated she didn't know what the plan was. CM stated that the patient is unable to care for herself so she will need either SNF v/s [facility] NH placement since she is unable to care for herself and doesn't have anyone to care for her at home. Segundo stated that her son Sagar will need to make that decision. CM will try to get in touch with son at [facility] to see what he plans for her upon discharge. CM will continue to follow and assist as needed with discharge planning / needs. Lineman: Lucinda Hernandez DCKOURTNEYA - Discharge Planning Initial Assessment Updated by [email or web address]: Lucinda Hernandez on 02/15/19 5:41 pm * Is the patient Alert and Oriented? No * How many steps to enter\exit or inside your home? * PCP DANIELLE * [facility] * Preadmission Environment Fpc Facility * Facility Name [facility] AT [phone] * ADLs Partial Dependent * Partial ADLs (Assistance needed) Ambulation Bathing Dressing Eating Medication Management Toileting Transfers * List name and contact numbers for known caregivers / representatives who currently or will assist patient after discharge: SEGUNDO GAGE - SISTER- [phone] SAGAR ESCOBAR - SON - [phone] * Verbal permission to speak to the caregivers and representatives has been obtained from the patient. N/A * Community resources currently utilized None * Additional services required to return to the preadmission environment? No * Can the patient safely return to the preadmission environment? Yes * Has this patient been hospitalized within the prior 30 days at any hospital? Yes Last DP export: 03/01/19 6:48 p Patient Name: DIEGO ESCOBAR Page 13734 at 8345 All edits/amendments must be made on the electronic document DICTATION DATE: 03/02/191719 PUNCH CARD OPERATOR: NERI 03/02/191719 RPT#: [id number] DC DATE:03/02/19 STATUS: DIS IN [facility] [address] [place] [address] END OF REPORT
== END 2019-03-02 13:52 | disposition hospice, inpatient (51) | DRG 870 ==
LOC: D.ER 05:56 → D.M2 09:22 → D.ICU 09:22
PROVIDERS: Family Medicine; Internal Medicine Hematology & Oncology; Internal Medicine Nephrology; Internal Medicine Pulmonary Disease; Legal Medicine; ADMIT Internal Medicine Nephrology; ATTEND Internal Medicine Nephrology
PROC: 5A1945Z Respiratory Ventilation, 24-96 Consecutive Hours (ICD-10-PCS; 2019-02-17)
PROC: 0BH17EZ Insertion of Endotracheal Airway into Trachea, Via Natural or Artificial Opening (ICD-10-PCS; 2019-02-17)
PROC: 05HM33Z Insertion of Infusion Device into Right Internal Jugular Vein, Percutaneous Approach (ICD-10-PCS; 2019-02-18)
PROC: 5A1955Z Respiratory Ventilation, Greater than 96 Consecutive Hours (ICD-10-PCS; principal; 2019-02-20)
PROC: 0BH17EZ Insertion of Endotracheal Airway into Trachea, Via Natural or Artificial Opening (ICD-10-PCS; 2019-02-20)
PROC: 0W9B3ZZ Drainage of Left Pleural Cavity, Percutaneous Approach (ICD-10-PCS; 2019-02-20)
PROC: 0B9J7ZX Drainage of Left Lower Lung Lobe, Via Natural or Artificial Opening, Diagnostic (ICD-10-PCS; 2019-02-20)
DX: A41.9 Sepsis, unspecified organism (principal); I26.99 Other pulmonary embolism without acute cor pulmonale; J96.21 Acute and chronic respiratory failure with hypoxia; G93.41 Metabolic encephalopathy; I50.43 Acute on chronic combined systolic (congestive) and diastolic (congestive) heart failure; N17.0 Acute kidney failure with tubular necrosis; I46.9 Cardiac arrest, cause unspecified; E87.2 Acidosis; E87.0 Hyperosmolality and hypernatremia; J44.1 Chronic obstructive pulmonary disease with (acute) exacerbation; I48.92 Unspecified atrial flutter; C64.2 Malignant neoplasm of left kidney, except renal pelvis; N39.0 Urinary tract infection, site not specified; A15.9 Respiratory tuberculosis unspecified; E16.2 Hypoglycemia, unspecified; D50.9 Iron deficiency anemia, unspecified; I11.0 Hypertensive heart disease with heart failure; I25.10 Atherosclerotic heart disease of native coronary artery without angina pectoris; K29.00 Acute gastritis without bleeding; E78.5 Hyperlipidemia, unspecified; K72.90 Hepatic failure, unspecified without coma

== ENCOUNTER 2019-03-02 14:00 | Inpatient (IN) | payer OTHER ==
[~2019-03-02] VITALS: Ht 162.6 cm; Wt 100.2 kg
--- NOTE | 2019-03-02 14:00 | NUR ---
PATIENT ADMITTED TO HOSPICE CARE, FAMILY AT BEDSIDE. B/P 107/73 MAP 89, HR 113, O2 SAT 93 ON 2L NC. R IJ, SALINE LOCKED, DRESSING CDI. WILL CONTINUE TO MONITOR.
[2019-03-02 14:08] VITALS: BP 105/73; BMI 38.0
--- NOTE | 2019-03-02 15:10 | NUR ---
RECEIVED VIA BED FROM ICU INTO ROOM 1207.IS ALERT AND ORIENTED.O2AT 2L/MIN NC INTACT.REICH CATH PATENT TO GRAVITY WITH DARK YELLOW URINE.IJ TO RT NECK WITH DRESSING INTACT.WILL CONTINUE WITH PLAN OF CARE.ICE CHIPS GIVEN PER HER REQUEST.FAMILY AT BEDSIDE.
--- NOTE | 2019-03-02 18:55 | NUR ---
RESTING QUIETLY WITH EYES CLOSED.CL IN EASY REACH.
--- NOTE | 2019-03-02 19:45 | NUR ---
RECEIVED PT. RR RAPID AND EVEN. DENIES NEEDS AT THIS TIME. NO S/S OF PAIN OR DISTRESS. WILL MONIOTR.
[2019-03-02 20:16] VITALS: BP 101/69
--- NOTE | 2019-03-03 07:30 | NUR ---
The patient is awake sitting in the bed with her son at the bedside.
--- NOTE | 2019-03-03 09:40 | NUR ---
Patient sitting up in bed, son at bedside. Denies needs.
[2019-03-03 10:06] VITALS: BMI 37.9
--- NOTE | 2019-03-03 11:56 | MORECARE ---
CASE MANAGEMENT DISCHARGE SUMMARY PATIENT: DIEGO ESCOBAR UNIT: [id number] ADM DATE: 03/02/19 AGE: 68 : 51 SEX: F ROOM/BED: D.1207 AUTHOR: BALBIR GREWAL PHYSICIAN: REFERRING PHYSICIAN: SHAQ CROW MD DATE OF SERVICE: 03/03/19 Discharge Plan Patient Name: DIEGO ESCOBAR [facility] [facility] 1950 Planned Disposition: Anticipated Discharge Date: Discharge Date: Expected LOS: Initial Reviewer: [email or web address] Initial Review Date: 03/02/2019 Generated: 03/03/19 12:56 pm Comments DCP- Discharge Planning Updated by [email or web address]: Jeaneth Cordova on 03/03/19 10:[address] PATIENT WAS ADMITTED TO [facility]/ [facility]. SHE WAS TRANSFERED TO [facility] FROM ICU. Patient Name: DIEGO ESCOBAR Page 46102 at 1156 All edits/amendments must be made on the electronic document DICTATION DATE: 03/03/19 1156 ZOOGLER: NERI 03/03/19 1156 RPT#: [id number] DC DATE: STATUS: ADM IN [facility] [address] [place] [address] END OF REPORT
--- NOTE | 2019-03-03 12:35 | NUR ---
The patient requested ice chips and she did well with staff assist. Lunch tray is in the room offered her the soup, she declined, offered her the pudding she declined. She did, however, eat the ice cream. Denies needs.
--- NOTE | 2019-03-03 15:18 | NUR ---
The patient's Dr. and the [facility] nurse are here.
--- NOTE | 2019-03-03 15:44 | NUR ---
The patient received atropine one drop now.
--- NOTE | 2019-03-03 15:44 | NUR ---
The patient is making facial grimacing. Did provide Morphine IVP now, see MAR.
[2019-03-03 16:42] VITALS: Ht 162.6 cm; Wt 100.2 kg
--- NOTE | 2019-03-03 16:57 | MORECARE ---
CASE MANAGEMENT DISCHARGE SUMMARY PATIENT: DIEGO ESCOBAR UNIT: [id number] ADM DATE: 03/02/19 AGE: 68 : 51 SEX: F ROOM/BED: D.1207 AUTHOR: BALBIR GREWAL PHYSICIAN: REFERRING PHYSICIAN: SHAQ CROW MD DATE OF SERVICE: 03/03/19 Discharge Plan Patient Name: DIEGO ESCOB[facility] [facility] 1950 Planned Disposition: Anticipated Discharge Date: Discharge Date: Expected LOS: Initial Reviewer: [email or web address] Initial Review Date: 03/02/2019 Generated: 03/03/19 5:56 pm Comments DCP- Discharge Planning Updated by [email or web address]: Jeaneth Cordova on 03/03/19 10:[address] PATIENT WAS ADMITTED TO [facility] W/ [facility]. SHE WAS TRANSFERED TO [facility] FROM ICU. Last DP export: 03/03/19 10:56 a Patient Name: DIEGO ESCOBAR Page [id number] at 1657 All edits/amendments must be made on the electronic document DICTATION DATE: 03/03/191655 BILLIARD PLAYER: NERI 03/03/191655 RPT#: [id number] DC DATE: STATUS: ADM IN [facility] [address] [place] [address] END OF REPORT
--- NOTE | 2019-03-03 17:23 | NUR ---
The patient is sitting up in bed, son at bedside, denies needs.
--- NOTE | 2019-03-03 17:25 | NUR ---
Checked on the patient, spoke to the patient's son and sister. They wanted to know if the Hospice nurse came by and did let them know that she did and that she received morphine and atropine. They were pleased to know that, except sheis not eating at this time.
--- NOTE | 2019-03-03 18:36 | NUR ---
Changed patient's position to left side. Did provide her atropine, see MAR.
--- NOTE | 2019-03-03 19:45 | NUR ---
RECEIVED PT. IN BED RESTING QUIETLY. NO NEEDS EXPRESSED. NO S/S OF PAIN OR DISTRESS NOTED. WILL CPOC.
--- NOTE | 2019-03-04 03:20 | NUR ---
REPOSTIONED PATIENT AND PROVIDED ATROPINE. PT JUST STATING "EVIDENTLY" NO S/S OF DISTRESS NOTED. NO S/S OF PAIN. WILL CPOC
--- NOTE | 2019-03-04 07:57 | NUR ---
AWAKE AND ALERT. ORIENTED TO SELF. RESPONDS IN YES NO ANSWERS, DIFFICULT TO ASSESS ORIENTATION. LUNGS HAVE CRACKLES THROUGHOUT OCCASSIONAL DRY COUGH NOTED. SKIN IS INTACT WITHOUT REDNESS BUT SOME EDEMA NOTED GENERALIZED. RIGHT IJ IS PATENT WITHOUT REDNESS AT INSERTION SITE. REICH PATENT WITH DARK URINE, SCANT AMOUNT. BREAKFAST TRAY SERVED IN ROOM. REFUSED TO EAT BUT DRANK A FEW SIPS OF APPLE JUICE. WILL ATTEMPT AGAIN.
[2019-03-04 09:20] VITALS: BP 92/53
--- NOTE | 2019-03-04 12:30 | NUR ---
PATIENT VSS VERY LOW. SISTER NOTIFIED OF CURRENT CONDITION. UNABLE TO REACH SON AT THIS TIME.
--- NOTE | 2019-03-04 12:45 | NUR ---
HOSPICE NOTIFIED OF PROBABLE . WILL AWAIT THEM TO PRONOUNCE.
--- NOTE | 2019-03-04 13:00 | NUR ---
PATIENT PRONOUNCED PER HOSPICE NURSE, BRENNEN LAKHANI RN. FAMILY HERE AT BEDSIDE. CONTINUED ATTEMPTS TO REACH SON.
--- NOTE | 2019-03-04 13:45 | NUR ---
SON HERE. ALL QUESTIONS ANSWERED. [facility]NER[facility] HOME NOTIFIED.
--- NOTE | 2019-03-05 09:45 | MORECARE ---
CASE MANAGEMENT DISCHARGE SUMMARY PATIENT: DIEGO ESCOBAR UNIT: [id number] ADM DATE: 03/02/19 AGE: 68 : 51 SEX: F ROOM/BED: D.1207 AUTHOR: BALBIR GREWAL PHYSICIAN: REFERRING PHYSICIAN: SHAQ CROW MD DATE OF SERVICE: 03/05/19 Discharge Plan Patient Name: DIEGO ESCOBAR [facility] : 1950 Planned Disposition: Anticipated Discharge Date: Discharge Date: 03/04/2019 Expected LOS: Initial Reviewer: [email or web address] Initial Review Date: 03/02/2019 Generated: 03/05/19 10:45 am Comments DCP- Discharge Planning Updated by [email or web address]: Jeaneth Cordova on 03/03/19 10:[address] PATIENT WAS ADMITTED TO [facility] W/ [facility]. SHE WAS TRANSFERED TO [facility] FROM ICU. Last DP export: 03/03/19 3:57 p Patient Name: IDEGO ESCOBAR Page 19859 at 0945 All edits/amendments must be made on the electronic document DICTATION DATE: 03/05/19944 ELECTRONIC MASKING SYSTEM OPERATOR: NERI 03/05/19944 RPT#: [id number] DC DATE:03/04/19 STATUS: DIS IN [facility] [address] [place] [address] END OF REPORT
== END 2019-03-04 15:06 | DRG 951 ==
LOC: D.ICU 14:00 → D.M3 14:00
PROVIDERS: ADMIT Legal Medicine; ATTEND Legal Medicine
DX: Z51.5 Encounter for palliative care (principal)